=== PATIENT | male | born 1945 | race Caucasian/White ===

== ENCOUNTER 2018-08-13 15:02 | Observation (INO) | payer MEDICARE, SELFPAY ==
[2018-08-13] VITALS (7 sets, daily range): BP systolic 124–152; BP diastolic 62–95; PULSE 68–86; RESP 14–20; TEMP 36.4–36.6; O2SAT 92–97; BMI 45.6; BMI 44.5
--- NOTE | 2018-08-13 15:16 | EKG12_ITS ---
Test Reason : ABN PAIN Blood Pressure : / mmHG Vent. Rate : 068 BPM Atrial Rate : 068 BPM P-R Int : 184 ms QRS Dur : 104 ms QT Int : 414 ms P-R-T Axes : 048 043 090 degrees QTc Int : 440 ms Normal sinus rhythm Nonspecific ST and T wave abnormality Abnormal ECG Confirmed by JEFFERY MENDES, DWAYNE ([id number]), desk editor JENNIFER PALMA ([id number] on 08/17/2018 5:18:40 PM Referred By: RICHARD Confirmed By:DWAYNE GIL MD
--- NOTE | 2018-08-13 15:16 | CT_ITS ---
STUDY: CT ABDOMEN AND PELVIS WITHOUT CONTRAST REASON FOR EXAM: Male, 72 years old. Epigastric pain. Muscular dystrophy. RADIATION DOSAGE (If Supplied By Facility): CTDIvol = ( 34.26 ) mGy, DLP = ( 1962.23 ) mGycm TECHNIQUE: Transaxial images were obtained from the dome of the diaphragm to the symphysis pubis without oral contrast, and without intravenous contrast. Sagittal and coronal images were reconstructed. Individualized dose optimization techniques were used for this CT. COMPARISON: None. FINDINGS: The visualized lung bases are unremarkable. The visualized portions of the heart are within normal limits. Normal liver. There are multiple gallstones. Normal spleen. Normal pancreas. Normal bilateral adrenal glands. No acute abnormalities of the kidneys. No stones and no hydronephrosis. 1.7 cm exophytic mass of the lower pole of the left kidney, most likely a cyst but further evaluation with ultrasound or contrast CT is recommended. Evaluation of the GI tract is limited by absence of oral contrast. Cannot exclude stomach wall thickening. No dilated loops of bowel or evidence for obstruction. Cannot exclude segmental thickening of the [place] of the small or large bowel. Cannot exclude enteritis or colitis. Moderate diffuse fecal retention. Diverticulosis without definite diverticulitis. Appendix within normal limits. Normal abdominal aorta. Normal inferior vena cava. Normal retroperitoneum. Normal urinary bladder. Marked fatty exstrophy is seen of essentially all the visualized muscles except for the gluteus muscles. There are diffuse degenerative changes of the visualized lumbar spine. Compression fractures of indeterminate age are seen at T12, L1, L2, and L3. CT/Abdomen/Pelvis without Cont IMPRESSION: No definite acute abnormalities are seen. Probable cyst of the lower pole of left kidney, suggest confirmation with noncontrast CT or ultrasound. Electronically Signed: Jaquan Harrington MD at 16:15 EST , Service support ,
--- NOTE | 2018-08-13 15:17 | RAD_ITS ---
STUDY: X-RAY CHEST REASON FOR EXAM: Male, 72 years old. Chest pain. TECHNIQUE: Frontal and lateral views of the chest. COMPARISON: 02/14/2015. FINDINGS: The lungs are clear and expanded. There is no demonstrated pleural abnormality. Normal size heart. Normal mediastinum and joey. Normal visualized pulmonary arteries. Normal visualized aortic arch and descending thoracic aorta. There are diffuse degenerative changes of the visualized thoracic spine. Normal visualized ribs, clavicles, and shoulders. There is no demonstrated abnormality of the visualized soft tissue structures of the upper abdomen. RAD/Chest PA and Lateral IMPRESSION: No acute chest disease. Electronically Signed: Jaquan Harrington MD at 16:10 EST , Service support ,
--- NOTE | 2018-08-13 15:19 | ED.VISSUMM ---
- ER Visit Summary Date of Service: 08/13/18 Chief Complaint: Abdominal pain History of Present Illness: The patient is a 72 M who presents for abdominal pain with onset shortly prior to presentation. Patient was sitting at his computer when he began having a pressure and discomfort in the upper abdomen in the epigastric region that radiated down each side of the abdomen. Afterwards patient had one loose stool. Patient had associated nausea and diaphoresis. His called EMS. Patient states he still has 4 out of 10 discomfort. He received 4 baby aspirin and 1 nitro by EMS due to the lower chest/upper abdominal area of his pain and finding him diaphoretic on initial evaluation. Patient states he had some improvement after the nitro. Denies shortness of breath, URI symptoms, urinary symptoms, any radiation to the back or arms, or headache. Patient has history of hypertension, atrial fibrillation on Eliquis, aortic aneurysm and muscular dystrophy, with bilateral lower extremity splints and uses a wheelchair. Physical Examination: Vital signs: afebrile, hemodynamically stable, no hypoxia on room air BMI of 45 General: well nourished, well developed, sitting in bed in no distress Skin: warm, dry, no rash, no pallor, no diaphoresis HEENT: normocephalic and atraumatic; PERRL, EOMI, moist mucous membranes Cardiovascular: regular rate and rhythm without murmurs, trace symmetric peripheral edema with strong compression stockings in place bilaterally, radial pulses are 2+ and symmetric Respiratory: No increased work of breathing, lungs are clear to auscultation bilaterally, no rales, rhonchi or wheezing Abdominal: Abdomen is soft, tender in the right mid abdomen with hyperactive bowel sounds, no right upper quadrant or right lower quadrant tenderness, no left-sided tenderness, no epigastric tenderness, no guarding or rebound, no masses MSK: Moves all extremities, no deformities, braces in place bilateral lower extremities Neuro: Awake and alert, oriented ?4. No facial droop, sensation and motor function intact and symmetric Test Results: Abnormal Lab Results 08/13/18 08/13/18 08/13/18 15:10 15:10 15:10 WBC 12.1 H RBC 5.07 Hgb 14.0 Hct 44.4 MCV 87.6 MCH 27.6 MCHC 31.5 L RDW 16.3 H RDW Differential 51.7 H Plt Count 226 MPV 10.8 Immature Gran % (Auto) 0.700 Neut % (Auto) 73.5 H Lymph % (Auto) 15.4 L [place] % (Auto) 6.6 Eos % (Auto) 3.2 Baso % (Auto) 0.6 Absolute Neuts (auto) 8.9 H Absolute Lymphs (auto) 1.86 Total Counted Not Reportable PT 14.2 INR 1.1 APTT 33.6 Sodium 142 Potassium 4.3 Chloride 104 Carbon Dioxide 28.0 Anion Gap 10 BUN 17 Creatinine 0.62 L Estim Creat Clear Calc 66.50 Est GFR (MDRD) Af Amer 163 Est GFR (MDRD) Non-Af 135 BUN/Creatinine Ratio 27.2 H Glucose 130 H Lactic Acid Calcium 8.6 Total Bilirubin 0.50 AST 79 H ALT 105 H Alkaline Phosphatase 122 H Troponin I < 0.015 Total Protein 7.3 Albumin 3.2 Globulin 4.1 Albumin/Globulin Ratio 0.8 L Lipase 64 L Urine Color Urine Clarity Urine pH Ur Specific [place] Urine Protein Urine Glucose (UA) Urine Ketones Urine Occult Blood Urine Nitrite Urine Bilirubin Urine Urobilinogen Ur Leukocyte Esterase Urine RBC Urine WBC Ur Squamous Epith Cells Urine Bacteria Urine Mucus 08/13/18 08/13/18 15:37 18:50 WBC RBC Hgb Hct MCV MCH MCHC RDW RDW Differential Plt Count MPV Immature Gran % (Auto) Neut % (Auto) Lymph % (Auto) [place] % (Auto) Eos % (Auto) Baso % (Auto) Absolute Neuts (auto) Absolute Lymphs (auto) Total Counted PT INR APTT Sodium Potassium Chloride Carbon Dioxide Anion Gap BUN Creatinine Estim Creat Clear Calc Est GFR (MDRD) Af Amer Est GFR (MDRD) Non-Af BUN/Creatinine Ratio Glucose Lactic Acid 1.5 Calcium Total Bilirubin AST ALT Alkaline Phosphatase Troponin I Total Protein Albumin Globulin Albumin/Globulin Ratio Lipase Urine Color Yellow Urine Clarity Clear Urine pH 8.0 Ur Specific [place] 1.010 Urine Protein Negative Urine Glucose (UA) Normal Urine Ketones Negative Urine Occult Blood Negative Urine Nitrite Negative Urine Bilirubin Negative Urine Urobilinogen Normal Ur Leukocyte Esterase Negative Urine RBC 0 SEEN Urine WBC 0 SEEN Ur Squamous Epith Cells 0 SEEN Urine Bacteria 0 SEEN Urine Mucus 0 SEEN Clinical Impression(s) from Imaging Studies Abdomen/Pelvis CT 08/13/18 15:16 IMPRESSION: No definite acute abnormalities are seen. Probable cyst of the lower pole of left kidney, suggest confirmation with noncontrast CT or ultrasound. Electronically Signed: Jaquan Harrington MD at 16:15 EST , Service support , Chest X-Ray 08/13/18 15:17 IMPRESSION: No acute chest disease. Electronically Signed: Jaquan Harrington MD at 16:10 EST , Service support , Abdomen/Pelvis CTA 08/13/18 17:15 IMPRESSION: No actual aneurysm. Elongation, ectasia, and calcification of the abdominal aorta. No acute abnormality or change since earlier today. Electronically Signed: Jaquan Harrington MD at 18:18 EST , Service support , Chest CTA 08/13/18 17:15 IMPRESSION: No evidence for PE. Moderate to severe centrilobular emphysema. Electronically Signed: Jaquan Harrington MD at 18:12 EST , Service support , Medications Given Sodium Chloride () 1,000 mls @ 125 mls/hr IV .Q8H HI Last Admin: 08/13/18 17:52 Dose: Not Given Admin: 08/13/18 15:28 Dose: 125 mls/hr Discontinued Medications Fentanyl Citrate (Sublimaze (100mcg Ampule)) 50 mcg IV X1 ONE Stop: 08/13/18 15:17 Last Admin: 08/13/18 15:28 Dose: 50 mcg Sodium Chloride () 1,000 mls @ 999 mls/hr IV .Q1H1M ONE Stop: 08/13/18 18:16 Last Admin: 08/13/18 17:52 Dose: 999 mls/hr Ondansetron HCl (Zofran) 4 mg IV X1 ONE Stop: 08/13/18 15:17 Last Admin: 08/13/18 15:28 Dose: 4 mg Emergency Department Course and Treatment: Patient presents with complaint of upper abdominal pain, equivocally lower chest vs. upper abdomen, with no radiation other than inferiorly down both sides of the abdomen. Patient had associated diaphoresis, nausea and lightheadedness followed by a loose stool, and currently is complaining of pressure. Does have history of a thoracic aortic aneurysm, however his description of symptoms is not typical for dissection or ruptured aneurysm. Chest pain workup and abdominal workup were included, with possible vascular issue on the differential. Patient received aspirin pre-hospital and one nitro with questionable improvement. Allergy to codeine, so given fentanyl for pain. EKG showed a sinus rhythm with no ischemic changes or ectopy. Troponin negative. Mild leukocytosis of 12.1. No electrolyte derangements or hepatic derangements. Urine negative for infection. Troponin negative. Lactate within normal limits. CT flank showed no acute process to explain patient's discomfort. A chest x-ray showed no abnormalities either. Because patient does have the reported history of thoracic aortic aneurysm, CTA of the chest abdomen and pelvis was performed to rule out dissection or leaking aneurysm. It showed no dissection, no PE and no aneurysm. Patient will be admitted for chest pain rule out, as acute coronary syndrome is still on the differential. Patient was pain-free at the time of reevaluation. He was discussed with the hospitalist and admitted for further chest pain rule out. Treatment Plan: [] Disposition: [] Impression: Chest pain, epigastric pain, concern for acute coronary syndrome This note was generated with [employer] dictation software. It may contain incorrect words, spelling, and punctuation that were not noted in review of the chart prior to signing ED Disposition - Plan for ED Patient: Disposition: Acute Care Hospital [facility]
--- NOTE | 2018-08-13 15:22 | ED.DCSUM_ITS ---
- ER Visit Summary Date of Service: 08/13/18 Chief Complaint: Abdominal pain History of Present Illness: The patient is a 72 M who presents for abdominal pain with onset shortly prior to presentation. Patient was sitting at his computer when he began having a pressure and discomfort in the upper abdomen in the epigastric region that radiated down each side of the abdomen. Afterwards patient had one loose stool. Patient had associated nausea and diaphoresis. His called EMS. Patient states he still has 4 out of 10 discomfort. He received 4 baby aspirin and 1 nitro by EMS due to the lower chest/upper abdominal area of his pain and finding him diaphoretic on initial evaluation. Patient states he had some improvement after the nitro. Denies shortness of breath, URI symptoms, urinary symptoms, any radiation to the back or arms, or headache. Patient has history of hypertension, atrial fibrillation on Eliquis, aortic aneurysm and muscular dystrophy, with bilateral lower extremity splints and uses a wheelchair. Physical Examination: Vital signs: afebrile, hemodynamically stable, no hypoxia on room air BMI of 45 General: well nourished, well developed, sitting in bed in no distress Skin: warm, dry, no rash, no pallor, no diaphoresis HEENT: normocephalic and atraumatic; PERRL, EOMI, moist mucous membranes Cardiovascular: regular rate and rhythm without murmurs, trace symmetric peripheral edema with strong compression stockings in place bilaterally, radial pulses are 2+ and symmetric Respiratory: No increased work of breathing, lungs are clear to auscultation bilaterally, no rales, rhonchi or wheezing Abdominal: Abdomen is soft, tender in the right mid abdomen with hyperactive bowel sounds, no right upper quadrant or right lower quadrant tenderness, no left-sided tenderness, no epigastric tenderness, no guarding or rebound, no masses MSK: Moves all extremities, no deformities, braces in place bilateral lower extremities Neuro: Awake and alert, oriented ?4. No facial droop, sensation and motor function intact and symmetric Test Results: Abnormal Lab Results 08/13/18 08/13/18 08/13/18 15:10 15:10 15:10 WBC 12.1 H RBC 5.07 Hgb 14.0 Hct 44.4 MCV 87.6 MCH 27.6 MCHC 31.5 L RDW 16.3 H RDW Differential 51.7 H Plt Count 226 MPV 10.8 Immature Gran % (Auto) 0.700 Neut % (Auto) 73.5 H Lymph % (Auto) 15.4 L [place] % (Auto) 6.6 Eos % (Auto) 3.2 Baso % (Auto) 0.6 Absolute Neuts (auto) 8.9 H Absolute Lymphs (auto) 1.86 Total Counted Not Reportable PT 14.2 INR 1.1 APTT 33.6 Sodium 142 Potassium 4.3 Chloride 104 Carbon Dioxide 28.0 Anion Gap 10 BUN 17 Creatinine 0.62 L Estim Creat Clear Calc 66.50 Est GFR (MDRD) Af Amer 163 Est GFR (MDRD) Non-Af 135 BUN/Creatinine Ratio 27.2 H Glucose 130 H Lactic Acid Calcium 8.6 Total Bilirubin 0.50 AST 79 H ALT 105 H Alkaline Phosphatase 122 H Troponin I < 0.015 Total Protein 7.3 Albumin 3.2 Globulin 4.1 Albumin/Globulin Ratio 0.8 L Lipase 64 L Urine Color Urine Clarity Urine pH Ur Specific [place] Urine Protein Urine Glucose (UA) Urine Ketones Urine Occult Blood Urine Nitrite Urine Bilirubin Urine Urobilinogen Ur Leukocyte Esterase Urine RBC Urine WBC Ur Squamous Epith Cells Urine Bacteria Urine Mucus 08/13/18 08/13/18 15:37 18:50 WBC RBC Hgb Hct MCV MCH MCHC RDW RDW Differential Plt Count MPV Immature Gran % (Auto) Neut % (Auto) Lymph % (Auto) [place] % (Auto) Eos % (Auto) Baso % (Auto) Absolute Neuts (auto) Absolute Lymphs (auto) Total Counted PT INR APTT Sodium Potassium Chloride Carbon Dioxide Anion Gap BUN Creatinine Estim Creat Clear Calc Est GFR (MDRD) Af Amer Est GFR (MDRD) Non-Af BUN/Creatinine Ratio Glucose Lactic Acid 1.5 Calcium Total Bilirubin AST ALT Alkaline Phosphatase Troponin I Total Protein Albumin Globulin Albumin/Globulin Ratio Lipase Urine Color Yellow Urine Clarity Clear Urine pH 8.0 Ur Specific [place] 1.010 Urine Protein Negative Urine Glucose (UA) Normal Urine Ketones Negative Urine Occult Blood Negative Urine Nitrite Negative Urine Bilirubin Negative Urine Urobilinogen Normal Ur Leukocyte Esterase Negative Urine RBC 0 SEEN Urine WBC 0 SEEN Ur Squamous Epith Cells 0 SEEN Urine Bacteria 0 SEEN Urine Mucus 0 SEEN Clinical Impression(s) from Imaging Studies Abdomen/Pelvis CT 08/13/18 15:16 IMPRESSION: No definite acute abnormalities are seen. Probable cyst of the lower pole of left kidney, suggest confirmation with noncontrast CT or ultrasound. Electronically Signed: Jaquan Harrington MD at 16:15 EST , Service support , Chest X-Ray 08/13/18 15:17 IMPRESSION: No acute chest disease. Electronically Signed: Jaquan Harringtno MD at 16:10 EST , Service support , Abdomen/Pelvis CTA 08/13/18 17:15 IMPRESSION: No actual aneurysm. Elongation, ectasia, and calcification of the abdominal aorta. No acute abnormality or change since earlier today. Electronically Signed: Jaquan Harrington MD at 18:18 EST , Service support , Chest CTA 08/13/18 17:15 IMPRESSION: No evidence for PE. Moderate to severe centrilobular emphysema. Electronically Signed: Jaquan Harrington MD at 18:12 EST , Service support , Medications Given Sodium Chloride () 1,000 mls @ 125 mls/hr IV .Q8H HI Last Admin: 08/13/18 17:52 Dose: Not Given Admin: 08/13/18 15:28 Dose: 125 mls/hr Discontinued Medications Fentanyl Citrate (Sublimaze (100mcg Ampule)) 50 mcg IV X1 ONE Stop: 08/13/18 15:17 Last Admin: 08/13/18 15:28 Dose: 50 mcg Sodium Chloride () 1,000 mls @ 999 mls/hr IV .Q1H1M ONE Stop: 08/13/18 18:16 Last Admin: 08/13/18 17:52 Dose: 999 mls/hr Ondansetron HCl (Zofran) 4 mg IV X1 ONE Stop: 08/13/18 15:17 Last Admin: 08/13/18 15:28 Dose: 4 mg Emergency Department Course and Treatment: Patient presents with complaint of upper abdominal pain, equivocally lower chest vs. upper abdomen, with no radiation other than inferiorly down both sides of the abdomen. Patient had associated diaphoresis, nausea and lightheadedness followed by a loose stool, and currently is complaining of pressure. Does have history of a thoracic aortic aneurysm, however his description of symptoms is not typical for dissection or ruptured aneurysm. Chest pain workup and abdominal workup were included, with possible vascular issue on the differential. Patient received aspirin pre-hospital and one nitro with questionable improvement. Allergy to codeine, so given fentanyl for pain. EKG showed a sinus rhythm with no ischemic changes or ectopy. Troponin negative. Mild leukocytosis of 12.1. No electrolyte derangements or hepatic derangements. Urine negative for infection. Troponin negative. Lactate within normal limits. CT flank showed no acute process to explain patient's discomfort. A chest x-ray showed no abnormalities either. Because patient does have the reported history of thoracic aortic aneurysm, CTA of the chest abdomen and pelvis was performed to rule out dissection or leaking aneurysm. It showed no dissection, no PE and no aneurysm. Patient will be admitted for chest pain rule out, as acute coronary syndrome is still on the differential. Patient was pain-free at the time of reevaluation. He was discussed with the hospitalist and admitted for further chest pain rule out. Treatment Plan: [] Disposition: [] Impression: Chest pain, epigastric pain, concern for acute coronary syndrome This note was generated with [employer] dictation software. It may contain incorrect words, spelling, and punctuation that were not noted in review of the chart prior to signing ED Disposition - Plan for ED Patient: Disposition: Acute Care Hospital [facility]
[2018-08-13] MEDS: Ondansetron 4 MG/2 ML Vial IV (15:28)
[2018-08-13] MEDS: 0.9% Normal Saline 1,000 ML 125 ML IV (15:28)
[2018-08-13] MEDS: fentaNYL 100 MCG/2 ML Ampul 50 MCG IV (15:28)
[2018-08-13 15:37] LABS: Absolute Lymphocyte Count 1.86 X10^3/ul (0.83-4.51); Absolute Neutrophil Count 8.9 X10^3/uL (2.0-7.7); Basophil# 0.07 X10^3/uL; Basophil% 0.6 % (0-1); Eosinophil# 0.38 X10^3/uL; Eosinophils% 3.2 % (0-5); Hematocrit 44.4 % (40-54); Lymphocyte # 1.86 X10^3/ul (4.0); Lymphocyte % 15.4 % (19-41); Mean Corp Hgb Conc 31.5 g/gl (32-36); Mean Corpuscular Hgb 27.6 pg (27.0-32.0); Mean Corpuscular Volume 87.6 fL (80-94); Mean Platelet Vol. 10.8 fl (6.2-12.0); Monocyte% 6.6 % (0-10); Neutrophil # 8.87 X10^3/uL (2.7-7.7); Neutrophil % 73.5 % (47-70); Platelet Count 226 K/mm3 (150-450); RBC Distribution Width CV 16.3 % (11.6-14.6); RBC Distribution Width SD 51.7 fl (35.1-43.9); Red Blood Count 5.07 M/mm3 (4.6-6.2); White Blood Count 12.1 K/mm3 (4.4-11.0)
[2018-08-13 15:41] LABS: POSITIVE COUNT NO; POSITIVE DIFFERENTIAL NO; POSITIVE MORPHOLOGY NO
[2018-08-13 15:44] LABS: International Normalized Ratio 1.1; Prothrombin Time (Protime)PT. 14.2 SECONDS (11.7-14.9)
[2018-08-13 15:45] LABS: Partial Thromboplast Time 33.6 Seconds (24.1-36.2)
[2018-08-13 15:51] LABS: ALB/GLOB Ratio 0.8 RATIO (0.9-2.4); AST(SGOT) 79 U/L (15-37); Alanine Aminotransfer ALT/SGPT 105 U/L (16-61); Albumin, Serum 3.2 g/dL (3.2-5.0); Alkaline Phosphatase 122 U/L (45-117); Anion Gap 10 (5-15); BUN 17 mg/dL (7-18); BUN/Creat Ratio 27.2 RATIO (10-20); Calcium,Total 8.6 mg/dL (8.5-10.1); Chloride 104 mmol/L (98-107); Creatinine, Serum 0.62 mg/dL (0.70-1.30); EST Glomerular Filtration Rate 135 mL/min (>60); Est Glom Filt Rate - Afr Amer 163 mL/min (>60); Globulin 4.1 g/dL (2.2-4.2); Glucose 130 mg/dL (74-106); Lipase 64 U/L (73-393); Potassium 4.3 mmol/L (3.5-5.1); Protein, Total 7.3 g/dL (6.4-8.2); Sodium Level 142 mmol/L (136-145)
[2018-08-13 16:16] LABS: Lactic Acid 1.5 mmol/L (0.4-2.0)
--- NOTE | 2018-08-13 17:15 | CT_ITS ---
STUDY: CTA CHEST REASON FOR EXAM: Male, 72 years old. Abdominal pain. RADIATION DOSAGE (If Supplied By Facility): CTDIvol = ( 18.91 ) mGy, DLP = ( 1484.55 ) mGycm TECHNIQUE: The examination was performed with the intravenous administration of Isovue 370 100ML IV. Post-processing of the angiographic images was performed, with multiplanar reformation and 3D reconstruction. Individualized dose optimization techniques were used for this CT. COMPARISON: None. FINDINGS: Normal enhancement of the main pulmonary artery and right and left pulmonary arteries. Normal enhancement of the bilateral peripheral pulmonary arteries. There is no demonstrated pulmonary embolism. Normal thoracic aorta and visualized great vessels. There is no demonstrated aortic dissection. Normal heart and pericardium. Normal mediastinum. Normal hilar regions. Normal visualized trachea and bronchi. The lungs are hyper expanded, with flattening of the hemidiaphragms. There is evidence for moderate to severe diffuse centrilobular emphysema. No focal infiltrates or effusions. Normal chest wall structures. There are degenerative changes of thoracic spine. Severe diffuse fatty atrophy of all the visualized muscles is seen. CT/CTA Chest W/WO Contrast IMPRESSION: No evidence for PE. Moderate to severe centrilobular emphysema. Electronically Signed: Jaquan Harrington MD at 18:12 EST , Service support ,
--- NOTE | 2018-08-13 17:15 | CT_ITS ---
Exam: CT of the abdomen and pelvis with contrast, CTA of the abdomen and pelvis, with 2-D MIPs reconstructions. HISTORY: ABD PAIN, ? ANEURYSM, HX-HTN, A-FIB, MUSCULAR DYSTROPHY COMPARISON: CT of the abdomen and pelvis from earlier the same day. FINDINGS: Aorta is tortuous and elongated. There is calcified plaque of the aorta. There is ectasia of the infrarenal aorta with a diameter as much as 2.8 cm, but no true aneurysm. No dissection. No other changes or abnormalities since the CT of the abdomen from earlier today. Please see that report also. CT/CT ANGIO ABD&PEL W/O&W/DYE IMPRESSION: No actual aneurysm. Elongation, ectasia, and calcification of the abdominal aorta. No acute abnormality or change since earlier today. Electronically Signed: Jaquan Harrington MD at 18:18 EST , Service support ,
[2018-08-13] MEDS: 0.9% Normal Saline 1,000 ML 999 ML IV (17:52)
[2018-08-13 18:56] LABS: Bacteria 0 SEEN /hpf (None Seen); Mucous, Urine 0 SEEN /hpf (<or=2+); Red Blood Cells-Urine 0 SEEN /hpf (0-5); Squamous Epithelial Cells - UA 0 SEEN /hpf (0-5); White Blood Cells 0 SEEN /hpf (0-5)
[2018-08-13 18:57] LABS: Color, Urine Yellow (Yellow); Glucose, Dipstick Normal (Normal); Ketone-Dipstick Negative (Negative); Leukocyte Esterase-Dipstick Negative /ul (Negative); Nitrite-Dipstick Negative (Negative); Occult Blood-Urine Negative /ul (Negative); Protein-Dipstick Negative (Negative); Urine Bilirubin Dipstick Negative (Negative); Urine Clarity Clear (Clear); Urine Urobilinogen Normal (Normal)
--- NOTE | 2018-08-13 18:59 | PCM.HP.STD ---
<Velasquez Rollins - Last Filed: 08/13/18 18:59> Problem List (1) Chest pain Status: Acute (2) Atrial fibrillation Status: Chronic (3) Depression Status: Chronic (4) Hyperlipidemia Status: Chronic (5) Hypertension Status: Chronic (6) Muscular dystrophy Status: Chronic History of Present Illness Date of Admission: 08/13/18 Chief Complaint: chest pain The patient is a 72 year old M with pmhx of muscular dystrophy, paroxysmal afib, HLD, HTN, aortic aneurysm who presented to the ER with c/o chest pain. This began today at approximately 2pm. He was sitting at a computer and suddenly felt a midsternal/midepigastric chest pain that he described as a squeezing crushing pain. He had associated nausea, lightheadedness, and sweating. He was concerned that he might need to have a bowel movement, he went to the bathroom, had a small bowel movement, and had mild relief. He walked into another room and sat down and the chest pain came back more severe. He called the squad and was brought to the emergency room. He denies history of coronary disease. His last stress test was 2 years ago and which was negative. He does have a history of atrial fibrillation for which he takes Eliquis. He is currently in sinus rhythm. In the emergency room there is concern for his previously known aneurysm so a CTA of the chest and abdomen were obtained which did not show aneurysm, or PE. [] Past Medical History Past Medical History (Chronic Problems): Chronic Problems Atrial fibrillation (Chronic) Muscular dystrophy (Chronic) Hypertension (Chronic) Hyperlipidemia (Chronic) Depression (Chronic) Allergies codeine Adverse Reaction (Verified 08/13/18 15:08) Other Home Medications: Ambulatory Orders Medication Instructions Recorded Aspirin [Adult Low Dose Aspirin EC] 81 mg PO DAILY 05/26/15 Citalopram [Celexa] 20 mg PO DAILY 05/26/15 Multivitamins,Therapeutic 1 tablet PO DAILY 05/26/15 [Multivitamin] Apixaban [Eliquis] 5 mg PO BID 09/27/16 Furosemide [Lasix] 20 mg PO BIDLX 09/27/16 Lisinopril [Zestril] 40 mg PO DAILY 09/27/16 Atorvastatin Calcium [Lipitor] 20 mg PO QHS 08/13/18 Cholecalciferol (VIT D3) [Vitamin 1,000 unit PO DAILY 08/13/18 D] Diltiazem HCl [Diltiazem 24Hr ER] 240 mg PO DAILY 08/13/18 Surgical History: herniorrhaphy Psychiatric History: Depression Lives: Spouse/ Significant Other Smoking Status: Former smoker Tobacco Use: Non-smoker Alcohol: None Drugs: None - *Family History Paternal History Items: Cancer - Renal, Heart Disease Sibling History Items: Diabetes Review of Systems Constitutional: Denies: Chills, Fever, Weight Change HEENT: Denies: Head Aches, Sinus Congestion, Sinus Drainage Cardiovascular: Reports: Chest Pain, Chest Pressure, Light Headedness. Denies: Edema, Heaviness, Orthopnea, Palpitations, Paroxysmal Noc. Dyspnea, Syncope Respiratory: Denies: Cough, Shortness of breath at rest, Sputum production Gastrointestinal: Reports: Abdominal Pain. Denies: Nausea, Vomiting Genitourinary: Denies: Dysuria Musculoskeletal: Denies: Joint Pain, Joint Tenderness Skin: Denies: Rash, Wounds Neurological: Denies: Numbness, Tingling, Focal weakness Psychiatric: Denies: Anxiety, Depression, Homicidal Ideations, Suicidal Ideations Hematologic/ Lymphatic: Denies: Easy Bruising, Easy Bleeding VTE Information - Inpt Only VTE Present on Admission: No VTE Mechan Device Prophylaxis: None VTE Pharm Prophylaxis ordered?: Yes Patient Problems: Active and Suspected Problems Chest pain (Acute) - Physical Exam General: Alert, Oriented x3, Cooperative HEENT: Atraumatic, PERRLA, EOMI, Normocephalic Neck: Supple, No JVD, Negative Carotid Bruits Lungs: Clear to auscultation, Normal air movement Cardiovascular: Regular rate, No murmurs Abdomen: Bowel Sounds Present, Soft, Obese, Tender - RUQ tenderness Extremities: No edema, Capillary Refill Less than 3 Seconds Skin: No rashes, No breakdown Musculoskeletal: No Tenderness to Palpation of Joints or Extremities Neurological: Cranial nerves II-XII grossly intact Psych/Mental Status: Normal Affect, Appropriate, Alert and oriented to time, place, person, mood and affect Vital Signs Temp Pulse Resp BP Pulse Ox 97.6 F L 75 20 H 124/62 H 97 08/13/18 15:03 08/13/18 17:47 08/13/18 17:47 08/13/18 17:47 08/13/18 17:47 Oxygen Flow Rate (L/min) 2 Oxygen Delivery Method Nasal Cannula Weight: 299 lb 13.259 oz Body Mass Index (BMI) 45.6 Laboratory Tests Past 24 Hrs 08/13/18 08/13/18 08/13/18 15:10 15:10 15:10 WBC 12.1 H RBC 5.07 Hgb 14.0 Hct 44.4 MCV 87.6 MCH 27.6 MCHC 31.5 L RDW 16.3 H RDW Differential 51.7 H Plt Count 226 MPV 10.8 Immature Gran % (Auto) 0.700 Neut % (Auto) 73.5 H Lymph % (Auto) 15.4 L [place] % (Auto) 6.6 Eos % (Auto) 3.2 Baso % (Auto) 0.6 Absolute Neuts (auto) 8.9 H Absolute Lymphs (auto) 1.86 Total Counted Not Reportable PT 14.2 INR 1.1 APTT 33.6 Sodium 142 Potassium 4.3 Chloride 104 Carbon Dioxide 28.0 Anion Gap 10 BUN 17 Creatinine 0.62 L Estim Creat Clear Calc 66.50 Est GFR (MDRD) Af Amer 163 Est GFR (MDRD) Non-Af 135 BUN/Creatinine Ratio 27.2 H Glucose 130 H Lactic Acid Calcium 8.6 Total Bilirubin 0.50 AST 79 H ALT 105 H Alkaline Phosphatase 122 H Troponin I < 0.015 Total Protein 7.3 Albumin 3.2 Globulin 4.1 Albumin/Globulin Ratio 0.8 L Lipase 64 L Urine Color Urine Clarity Urine pH Ur Specific Verner Urine Protein Urine Glucose (UA) Urine Ketones Urine Occult Blood Urine Nitrite Urine Bilirubin Urine Urobilinogen Ur Leukocyte Esterase Urine RBC Urine WBC Ur Squamous Epith Cells Urine Bacteria Urine Mucus 08/13/18 08/13/18 15:37 18:50 WBC RBC Hgb Hct MCV MCH MCHC RDW RDW Differential Plt Count MPV Immature Gran % (Auto) Neut % (Auto) Lymph % (Auto) [place] % (Auto) Eos % (Auto) Baso % (Auto) Absolute Neuts (auto) Absolute Lymphs (auto) Total Counted PT INR APTT Sodium Potassium Chloride Carbon Dioxide Anion Gap BUN Creatinine Estim Creat Clear Calc Est GFR (MDRD) Af Amer Est GFR (MDRD) Non-Af BUN/Creatinine Ratio Glucose Lactic Acid 1.5 Calcium Total Bilirubin AST ALT Alkaline Phosphatase Troponin I Total Protein Albumin Globulin Albumin/Globulin Ratio Lipase Urine Color Yellow Urine Clarity Clear Urine pH 8.0 Ur Specific [place] 1.010 Urine Protein Negative Urine Glucose (UA) Normal Urine Ketones Negative Urine Occult Blood Negative Urine Nitrite Negative Urine Bilirubin Negative Urine Urobilinogen Normal Ur Leukocyte Esterase Negative Urine RBC Pending Urine WBC Pending Ur Squamous Epith Cells Pending Urine Bacteria Pending Urine Mucus Pending Assessment/Plan All Active Problems Chest pain (Acute) Lower GI bleed (Acute) 1. Chest pain - trop neg, EKG NSR with nonspecific t wave changes, CTA chest / abdomen without aneurysm, no PE. Mild leukocytosis. Admit to PCU on tele. cycle enzymes. IV fluids. Pain may be epigastric abdominal pain. He did have RUQ tenderness on exam. He will receive IV fluids. Abnormal LFTs. Consider RUQ U/S. T bili neg, lipase neg. Other risk factors include morbid obesity, prior smoker, + family hx. 2. HTN - stable 3. Paroxysmal Afib - currently NSR. Eliquis. Cardizem 4. HLD - on lipitor 5. Hx muscular dystrophy 6. Depression - celexa. DVT ppx: Lovenox This patient was seen by Velasquez Rollins PA-C under the supervision of Doctor Janiya. <Rene Denson F - Last Filed: 08/13/18 19:35> History of Present Illness The patient is a 72 year old M [] Past Medical History Allergies codeine Adverse Reaction (Verified 08/13/18 19:09) made me do crazy things - Physical Exam Vital Signs Temp Pulse Resp BP Pulse Ox 97.6 F L 75 18 130/75 H 97 08/13/18 15:03 08/13/18 19:00 08/13/18 19:00 08/13/18 19:00 08/13/18 19:00 Oxygen Flow Rate (L/min) 2 Oxygen Delivery Method Room Air Weight: 299 lb 13.259 oz Body Mass Index (BMI) 45.6 Laboratory Tests Past 24 Hrs 08/13/18 08/13/18 08/13/18 15:10 15:10 15:10 WBC 12.1 H RBC 5.07 Hgb 14.0 Hct 44.4 MCV 87.6 MCH 27.6 MCHC 31.5 L RDW 16.3 H RDW Differential 51.7 H Plt Count 226 MPV 10.8 Immature Gran % (Auto) 0.700 Neut % (Auto) 73.5 H Lymph % (Auto) 15.4 L [place] % (Auto) 6.6 Eos % (Auto) 3.2 Baso % (Auto) 0.6 Absolute Neuts (auto) 8.9 H Absolute Lymphs (auto) 1.86 Total Counted Not Reportable PT 14.2 INR 1.1 APTT 33.6 Sodium 142 Potassium 4.3 Chloride 104 Carbon Dioxide 28.0 Anion Gap 10 BUN 17 Creatinine 0.62 L Estim Creat Clear Calc 66.50 Est GFR (MDRD) Af Amer 163 Est GFR (MDRD) Non-Af 135 BUN/Creatinine Ratio 27.2 H Glucose 130 H Lactic Acid Calcium 8.6 Total Bilirubin 0.50 AST 79 H ALT 105 H Alkaline Phosphatase 122 H Troponin I < 0.015 Total Protein 7.3 Albumin 3.2 Globulin 4.1 Albumin/Globulin Ratio 0.8 L Lipase 64 L Urine Color Urine Clarity Urine pH Ur Specific Verner Urine Protein Urine Glucose (UA) Urine Ketones Urine Occult Blood Urine Nitrite Urine Bilirubin Urine Urobilinogen Ur Leukocyte Esterase Urine RBC Urine WBC Ur Squamous Epith Cells Urine Bacteria Urine Mucus 08/13/18 08/13/18 15:37 18:50 WBC RBC Hgb Hct MCV MCH MCHC RDW RDW Differential Plt Count MPV Immature Gran % (Auto) Neut % (Auto) Lymph % (Auto) [place] % (Auto) Eos % (Auto) Baso % (Auto) Absolute Neuts (auto) Absolute Lymphs (auto) Total Counted PT INR APTT Sodium Potassium Chloride Carbon Dioxide Anion Gap BUN Creatinine Estim Creat Clear Calc Est GFR (MDRD) Af Amer Est GFR (MDRD) Non-Af BUN/Creatinine Ratio Glucose Lactic Acid 1.5 Calcium Total Bilirubin AST ALT Alkaline Phosphatase Troponin I Total Protein Albumin Globulin Albumin/Globulin Ratio Lipase Urine Color Yellow Urine Clarity Clear Urine pH 8.0 Ur Specific [place] 1.010 Urine Protein Negative Urine Glucose (UA) Normal Urine Ketones Negative Urine Occult Blood Negative Urine Nitrite Negative Urine Bilirubin Negative Urine Urobilinogen Normal Ur Leukocyte Esterase Negative Urine RBC 0 SEEN Urine WBC 0 SEEN Ur Squamous Epith Cells 0 SEEN Urine Bacteria 0 SEEN Urine Mucus 0 SEEN Code Visit Addendum: Dr. Janiya Roger personally examined the patient and reviewed the chart. I agree with the above. 72-year-old male with a history of A. fib, and a lower GI bleed secondary to hemorrhoids as well as muscular dystrophy that he is in a wheelchair and lower extremity splints for, presents with upper abdominal pain lower chest pain. He denies any shortness of breath, lightheadedness or dizziness with this episode though he did have nausea and a small episode of diarrhea. The bowel movement did help relieve a little bit of the discomfort. He states that his pain is down the sides of his abdomen and does not radiate up into his chest or into his back or down his left arm. He is morbidly obese and a former smoker and takes medications for blood pressure and cholesterol, therefore he does have risk factors for 4 ACS. Will trend troponins however on review of the CT abdomen the common bile duct did seem mildly enlarged on my read and he did have tenderness to palpation in his right upper quadrant therefore will also obtain a right upper quadrant ultrasound. He will be made n.p.o. after midnight so if the ultrasound is negative for acute cholecystitis then a stress test could be obtained tomorrow. OBSV E&M: [id number] Initial observation care L3
--- NOTE | 2018-08-13 20:31 | EKG12_ITS ---
Test Reason : CP Blood Pressure : / mmHG Vent. Rate : 070 BPM Atrial Rate : 070 BPM P-R Int : 190 ms QRS Dur : 102 ms QT Int : 412 ms P-R-T Axes : 035 044 099 degrees QTc Int : 444 ms Normal sinus rhythm Nonspecific ST and T wave abnormality Abnormal ECG Confirmed by JEFFERY MENDES, DWAYNE ([id number]), assignment desk editor JENNIFER PALMA ([id number]) on 08/19/2018 11:00:30 AM Referred By: Confirmed By:DWAYNE GIL MD
[2018-08-14] VITALS (11 sets, daily range): BP systolic 125–147; BP diastolic 71–80; PULSE 64–87; RESP 16–18; TEMP 36.4–36.7; O2SAT 93–97
[2018-08-14] MEDS: 0.9% Normal Saline 1,000 ML 100 ML IV ×2 (00:29→11:39)
[2018-08-14] MEDS: Atorvastatin Calcium 20 MG Tablet PO (00:29)
[2018-08-14] MEDS: APIXABAN 5 MG TABLET PO ×2 (00:29→15:31)
[2018-08-14 03:27] LABS: Absolute Lymphocyte Count 1.42 X10^3/ul (0.83-4.51); Absolute Neutrophil Count 5.4 X10^3/uL (2.0-7.7); Basophil# 0.06 X10^3/uL; Basophil% 0.7 % (0-1); Eosinophil# 0.31 X10^3/uL; Eosinophils% 3.7 % (0-5); Hemoglobin 13.3 g/dl (13.0-16.5); Lymphocyte # 1.42 X10^3/ul (4.0); Lymphocyte % 17.1 % (19-41); Mean Corp Hgb Conc 30.9 g/gl (32-36); Mean Corpuscular Hgb 27.7 pg (27.0-32.0); Mean Corpuscular Volume 89.4 fL (80-94); Mean Platelet Vol. 10.6 fl (6.2-12.0); Monocyte# 1.07 X10^3/uL; Monocyte% 12.9 % (0-10); Neutrophil # 5.41 X10^3/uL (2.7-7.7); Neutrophil % 65.2 % (47-70); Platelet Count 211 K/mm3 (150-450); RBC Distribution Width CV 16.4 % (11.6-14.6); Red Blood Count 4.81 M/mm3 (4.6-6.2); White Blood Count 8.3 K/mm3 (4.4-11.0)
[2018-08-14 03:34] LABS: POSITIVE COUNT NO; POSITIVE DIFFERENTIAL NO; POSITIVE MORPHOLOGY NO
[2018-08-14 03:48] LABS: Anion Gap 9 (5-15); BUN 13 mg/dL (7-18); Calcium,Total 8.2 mg/dL (8.5-10.1); Chloride 105 mmol/L (98-107); Creatinine, Serum 0.42 mg/dL (0.70-1.30); EST Glomerular Filtration Rate 213 mL/min (>60); Est Glom Filt Rate - Afr Amer 258 mL/min (>60); Glucose 95 mg/dL (74-106); Potassium 3.7 mmol/L (3.5-5.1); Sodium Level 141 mmol/L (136-145)
--- NOTE | 2018-08-14 05:55 | US_ITS ---
STUDY: ABDOMINAL ULTRASOUND - RIGHT UPPER QUADRANT REASON FOR VISIT: Male, 72 years old. 2 day history of right upper quadrant pain. TECHNIQUE: Ultrasound evaluation of the right upper quadrant was performed with real-time and static johnson-scale imaging. TECHNICAL QUALITY: Adequate. COMPARISON: None. FINDINGS: Liver: The liver is enlarged and measures 20.0 cm. There is increased echogenicity consistent with fatty infiltration. The bile ducts are within normal limits. There is hepatic color flow. The direction of portal flow is hepatopetal. There is no demonstrated mass lesion. Gallbladder: Normal distended gallbladder. The gallbladder wall measures 2.6 mm. There is a negative sonographic Thomas's sign. There is no pericholecystic fluid. There are multiple echogenic structures within the gallbladder, consistent with multiple gallstones. Sludge is seen within the gallbladder lumen. Common Bile Duct (C.B.D.): The common bile duct measures 5.2 mm. Pancreas: Normal size of the head, body and tail of the pancreas. There is increased echogenicity of the pancreas. There is no demonstrated pancreatic mass or cyst. Right Kidney: Normal size of the right kidney. The right kidney measures 11.4 cm x 5.5 cm x 5.4 cm. Normal renal cortex. The right cortex measures 1.3 cm. There is no demonstrated renal mass or cyst. There is no right hydronephrosis. US/Gallbladder IMPRESSION: Hepatomegaly and fatty infiltration of the liver. Multiple gallstones. Sludge within the gallbladder lumen. Electronically Signed: Kale Bourgeois MD at 13:11 EST , Service support ,
--- NOTE | 2018-08-14 11:21 | CHAPLAIN ---
Type of Pastoral Visit _x__ Initial Visit ___ Follow-up Visit ___ On-call Visit ___ General Patient Visit ___ Spiritual Assessment ___ Family Conference ___ Bereavement ___ Rapid Response ___ Code Blue ___ Other (describe below) Pastoral Care Referral From _x__ Patient ___ Family ___ Nurse ___ Physician ___ Social Media Director ___ Genetics Physician ___ Other (describe below) Sacrament/Intervention _x__ Active listening ___ Anointing ___ Baptist ___ Bereavement ___ Communion ___ Odalys exploration ___ ___ Life review _x__ Prayer ___ Reconciliation ___ Sacrament of Sick ___ Supportive presence ___ Wedding ___ Other (describe below) Pastoral Comments contacted the caodaism of patient as requested
[2018-08-14 13:33] LABS: AST(SGOT) 460 U/L (15-37); Alanine Aminotransfer ALT/SGPT 793 U/L (16-61); Albumin, Serum 3.1 g/dL (3.2-5.0); Alkaline Phosphatase 182 U/L (45-117); Bilirubin, Direct 0.66 mg/dL (0.00-0.30); Globulin 3.7 g/dL (2.2-4.2); Protein, Total 6.8 g/dL (6.4-8.2)
--- NOTE | 2018-08-14 15:28 | CASEMGMT ---
According to the [employer] website, the following are in-network tertiary facilities: [facility], [place], [facility], [facility], and . Alexi LOPEZ CM
[2018-08-14] MEDS: Aspirin E.C. 81 MG Tablet PO (15:31)
[2018-08-14] MEDS: dilTIAZem CD 240 MG Capsule PO (15:31)
[2018-08-14] MEDS: Furosemide 20 MG Tablet PO (15:31)
[2018-08-14] MEDS: Lisinopril 40 MG Tablet PO (15:31)
[2018-08-14] MEDS: Citalopram 20 MG Tablet PO (15:31)
--- NOTE | 2018-08-14 17:20 | PCM.DC.SUM ---
<Velasquez Rollins - Last Filed: 08/14/18 17:25> Discharge Date and Diagnosis Date of Admission: 08/13/18 Date of Discharge: 08/14/18 - Primary Discharge Diagnosis Active and Suspected Problems Abdominal pain, etiology unclear. Concern for choledocholithiasis Hepatomegaly with abnormal LFT Paroxysmal Atrial fib HLD HTN Muscular dystrophy Depression - Secondary Discharge Diagnosis Chronic Problems Atrial fibrillation (Chronic) Muscular dystrophy (Chronic) Hypertension (Chronic) Hyperlipidemia (Chronic) Depression (Chronic) Hospital Course and Treatment Imaging Results: CT/Abdomen/Pelvis without Cont IMPRESSION: No definite acute abnormalities are seen. Probable cyst of the lower pole of left kidney, suggest confirmation with noncontrast CT or ultrasound. RAD/Chest PA and Lateral IMPRESSION: No acute chest disease. CT/CT ANGIO ABD&PEL W/O&W/DYE IMPRESSION: No actual aneurysm. Elongation, ectasia, and calcification of the abdominal aorta. No acute abnormality or change since earlier today. CT/CTA Chest W/WO Contrast IMPRESSION: No evidence for PE. Moderate to severe centrilobular emphysema. US/Gallbladder IMPRESSION: Hepatomegaly and fatty infiltration of the liver. Multiple gallstones. Sludge within the gallbladder lumen. Liver measures 20cm. GB wall 2.6mm Operations: None Procedures: None Summary of Care Provided: Hospital course: The patient is a 72 year old M with past medical history of paroxysmal atrial fibrillation, hypertension, hyperlipidemia, morbid obesity, former smoker, questionable history of aortic aneurysm, who presented to the emergency room with complaints of midepigastric abdominal pain/chest pain. The patient was concerned about his heart as he had a sudden onset of epigastric pain with shortness of breath and nausea. He had no prior coronary disease history. He came to the emergency room he is found to have a negative EKG, negative troponin, and a mildly elevated white blood cell count, and elevated AST, ALT, and alk phos. An abdominal CT note was obtained in the ER which did not show an acute etiology. Patient stated that he thought he might have a history of aortic aneurysm. A CTA of the chest and of the abdomen and pelvis were obtained which did not reveal any aneurysm, also no PE. On exam, the patient had right upper quadrant tenderness to palpation. As there was concern for cardiac etiology versus an abdominal etiology he was admitted to the PCU and placed on telemetry. No events on telemetry overnight. His troponins were negative x3. In the morning he had an abdominal ultrasound-this demonstrated hepatomegaly with liver measuring 20 cm, multiple gallstones, sludge within the gallbladder lumen, gallbladder wall measuring 2.6 mm, common bile duct measuring 5.2 mm. He continued to have right upper quadrant tenderness. His liver enzymes including T bili, ALT, AST, alk phos all increased overnight. General surgery was called - Dr. Kaur. General surgery felt that there may be an underlying gallbladder issue and that the patient may need an ERCP. This procedure is not available at this hospital at this time. General surgery was also concerned that this may be a primary liver issue as the lab changes did not consistently point to a gallbladder only issue. For this general surgery recommended that we consult a arbitrator. We do not have gastroenterology available at this hospital. For reasons of needing gastroenterology, and a possible ERCP, it was felt that this patient would benefit from transfer to a tertiary facility where these would be available. I arranged for the patient to be transferred to [facility] under the care of Dr. Leda Renteria. He was transferred there in stable condition. This patient was seen by Velasquez Rollins PA-C under the supervision of Doctor Howe. [] - Physical Exam General: Alert, Oriented x3, Cooperative HEENT: Atraumatic, PERRLA, EOMI, Normocephalic Neck: Supple, No JVD, Negative Carotid Bruits Lungs: Clear to auscultation, Normal air movement Cardiovascular: Regular rate, No murmurs Abdomen: Bowel Sounds Present, Soft, Obese, Tender - RUQ Extremities: No edema, Capillary Refill Less than 3 Seconds Skin: No rashes, No breakdown Musculoskeletal: No Tenderness to Palpation of Joints or Extremities Neurological: Cranial nerves II-XII grossly intact Psych/Mental Status: Normal Affect, Appropriate Vital Signs Temp Pulse Resp BP Pulse Ox 97.7 F L 74 18 147/80 H 93 08/14/18 13:55 08/14/18 15:50 08/14/18 13:55 08/14/18 13:55 08/14/18 13:55 Oxygen Flow Rate (L/min) 3 Oxygen Delivery Method Room Air Weight: 292 lb 12.382 oz Body Mass Index (BMI) 44.5 Intake and Output for Last 24 Hours 08/12/18 08/13/18 08/14/18 23:59 23:59 23:59 Intake Total 120 / 120 984 / 984 Output Total 450 / 450 950 / 950 Balance -330 / -330 34 / 34 Laboratory Tests Past 24 Hrs 08/13/18 08/13/18 08/13/18 18:50 20:41 23:47 WBC RBC Hgb Hct MCV MCH MCHC RDW RDW Differential Plt Count MPV Immature Gran % (Auto) Neut % (Auto) Lymph % (Auto) [place] % (Auto) Eos % (Auto) Baso % (Auto) Absolute Neuts (auto) Absolute Lymphs (auto) Total Counted Sodium Potassium Chloride Carbon Dioxide Anion Gap BUN Creatinine Estim Creat Clear Calc Est GFR (MDRD) Af Amer Est GFR (MDRD) Non-Af BUN/Creatinine Ratio Glucose Calcium Total Bilirubin Direct Bilirubin AST ALT Alkaline Phosphatase Troponin I < 0.015 < 0.015 Total Protein Albumin Globulin Urine Color Yellow Urine Clarity Clear Urine pH 8.0 Ur Specific [place] 1.010 Urine Protein Negative Urine Glucose (UA) Normal Urine Ketones Negative Urine Occult Blood Negative Urine Nitrite Negative Urine Bilirubin Negative Urine Urobilinogen Normal Ur Leukocyte Esterase Negative Urine RBC 0 SEEN Urine WBC 0 SEEN Ur Squamous Epith Cells 0 SEEN Urine Bacteria 0 SEEN Urine Mucus 0 SEEN 08/14/18 08/14/18 08/14/18 03:14 03:14 03:14 WBC 8.3 RBC 4.81 Hgb 13.3 Hct 43.0 MCV 89.4 MCH 27.7 MCHC 30.9 L RDW 16.4 H RDW Differential 53.0 H Plt Count 211 MPV 10.6 Immature Gran % (Auto) 0.400 Neut % (Auto) 65.2 Lymph % (Auto) 17.1 L [place] % (Auto) 12.9 H Eos % (Auto) 3.7 Baso % (Auto) 0.7 Absolute Neuts (auto) 5.4 Absolute Lymphs (auto) 1.42 Total Counted Not Reportable Sodium 141 Potassium 3.7 Chloride 105 Carbon Dioxide 27.0 Anion Gap 9 BUN 13 Creatinine 0.42 L Estim Creat Clear Calc 66.50 Est GFR (MDRD) Af Amer 258 Est GFR (MDRD) Non-Af 213 BUN/Creatinine Ratio 31.0 H Glucose 95 Calcium 8.2 L Total Bilirubin Direct Bilirubin AST ALT Alkaline Phosphatase Troponin I < 0.015 Total Protein Albumin Globulin Urine Color Urine Clarity Urine pH Ur Specific [place] Urine Protein Urine Glucose (UA) Urine Ketones Urine Occult Blood Urine Nitrite Urine Bilirubin Urine Urobilinogen Ur Leukocyte Esterase Urine RBC Urine WBC Ur Squamous Epith Cells Urine Bacteria Urine Mucus 08/14/18 03:14 WBC RBC Hgb Hct MCV MCH MCHC RDW RDW Differential Plt Count MPV Immature Gran % (Auto) Neut % (Auto) Lymph % (Auto) [place] % (Auto) Eos % (Auto) Baso % (Auto) Absolute Neuts (auto) Absolute Lymphs (auto) Total Counted Sodium Potassium Chloride Carbon Dioxide Anion Gap BUN Creatinine Estim Creat Clear Calc Est GFR (MDRD) Af Amer Est GFR (MDRD) Non-Af BUN/Creatinine Ratio Glucose Calcium Total Bilirubin 1.00 Direct Bilirubin 0.66 H AST 460 H ALT 793 H Alkaline Phosphatase 182 H Troponin I Total Protein 6.8 Albumin 3.1 L Globulin 3.7 Urine Color Urine Clarity Urine pH Ur Specific [place] Urine Protein Urine Glucose (UA) Urine Ketones Urine Occult Blood Urine Nitrite Urine Bilirubin Urine Urobilinogen Ur Leukocyte Esterase Urine RBC Urine WBC Ur Squamous Epith Cells Urine Bacteria Urine Mucus Discharge Diet: - - As directed by receiving facility Discharge Activity: - - As directed by receiving facility Home Medications: Medications to take at Discharge Aspirin [Adult Low Dose Aspirin EC] 81 mg PO DAILY 05/26/15 Citalopram [Celexa] 20 mg PO DAILY 05/26/15 Multivitamins,Therapeutic [Multivitamin] 1 tablet PO DAILY 05/26/15 Apixaban [Eliquis] 5 mg PO BID 09/27/16 Furosemide [Lasix] 20 mg PO BIDLX 09/27/16 Lisinopril [Zestril] 40 mg PO DAILY 09/27/16 Atorvastatin Calcium [Lipitor] 20 mg PO QHS 08/13/18 Cholecalciferol (VIT D3) [Vitamin D] 1,000 unit PO DAILY 08/13/18 Diltiazem HCl [Diltiazem 24Hr ER] 240 mg PO DAILY 08/13/18 Primary Care Physician: Landon Enamorado MD [Primary Care Provider] - Please follow up with your Primary Care Physician in: As directed Disposition: Acute care Hospital Minutes spent on discharge:: 45 Patient Condition:: Stable Medical Necessity - Tobacco Use Smoking Status: Former smoker Tobacco Use: Cigarettes Meaningful Use Info Meaningful Use Diagnoses (Choose all that apply): None applicable <Stefani Howe - Last Filed: 08/15/18 17:49> Discharge Date and Diagnosis - Secondary Discharge Diagnosis Chronic Problems Atrial fibrillation (Chronic) Muscular dystrophy (Chronic) Hypertension (Chronic) Hyperlipidemia (Chronic) Depression (Chronic) Hospital Course and Treatment Summary of Care Provided: This patient was seen in conjunction with IVORY Jain. I have independently interviewed and examined the patient and reviewed pertinent historical, laboratory, and other data. Please refer to IVORY Jain note for his patient's presentation, findings, and recommendations. I have reviewed and his note and concur with his documentation This 72-year-old with multiple comorbidities who presented with mid epigastric abdominal pain treated with shortness of breath and nausea. Patient was seen in the emergency department, EKG was negative, troponins were negative, he had elevation of AST, ALT and alkaline phosphatase. Abdominal CT did not show any acute intra-abdominal pathology. CTA of the chest and abdomen and pelvis was negative for any aneurysm. Patient was admitted to the telemetry bed, troponins were negative. He had an ultrasound of the abdomen that showed hepatomegaly, multiple gallstones with sludge within the gallbladder lumen and the gallbladder wall measuring 2.6 mm, common bile duct measuring 5.2 mm. Patient continued to have some right upper quadrant tenderness. His liver function tests had also progressively increased. General surgery was consulted. Recommended the patient gets an ERCP which was not available in the hospital at the moment and over the weekend. Patient was recommended to be transferred to a tertiary facility for ERCP. The day of discharge, patient was seen and examined in the company of the and quality assurance monitor body. I spent more than 30 minutes discussing the plan of care. All questions were answered. Physical Exam: Gen: Looks in some discomfort, not pale, not jaundiced, obese CVS:HS I +II, regular, no murmurs RESP: Diminished at lung bases GI: BS were present, distended abdomen, obese, right upper quadrant and epigastric tenderness, no rebound tenderness EXT:No edema - Physical Exam Vital Signs Temp Pulse Resp BP Pulse Ox 98.1 F 83 16 132/71 H 93 08/14/18 19:35 02/22/19 19:35 08/14/18 19:35 08/14/18 19:35 08/14/18 19:35 Oxygen Flow Rate (L/min) 3 Oxygen Delivery Method Room Air Weight: 132.8 kg Body Mass Index (BMI) 44.5 Intake and Output for Last 24 Hours 08/13/18 08/14/18 08/15/18 23:59 23:59 23:59 Intake Total 120 / 120 984 / 984 Output Total 450 / 450 950 / 950 Balance -330 / -330 34 / 34 Code Visit Inpatient E&M: [id number] Disch Hosp
--- NOTE | 2018-08-14 17:24 | DS.PCM_ITS ---
<Velasquez Rollins - Last Filed: 08/14/18 17:25> Discharge Date and Diagnosis Date of Admission: 08/13/18 Date of Discharge: 08/14/18 - Primary Discharge Diagnosis Active and Suspected Problems Abdominal pain, etiology unclear. Concern for choledocholithiasis Hepatomegaly with abnormal LFT Paroxysmal Atrial fib HLD HTN Muscular dystrophy Depression - Secondary Discharge Diagnosis Chronic Problems Atrial fibrillation (Chronic) Muscular dystrophy (Chronic) Hypertension (Chronic) Hyperlipidemia (Chronic) Depression (Chronic) Hospital Course and Treatment Imaging Results: CT/Abdomen/Pelvis without Cont IMPRESSION: No definite acute abnormalities are seen. Probable cyst of the lower pole of left kidney, suggest confirmation with noncontrast CT or ultrasound. RAD/Chest PA and Lateral IMPRESSION: No acute chest disease. CT/CT ANGIO ABD&PEL W/O&W/DYE IMPRESSION: No actual aneurysm. Elongation, ectasia, and calcification of the abdominal aorta. No acute abnormality or change since earlier today. CT/CTA Chest W/WO Contrast IMPRESSION: No evidence for PE. Moderate to severe centrilobular emphysema. US/Gallbladder IMPRESSION: Hepatomegaly and fatty infiltration of the liver. Multiple gallstones. Sludge within the gallbladder lumen. Liver measures 20cm. GB wall 2.6mm Operations: None Procedures: None Summary of Care Provided: Hospital course: The patient is a 72 year old M with past medical history of paroxysmal atrial fibrillation, hypertension, hyperlipidemia, morbid obesity, former smoker, questionable history of aortic aneurysm, who presented to the emergency room with complaints of midepigastric abdominal pain/chest pain. The patient was concerned about his heart as he had a sudden onset of epigastric pain with shortness of breath and nausea. He had no prior coronary disease history. He came to the emergency room he is found to have a negative EKG, negative troponin, and a mildly elevated white blood cell count, and elevated AST, ALT, and alk phos. An abdominal CT note was obtained in the ER which did not show an acute etiology. Patient stated that he thought he might have a history of aortic aneurysm. A CTA of the chest and of the abdomen and pelvis were obtained which did not reveal any aneurysm, also no PE. On exam, the patient had right upper quadrant tenderness to palpation. As there was concern for cardiac etiology versus an abdominal etiology he was admitted to the PCU and placed on telemetry. No events on telemetry overnight. His troponins were negative x3. In the morning he had an abdominal ultrasound-this demonstrated hepatomegaly with liver measuring 20 cm, multiple gallstones, sludge within the gallbladder lumen, gallbladder wall measuring 2.6 mm, common bile duct measuring 5.2 mm. He continued to have right upper quadrant tenderness. His liver enzymes including T bili, ALT, AST, alk phos all increased overnight. General surgery was called - Dr. Kaur. General surgery felt that there may be an underlying gallbladder issue and that the patient may need an ERCP. This procedure is not available at this hospital at this time. General surgery was also concerned that this may be a primary liver issue as the lab changes did not consistently point to a gallbladder only issue. For this general surgery recommended that we consult a animal stunner. We do not have gastroenterology available at this hospital. For reasons of needing gastroenterology, and a possible ERCP, it was felt that this patient would benefit from transfer to a tertiary facility where these would be available. I arranged for the patient to be transferred to [facility] under the care of Dr. Leda Renteria. He was transferred there in stable condition. This patient was seen by Velasquez Rollins PA-C under the supervision of Doctor Howe. [] - Physical Exam General: Alert, Oriented x3, Cooperative HEENT: Atraumatic, PERRLA, EOMI, Normocephalic Neck: Supple, No JVD, Negative Carotid Bruits Lungs: Clear to auscultation, Normal air movement Cardiovascular: Regular rate, No murmurs Abdomen: Bowel Sounds Present, Soft, Obese, Tender - RUQ Extremities: No edema, Capillary Refill Less than 3 Seconds Skin: No rashes, No breakdown Musculoskeletal: No Tenderness to Palpation of Joints or Extremities Neurological: Cranial nerves II-XII grossly intact Psych/Mental Status: Normal Affect, Appropriate Vital Signs Temp Pulse Resp BP Pulse Ox 97.7 F L 74 18 147/80 H 93 08/14/18 13:55 08/14/18 15:50 08/14/18 13:55 08/14/18 13:55 08/14/18 13:55 Oxygen Flow Rate (L/min) 3 Oxygen Delivery Method Room Air Weight: 292 lb 12.382 oz Body Mass Index (BMI) 44.5 Intake and Output for Last 24 Hours 08/12/18 08/13/18 08/14/18 23:59 23:59 23:59 Intake Total 120 / 120 984 / 984 Output Total 450 / 450 950 / 950 Balance -330 / -330 34 / 34 Laboratory Tests Past 24 Hrs 08/13/18 08/13/18 08/13/18 18:50 20:41 23:47 WBC RBC Hgb Hct MCV MCH MCHC RDW RDW Differential Plt Count MPV Immature Gran % (Auto) Neut % (Auto) Lymph % (Auto) [place] % (Auto) Eos % (Auto) Baso % (Auto) Absolute Neuts (auto) Absolute Lymphs (auto) Total Counted Sodium Potassium Chloride Carbon Dioxide Anion Gap BUN Creatinine Estim Creat Clear Calc Est GFR (MDRD) Af Amer Est GFR (MDRD) Non-Af BUN/Creatinine Ratio Glucose Calcium Total Bilirubin Direct Bilirubin AST ALT Alkaline Phosphatase Troponin I < 0.015 < 0.015 Total Protein Albumin Globulin Urine Color Yellow Urine Clarity Clear Urine pH 8.0 Ur Specific [place] 1.010 Urine Protein Negative Urine Glucose (UA) Normal Urine Ketones Negative Urine Occult Blood Negative Urine Nitrite Negative Urine Bilirubin Negative Urine Urobilinogen Normal Ur Leukocyte Esterase Negative Urine RBC 0 SEEN Urine WBC 0 SEEN Ur Squamous Epith Cells 0 SEEN Urine Bacteria 0 SEEN Urine Mucus 0 SEEN 08/14/18 08/14/18 08/14/18 03:14 03:14 03:14 WBC 8.3 RBC 4.81 Hgb 13.3 Hct 43.0 MCV 89.4 MCH 27.7 MCHC 30.9 L RDW 16.4 H RDW Differential 53.0 H Plt Count 211 MPV 10.6 Immature Gran % (Auto) 0.400 Neut % (Auto) 65.2 Lymph % (Auto) 17.1 L [place] % (Auto) 12.9 H Eos % (Auto) 3.7 Baso % (Auto) 0.7 Absolute Neuts (auto) 5.4 Absolute Lymphs (auto) 1.42 Total Counted Not Reportable Sodium 141 Potassium 3.7 Chloride 105 Carbon Dioxide 27.0 Anion Gap 9 BUN 13 Creatinine 0.42 L Estim Creat Clear Calc 66.50 Est GFR (MDRD) Af Amer 258 Est GFR (MDRD) Non-Af 213 BUN/Creatinine Ratio 31.0 H Glucose 95 Calcium 8.2 L Total Bilirubin Direct Bilirubin AST ALT Alkaline Phosphatase Troponin I < 0.015 Total Protein Albumin Globulin Urine Color Urine Clarity Urine pH Ur Specific [place] Urine Protein Urine Glucose (UA) Urine Ketones Urine Occult Blood Urine Nitrite Urine Bilirubin Urine Urobilinogen Ur Leukocyte Esterase Urine RBC Urine WBC Ur Squamous Epith Cells Urine Bacteria Urine Mucus 08/14/18 03:14 WBC RBC Hgb Hct MCV MCH MCHC RDW RDW Differential Plt Count MPV Immature Gran % (Auto) Neut % (Auto) Lymph % (Auto) [place] % (Auto) Eos % (Auto) Baso % (Auto) Absolute Neuts (auto) Absolute Lymphs (auto) Total Counted Sodium Potassium Chloride Carbon Dioxide Anion Gap BUN Creatinine Estim Creat Clear Calc Est GFR (MDRD) Af Amer Est GFR (MDRD) Non-Af BUN/Creatinine Ratio Glucose Calcium Total Bilirubin 1.00 Direct Bilirubin 0.66 H AST 460 H ALT 793 H Alkaline Phosphatase 182 H Troponin I Total Protein 6.8 Albumin 3.1 L Globulin 3.7 Urine Color Urine Clarity Urine pH Ur Specific [place] Urine Protein Urine Glucose (UA) Urine Ketones Urine Occult Blood Urine Nitrite Urine Bilirubin Urine Urobilinogen Ur Leukocyte Esterase Urine RBC Urine WBC Ur Squamous Epith Cells Urine Bacteria Urine Mucus Discharge Diet: - - As directed by receiving facility Discharge Activity: - - As directed by receiving facility Home Medications: Medications to take at Discharge Aspirin [Adult Low Dose Aspirin EC] 81 mg PO DAILY 05/26/15 Citalopram [Celexa] 20 mg PO DAILY 05/26/15 Multivitamins,Therapeutic [Multivitamin] 1 tablet PO DAILY 05/26/15 Apixaban [Eliquis] 5 mg PO BID 09/27/16 Furosemide [Lasix] 20 mg PO BIDLX 09/27/16 Lisinopril [Zestril] 40 mg PO DAILY 09/27/16 Atorvastatin Calcium [Lipitor] 20 mg PO QHS 08/13/18 Cholecalciferol (VIT D3) [Vitamin D] 1,000 unit PO DAILY 08/13/18 Diltiazem HCl [Diltiazem 24Hr ER] 240 mg PO DAILY 08/13/18 Primary Care Physician: Landon Enamorado MD [Primary Care Provider] - Please follow up with your Primary Care Physician in: As directed Disposition: Acute care Hospital Minutes spent on discharge:: 45 Patient Condition:: Stable Medical Necessity - Tobacco Use Smoking Status: Former smoker Tobacco Use: Cigarettes Meaningful Use Info Meaningful Use Diagnoses (Choose all that apply): None applicable <Stefani Howe - Last Filed: 08/15/18 17:49> Discharge Date and Diagnosis - Secondary Discharge Diagnosis Chronic Problems Atrial fibrillation (Chronic) Muscular dystrophy (Chronic) Hypertension (Chronic) Hyperlipidemia (Chronic) Depression (Chronic) Hospital Course and Treatment Summary of Care Provided: This patient was seen in conjunction with IVORY Jain. I have independently interviewed and examined the patient and reviewed pertinent historical, laborato ry, and other data. Please refer to IVORY Jain note for his patient's presentation, findings, and recommendations. I have reviewed and his note and concur with his documentation This 72-year-old with multiple comorbidities who presented with mid epigastric abdominal pain treated with shortness of breath and nausea. Patient was seen in the emergency department, EKG was negative, troponins were negative, he had elevation of AST, ALT and alkaline phosphatase. Abdominal CT did not show any acute intra-abdominal pathology. CTA of the chest and abdomen and pelvis was negative for any aneurysm. Patient was admitted to the telemetry bed, troponins were negative. He had an ultrasound of the abdomen that showed hepatomegaly, multiple gallstones with sludge within the gallbladder lumen and the gallbladder wall measuring 2.6 mm, common bile duct measuring 5.2 mm. Patient continued to have some right upper quadrant tenderness. His liver function tests had also progressively increased. General surgery was consulted. Recommended the patient gets an ERCP which was not available in the hospital at the moment and over the weekend. Patient was recommended to be transferred to a tertiary facility for ERCP. The day of discharge, patient was seen and examined in the company of the and coal shooter. I spent more than 30 minutes discussing the plan of care. All questions were answered. Physical Exam: Gen: Looks in some discomfort, not pale, not jaundiced, obese CVS:HS I +II, regular, no murmurs RESP: Diminished at lung bases GI: BS were present, distended abdomen, obese, right upper quadrant and epigastric tenderness, no rebound tenderness EXT:No edema - Physical Exam Vital Signs Temp Pulse Resp BP Pulse Ox 98.1 F 83 16 132/71 H 93 08/14/18 19:35 08/14/18 19:35 08/14/18 19:35 08/14/18 19:35 08/14/18 19:35 Oxygen Flow Rate (L/min) 3 Oxygen Delivery Method Room Air Weight: 132.8 kg Body Mass Index (BMI) 44.5 Intake and Output for Last 24 Hours 08/13/18 08/14/18 08/15/18 23:59 23:59 23:59 Intake Total 120 / 120 984 / 984 Output Total 450 / 450 950 / 950 Balance -330 / -330 34 / 34 Code Visit Inpatient E&M: [id number] Disch Hosp
== END 2018-08-14 20:10 | disposition short-term general hospital (02) ==
LOC: ED 15:37 → PCU 19:31
PROVIDERS: Admitting Provider Family Medicine; Emergency Provider Emergency Medicine; Family Provider Family Medicine; PCP Family Medicine; Visit Provider Internal Medicine
DX: R10.13 Epigastric pain (principal); I48.0 Paroxysmal atrial fibrillation; I10 Essential (primary) hypertension; E78.5 Hyperlipidemia, unspecified; Z23 Encounter for immunization; G71.00 Muscular dystrophy, unspecified; F32.9 Major depressive disorder, single episode, unspecified; Z79.899 Other long term (current) drug therapy; Z79.82 Long term (current) use of aspirin; R16.0 Hepatomegaly, not elsewhere classified; R94.5 Abnormal results of liver function studies; R07.9 Chest pain, unspecified; Z87.891 Personal history of nicotine dependence; E66.01 Morbid (severe) obesity due to excess calories; Z68.42 Body mass index [BMI] 45.0-49.9, adult; Z71.3 Dietary counseling and surveillance
CPT/HCPCS: 36415; 71046; 71275; 74174; 74176; 76705; 80048; 80053; 80076; 81001; 83605; 83690; 84484; 85025; 85610; 85730; 93005; 96361; 96374; 96375; 97162; 97166; 99218; 99285; G0008; J7030; Q9967; 90686; A4216; G0378; J2405

== ENCOUNTER → 2019-11-12 12:01 | Outpatient (CLI) | payer MEDICARE, SELFPAY ==
[2018-08-13 20:34] VITALS: BMI 44.5
[2019-11-12 15:21] LABS: Absolute Lymphocyte Count 1.82 X10^3/uL (0.83-4.51); Absolute Neutrophil Count 8.2 X10^3/uL (2.0-7.7); Basophil# 0.16 X10^3/uL; Basophil% 1.4 % (0-1); Eosinophil# 0.44 X10^3/uL; Eosinophils% 3.7 % (0-5); Hematocrit 44.1 % (40-54); Hemoglobin 13.3 g/dL (13.0-16.5); Lymphocyte # 1.82 X10^3/ul (4.0); Lymphocyte % 15.4 % (19-41); Mean Corp Hgb Conc 30.2 g/dL (32-36); Mean Corpuscular Hgb 27.5 pg (27.0-32.0); Mean Corpuscular Volume 91.1 fL (80-94); Mean Platelet Vol. 10.7 fl (6.2-12.0); Monocyte% 9.3 % (0-10); NRBC Flagged by Analyzer 0 % (0-5); Neutrophil # 8.22 X10^3/uL (2.7-7.7); Neutrophil % 69.5 % (47-70); Platelet Count 320 K/mm3 (150-450); RBC Distribution Width CV 15.9 % (11.6-14.6); RBC Distribution Width SD 53.7 fl (35.1-43.9); Red Blood Count 4.84 M/mm3 (4.6-6.2); White Blood Count 11.8 K/mm3 (4.4-11.0)
[2019-11-12 16:00] LABS: ALB/GLOB Ratio 0.8 RATIO (0.9-2.4); AST(SGOT) 22 U/L (15-37); Alanine Aminotransfer ALT/SGPT 43 U/L (16-61); Albumin, Serum 3.3 g/dL (3.2-5.0); Alkaline Phosphatase 131 U/L (45-117); Anion Gap 7 (5-15); BUN 15 mg/dL (7-18); BUN/Creat Ratio 34.7 RATIO (10-20); Calcium,Total 9.3 mg/dL (8.5-10.1); Chloride 104 mmol/L (98-107); Creatinine, Serum 0.43 mg/dL (0.70-1.30); EST Glomerular Filtration Rate 206 mL/min (>60); Est Glom Filt Rate - Afr Amer 249 mL/min (>60); Globulin 3.9 g/dL (2.2-4.2); Glucose 78 mg/dL (74-106); Potassium 3.8 mmol/L (3.5-5.1); Protein, Total 7.2 g/dL (6.4-8.2); Sodium Level 141 mmol/L (136-145); Thyroid Stim Hormone (TSH) 0.87 uIU/mL (0.358-3.74)
[2019-11-12 16:08] LABS: BNP,B-Type NATRIURETIC PEPTIDE 16.5 pg/mL (0-100)
== END ==
PROVIDERS: PCP Family Medicine; Referring Provider Family Medicine; Visit Provider Family Medicine
DX: R60.0 Localized edema (principal); R06.02 Shortness of breath
CPT/HCPCS: 36415; 80053; 83880; 84443; 85025

== ENCOUNTER → 2020-06-29 12:19 | Outpatient (CLI) | payer MEDICARE, SELFPAY ==
[2018-08-13 20:34] VITALS: BMI 44.5
[2020-06-29 15:15] LABS: Absolute Lymphocyte Count 1.68 X10^3/uL (0.83-4.51); Absolute Neutrophil Count 6.6 X10^3/uL (2.0-7.7); Basophil# 0.14 X10^3/uL; Basophil% 1.4 % (0-1); Eosinophil# 0.54 X10^3/uL; Eosinophils% 5.5 % (0-5); Hematocrit 45.4 % (40-54); Hemoglobin 13.5 g/dL (13.0-16.5); Lymphocyte # 1.68 X10^3/ul (4.0); Mean Corp Hgb Conc 29.7 g/dL (32-36); Mean Corpuscular Volume 90.8 fL (80-94); Mean Platelet Vol. 10.4 fl (6.2-12.0); Monocyte# 0.92 X10^3/uL; Monocyte% 9.3 % (0-10); NRBC Flagged by Analyzer 0 % (0-5); Neutrophil # 6.56 X10^3/uL (2.7-7.7); Neutrophil % 66.3 % (47-70); Platelet Count 314 K/mm3 (150-450); RBC Distribution Width CV 15.9 % (11.6-14.6); RBC Distribution Width SD 53.4 fl (35.1-43.9); White Blood Count 9.9 K/mm3 (4.4-11.0)
[2020-06-29 15:26] LABS: ALB/GLOB Ratio 0.7 RATIO (0.9-2.4); AST(SGOT) 26 U/L (15-37); Alanine Aminotransfer ALT/SGPT 61 U/L (16-61); Albumin, Serum 3.1 g/dL (3.2-5.0); Alkaline Phosphatase 110 U/L (45-117); Anion Gap 6 (5-15); BUN 24 mg/dL (7-18); BUN/Creat Ratio 42.3 RATIO (10-20); Chloride 105 mmol/L (98-107); Creatinine, Serum 0.57 mg/dL (0.70-1.30); EST Glomerular Filtration Rate 150 mL/min (>60); Est Glom Filt Rate - Afr Amer 181 mL/min (>60); Globulin 4.5 g/dL (2.2-4.2); Glucose 107 mg/dL (74-106); Potassium 3.8 mmol/L (3.5-5.1); Protein, Total 7.6 g/dL (6.4-8.2); Sodium Level 141 mmol/L (136-145)
== END ==
PROVIDERS: PCP Family Medicine; Referring Provider Family Medicine; Visit Provider Family Medicine
DX: R19.00 Intra-abdominal and pelvic swelling, mass and lump, unspecified site (principal)
CPT/HCPCS: 36415; 80053; 85025

== ENCOUNTER → 2020-07-04 08:54 | Outpatient (CLI) | payer MEDICARE, SELFPAY ==
[2018-08-13 20:34] VITALS: BMI 44.5
--- NOTE | 2020-07-04 08:56 | AAVD_ITS ---
Reason For Study: AAA Aorta Measurements Aorta Doppler Measurements Proximal aorta measures1.91 x 1.94cm. in cross- Peak systolic flow velocities within the proximal sectional axis. aorta measure 43.3 cm/sec. Proximal aorta measures1.97cm. in longitudinal Peak systolic flow velocities within the mid aorta axis. measure 68 cm/sec. Mid aorta measures2.6 x 2.6cm. in cross-sectional axis. Mid aorta measures2.6cm. in longitudinal axis. Aorta distal not visualized due to bowel gas. Left Iliac Artery Left JOSE MANUEL not visualized due to bowel gas. Right Iliac Artery Right JOSE MANUEL not visualized due to bowel gas. Procedure Aorta IVC Iliac vasculature or bypass grafts [id number]. Technically difficult study due to pt body habitus and study done in wheelchair. Limited study due to bowel gas in lower abdomen. Exam performed in department. Interpretation Summary The dimensions of the intra-abdominal aorta are normal, without evidence of aneurysmal dilatation. However, the distal intra-abdominal aorta was not visualized due to the presence of bowel gas. The intra-abdominal aorta appears patent, demonstrating normal, pulsatile arterial flow and peak systolic velocities. The iliac arteries were not visualized due to the presence of bowel gas. Ordering Physician: Dante Enamorado Referring Physician: Dante Enamorado Performed By: Kamilla Yañez RVT
== END ==
LOC: CVS 08:55
PROVIDERS: PCP Family Medicine; Referring Provider Family Medicine; Visit Provider Family Medicine
DX: I71.4 Abdominal aortic aneurysm, without rupture (principal)
CPT/HCPCS: 93978

== ENCOUNTER 2020-07-09 19:17 | Observation (INO) | payer MEDICARE, SELFPAY ==
[2018-08-13 20:34] VITALS: BMI 44.5
[2020-07-09 19:18] VITALS: BP 94/68; PULSE 82; RESP 18; TEMP 36.9; O2SAT 94; BMI 48.2
--- NOTE | 2020-07-09 19:21 | ED.VIS.GEN ---
History of Present Illness Chief Complaint: Lower Extremity Injury Informant: Patient Narrative: 74-year-old male presenting with left knee pain this is a chronic issue. Patient states he is having an acute exacerbation of the. Patient states that when he was younger and he noticed that he did a knee replacement I told him it was too young. Now that he is older he has developed a muscular dystrophy so bad that he cannot participate in rehab if he has it replaced therefore they would not replace his knee now. Patient states he feels like there is [id number] in his knee. He is not had any falls. He has difficulty transferring to the bed into the toilet. He has home health care in the mornings for 2 hours daily and then 3 nights a week home health care comes and helps him into bed. His helps him between. Patient is anticoagulated for relation has no history of DVT/PE. Patient states he was unable to get a hold of his physician because it is the weekend. - Past Medical History (1) Atrial fibrillation Status: Chronic (2) Hyperlipidemia Status: Chronic (3) Hypertension Status: Chronic (4) Muscular dystrophy Status: Chronic Past Medical History - Allergies and Home Meds Allergies/Adverse Reactions: Allergies codeine Adverse Reaction (Verified 08/13/18 19:09) made me do crazy things Primary Care Physician: Landon Enamorado MD [Primary Care Provider] - Prior records reviewed: Yes Past Medical History: - - Reviewed in problem list Surgical History: herniorrhaphy Lives: Spouse/ Significant Other Smoking Status: Former smoker Alcohol: None Drugs: None - Family History Paternal Family History: Reports: Cancer - Renal, Heart Disease Sibling Family History: Reports: Diabetes Review of Systems General: Denies: Chills, Fever, Sweats Eyes: Denies: Visual changes - bilaterally, Diplopia ENT: Denies: Rhinorrhea, Sore throat Cardiovascular: Denies: Chest pain, Palpitations Respiratory: Denies: Dyspnea, Cough, Dyspnea on exertion Gastrointestinal: Denies: Abdominal pain, Nausea, Vomiting, Diarrhea, Melena, Hematochezia Genitourinary: Denies: Dysuria, Hematuria, Frequency Musculoskeletal: Reports: Extremity Pain - Left knee. Denies: Swelling Skin: Denies: Rash, Wounds Neurological: Denies: Headache, Weakness, Numbness Psych: Denies: Depression, Anxiety, Suicidal thoughts, Suicidal ideations Physical Exam Inital Vital Signs reviewed: Yes General: Obese, No Acute Distress Head: Normocephalic, Atraumatic Eyes: Perrl, EOMI ENT: Moist mucous membranes, No rhinorrhea Cardiovascular: Regular rate, Regular rhythm Respiratory: No distress, CTA bilaterally Extremities: No edema, Tenderness - Tenderness to palpation with range of motion of the left knee. There is no visible effusion. No erythema or rash. Skin: Normal color, No rash Neurological: Alert, Oriented x3, Cranial nerves II-XII grossly intact Psychological: Normal affect, Normal Mood Diagnostic/Tx/Re-eval Clinical Impression(s) from Imaging Studies Knee X-Ray 07/09/20 19:50 IMPRESSION: No acute findings. Moderate medial compartment degeneration. Electronically Signed: Brigitte Vigil MD at 20:19 EST Tel , Service support , - Medical Decision Making 74-year-old male presenting with left knee pain which is acute on chronic issue. Patient states he is having trouble transferring to the toilet transferring to the bed due to his size and inability to bear weight on the left knee. He denies any direct trauma. Patient had x-ray the left knee which shows no acute abnormality however there is some degenerative changes as interpreted by myself and the radiologist. Initially when I had spoken to the patient he did not want to be admitted and was to be discharged home because he does have some home health care aides however on reevaluation the patient states that his wants him to come in for rehab. This was discussed with the hospitalist who was amenable to admission for placement in rehab. Patient stable on admission. Impression: 1. Left knee pain 2. History of muscular dystrophy 3. Inability to ambulate ED Disposition - Plan for ED Patient: Referrals: Landon Enamorado MD [Primary Care Provider] -
[2020-07-09] MEDS: HYDROcodone Bitartrate/Apap 5/325 Tablet PO (19:32)
--- NOTE | 2020-07-09 19:50 | RAD_ITS ---
STUDY: X-RAY - LEFT KNEE REASON FOR EXAM: Male, 74 years old. C/O LEFT KNEE PAIN FOR YEARS WORSENING OVER LAST COUPLE OF DAYS. DENIES INJURY. HX OF MUSCULAR DYSTROPHY. -- PATIENT UNABLE TO HOLD POSITION. BEST POSSIBLE TECHNIQUE: 2 view(s) of the knee. COMPARISON: None. FINDINGS: The knee is intact and located. There is moderate degenerative change in the medial and compartment, mild in the patellofemoral. Soft tissues are normal. RAD/Knee 1 or 2 Views IMPRESSION: No acute findings. Moderate medial compartment degeneration. Electronically Signed: Brigitte Vigil MD at 20:19 EST Tel , Service support ,
[2020-07-09 20:25] VITALS: BP 123/68; PULSE 74; RESP 16; O2SAT 94
--- NOTE | 2020-07-09 20:58 | HP.PCM_ITS ---
Problem List (1) Debility Status: Acute (2) Atrial fibrillation Status: Chronic (3) Muscular dystrophy Status: Chronic (4) Hypertension Status: Chronic (5) Hyperlipidemia Status: Chronic (6) Depression Status: Chronic History of Present Illness Date of Admission: 07/09/20 Chief Complaint: Left knee pain The patient is a 74 year old M with a significant history of muscular dystrophy; atrial fibrillation, abdominal aortic aneurysm and bilateral leg edema who presents to the emergency department with a left knee pain. Patient have had left knee pain for many years. However his left knee pain has worsened over the last 3 days. On a scale of 1-10 he stated that the severity of his pain is a 12 . He describes his pain as sharp. The pain improves with rest and worsens with movements. He has severe arthritis of the left knee. However his left knee cannot be replaced because of his history of muscular dystrophy. At home patient uses a wheelchair and he is transfers to positions by home health persons and also by his . However at this point it is more difficult to transfer patient and patient and family is asking for rehabilitation. Patient uses bilateral leg braces at baseline. Past Medical History Past Medical History (Chronic Problems): Chronic Problems Atrial fibrillation (Chronic) Muscular dystrophy (Chronic) Hypertension (Chronic) Hyperlipidemia (Chronic) Depression (Chronic) Allergies codeine Adverse Reaction (Verified 08/13/18 19:09) made me do crazy things Home Medications: Ambulatory Orders Medication Instructions Recorded Aspirin [Adult Low Dose Aspirin EC] 81 mg PO DAILY 05/26/15 Citalopram [Celexa] 20 mg PO DAILY 05/26/15 Multivitamins,Therapeutic 1 tablet PO DAILY 05/26/15 [Multivitamin] Apixaban [Eliquis] 5 mg PO BID 09/27/16 Furosemide [Lasix] 20 mg PO BIDLX 09/27/16 Lisinopril [Zestril] 40 mg PO DAILY 09/27/16 Atorvastatin Calcium [Lipitor] 20 mg PO QHS 08/13/18 Cholecalciferol (VIT D3) [Vitamin 1,000 unit PO DAILY 08/13/18 D] Diltiazem HCl [Diltiazem 24Hr ER] 240 mg PO DAILY 08/13/18 Surgical History: herniorrhaphy Psychiatric History: Depression Lives: Spouse/ Significant Other Smoking Status: Former smoker Alcohol: None Drugs: None - *Family History Paternal History Items: Cancer - Renal, Heart Disease Sibling History Items: Diabetes Review of Systems Constitutional: Denies: Chills, Fever, Weight Change HEENT: Denies: Head Aches, Sinus Congestion, Sinus Drainage Cardiovascular: Denies: Chest Pain, Palpitations Respiratory: Denies: Cough, Shortness of breath at rest, Sputum production Gastrointestinal: Denies: Abdominal Pain, Nausea, Vomiting Genitourinary: Denies: Dysuria Musculoskeletal: Reports: Joint Pain - Left knee, Joint Tenderness - Left knee Skin: Denies: Rash, Wounds Neurological: Denies: Numbness, Tingling, Focal weakness Psychiatric: Denies: Anxiety, Depression, Homicidal Ideations, Suicidal Ideations Hematologic/ Lymphatic: Denies: Easy Bruising, Easy Bleeding VTE Information - Inpt Only VTE Present on Admission: No VTE Mechan Device Prophylaxis: None VTE Pharm Prophylaxis ordered?: No Reason prophylaxis not ordered:: Treatment Not Indicated - Home Eliquis for A. fib continued Patient Problems: Active and Suspected Problems Debility (Acute) - Physical Exam Vitals/I&O's: Vital Signs Temp Pulse Resp BP Pulse Ox 98.5 F 74 16 123/68 H 94 07/09/20 19:18 07/09/20 20:25 07/09/20 20:25 07/09/20 20:25 07/09/20 20:25 Oxygen Delivery Method Room Air Weight: 144 kg Body Mass Index (BMI) 48.2 General: Alert, Oriented x3, Cooperative HEENT: Atraumatic, PERRLA, EOMI, Normocephalic Neck: Supple, No JVD, Negative Carotid Bruits Lungs: Clear to auscultation, Normal air movement Cardiovascular: Regular rate, No murmurs Abdomen: Bowel Sounds Present, Soft, Non Tender Extremities: No edema, Capillary Refill Less than 3 Seconds Skin: No rashes, No breakdown Musculoskeletal: Tenderness - Mild of left knee Neurological: Cranial nerves II-XII grossly intact Psych/Mental Status: Normal Affect, Appropriate Assessment/Plan All Active Problems Debility (Acute) The patient is a 74 year old M with a significant history of muscular dystrophy; atrial fibrillation; abdominal aorta aneurysm and bilateral leg edema who presents emergency department with a left knee pain; with difficulty in transfer ring at home and is asking for rehabilitation. Debility secondary to left knee arthritis and muscular dystrophy Left knee with moderate medial compartment degeneration. At this baseline patient uses leg braces and requires a transfers with lift PT and OT to work with patient and make recommendation. Case managements consult for disposition. Tylenol as needed for pain Oxycodone as needed for pain Zofran as needed for antiemetics bowel protocol in place. Morbid Obesity: BMI: 48.3. Complicates care. Lifestyles modification recommended. Hypertension Blood pressure is stable in regard to his age Lisinopril and Cardizem continued Trend blood pressure and adjust blood pressure medications Atrial fibrillation Cardizem and Eliquis continued Hyperlipidemia Lipitor continued Depression/anxiety Celexa continued. History bilateral leg edema Denies history of heart failure Echocardiogram on 11/17/2014: Ejection fraction was 65%. Lasix continued DVT Prophylaxis On Eliquis for A. fib; continued. OBSV E&M: 85681 Initial observation care L2
[2020-07-09 21:18] VITALS: BP 142/70; PULSE 78; RESP 20; TEMP 36.8; O2SAT 94
[2020-07-09 21:46] VITALS: BMI 46.0; BMI 46.1
[2020-07-09 22:00] VITALS: BP 144/63; PULSE 82; RESP 18; TEMP 36.7; O2SAT 95
[2020-07-10] MEDS: 0.9% Saline Lock 10 ML Syringe IV (00:21)
[2020-07-10] MEDS: Atorvastatin Calcium 20 MG Tablet PO ×2 (00:21→21:28)
[2020-07-10] MEDS: APIXABAN 5 MG TABLET PO ×3 (00:21→21:28)
[2020-07-10] MEDS: Citalopram 20 MG Tablet PO ×2 (00:21→21:29)
[2020-07-10] MEDS: oxyCODONE 5 MG Tablet PO ×2 (00:56→14:06)
[2020-07-10 03:30] VITALS: BP 126/63; PULSE 87; RESP 16; TEMP 37.1; O2SAT 94
[2020-07-10] MEDS: oxyCODONE 5 MG Tablet 10 MG PO ×2 (06:49→19:50)
--- NOTE | 2020-07-10 07:43 | DCINST_ITS ---
- Discharge Diagnoses Current Active Problems: Current Active and Chronic Problems Debility (Acute) Atrial fibrillation (Chronic) Muscular dystrophy (Chronic) Hypertension (Chronic) Hyperlipidemia (Chronic) Depression (Chronic) Allergies/Adverse Reactions: Allergies codeine Adverse Reaction (Verified 08/13/18 19:09) made me do crazy things Medications to take at Discharge Aspirin [Adult Low Dose Aspirin EC] 81 mg PO DAILY 05/26/15 Citalopram [Celexa] 20 mg PO DAILY 05/26/15 Multivitamins,Therapeutic [Multivitamin] 1 tablet PO DAILY 05/26/15 Apixaban [Eliquis] 5 mg PO BID 09/27/16 Furosemide [Lasix] 20 mg PO BIDLX 09/27/16 Lisinopril [Zestril] 40 mg PO DAILY 09/27/16 Atorvastatin Calcium [Lipitor] 20 mg PO QHS 08/13/18 Cholecalciferol (VIT D3) [Vitamin D] 1,000 unit PO DAILY 08/13/18 Diltiazem HCl [Diltiazem 24Hr ER] 240 mg PO DAILY 08/13/18 Primary Care Physician: Landon Enamorado MD [Primary Care Provider] - Test Results: Test results from this visit will be discussed in further detail at your follow- up appointment, if applicable.
[2020-07-10 08:39] VITALS: BP 117/66; PULSE 85; RESP 16; TEMP 37; O2SAT 92
[2020-07-10 08:43] VITALS: RESP 18
[2020-07-10 08:53] LABS: Absolute Neutrophil Count 8.4 X10^3/uL (2.0-7.7); Basophil# 0.13 X10^3/uL; Basophil% 1.1 % (0-1); Eosinophil# 0.49 X10^3/uL; Hematocrit 41.1 % (40-54); Hemoglobin 12.9 g/dL (13.0-16.5); Lymphocyte % 15.5 % (19-41); Mean Corp Hgb Conc 31.4 g/dL (32-36); Mean Corpuscular Hgb 27.7 pg (27.0-32.0); Mean Corpuscular Volume 88.2 fL (80-94); Mean Platelet Vol. 9.8 fl (6.2-12.0); Monocyte# 1.24 X10^3/uL; Monocyte% 10.1 % (0-10); NRBC Flagged by Analyzer 0 % (0-5); Neutrophil # 8.38 X10^3/uL (2.7-7.7); Neutrophil % 68.6 % (47-70); Platelet Count 282 K/mm3 (150-450); RBC Distribution Width CV 15.9 % (11.6-14.6); RBC Distribution Width SD 51.1 fl (35.1-43.9); Red Blood Count 4.66 M/mm3 (4.6-6.2); White Blood Count 12.2 K/mm3 (4.4-11.0)
[2020-07-10 09:06] LABS: Anion Gap 5 (5-15); BUN 22 mg/dL (7-18); BUN/Creat Ratio 37.2 RATIO (10-20); Calcium,Total 9.1 mg/dL (8.5-10.1); Chloride 103 mmol/L (98-107); Creatinine, Serum 0.59 mg/dL (0.70-1.30); EST Glomerular Filtration Rate 143 mL/min (>60); Est Glom Filt Rate - Afr Amer 173 mL/min (>60); Glucose 99 mg/dL (74-106); Magnesium 2.2 mg/dL (1.6-2.6); Potassium 4.3 mmol/L (3.5-5.1); Sodium Level 137 mmol/L (136-145)
--- NOTE | 2020-07-10 09:41 | PN_ITS ---
Patient Problems: Active and Suspected Problems Debility (Acute) Reason for Visit: Follow-up for severe left knee pain. Objective: The patient has history of facioscapulohumeral myotonic dystrophy. Morbid obesity. Patient cannot turn around himself patient has chronic pain and weakness of shoulder girdle muscles. Admitted with spontaneous left severe knee pain. Denies any trauma or inciting agent. Still 04/01 Physical exam General: Alert, Oriented x3, Cooperative, morbid obesity 46.1 kg/m? HEENT: Atraumatic, PERRLA, EOMI, Normocephalic Oral: No Gingival or Mucosal Lesions/ Ulcerations Neck: Supple, No JVD, Negative Carotid Bruits Lungs: Air entry diminished in bilateral lung bases. No crepitation/rhonchi Cardiovascular: Regular rate, Regular Rhythm, Normal S1, Normal S2, No murmurs Abdomen: Bowel Sounds Present, Soft, Non Tender, Non-Distended : No renal angle tenderness. No suprapubic tenderness. Extremities: Mild bilateral ankle edema, Capillary Refill Less than 3 Seconds Skin: No rashes, No breakdown. No ulcer Musculoskeletal: Weakness of the shoulder girdle muscle, lower extremity muscles, strength 3/5. No Tenderness to Palpation of Joints or Extremities Neurological: Cranial nerves II-XII grossly intact, Deep Tendon Reflexes 2+/4 and Symmetrical, Neuro grossly intact Psych/Mental Status: Normal Affect, Appropriate. Vitals/I&O's: Vital Signs Temp Pulse Resp BP Pulse Ox 98.7 F 87 16 126/63 H 94 07/10/20 03:30 07/10/20 03:30 07/10/20 03:30 07/10/20 03:30 07/10/20 03:30 Oxygen Delivery Method Room Air Weight: 303 lb 2.17 oz Body Mass Index (BMI) 46.0 Intake and Output for Last 24 Hours 07/08/20 07/09/20 07/10/20 23:59 23:59 23:59 Output Total 200 / 200 Balance -200 / -200 Current Medications Acetaminophen (Acetaminophen 325 Mg Tablet) 650 mg PO Q6H PRN PRN PRN Reason: Pain 1-10 or Fever Apixaban (Apixaban 5 Mg Tablet) 5 mg PO BID HI Last Admin: 07/10/20 00:21 Dose: 5 mg Documented by: Aspirin (Aspirin E.C. 81 Mg Tablet) 81 mg PO DAILY [facility] Atorvastatin Calcium (Atorvastatin Calcium 20 Mg Tablet) 20 mg PO QHS [facility] Last Admin: 07/10/20 00:21 Dose: 20 mg Documented by: Cholecalciferol (Cholecalciferol (Vit D3) 1,000 Unit (25mcg)) 1,000 unit PO DAILY [facility] Citalopram Hydrobromide (Citalopram 20 Mg Tablet) 20 mg PO QHS [facility] Last Admin: 07/10/20 00:21 Dose: 20 mg Documented by: Diltiazem HCl (Diltiazem Cd 240 Mg Capsule) 240 mg PO DAILY [facility] Furosemide (Furosemide 20 Mg Tablet) 20 mg PO BIDLX [facility] Lisinopril (Lisinopril 40 Mg Tablet) 40 mg PO DAILY [facility] Multivitamins (Multivitamins,Therapeutic Tablet) 1 tablet PO DAILY [facility] Nystatin (Nystatin Powder 15gm Bottle) 1 applic TOPICAL TID [facility]; Protocol Ondansetron HCl (Ondansetron 4 Mg/2 Ml Vial) 4 mg IV Q6H PRN PRN PRN Reason: NAUSEA/VOMITING Oxycodone HCl (Oxycodone 5 Mg Tablet) 5 mg PO Q6H PRN PRN PRN Reason: Pain Score 6-7 Last Admin: 07/10/20 00:56 Dose: 5 mg Documented by: Oxycodone HCl (Oxycodone 5 Mg Tablet) 10 mg PO Q6H PRN PRN PRN Reason: Pain Score 8-10 Last Admin: 07/10/20 06:49 Dose: 10 mg Documented by: Senna/Docusate Sodium (Senna/Docusate Sodium 1 Tablet) 2 tablet PO DAILY PRN PRN PRN Reason: CONSTIPATION Sodium Chloride (0.9% Saline Lock 10 Ml Syringe) 10 - 40 ml IV UD PRN PRN Reason: SALINE FLUSH Last Admin: 07/10/20 00:21 Dose: 10 ml Documented by: Medical Necessity - Tobacco Use Smoking Status: Former smoker Assessment/Plan All Active Problems Debility (Acute) The patient is a 74 year old M with a significant history of FSH muscular dy strophy; atrial fibrillation; abdominal aorta aneurysm and bilateral leg edema admitted with severe left knee pain 1. Debility secondary to left knee arthritis and FSH muscular dystrophy: Patient is still has severe pain. Discussed with rn case manager hospice. PT and OT. Might need SNF. 2. Hypertension: Pressure is controlled. On Cardizem and lisinopril. Echocardiogram on 11/17/2014: Ejection fraction was 65%. Lasix continued. Patient denies history of heart failure. He also denies bladder muscle weakness. He does spontaneous voiding 3. Paroxysmal A. fib: On Cardizem and Eliquis 4. Other comorbidities include dyslipidemia, anxiety and depression: Morbid Obesity: BMI: 48.3. Complicates care. Lifestyles modification recommended. DVT Prophylaxis On Eliquis for A. fib; continued. Laboratory Results 07/10/20 08:40: WBC 12.2 H, RBC 4.66, Hgb 12.9 L, Hct 41.1, MCV 88.2, MCH 27.7, MCHC 31.4 L, RDW Std Deviation 51.1 H, RDW Coeff of Nick 15.9 H, Plt Count 282, MPV 9.8, Immature Gran % (Auto) 0.700, Neut % (Auto) 68.6, Lymph % (Auto) 15.5 L , [place] % (Auto) 10.1 H, Eos % (Auto) 4.0, Baso % (Auto) 1.1 H, Absolute Neuts (auto) 8.4 H, Absolute Lymphs (auto) 1.90, Nucleated RBC % 0 07/10/20 08:40: Sodium 137, Potassium 4.3, Chloride 103, Carbon Dioxide 29.0, Anion Gap 5, BUN 22 H, Creatinine 0.59 L, Estim Creat Clear Calc 64.60, Est GFR (MDRD) Af Amer 173, Est GFR (MDRD) Non-Af 143, BUN/Creatinine Ratio 37.2 H, Glucose 99, Calcium 9.1, Magnesium 2.2 07/10/20 11:45: COVID-19 (RACHAEL) Not Detected OBSV E&M: 79910 Initial observation care L2
--- NOTE | 2020-07-10 10:55 | CASEMGMT ---
RN CM Face to Face with patient for initial transition planning/care coordination assessment. RN CM introduced self and role at [facility]. Patient lying in bed, alert and oriented, at bedside. Patient willing to participate in assessment and is able to answer all questions appropriately. Care providers, pharmacy, and demographics verified. Patient and wish for patient to discharge to SNF at discharge for additional therapy Patient states he has no further needs or concerns at this time. CM to follow for discharge planning needs that may arise. PCP: Fei Specialists: [facility] Preferred Pharmacy: [facility] Insurance: [employer] [facility] Prescription Benefit: yes Living Will/HPOA: yes, Roselia Ma LNOK: Living Arrangements: Patient lives with in a mobile home with ramp to enter the home. Caregiver and assist with care. Transportation: DME/HHC: Patient has shower chair, hospital bed, jamin lift, sit to stand, wheelchair, and nebulizer at home. Caregiver through [facility] for 13 hours per week. Patient denies previous [facility] Disposition Plan: Patient to discharge home with family support and follow-up plans in place. Kamilla RENNER, RN, CM
[2020-07-10] MEDS: Aspirin E.C. 81 MG Tablet PO (11:22)
[2020-07-10] MEDS: dilTIAZem CD 240 MG Capsule PO (11:22)
[2020-07-10] MEDS: Lisinopril 40 MG Tablet PO (11:23)
[2020-07-10] MEDS: Multivitamins,Therapeutic Tablet 1 TABLET PO (11:23)
[2020-07-10] MEDS: Furosemide 20 MG Tablet PO ×2 (11:23→17:02)
[2020-07-10] MEDS: Nystatin Powder 15gm Bottle 1 APPLIC TOPICAL ×3 (11:27→21:27)
--- NOTE | 2020-07-10 11:44 | CASEMGMT ---
Addendum entered by Kamilla Rosas 07/10/20 13:29: SW in to speak with pt. LIDIA introduced self and role at [facility]. LIDIA updated pt that [facility] is not accepting pt's at this time. LIDIA updated pt that [facility] is able to accept pt and pre-cert will be submitted. Pt states understanding. Plan: TCU pending pre-cert Addendum entered by Kamilla Rosas 07/10/20 12:01: LIDIA received message from Susan at [facility] confirming they are still not accepting pt's with [employer] insurance. LIDIA placed a call to Celeste with TCU and provided referral. Celeste states she will submit for pre-cert. Plan: TCU pending pre-cert Original Note: Social Work Note SW received referral for SNF placement. Pt's first choice is [facility] and second choice is [facility]. Per previous referrals, [facility] hasn't been taking [employer] insurance pt. LIDIA placed a call to Susan at [facility] and left message asking if they are taking [employer] insurance again. LIDIA waiting for call back. Plan: SNF pending acceptance and pre-cert Kamilla Rosas SALOONKEEPER, RN MEDICARE
--- NOTE | 2020-07-10 13:31 | CASEMGMT ---
Social Work Note Per manager clinical questions, pt has completed HCPOA and LW and provided documents to [facility]. SW reviewed chart, no documents found. SW in to speak with pt. Pt confirms that he has completed HCPOA and LW. SW updated pt that they are not on file at [facility]. Pt states understanding, states he can have his bring in copies. Kamilla Rosas STENCILING MACHINE TENDER, MODEL ENGINE MECHANIC
[2020-07-10 14:41] VITALS: BP 123/65; PULSE 85; RESP 18; TEMP 36.6; O2SAT 92
[2020-07-10] MEDS: Acetaminophen 325 MG Tablet 650 MG PO (18:31)
[2020-07-10] MEDS: Senna/Docusate Sodium 1 Tablet 2 TABLET PO (19:50)
[2020-07-10 20:20] VITALS: BP 131/72; PULSE 83; RESP 18; TEMP 37; O2SAT 94
[2020-07-11] MEDS: Acetaminophen 325 MG Tablet 650 MG PO ×2 (01:02→15:18)
[2020-07-11 01:59] VITALS: BP 144/87; PULSE 81; RESP 18; TEMP 36.4; O2SAT 93
[2020-07-11] MEDS: oxyCODONE 5 MG Tablet PO ×3 (02:03→15:18)
[2020-07-11] MEDS: Nystatin Powder 15gm Bottle 1 APPLIC TOPICAL ×3 (06:05→22:20)
[2020-07-11 07:26] VITALS: BP 125/73; PULSE 72; RESP 16; TEMP 36.4; O2SAT 96
[2020-07-11] MEDS: dilTIAZem CD 240 MG Capsule PO (07:42)
[2020-07-11] MEDS: Lisinopril 40 MG Tablet PO (07:42)
[2020-07-11] MEDS: Multivitamins,Therapeutic Tablet 1 TABLET PO (07:42)
[2020-07-11] MEDS: APIXABAN 5 MG TABLET PO ×2 (07:43→22:20)
[2020-07-11] MEDS: Aspirin E.C. 81 MG Tablet PO (07:43)
[2020-07-11] MEDS: Furosemide 20 MG Tablet PO ×2 (07:43→18:30)
--- NOTE | 2020-07-11 10:24 | PCM.PN.HOSP ---
Patient Problems: Active and Suspected Problems Debility (Acute) Reason for Visit: debility Subjective: left knee feeling better. Vitals/I&O's: Vital Signs Temp Pulse Resp BP Pulse Ox 36.4 C L 72 16 125/73 H 96 07/11/20 07:26 07/11/20 07:26 07/11/20 07:26 07/11/20 07:26 07/11/20 07:26 Oxygen Delivery Method Room Air Weight: 137.5 kg Body Mass Index (BMI) 46.0 Intake and Output for Last 24 Hours 07/09/20 07/10/20 07/11/20 23:59 23:59 23:59 Intake Total 1530 / 1530 400 / 400 Output Total 500 / 500 1825 / 1825 Balance 1030 / 1030 -1425 / -1425 General: Alert, No apparent distress HEENT: Atraumatic, Normocephalic Oral: Moist Mucosa, No Gingival or Mucosal Lesions/ Ulcerations Neck: No Nodes, Thyroid Normal Size and Texture Lungs: Clear to auscultation, Normal air movement, No rhonchi, No wheeze, No rales Cardiovascular: Regular rate, Regular Rhythm, Normal S1, Normal S2, No murmurs Abdomen: Bowel Sounds Present, Soft, Non Tender, Non-Distended, Obese Extremities: - - left knee effusion with slight TTP. Musculoskeletal: No Tenderness to Palpation of Joints or Extremities, No Muscle Wasting, Arthritic Changes Psych/Mental Status: Normal Affect, Appropriate Laboratory Results 07/10/20 11:45: COVID-19 (RACHAEL) Not Detected Current Medications Acetaminophen (Acetaminophen 325 Mg Tablet) 650 mg PO Q6H PRN PRN PRN Reason: Pain 1-10 or Fever Last Admin: 07/11/20 01:02 Dose: 650 mg Documented by: Apixaban (Apixaban 5 Mg Tablet) 5 mg PO BID [facility] Last Admin: 07/11/20 07:43 Dose: 5 mg Documented by: Aspirin (Aspirin E.C. 81 Mg Tablet) 81 mg PO DAILY [facility] Last Admin: 07/11/20 07:43 Dose: 81 mg Documented by: Atorvastatin Calcium (Atorvastatin Calcium 20 Mg Tablet) 20 mg PO QHS [facility] Last Admin: 07/10/20 21:28 Dose: 20 mg Documented by: Cholecalciferol (Cholecalciferol (Vit D3) 1,000 Unit (25mcg)) 1,000 unit PO DAILY [facility] Last Admin: 07/11/20 07:43 Dose: 1,000 unit Documented by: Citalopram Hydrobromide (Citalopram 20 Mg Tablet) 20 mg PO QHS [facility] Last Admin: 07/10/20 21:29 Dose: 20 mg Documented by: Diltiazem HCl (Diltiazem Cd 240 Mg Capsule) 240 mg PO DAILY [facility] Last Admin: 07/11/20 07:42 Dose: 240 mg Documented by: Furosemide (Furosemide 20 Mg Tablet) 20 mg PO BIDLX [facility] Last Admin: 07/11/20 07:43 Dose: 20 mg Documented by: Lisinopril (Lisinopril 40 Mg Tablet) 40 mg PO DAILY [facility] Last Admin: 07/11/20 07:42 Dose: 40 mg Documented by: Multivitamins (Multivitamins,Therapeutic Tablet) 1 tablet PO DAILY [facility] Last Admin: 07/11/20 07:42 Dose: 1 tablet Documented by: Nystatin (Nystatin Powder 15gm Bottle) 1 applic TOPICAL TID [facility]; Protocol Last Admin: 07/11/20 06:05 Dose: 1 applicatio Documented by: Ondansetron HCl (Ondansetron 4 Mg/2 Ml Vial) 4 mg IV Q6H PRN PRN PRN Reason: NAUSEA/VOMITING Oxycodone HCl (Oxycodone 5 Mg Tablet) 5 mg PO Q6H PRN PRN PRN Reason: Pain Score 6-7 Last Admin: 07/11/20 02:04 Dose: 5 mg Documented by: Oxycodone HCl (Oxycodone 5 Mg Tablet) 10 mg PO Q6H PRN PRN PRN Reason: Pain Score 8-10 Last Admin: 07/10/20 19:50 Dose: 10 mg Documented by: Prednisone (Prednisone 20 Mg Tablet) 40 mg PO DAILY@0800 [facility] Senna/Docusate Sodium (Senna/Docusate Sodium 1 Tablet) 2 tablet PO DAILY PRN PRN PRN Reason: CONSTIPATION Last Admin: 07/10/20 19:50 Dose: 2 tablet Documented by: Sodium Chloride (0.9% Saline Lock 10 Ml Syringe) 10 - 40 ml IV UD PRN PRN Reason: SALINE FLUSH Last Admin: 07/10/20 00:21 Dose: 10 ml Documented by: STROKE Vital Signs/Narrative: Vital Signs Temp Pulse Resp BP Pulse Ox 07/11/20 07:26 36.4 C L 72 16 125/73 H 96 Medical Necessity - Tobacco Use Smoking Status: Former smoker Assessment/Plan All Active Problems Debility (Acute) . Left knee effusion: Patient stated that this began suddenly when he woke up the other night. He has a known history of CABG never had gout of his knees. Has had affected his feet and toes as well as his wrist. I told him that I do not feel that this is a septic arthritis as it has gotten better on its own but still is tender. Given his history of gout I suspect that this is more of an acute gout flare and recommended prednisone. I told him that we could consult surgery for an arthrocentesis but will be more diagnostic at this time. He is in agreement with that. Told him that we would consult orthopedics if things did get worse but I feel that this is more of a gout flare. Patient has no systemic signs to suggest that this is an infectious arthritis. We will start the patient on prednisone. 2. Debility: Secondary to the knee effusion plus patient is known history of muscular dystrophy. Case management looking into transitional care unit. 3. Paroxysmal atrial fibrillation: Stable on diltiazem and apixaban. OBSV E&M: 82478 Subsequent observation care L2
[2020-07-11] MEDS: Senna/Docusate Sodium 1 Tablet 2 TABLET PO (12:26)
[2020-07-11] MEDS: predniSONE 20 MG Tablet 40 MG PO (12:26)
--- NOTE | 2020-07-11 12:48 | CASEMGMT ---
Social Work Note LIDIA placed a call to Celeste with TCU, pre-cert is still pending. LIDIA informed Celeste pt is medically ready for discharge once pre-cert is obtained. Plan: TCU pending pre-cert Kamilla Rosas WIRE MACHINE CUTTER, STOCK OR DELIVERY CLERK
[2020-07-11 14:25] VITALS: BP 109/66; PULSE 80; RESP 16; TEMP 36.6; O2SAT 95
--- NOTE | 2020-07-11 15:59 | CASEMGMT ---
JESSICA TRAMMELL completed AHN form with patient. JESSICA TRAMMELL explained AHN form to patient, patient voiced understanding. Patient signed AHN form and filed in chart. JESSICA TRAMMELL provided patient with copy of signed form. Patient had no further questions or concerns at this time.
[2020-07-11 21:38] VITALS: BP 128/69; PULSE 80; RESP 16; TEMP 37.2; O2SAT 94
[2020-07-11] MEDS: Atorvastatin Calcium 20 MG Tablet PO (22:20)
[2020-07-11] MEDS: Citalopram 20 MG Tablet PO (22:20)
[2020-07-12 04:06] VITALS: BP 125/70; PULSE 78; RESP 18; TEMP 36.6; O2SAT 97
[2020-07-12] MEDS: Nystatin Powder 15gm Bottle 1 APPLIC TOPICAL ×2 (05:24→14:19)
--- NOTE | 2020-07-12 08:36 | PCM.TXEXTCAR ---
- Diet 07/09/20 22:35 Diet: Regular - General Food consistency:: Regular Liquid Consistency:: Regular/Thin - Routine Orders/Code Status Code Status: Full Code - Therapies Weight Bearing: Weight bearing as tolerated Extremity Affected:: Left Lower Physical Therapy: Eval and Treat Occupational Therapy: Eval and Treat - Allergies/Procedures Done in Hospital Allergies/Adverse Reactions: Allergies codeine Adverse Reaction (Verified 08/13/18 19:09) made me do crazy things - Type of Care/Length of Stay Estimated LOS: Convalescent Care Less Than 30 days Type of Care Needed: Skilled Rehab Potential: Good Prognosis: Good - Additional Orders/Day of Discharge Day of Discharge: 07/12/20 - Follow Up Care Primary Care Physician: Landon Enamorado MD [Primary Care Provider] - Within 2 Weeks
[2020-07-12 08:37] VITALS: BP 138/68; PULSE 85; RESP 18; TEMP 36.4; O2SAT 94
--- NOTE | 2020-07-12 08:38 | PCM.DC.SUM ---
Discharge Date and Diagnosis - Problem List Patient Problems: Active and Suspected Problems Debility (Acute) Date of Admission: 07/09/20 Date of Discharge: 07/12/20 - Primary Discharge Diagnosis Acute Problems: Active Problems Debility (Acute) Left knee effusion, acute, suspected acute gout flare. - Secondary Discharge Diagnosis Chronic Problems: Chronic Problems Atrial fibrillation (Chronic) Muscular dystrophy (Chronic) Hypertension (Chronic) Hyperlipidemia (Chronic) Depression (Chronic) Hospital Course and Treatment Imaging Results: Clinical Impression(s) from Imaging Studies Knee X-Ray 07/09/20 19:50 IMPRESSION: No acute findings. Moderate medial compartment degeneration. Electronically Signed: Brigitte Vigil MD at 20:19 EST Tel , Service support , Operations: None Procedures: None Summary of Care Provided: The patient is a 74 year old M left knee pain. Patient has known muscular dystrophy and had difficulty getting around. Patient had some pain and effusion of his left knee as compared to his right. Was not overly warm. Patient was started on prednisone on the and has continued to improve. I discussed with the patient that I do not feel that this is a septic arthritis but likely gout as patient has previously had gout in other joints previously. Patient will be on prednisone 40 mg daily for total of 5 days which be 3 days once he is discharged to complete 5 days. He has had improvements with prednisone though not gone completely away. Patient was seen by therapy and recommended additional therapy needs. Patient will be discharged to the transitional care unit pending precertification. [] Patient Problems: Active and Suspected Problems Debility (Acute) - Physical Exam Vitals/I&O's: Vital Signs Temp Pulse Resp BP Pulse Ox 36.6 C 78 18 125/70 H 97 07/12/20 04:06 07/12/20 04:06 07/12/20 04:06 07/12/20 04:06 07/12/20 04:06 Oxygen Delivery Method Room Air Weight: 137.5 kg Body Mass Index (BMI) 46.0 Intake and Output for Last 24 Hours 07/10/20 07/11/20 07/12/20 23:59 23:59 23:59 Intake Total 1530 / 1530 1100 / 1100 Output Total 500 / 500 3850 / 3850 525 / 525 Balance 1030 / 1030 -2750 / -2750 -525 / -525 General: Alert, No apparent distress HEENT: Atraumatic, Normocephalic Extremities: - - decreased effusion of left knee. willis's cyst on posterior left knee. no warmth. Current Medications Acetaminophen (Acetaminophen 325 Mg Tablet) 650 mg PO Q6H PRN PRN PRN Reason: Pain 1-10 or Fever Last Admin: 07/11/20 15:18 Dose: 325 mg Documented by: Apixaban (Apixaban 5 Mg Tablet) 5 mg PO BID [facility] Last Admin: 07/11/20 22:20 Dose: 5 mg Documented by: Aspirin (Aspirin E.C. 81 Mg Tablet) 81 mg PO DAILY [facility] Last Admin: 07/11/20 07:43 Dose: 81 mg Documented by: Atorvastatin Calcium (Atorvastatin Calcium 20 Mg Tablet) 20 mg PO QHS [facility] Last Admin: 07/11/20 22:20 Dose: 20 mg Documented by: Cholecalciferol (Cholecalciferol (Vit D3) 1,000 Unit (25mcg)) 1,000 unit PO DAILY [facility] Last Admin: 07/11/20 07:43 Dose: 1,000 unit Documented by: Citalopram Hydrobromide (Citalopram 20 Mg Tablet) 20 mg PO QHS [facility] Last Admin: 07/11/20 22:20 Dose: 20 mg Documented by: Diltiazem HCl (Diltiazem Cd 240 Mg Capsule) 240 mg PO DAILY [facility] Last Admin: 07/11/20 07:42 Dose: 240 mg Documented by: Furosemide (Furosemide 20 Mg Tablet) 20 mg PO BIDLX [facility] Last Admin: 07/11/20 18:30 Dose: 20 mg Documented by: Lisinopril (Lisinopril 40 Mg Tablet) 40 mg PO DAILY [facility] Last Admin: 07/11/20 07:42 Dose: 40 mg Documented by: Multivitamins (Multivitamins,Therapeutic Tablet) 1 tablet PO DAILY [facility] Last Admin: 07/11/20 07:42 Dose: 1 tablet Documented by: Nystatin (Nystatin Powder 15gm Bottle) 1 applic TOPICAL TID [facility]; Protocol Last Admin: 07/12/20 05:24 Dose: 1 applicatio Documented by: Ondansetron HCl (Ondansetron 4 Mg/2 Ml Vial) 4 mg IV Q6H PRN PRN PRN Reason: NAUSEA/VOMITING Oxycodone HCl (Oxycodone 5 Mg Tablet) 5 mg PO Q6H PRN PRN PRN Reason: Pain Score 6-7 Last Admin: 07/11/20 15:18 Dose: 5 mg Documented by: Oxycodone HCl (Oxycodone 5 Mg Tablet) 10 mg PO Q6H PRN PRN PRN Reason: Pain Score 8-10 Last Admin: 07/10/20 19:50 Dose: 10 mg Documented by: Prednisone (Prednisone 20 Mg Tablet) 40 mg PO DAILY@0800 [facility] Senna/Docusate Sodium (Senna/Docusate Sodium 1 Tablet) 2 tablet PO DAILY PRN PRN PRN Reason: CONSTIPATION Last Admin: 07/11/20 12:26 Dose: 2 tablet Documented by: Sodium Chloride (0.9% Saline Lock 10 Ml Syringe) 10 - 40 ml IV UD PRN PRN Reason: SALINE FLUSH Last Admin: 07/10/20 00:21 Dose: 10 ml Documented by: Discharge Diet: Low fat/ Low Cholesterol Discharge Activity: Return to Normal Activity Home Medications: Medications to take at Discharge Aspirin [Adult Low Dose Aspirin EC] 81 mg PO DAILY 05/26/15 Citalopram [Celexa] 20 mg PO DAILY 05/26/15 Multivitamins,Therapeutic [Multivitamin] 1 tablet PO DAILY 05/26/15 Apixaban [Eliquis] 5 mg PO BID 09/27/16 Furosemide [Lasix] 20 mg PO BIDLX 09/27/16 Lisinopril [Zestril] 40 mg PO DAILY 09/27/16 Atorvastatin Calcium [Lipitor] 20 mg PO QHS 08/13/18 Cholecalciferol (VIT D3) [Vitamin D3] 1,000 unit PO DAILY 08/13/18 Diltiazem HCl [Diltiazem 24Hr ER] 240 mg PO DAILY 08/13/18 Oxycodone [Oxyir] 5 mg PO Q6H PRN PRN 3 Days #12 tab 07/12/20 Prednisone 2 tab PO DAILY #6 tablet 07/12/20 Following Prescriptions Were Given to Patient: Oxycodone [Oxyir] 5 mg PO Q6H PRN PRN 3 Days #12 tab PRN Reason: Pain Score 6-7 Prescription Printed Prednisone 2 tab PO DAILY #6 tablet Primary Care Physician: Landon Enamorado MD [Primary Care Provider] - Within 2 Weeks Disposition: Group Home facility Minutes spent on discharge:: 28 Patient Condition:: Good Medical Necessity - Tobacco Use Smoking Status: Former smoker Meaningful Use Info Meaningful Use Diagnoses (Choose all that apply): None applicable Inpatient E&M: 55323 Disch Hosp
--- NOTE | 2020-07-12 09:10 | CASEMGMT ---
Social Work Note LIDIA received message from Celeste in TCU stating per [facility] pt is not denied yet but it is a good chance pt will get denied. [facility] has concerns with pt's prior baseline, pt has mechanical lift at home, at baseline pt is basically dependent. Celeste states referral will be sent to [facility] physician today and will have an answer today. LIDIA updated physician. Kamilla Rosas READING RECOVERY TEACHER, ELEMENTARY SPECIAL EDUCATION TEACHER
[2020-07-12 09:19] VITALS: BP 124/75; PULSE 79; RESP 16; TEMP 36.4; O2SAT 95
[2020-07-12] MEDS: Multivitamins,Therapeutic Tablet 1 TABLET PO (09:22)
[2020-07-12] MEDS: Furosemide 20 MG Tablet PO (09:22)
[2020-07-12] MEDS: predniSONE 20 MG Tablet 40 MG PO (09:22)
[2020-07-12] MEDS: dilTIAZem CD 240 MG Capsule PO (09:22)
[2020-07-12] MEDS: Aspirin E.C. 81 MG Tablet PO (09:22)
[2020-07-12] MEDS: Lisinopril 40 MG Tablet PO (09:22)
[2020-07-12] MEDS: APIXABAN 5 MG TABLET PO (09:23)
--- NOTE | 2020-07-12 10:35 | CASEMGMT ---
Social Work Note SW received call from Celeste in TCU stating pt was denied. SW also received message from Ivet at [facility] stating pt was denied. SW spoke with pt and pt's present in room. SW updated pt that pt was denied SNF. SW explained options of paying privately for SNF or returning home with [facility]. Pt agreeable to [facility] for RN, PT/OT. LIDIA updated RN CM. Kamilla Rosas SANITARY ENGINEER, PHYSICIST [employer]
--- NOTE | 2020-07-12 11:15 | CASEMGMT ---
JESSICA TRAMMELL updated that patient was denied by insurance to go to TCU. Per LIDIA Rosas patient would like [facility] for SN, PT, OT. JESSICA TRAMMELL in to discuss discharge planning with patient and . JESSICA TRAMMELL provided patient with list of [facility] agencies. Patient states he would like [facility] as he has had them in the past. JESSICA TRAMMELL sent referral to [facility] and awaiting acceptance. CM will continue to follow this patient and plan for a safe discharge.
--- NOTE | 2020-07-12 12:45 | CASEMGMT ---
JESSICA TRAMMELL received call back from [facility] that patient is accepted and will be seen tomorrow. JESSICA TRAMMELL updated patient and regarding C setup. Patient and had no further questions or concerns at this time.
--- NOTE | 2020-07-12 12:51 | PCM.DC ---
- Discharge Diagnoses Current Active Problems: Current Active and Chronic Problems Debility (Acute) Atrial fibrillation (Chronic) Muscular dystrophy (Chronic) Hypertension (Chronic) Hyperlipidemia (Chronic) Depression (Chronic) You will use the following diet at home:: No restrictions Your food should be the consistency of: Regular Discharge Activity: Return to Normal Activity Allergies/Adverse Reactions: Allergies codeine Adverse Reaction (Verified 08/13/18 19:09) made me do crazy things Medications to take at Discharge Aspirin [Adult Low Dose Aspirin EC] 81 mg PO DAILY 05/26/15 Citalopram [Celexa] 20 mg PO DAILY 05/26/15 Multivitamins,Therapeutic [Multivitamin] 1 tablet PO DAILY 05/26/15 Apixaban [Eliquis] 5 mg PO BID 09/27/16 Furosemide [Lasix] 20 mg PO BIDLX 09/27/16 Lisinopril [Zestril] 40 mg PO DAILY 09/27/16 Atorvastatin Calcium [Lipitor] 20 mg PO QHS 08/13/18 Cholecalciferol (VIT D3) [Vitamin D3] 1,000 unit PO DAILY 08/13/18 Diltiazem HCl [Diltiazem 24Hr ER] 240 mg PO DAILY 08/13/18 Prednisone 2 tab PO DAILY #6 tab 07/12/20 The following prescriptions were given: Prednisone 2 tab PO DAILY #6 tab Transmission Status: Pending to [facility] Primary Care Physician: Landon Enamorado MD [Primary Care Provider] - Within 2 Weeks Test Results: Test results from this visit will be discussed in further detail at your follow-up appointment, if applicable. Proposed Discharge Date: 07/12/20
[2020-07-12] MEDS: oxyCODONE 5 MG Tablet PO (14:19)
[2020-07-12 15:00] VITALS: BP 138/68; PULSE 85; RESP 18; TEMP 36.4; O2SAT 94
== END 2020-07-12 15:21 | disposition home health service (06) ==
LOC: ED 20:44 → MS3 21:17
PROVIDERS: Internal Medicine; Admitting Provider Hospitalist; Emergency Provider Student in an Organized Health Care Education/Training Program; PCP Family Medicine
DX: M17.12 Unilateral primary osteoarthritis, left knee (principal); I10 Essential (primary) hypertension; I48.0 Paroxysmal atrial fibrillation; E78.5 Hyperlipidemia, unspecified; F32.9 Major depressive disorder, single episode, unspecified; G71.00 Muscular dystrophy, unspecified; Z87.891 Personal history of nicotine dependence; E66.01 Morbid (severe) obesity due to excess calories; Z68.42 Body mass index [BMI] 45.0-49.9, adult; Z79.899 Other long term (current) drug therapy; Z79.82 Long term (current) use of aspirin; Z79.01 Long term (current) use of anticoagulants; F41.9 Anxiety disorder, unspecified
CPT/HCPCS: 36415; 73560; 80048; 83735; 85025; 87635; 97110; 97162; 97166; 99218; 99285; A4216; G0378; U0002

== ENCOUNTER → 2020-08-29 14:57 | Outpatient (CLI) | payer MEDICARE, SELFPAY ==
[2020-07-09 21:46] VITALS: BMI 46.0
[2020-08-29 18:22] LABS: Uric Acid 10.1 mg/dL (3.5-7.2)
== END ==
PROVIDERS: PCP Family Medicine; Visit Provider Family Medicine
DX: M10.9 Gout, unspecified (principal)
CPT/HCPCS: 36415; 84550

== ENCOUNTER → 2022-06-05 | Outpatient (CLI) | payer MEDICARE, SELFPAY ==
--- NOTE | 2022-06-05 15:40 | RAD_ITS ---
INDICATION: BRONCHITIS EXAMINATION/TECHNIQUE: X-RAY - XR Chest 2 Views COMPARISON: 08/13/2018 FINDINGS: LINES/DEVICES: None. LUNGS: Stable elevation right hemidiaphragm. No consolidation, vascular congestion or pleural effusion. MEDIASTINUM AND CARDIOVASCULAR STRUCTURES: Cardiac silhouette stable within upper normal limits. BONES AND SOFT TISSUES: No acute changes. RAD/Chest PA and Lateral IMPRESSION: No radiographic evidence of acute cardiopulmonary disease. Electronically Signed: Mal Pablo MD at 16:06 EST ,
== END | disposition home or self-care (01) ==
PROVIDERS: PCP Family Medicine; Referring Provider Family Medicine; Visit Provider Family Medicine
DX: J40 Bronchitis, not specified as acute or chronic (principal)
CPT/HCPCS: 71046

== ENCOUNTER 2022-06-24 12:03 | Inpatient (IN) | payer MEDICARE, SELFPAY ==
[2022-06-24] VITALS (13 sets, daily range): BP systolic 150–174; BP diastolic 49–106; PULSE 61–73; RESP 15–20; TEMP 35.7–36.4; O2SAT 86–98; BMI 48.6; BMI 45.7
--- NOTE | 2022-06-24 13:31 | RAD_ITS ---
HISTORY: Cough. TECHNIQUE: XR Chest 1 View. COMPARISON: 06/05/2022. FINDINGS: CARDIOMEDIASTINAL BORDERS: Cardiac silhouette within normal limits in size. Mediastinal contour unchanged with calcification of the aorta. LUNGS: Mild right basilar opacity again seen. PLEURA: Chronic right pleural thickening. OSSEOUS STRUCTURES: Degenerative change. RAD/Chest 1 View (Portable) IMPRESSION: Mild right basilar atelectasis or scarring. Unchanged right pleural thickening. Electronically Signed: Cori Wright MD at 14:48 EST ,
--- NOTE | 2022-06-24 13:31 | EKG12_ITS ---
Test Reason : SOB Blood Pressure : / mmHG Vent. Rate : 066 BPM Atrial Rate : 066 BPM P-R Int : 196 ms QRS Dur : 100 ms QT Int : 410 ms P-R-T Axes : 055 013 126 degrees QTc Int : 429 ms Normal sinus rhythm Left ventricular hypertrophy Nonspecific ST and T wave abnormality Abnormal ECG Confirmed by JEFFERY MENDES, DWAYNE ([id number]), editor newspaper YANET WHIPPLE ([id number]) on 06/25/2022 1:09:12 PM Referred By: Confirmed By:DWAYNE GIL MD
--- NOTE | 2022-06-24 13:36 | ED.VIS.DYS ---
HPI History of Present Illness Chief Complaint: Cough Informant: patient and spouse/S.O. Narrative Narrative: Patient complains of dyspnea and cough. He states the symptoms started about 3 weeks ago. He was seen by his primary physician. X-ray was done. He was placed on azithromycin amoxicillin and an albuterol nebulizer. He did not have a nebulizer prior to this. They both deny that he was not on steroids but he was on the antibiotics. He is on Eliquis which he takes for atrial fibrillation. He is taking this and has not missed doses. He has never had chest pain. He states he is coughing but he cannot bring anything up. They do hear wheezing and some coarse breath sounds. They do not think he has gained weight. He is on Lasix but denies actual history of congestive heart failure. He does have muscular dystrophy and has been in a wheelchair for some time. However he has never had breathing problems. He does have an O2 sat device at home and he normally runs 94 to 98%. But with this illness he has been running in the high 80s to low 90s. He states other than the breathing and coughing he does not feel ill. Nothing specifically makes this better or worse. [facility] Medical History Aortic aneurysm Atrial fibrillation Depression HTN (hypertension) Hyperlipemia Muscular dystrophy Home Medications aspirin 81 mg tablet,delayed release (Adult Low Dose Aspirin) 81 mg PO DAILY afib 05/26/15 [History Last Taken 07/09/20 0900] citalopram 20 mg tablet 20 mg PO DAILY depression 05/26/15 [History Last Taken 07/08/20 20:00] multivitamin with folic acid 400 mcg tablet (Thera) 1 tab PO DAILY 05/26/15 [History Last Taken 07/09/20 09:00] apixaban 5 mg tablet (Eliquis) 5 mg PO BID anti platelet 09/27/16 [History Last Taken 07/09/20 0900] furosemide 20 mg tablet 20 mg PO BIDLX water pill 09/27/16 [History Last Taken 07/09/20 09:00] lisinopril 40 mg tablet 40 mg PO DAILY blood pressure 09/27/16 [History Last Taken 07/09/20 09:00] atorvastatin 20 mg tablet 20 mg PO QHS cholesterol 08/13/18 [History Last Taken 07/08/201999] cholecalciferol (vitamin D3) 25 mcg (1,000 unit) tablet (Vitamin D3) 1,000 unit PO DAILY supplement 08/13/18 [History Last Taken 07/09/20 0900] diltiazem HCl 240 mg capsule,24 hr,extended release 240 mg PO DAILY afib 08/13/18 [History Last Taken 07/09/20 09:00] prednisone 20 mg tablet 2 tab PO DAILY #6 tabs 07/12/20 [Rx Last Taken Unknown] Allergy/AdvReac Type Severity Reaction Status Date / Time codeine AdvReac made me Verified 06/24/22 12:06 do crazy things Social History Smoking Status: Former smoker ROS ROS ED Constitutional Constitutional ED: Denies chills or fever(s) Eyes Eyes: Denies change in vision ENT ENT ED: Denies rhinorrhea or sore throat Cardiovascular Cardiovascular: Denies chest pain or palpitations Respiratory/Chest Respiratory/Chest: Reports cough and dyspnea; Denies sputum Gastrointestinal Gastrointestinal: Denies nausea or vomiting Musculoskeletal Musculoskeletal: Denies arthralgias or myalgias Integumentary Denies rash Neurologic Neurologic: Denies headache(s) Endocrine Endocrinology: Denies polyuria Hematologic/Lymphatic Hematologic/Lymphatic: Reports easy bleeding and easy bruising Allergic/Immunologic Allergic/Immunologic ED: Denies urticaria EXAM Physical Exam Const Vital Signs: 06/24/22 12:04 06/24/22 12:19 06/24/22 14:04 Temperature 96.3 F L Temperature Source Temporal Pulse Rate 71 71 Respiratory Rate 16 15 Respiratory Effort Normal Non-Labored Short of Breath Respiratory Depth Normal Respiratory Pattern Normal Blood Pressure 174/106 H 150/82 H Blood Pressure Mean 128 104 Pulse Ox 94 94 Oxygen Delivery Method Room Air Room Air Room Air Oxygen Flow Rate (L/min) 06/24/22 15:20 06/24/22 15:21 06/24/22 15:00 Temperature 97.5 F L Temperature Source Temporal Pulse Rate 61 Respiratory Rate 19 H Respiratory Effort Respiratory Depth Respiratory Pattern Blood Pressure 165/94 H Blood Pressure Mean 117 Pulse Ox 86 93 94 Oxygen Delivery Method Room Air Nasal Cannula Nasal Cannula Oxygen Flow Rate (L/min) 2 2 Positive well nourished HEENT Reports moist mucous membranes Eyes EOMs intact bilaterally Neck no lymphadenopathy Resp normal respiratory effort Resp Narrative: Respiratory effort does not seem worse or different. He does have some coarse breath sounds greater on the left than the right. There is an axpiratory wheeze. I do not hear definite rales. There is no pain with a deep breath. Patient's oxygen saturation ranges about 86-91. If he takes good breaths it goes up to the 91. When he is resting it hits 86 or 87. When he falls asleep it will hit 83 or 84%. Cardio regular rate, regular rhythm and no murmurs GI non-tender and non-distended Back/Spine Negative for no CVA tenderness Extremity Extremity Narrative: He does have bilateral peripheral edema and has compression hose that are on. This is typical and normal for him. General Extremety ED: Yes edema General Extremity: edema Neuro oriented x3 Psych mental status grossly normal Skin no wounds MDM MDM MDM Narrative Medical decision making narrative: Patient does have a slight bump of his white count at 13.1. Hemoglobin is normal. Platelets are normal. Electrolytes including BUN and creatinine are normal. BNP is normal at 24.1. This makes likelihood of CHF extremely low. Chest x-ray is not showing any infiltrative process. There is some atelectasis and scarring. There is a small right pleural thickening. No notable effusion. No infiltrate. I do not think he needs a CTA for PE. He is not having chest pain hemoptysis and he is already on Eliquis and is taking it. I think the patient likely had a pneumonitis whether viral or bacterial recently. But he is not improving. He is having some bronchospasm. The breathing treatment did help him clinically but his saturations are still dropping into the mid to low 80s when he is asleep. When he is awake they will still hit 86 and 87% at times. The highest I have seen is 91%. I discussed options with him and his . He states he is also getting just very weak and worn out. This is likely due to the ongoing hypoxia. They would prefer hospitalization and see if we can get his symptoms better. Although he has never had respiratory problems from his muscular dystrophy this could certainly be contributing to this somewhat. He also has a history of smoking but quit 20 years ago. There may be a component of bronchospasm and COPD. We will start steroids. I will discuss case with hospitalist. Lab Data Attestation: I reviewed the patient's lab results. Labs: Laboratory Results - last 24 hr 06/24/22 06/24/22 06/24/22 13:50 13:50 13:50 WBC 13.1 H RBC 4.97 Hgb 13.6 Hct 43.8 MCV 88.1 MCH 27.4 MCHC 31.1 L RDW Std Deviation 54.4 H RDW Coeff of Nick 17.0 H Plt Count 273 MPV 10.3 Immature Gran % (Auto) 0.500 Neut % (Auto) 67.7 Lymph % (Auto) 13.8 L [place] % (Auto) 10.3 H Eos % (Auto) 6.8 H Baso % (Auto) 0.9 Absolute Neuts (auto) 8.9 H Absolute Lymphs (auto) 1.81 Nucleated RBC % 0 Sodium 137 Potassium 4.4 Chloride 102 Carbon Dioxide 31.0 Anion Gap 4 L BUN 19 H Creatinine 0.38 L Estim Creat Clear Calc 62.70 Est GFR (MDRD) Af Amer 283 Est GFR (MDRD) Non-Af 234 BUN/Creatinine Ratio 49.5 H Glucose 96 Calcium 9.6 B-Natriuretic Peptide 24.1 Radiography Diagnostic Testing: Clinical Impression(s) from Imaging Studies Chest X-Ray 06/24/22 13:31 IMPRESSION: Mild right basilar atelectasis or scarring. Unchanged right pleural thickening. Electronically Signed: Cori Wright MD at 14:48 EST Reading Location ID and State: [facility] / [place] Tel , Service support , EKG Initial EKG: Comments: ResumeEKG done for dyspnea read by me shows normal sinus rhythm now even though he has a history of A. fib. VA changes. No ectopy. Baseline variation but no acute ST elevation or depression. DE interval QRS duration and QTc normal. Discharge Plan Dx/Rx/DC Orders Clinical Impression: Acute dyspnea, Hypoxia, Acute bronchospasm Disposition Disposition: Acute Care Hospital [facility]
[2022-06-24] MEDS: Ipratropium/Albuterol Sulfate 3 ML AMPUL.NEB INHALATION ×2 (13:45→20:01)
[2022-06-24 14:12] LABS: Absolute Lymphocyte Count 1.81 X10^3/uL (0.83-4.51); Absolute Neutrophil Count 8.9 X10^3/uL (2.0-7.7); Basophil# 0.12 X10^3/uL; Basophil% 0.9 % (0-1); Eosinophil# 0.89 X10^3/uL; Eosinophils% 6.8 % (0-5); Hematocrit 43.8 % (40-54); Hemoglobin 13.6 g/dL (13.0-16.5); Lymphocyte # 1.81 X10^3/ul (0.83-4.51); Lymphocyte % 13.8 % (19-41); Mean Corp Hgb Conc 31.1 g/dL (32-36); Mean Corpuscular Hgb 27.4 pg (27.0-32.0); Mean Corpuscular Volume 88.1 fL (80-94); Mean Platelet Vol. 10.3 fl (6.2-12.0); Monocyte# 1.35 X10^3/uL; Monocyte% 10.3 % (0-10); NRBC Flagged by Analyzer 0 % (0-5); Neutrophil # 8.91 X10^3/uL (2.7-7.7); Neutrophil % 67.7 % (47-70); Platelet Count 273 K/mm3 (150-450); RBC Distribution Width SD 54.4 fl (35.1-43.9); Red Blood Count 4.97 M/mm3 (4.6-6.2); White Blood Count 13.1 K/mm3 (4.4-11.0)
[2022-06-24 14:21] LABS: Anion Gap 4 (5-15); BUN 19 mg/dL (7-18); BUN/Creat Ratio 49.5 RATIO (10-20); Calcium,Total 9.6 mg/dL (8.5-10.1); Chloride 102 mmol/L (98-107); Creatinine, Serum 0.38 mg/dL (0.70-1.30); EST Glomerular Filtration Rate 234 mL/min (>60); Est Glom Filt Rate - Afr Amer 283 mL/min (>60); Glucose 96 mg/dL (74-106); Potassium 4.4 mmol/L (3.5-5.1); Sodium Level 137 mmol/L (136-145)
[2022-06-24 14:22] LABS: BNP,B-Type NATRIURETIC PEPTIDE 24.1 pg/mL (0-100)
[2022-06-24] MEDS: MethylPREDNISolone 125 MG/2 ML Vial IV (15:18)
--- NOTE | 2022-06-24 15:28 | NURSING ---
MED SURG ALEX HYPOXIA, DYSPNEA
--- NOTE | 2022-06-24 15:29 | NURSING ---
MED SURG ALEX HYPOXIA, DYSPNEA
--- NOTE | 2022-06-24 16:09 | PCM.HP.STD ---
HPI - General General Date of Admission: 06/24/22 Date of Service: 06/24/22 Chief Complaint: Hypoxia/shortness of breath/generalized weakness HPI Narrative HEATH SHABAZZ, is a 76 M who presented to emergency department was [facility] on 06/24/2022 with his spouse complaining of dyspnea and cough. The symptoms evidently started approximately 3 weeks ago shortly thereafter he was seen by his primary care physician at which time a chest x-ray was performed and he was placed on azithromycin and amoxicillin along with an albuterol nebulizer. He has not ever had any steroids for this. He is on Eliquis at baseline which he takes for atrial fibrillation. He states that he had upper respiratory symptoms initially however those have since subsided and now he has cough that is unproductive, wheezing and chest congestion and generalized weakness with fatigue. He is wheelchair-bound at baseline due to a history of muscular dystrophy. They have been monitoring his pulse oximetry at home and he has had oxygen saturations at home at the lowest in the mid 80s. His does indicate he snores at night however she is not noted any apnea. He is never been diagnosed with sleep apnea. Vital signs on presentation demonstrated a temperature of 96.3, pulse rate 71, blood pressure 174/106 with repeat at 150/82 Respiratory rate was 16, pulse ox was initially 94% on room air however repeat pulse ox was 86% on room air. He was placed on 2 L supplemental nasal cannula with improved saturations to 94 to 95% CBC shows a mild leukocytosis with a white count of 13.1 and a dominant monocytosis with an eosinophilia at 6.8%. His chemistry panel was overall unremarkable. BNP was 24.1. Chest x-ray shows mild right basilar atelectasis or scarring and unchanged right pleural thickening. EKG shows normal sinus rhythm with no ST T wave changes and no ectopy and normal intervals. [facility] Medical History Aortic aneurysm Atrial fibrillation Depression HTN (hypertension) Hyperlipemia Muscular dystrophy Home Medications aspirin 81 mg tablet,delayed release (Adult Low Dose Aspirin) 81 mg PO DAILY afib 05/26/15 [History Last Taken 06/24/22] citalopram 20 mg tablet 20 mg PO DAILY depression 05/26/15 [History Last Taken 06/23/22] multivitamin with folic acid 400 mcg tablet (Thera) 1 tab PO DAILY supplement 05/26/15 [History Last Taken 06/24/22] apixaban 5 mg tablet (Eliquis) 5 mg PO BID anti platelet 09/27/16 [History Last Taken 06/24/22] furosemide 20 mg tablet 20 mg PO BIDLX water pill 09/27/16 [History Last Taken 06/24/22] lisinopril 40 mg tablet 40 mg PO DAILY blood pressure 09/27/16 [History Last Taken 06/24/22] atorvastatin 20 mg tablet 20 mg PO QHS cholesterol 08/13/18 [History Last Taken 06/23/22] diltiazem HCl 240 mg capsule,24 hr,extended release 240 mg PO QHS afib 08/13/18 [History Last Taken 06/23/22] Allergy/AdvReac Type Severity Reaction Status Date / Time codeine AdvReac made me Verified 06/24/22 12:06 do crazy things Family History (Updated 06/24/22 @ 21:[address] Lolita Holliday DO) Other Hypertension no surgical history Social History (Updated 06/24/22 @ 21:[address] Lolita Holliday DO) Smoking Status: Former smoker alcohol intake: current alcohol intake frequency: holidays/special occasions only substance use type: does not use ROS Constitutional Constitutional: Reports fatigue, malaise and weakness; Denies anorexia, change in weight, chills, fever(s), night sweats or other Eyes Eyes: Denies blurry vision, change in eye color, change in vision, discharge from eye(s), double vision, erythema, eye pain, loss of vision or other ENT HEENT: Denies abnormal hearing, dysphagia, ear pain, epistaxis, headache(s), hearing loss, nasal congestion, nasal discharge, post nasal drip, sinus pressure, sore throat or other Cardiovascular Cardiovascular: Denies chest pain, claudication, dyspnea on exertion, edema, lightheadedness, orthopnea, palpitations, paroxysmal nocturnal dyspnea, rapid heart rate, syncope or other Respiratory/Chest Respiratory/Chest: Reports cough, dyspnea, shortness of breath at rest and wheezing; Denies excessive phlegm production, hemoptysis, productive cough, shortness of breath with exertion or other Gastrointestinal Gastrointestinal: Denies abdominal pain, coffee ground emesis, constipation, diarrhea, dyspepsia, hematemesis, hematochezia, loose stools, melena, nausea, vomiting or other Genitourinary Genitourinary: Denies burning urination, difficulty urinating, dysuria, hematuria, nocturia, urinary frequency, urinary hesitancy, urinary incontinence, urinary urgency or other Musculoskeletal Musculoskeletal: Denies arthralgias, back pain, joint pain, joint stiffness, joint swelling, myalgias, neck pain or other Neurologic Neurologic: Reports other Details: Patient wheelchair-bound at baseline with severe muscular dystrophy Endocrine Endocrinology: Denies change in body appearance, cold intolerance, excessive sweating, heat intolerance, polydipsia, polyuria or other Hematologic/Lymphatic Hematologic/Lymphatic: Denies anemia, easy bleeding, easy bruising, lymphadenopathy or other Allergic/Immunologic Allergic/Immunologic: Denies rhinitis, hives, eczemia, asthma or other Vital Signs Vital Signs Vital Signs: 06/24/22 12:04 06/24/22 12:19 06/24/22 14:04 Temperature 96.3 F L Temperature Source Temporal Pulse Rate 71 71 Respiratory Rate 16 15 Respiratory Effort Normal Non-Labored Short of Breath Respiratory Depth Normal Respiratory Pattern Normal Blood Pressure 174/106 H 150/82 H Blood Pressure Mean 128 104 Pulse Ox 94 94 Oxygen Delivery Method Room Air Room Air Room Air Oxygen Flow Rate (L/min) 06/24/22 15:20 06/24/22 15:21 06/24/22 15:00 Temperature 97.5 F L Temperature Source Temporal Pulse Rate 61 Respiratory Rate 19 H Respiratory Effort Respiratory Depth Respiratory Pattern Blood Pressure 165/94 H Blood Pressure Mean 117 Pulse Ox 86 93 94 Oxygen Delivery Method Room Air Nasal Cannula Nasal Cannula Oxygen Flow Rate (L/min) 2 2 06/24/22 15:24 06/24/22 13:45 Temperature 97.4 F L Temperature Source Temporal Pulse Rate 63 71 Respiratory Rate 18 20 H Respiratory Effort Respiratory Depth Respiratory Pattern Blood Pressure 165/49 H Blood Pressure Mean 87 Pulse Ox 94 Oxygen Delivery Method Nasal Cannula Oxygen Flow Rate (L/min) 2 Weight Weight: 145.15 kg Body Mass Index (BMI) 48.6 Physical Exam Const alert, oriented x3, no apparent distress and well nourished Constitutional Narrative: Older, morbidly obese, white male sitting in wheelchair-motorized, at bedside, patient appears as if he is not feeling well but not toxic, very pleasant, no dyspnea with conversation General Appearance: cooperative HEENT normocephalic, head/scalp atraumatic, hearing grossly normal bilaterally and moist oral mucous membranes HEENT Narrative: Mallampati is 3, no thrush Eyes PERRL, EOMs intact bilaterally and conjunctivae normal Eyes Narrative: No scleral icterus Neck no lymphadenopathy, supple, no JVD and no carotid bruits Resp normal respiratory effort, no retractions and no use of accessory muscles Resp Narrative: Scattered wheeze and rhonchi, cough is dry, not tachypneic Auscultation: rhonchi and wheezes; Negative for crackles Cardio regular rate, regular rhythm, S1 normal heart sound, S2 normal heart sound, no murmurs, no rub, no gallops and no clicks GI normal to inspection, nondistended, normoactive bowel sounds, soft to palpation and non-tender Extremity Extremity Narrative: Chronic bilateral lower extremity +1 pitting edema, no cyanosis or clubbing Skin no rashes or lesions noted, no wounds, skin turgor normal, no jaundice, no petechiae and no mottling Skin Narrative: Exam is difficult as patient is in his close in his wheelchair and its difficult to look at his back, has compression hose bilateral legs, no significant rashes Neuro oriented x3 and CN's II-XII intact bilaterally Neuro Narrative: Decrease mobility bilateral upper and lower extremity secondary to muscular dystrophy-chronic Speech: speech normal Psych Psych Narrative: Affect is somewhat flat, eye contact is good, normal interaction Results Lab / Micro Data Result Diagrams: 06/24/22 13:50 06/24/22 13:50 Labs: Laboratory Results - last 24 hr 06/24/22 13:50: WBC 13.1 H, RBC 4.97, Hgb 13.6, Hct 43.8, MCV 88.1, MCH 27.4, MCHC 31.1 L, RDW Std Deviation 54.4 H, RDW Coeff of Nick 17.0 H, Plt Count 273, MPV 10.3, Immature Gran % (Auto) 0.500, Neut % (Auto) 67.7, Lymph % (Auto) 13.8 L, [place] % (Auto) 10.3 H, Eos % (Auto) 6.8 H, Baso % (Auto) 0.9, Absolute Neuts (auto) 8.9 H, Absolute Lymphs (auto) 1.81, Nucleated RBC % 0 06/24/22 13:50: Sodium 137, Potassium 4.4, Chloride 102, Carbon Dioxide 31.0, Anion Gap 4 L, BUN 19 H, Creatinine 0.38 L, Estim Creat Clear Calc 62.70, Est GFR (MDRD) Af Amer 283, Est GFR (MDRD) Non-Af 234, BUN/Creatinine Ratio 49.5 H, Glucose 96, Calcium 9.6 06/24/22 13:50: B-Natriuretic Peptide 24.1 Micro: Microbiology 06/24/22 13:50 Nasal Secretion SARS-CoV-2 & FLU Antigen (Rapid) - Final Radiology Impression Chest X-Ray 06/24/22 13:31 IMPRESSION: Mild right basilar atelectasis or scarring. Unchanged right pleural thickening. Electronically Signed: Cori Wright MD at 14:48 EST , Assessment & Plan Assessment/Plan (1) Acute dyspnea: (2) Hypoxia: (3) Debility: (4) Leukocytosis: PLAN: Plan Acute dyspnea/shortness of breath -Work-up overall is unremarkable -Suspect viral illness with subsequent COPD exacerbation -Patient was hypoxic on room air 86% -Currently requiring 2 L nasal cannula -Does have a history of tobacco abuse and unclear whether or not he has any COPD -Start Solu-Medrol 40 every 8 -Check respiratory viral panel -COVID and flu rapid were negative -Pulmonary toilet with scheduled and as needed nebulizers -Mucinex 1200 p.o. twice daily -I-S -Pep therapy with Acapella Leukocytosis -This is a monocyte and eosinophil predominant leukocytosis -Doubt acute bacterial infection -Anticipate this may trend up as he is on steroids -Repeat CBC in a.m. Debility -Patient is wheelchair-bound at baseline secondary history of multiple sclerosis -He and his state he is weaker than normal -May need to get therapy services involved depending on overall function Hyperlipidemia/PAF/hypertension -Next-continue home Eliquis -Continue home Lasix -Continue home lisinopril -Continue home aspirin -Continue home atorvastatin -Continue home diltiazem Depression -Continue home citalopram Muscular dystrophy -Patient is wheelchair-bound at baseline Morbid obesity -BMI is 45.8 -Recommend weight loss -Complicates treatment, prognosis, outcomes DVT prophylaxis -Continue full anticoagulation CODE STATUS -Full code Charges/Coding Visit Charges Inpatient E&M: 20957 Init Hosp L2
[2022-06-24] MEDS: Furosemide 20 MG Tablet PO (17:36)
[2022-06-24] MEDS: guaiFENesin 1,200 MG Tablet 1200 MG PO (22:10)
[2022-06-24] MEDS: dilTIAZem CD 240 MG Capsule PO (22:10)
[2022-06-24] MEDS: APIXABAN 5 MG TABLET PO (22:10)
[2022-06-24] MEDS: Atorvastatin Calcium 20 MG Tablet PO (22:10)
[2022-06-25] VITALS (13 sets, daily range): BP systolic 99–138; BP diastolic 60–79; PULSE 81–100; RESP 16–25; TEMP 36.4–37.1; O2SAT 88–97
--- NOTE | 2022-06-25 02:40 | CPS ---
PEP missed due to RT busy with critical patient
[2022-06-25] MEDS: Ipratropium/Albuterol Sulfate 3 ML AMPUL.NEB INHALATION ×6 (03:22→23:55)
[2022-06-25 06:59] LABS: Absolute Lymphocyte Count 0.65 X10^3/uL (0.83-4.51); Absolute Neutrophil Count 8.8 X10^3/uL (2.0-7.7); Basophil# 0.01 X10^3/uL; Basophil% 0.1 % (0-1); Hematocrit 43.6 % (40-54); Hemoglobin 13.6 g/dL (13.0-16.5); Lymphocyte # 0.65 X10^3/ul (0.83-4.51); Lymphocyte % 6.8 % (19-41); Mean Corp Hgb Conc 31.2 g/dL (32-36); Mean Corpuscular Hgb 27.4 pg (27.0-32.0); Mean Corpuscular Volume 87.9 fL (80-94); Mean Platelet Vol. 10.2 fl (6.2-12.0); Monocyte# 0.06 X10^3/uL; Monocyte% 0.6 % (0-10); NRBC Flagged by Analyzer 0 % (0-5); Neutrophil # 8.76 X10^3/uL (2.7-7.7); Neutrophil % 92.1 % (47-70); Platelet Count 279 K/mm3 (150-450); RBC Distribution Width CV 16.9 % (11.6-14.6); RBC Distribution Width SD 54.7 fl (35.1-43.9); Red Blood Count 4.96 M/mm3 (4.6-6.2); White Blood Count 9.5 K/mm3 (4.4-11.0)
[2022-06-25 07:28] LABS: ALB/GLOB Ratio 0.7 RATIO (0.9-2.4); AST(SGOT) 20 U/L (15-37); Alanine Aminotransfer ALT/SGPT 47 U/L (16-61); Albumin, Serum 3.3 g/dL (3.2-5.0); Alkaline Phosphatase 118 U/L (45-117); Anion Gap 4 (5-15); BUN 19 mg/dL (7-18); BUN/Creat Ratio 44.3 RATIO (10-20); Calcium,Total 9.5 mg/dL (8.5-10.1); Chloride 103 mmol/L (98-107); Creatinine, Serum 0.43 mg/dL (0.70-1.30); EST Glomerular Filtration Rate 206 mL/min (>60); Est Glom Filt Rate - Afr Amer 249 mL/min (>60); Globulin 4.5 g/dL (2.2-4.2); Glucose 147 mg/dL (74-106); Magnesium 2.2 mg/dL (1.6-2.6); Phosphorus 3.3 mg/dL (2.5-4.9); Potassium 3.9 mmol/L (3.5-5.1); Protein, Total 7.8 g/dL (6.4-8.2); Sodium Level 136 mmol/L (136-145)
--- NOTE | 2022-06-25 08:03 | PN.HOSP_ITS ---
Subjective Subjective Feels better. Breathing better. Objective Data Objective Data Vital Signs: Vital Signs Temp Pulse Resp BP Pulse Ox O2 Del Method O2 Flow Rate 36.4 C L 84 16 138/79 H 96 Nasal Cannula 2 06/25/22 02:00 06/25/22 03:22 06/25/22 03:22 06/25/22 02:00 06/25/22 02:00 06/25/22 02:00 06/25/22 02:00 Oxygen Flow Rate (L/min) 2 Oxygen Delivery Method Nasal Cannula Weight: 136.5 kg Body Mass Index (BMI) 45.7 Intake & Output: Intake and Output for Last 24 Hours 06/23/22 06/24/22 06/25/22 23:59 23:59 23:59 Intake Total 500 / 500 Output Total 650 / 650 Balance -150 / -150 Lab / Micro Data Result Diagrams: 06/25/22 06:30 06/25/22 06:30 Labs: Laboratory Results - last 24 hr 06/24/22 13:50: WBC 13.1 H, RBC 4.97, Hgb 13.6, Hct 43.8, MCV 88.1, MCH 27.4, MCHC 31.1 L, RDW Std Deviation 54.4 H, RDW Coeff of Nick 17.0 H, Plt Count 273, MPV 10.3, Immature Gran % (Auto) 0.500, Neut % (Auto) 67.7, Lymph % (Auto) 13.8 L, [place] % (Auto) 10.3 H, Eos % (Auto) 6.8 H, Baso % (Auto) 0.9, Absolute Neuts (auto) 8.9 H, Absolute Lymphs (auto) 1.81, Nucleated RBC % 0 06/24/22 13:50: Sodium 137, Potassium 4.4, Chloride 102, Carbon Dioxide 31.0, Anion Gap 4 L, BUN 19 H, Creatinine 0.38 L, Estim Creat Clear Calc 62.70, Est GFR (MDRD) Af Amer 283, Est GFR (MDRD) Non-Af 234, BUN/Creatinine Ratio 49.5 H, Glucose 96, Calcium 9.6 06/24/22 13:50: B-Natriuretic Peptide 24.1 06/25/22 06:30: WBC 9.5, RBC 4.96, Hgb 13.6, Hct 43.6, MCV 87.9, MCH 27.4, MCHC 31.2 L, RDW Std Deviation 54.7 H, RDW Coeff of Nick 16.9 H, Plt Count 279, MPV 10.2, Immature Gran % (Auto) 0.400, Neut % (Auto) 92.1 H, Lymph % (Auto) 6.8 L, [place] % (Auto) 0.6, Eos % (Auto) 0.0, Baso % (Auto) 0.1, Absolute Neuts (auto) 8.8 H, Absolute Lymphs (auto) 0.65 L, Nucleated RBC % 0 06/25/22 06:30: Sodium 136, Potassium 3.9, Chloride 103, Carbon Dioxide 29.0, Anion Gap 4 L, BUN 19 H, Creatinine 0.43 L, Estim Creat Clear Calc 62.70, Est GFR (MDRD) Af Amer 249, Est GFR (MDRD) Non-Af 206, BUN/Creatinine Ratio 44.3 H, Glucose 147 H, Calcium 9.5, Phosphorus 3.3, Magnesium 2.2, Total Bilirubin 0.30, AST 20, ALT 47, Alkaline Phosphatase 118 H, Total Protein 7.8, Albumin 3.3, Globulin 4.5 H, Albumin/Globulin Ratio 0.7 L Micro: Microbiology 06/24/22 18:20 Urine, Random Streptococcus pneumoniae Antigen (M - Final 06/24/22 18:20 Urine, Random Legionella Antigen - Final 06/24/22 16:45 Mucosa - Nose Respiratory Panel (PCR) - Final 06/24/22 13:50 Nasal Secretion SARS-CoV-2 & FLU Antigen (Rapid) - Final Radiography Diagnostic Testing: Radiology Impression Chest X-Ray 06/24/22 13:31 IMPRESSION: Mild right basilar atelectasis or scarring. Unchanged right pleural thickening. Electronically Signed: Cori Wright MD at 14:48 EST , Physical Exam Const alert and no apparent distress Resp normal respiratory effort and no retractions Resp Narrative: Unable to listen to his back as he had difficulty sitting up. But clear anteriorly. Cardio regular rate, regular rhythm, S1 normal heart sound and S2 normal heart sound GI normal to inspection, nondistended, normoactive bowel sounds and soft to palpation Neuro oriented x3 Assessment & Plan Assessment/Plan (1) Acute dyspnea: PLAN: Acute dyspnea/shortness of breath -Work-up overall is unremarkable -Suspect viral illness with subsequent COPD exacerbation -Patient was hypoxic on room air 86% -Currently requiring 2 L nasal cannula -Does have a history of tobacco abuse and unclear whether or not he has any COPD -Start Solu-Medrol 40 every 8 -Check respiratory viral panel -COVID and flu rapid were negative -Pulmonary toilet with scheduled and as needed nebulizers -Mucinex 1200 p.o. twice daily -I-S -Pep therapy with Acapella (2) Debility: PLAN: Debility -Patient is wheelchair-bound at baseline secondary history of multiple sclerosis -He and his state he is weaker than normal -May need to get therapy services involved depending on overall function (3) Leukocytosis: PLAN: Leukocytosis -This is a monocyte and eosinophil predominant leukocytosis -Doubt acute bacterial infection -Anticipate this may trend up as he is on steroids -Repeat CBC in a.m. Eosinophilia resolved. PLAN: Plan Chronic conditions: Hyperlipidemia/PAF/hypertension -Next-continue home Eliquis -Continue home Lasix -Continue home lisinopril -Continue home aspirin -Continue home atorvastatin -Continue home diltiazem Depression -Continue home citalopram Muscular dystrophy -Patient is wheelchair-bound at baseline Morbid obesity -BMI is 45.8 -Recommend weight loss -Complicates treatment, prognosis, outcomes DVT prophylaxis -Continue full anticoagulation CODE STATUS -Full code Disposition: To be determined. Monitor the patient overnight and if doing well he may be medically ready for discharge on the fourth. Charges/Coding Visit Charges Inpatient E&M: 25865 Subs Hosp L2
[2022-06-25] MEDS: Aspirin E.C. 81 MG Tablet PO (08:14)
[2022-06-25] MEDS: APIXABAN 5 MG TABLET PO ×2 (08:14→22:13)
[2022-06-25] MEDS: Citalopram 20 MG Tablet PO (08:14)
[2022-06-25] MEDS: Lisinopril 40 MG Tablet PO (08:15)
[2022-06-25] MEDS: guaiFENesin 1,200 MG Tablet 1200 MG PO ×2 (08:15→22:13)
[2022-06-25] MEDS: Furosemide 20 MG Tablet PO ×2 (08:15→17:05)
--- NOTE | 2022-06-25 13:13 | CASEMGMT ---
JESSICA TRAMMELL Assessment: Face to Face with pt for initial transition planning/care coordination assessment. JESSICA TRAMMELL introduced self and role at [facility], pt voices understanding and consents to assessment. Pt is A/O x4 and answers all questions appropriately at this time. Pt sitting up in bed with oxygen on in no distress, at bedside. Care providers, pharmacy, and demographics verified/updated. Admitting Dx: hypoxia/sob PCP:Fei and sees Mr. Chavez at the [facility] in [place] Specialists:Pt denies. Preferred Pharmacy: [facility] Insurance: [employer] [facility] Prescription Benefit: Pt receives meds through the [facility]. LNOK: Roselia Ma, ; Juana Marlen, rene Living Arrangements: Pt lives with in a mobile home with a ramp to enter. Pt reports he needs assistance with ADL's and denies concerns at home. Transportation: Pt provides transportation in a van that has ramp to enter. DME/HHC/SNF: Pt has a BSC, jamin on track in bedroom, hospital bed, motorized w/c, pox, no slip plates and rubber handled silverware. Pt denies any skilled HHC but states he has a [employer] aide 2 hours per day Mon-Fri that is provided through the [facility]. Pt denies SNF stays. Pt states no concerns with going home at time of dc. Pt denies need for any therapy d/t his MD. Pt states he has made adaptive changes for himself at home. Discussed local in network DME companies should the pt dc with oxygen, pt chose [employer]. Discussed homegoing instructions with oxygen. Pt states no further concerns/needs. CM to follow. Advised pt to ask CM if any further question/concerns/needs arise, voices understanding. Pt Goal: Home Plan: Home, follow for oxygen
[2022-06-25] MEDS: 0.9% Saline Lock 10 ML Syringe IV (13:24)
[2022-06-25] MEDS: dilTIAZem CD 240 MG Capsule PO (22:13)
[2022-06-25] MEDS: Atorvastatin Calcium 20 MG Tablet PO (22:13)
[2022-06-26] VITALS (11 sets, daily range): BP systolic 117–151; BP diastolic 67–76; PULSE 89–870; RESP 18–24; TEMP 36.6–36.9; O2SAT 87–95
[2022-06-26] MEDS: Ipratropium/Albuterol Sulfate 3 ML AMPUL.NEB INHALATION ×6 (03:10→23:17)
[2022-06-26] MEDS: 0.9% Saline Lock 10 ML Syringe IV ×2 (05:24→13:55)
--- NOTE | 2022-06-26 08:24 | PN.HOSP_ITS ---
Subjective Subjective Feels okay. Does not feel that he can cough up any phlegm just that it is in the back of his throat. Patient has concerns about going home with oxygen as he uses a wheelchair and with be able to fit the green oxygen tank on his wheelchair and was requesting a portable condenser if he would need oxygen upon discharge. Objective Data Objective Data Vital Signs: Vital Signs Temp Pulse Resp BP Pulse Ox O2 Del Method O2 Flow Rate 36.6 C 92 20 H 129/70 H 94 Nasal Cannula 2 06/26/22 03:35 06/26/22 07:07 06/26/22 07:07 06/26/22 03:35 06/26/22 03:35 06/26/22 03:35 06/26/22 03:35 Oxygen Flow Rate (L/min) [At 2 REST with Oxygen] Oxygen Flow Rate (L/min) 2 Oxygen Delivery Method Nasal Cannula Weight: 136.5 kg Body Mass Index (BMI) 45.7 Intake & Output: Intake and Output for Last 24 Hours 06/24/22 06/25/22 06/26/22 23:59 23:59 23:59 Intake Total 500 / 500 120 / 370 850 / 850 Output Total 650 / 650 750 / 1200 1100 / 1100 Balance -150 / -150 -630 / -830 -250 / -250 Lab / Micro Data Result Diagrams: 06/25/22 06:30 06/25/22 06:30 Micro: Microbiology 06/24/22 18:20 Urine, Random Streptococcus pneumoniae Antigen (M - Final 06/24/22 18:20 Urine, Random Legionella Antigen - Final 06/24/22 16:45 Mucosa - Nose Respiratory Panel (PCR) - Final 06/24/22 13:50 Nasal Secretion SARS-CoV-2 & FLU Antigen (Rapid) - Final Physical Exam Const alert Resp normal respiratory effort, no retractions, no use of accessory muscles and clear to auscultation bilaterally Cardio regular rate, regular rhythm, S1 normal heart sound and S2 normal heart sound GI normal to inspection, nondistended, normoactive bowel sounds, soft to palpation and non-tender Assessment & Plan Assessment/Plan (1) COPD with acute exacerbation: PLAN: Suspect viral illness with subsequent COPD exacerbation Patient was hypoxic on room air 86% Currently requiring 2 L nasal cannula Does have a history of tobacco abuse CTA of chest from 08/13/2018 showed centrilobular emphysema Treatment: * Solu-Medrol 40 every 8 * BDs * Pulmonary toilet with scheduled and as needed nebulizers * Mucinex 1200 p.o. twice daily * I-S * Pep therapy with Acapella * Follow up with pulm as outpt for further testing when stable (PFTs) * Will utilize vest therapy as patient is having difficulty with expectoration. * Start ceftriaxone and azithromycin as there may be some right lower lobe infiltrate * Patient's respiratory difficulties account of the COPD and possible pneumonia but also his muscular dystrophy. Testing * respiratory viral panel: negative * COVID and flu rapid were negative (2) Debility: PLAN: -Patient is wheelchair-bound at baseline secondary history of multiple sclerosis -He and his state he is weaker than normal -May need to get therapy services involved depending on overall function Patient states that he will not be going to a care home facility but will go home. (3) Leukocytosis: PLAN: Resolved -This is a monocyte and eosinophil predominant leukocytosis -Doubt acute bacterial infection -Anticipate this may trend up as he is on steroids -Repeat CBC in a.m. Eosinophilia resolved. PLAN: Plan Chronic conditions: Hyperlipidemia/PAF/hypertension -Next-continue home Eliquis -Continue home Lasix -Continue home lisinopril -Continue home aspirin -Continue home atorvastatin -Continue home diltiazem Depression -Continue home citalopram Muscular dystrophy -Patient is wheelchair-bound at baseline Morbid obesity -BMI is 45.8 -Recommend weight loss -Complicates treatment, prognosis, outcomes DVT prophylaxis -Continue full anticoagulation CODE STATUS -Full code Disposition: To be determined. Charges/Coding Visit Charges Inpatient E&M: 83027 Subs Hosp L2
[2022-06-26] MEDS: Aspirin E.C. 81 MG Tablet PO (08:46)
[2022-06-26] MEDS: APIXABAN 5 MG TABLET PO ×2 (08:46→21:38)
[2022-06-26] MEDS: guaiFENesin 1,200 MG Tablet 1200 MG PO ×2 (08:46→21:38)
[2022-06-26] MEDS: Furosemide 20 MG Tablet PO ×2 (08:46→17:37)
[2022-06-26] MEDS: Citalopram 20 MG Tablet PO (08:46)
[2022-06-26] MEDS: Lisinopril 40 MG Tablet PO (08:46)
--- NOTE | 2022-06-26 13:04 | CHAPLAIN ---
Type of Pastoral Visit _x__ Initial Visit ___ Follow-up Visit ___ On-call Visit ___ General Patient Visit ___ Spiritual Assessment ___ Family Conference ___ Bereavement ___ Rapid Response ___ Code Blue ___ Other (describe below) Pastoral Care Referral From _x__ Patient ___ Family ___ Nurse ___ Physician ___ Stem Roller ___ Rivet Tester ___ Other (describe below) Sacrament/Intervention _x__ Active listening ___ Anointing ___ Jain ___ Bereavement ___ Communion _x__ Odalys exploration ___ _x__ Life review _x__ Prayer ___ Reconciliation ___ Sacrament of Sick _x__ Supportive presence ___ Wedding ___ Other (describe below) Pastoral Comments patient describes his health situation and living accommodations; pt has goals for getting out of the house and hopes that he will not be limited to the inside and on O2 which are his concerns; pt states he has support from his and from his orthodox family; pt states that he is a believer and that he welcomes the suppor of spiritual care and prayer; no other needs at this time
[2022-06-26] MEDS: Ceftriaxone 1 GM/50 ML BAG IV (15:38)
[2022-06-26] MEDS: dilTIAZem CD 240 MG Capsule PO (21:38)
[2022-06-26] MEDS: Atorvastatin Calcium 20 MG Tablet PO (21:38)
--- NOTE | 2022-06-26 23:23 | CPS ---
Patient would like to start vest therapy with treatments in the morning. RT was able to find an XL vest to provide therapy.
[2022-06-27] VITALS (11 sets, daily range): BP systolic 125–130; BP diastolic 65–80; PULSE 86–107; RESP 17–24; TEMP 36.6–36.8; O2SAT 90–97
[2022-06-27] MEDS: Ipratropium/Albuterol Sulfate 3 ML AMPUL.NEB INHALATION ×6 (03:27→23:07)
--- NOTE | 2022-06-27 08:28 | PN.HOSP_ITS ---
Subjective Subjective Feels better. Coughing up phlegm. Objective Data Objective Data Vital Signs: Vital Signs Temp Pulse Resp BP Pulse Ox O2 Del Method O2 Flow Rate 36.6 C 107 H 22 H 126/72 H 96 Nasal Cannula 2 06/27/22 03:30 06/27/22 07:15 06/27/22 07:15 06/27/22 03:30 06/27/22 07:15 06/27/22 07:15 06/27/22 07:15 Oxygen Flow Rate (L/min) [At 2 REST with Oxygen] Oxygen Flow Rate (L/min) 2 Oxygen Delivery Method Nasal Cannula Weight: 136.5 kg Body Mass Index (BMI) 45.7 Intake & Output: Intake and Output for Last 24 Hours 06/25/22 06/26/22 06/27/22 23:59 23:59 23:59 Intake Total 120 / 370 1395 / 1395 0 / 0 Output Total 750 / 1200 1400 / 1750 550 / 550 Balance -630 / -830 -5 / -355 -550 / -550 Lab / Micro Data Result Diagrams: 06/25/22 06:30 06/25/22 06:30 Micro: Microbiology 06/24/22 18:20 Urine, Random Streptococcus pneumoniae Antigen (M - Final 06/24/22 18:20 Urine, Random Legionella Antigen - Final 06/24/22 16:45 Mucosa - Nose Respiratory Panel (PCR) - Final 06/24/22 13:50 Nasal Secretion SARS-CoV-2 & FLU Antigen (Rapid) - Final Physical Exam Const alert and no apparent distress Resp normal respiratory effort and no retractions Cardio regular rate, regular rhythm and S1 normal heart sound Assessment & Plan Assessment/Plan (1) COPD with acute exacerbation: PLAN: Suspect viral illness with subsequent COPD exacerbation Patient was hypoxic on room air 86% Currently requiring 2 L nasal cannula Does have a history of tobacco abuse CTA of chest from 08/13/2018 showed centrilobular emphysema Treatment: * Solu-Medrol 40 every 8 * BDs * Pulmonary toilet with scheduled and as needed nebulizers * Mucinex 1200 p.o. twice daily * I-S * Pep therapy with Acapella * Follow up with pulm as outpt for further testing when stable (PFTs) * Will utilize vest therapy as patient is having difficulty with expectoration. * Start ceftriaxone and azithromycin as there may be some right lower lobe infiltrate * Patient's respiratory difficulties account of the COPD and possible pneumonia but also his muscular dystrophy. Testing * respiratory viral panel: negative * COVID and flu rapid were negative * Strep and Legionella antigen negative (2) Debility: PLAN: -Patient is wheelchair-bound at baseline secondary history of multiple sclerosis -He and his state he is weaker than normal -May need to get therapy services involved depending on overall function Patient states that he will not be going to a correction facility but will go home. (3) Leukocytosis: PLAN: Resolved -This is a monocyte and eosinophil predominant leukocytosis -Doubt acute bacterial infection -Anticipate this may trend up as he is on steroids -Repeat CBC in a.m. Eosinophilia resolved. (4) Dysphagia: PLAN: ST eval PLAN: Plan Chronic conditions: Hyperlipidemia/PAF/hypertension -Next-continue home Eliquis -Continue home Lasix -Continue home lisinopril -Continue home aspirin -Continue home atorvastatin -Continue home diltiazem Depression -Continue home citalopram Muscular dystrophy -Patient is wheelchair-bound at baseline Morbid obesity -BMI is 45.8 -Recommend weight loss -Complicates treatment, prognosis, outcomes DVT prophylaxis -Continue full anticoagulation CODE STATUS -Full code Disposition: To be determined. Charges/Coding Visit Charges Inpatient E&M: 28907 Subs Hosp L2
[2022-06-27] MEDS: Ceftriaxone 1 GM/50 ML BAG IV (09:35)
[2022-06-27] MEDS: 0.9% Saline Lock 10 ML Syringe IV (13:28)
[2022-06-27] MEDS: Furosemide 20 MG Tablet PO (16:42)
[2022-06-27] MEDS: guaiFENesin 1,200 MG Tablet 1200 MG PO (20:35)
[2022-06-27] MEDS: Atorvastatin Calcium 20 MG Tablet PO (20:35)
[2022-06-27] MEDS: dilTIAZem CD 240 MG Capsule PO (20:36)
[2022-06-27] MEDS: APIXABAN 5 MG TABLET PO (20:36)
[2022-06-28] VITALS (13 sets, daily range): BP systolic 126–145; BP diastolic 69–94; PULSE 73–144; RESP 16–24; TEMP 36.6–36.9; O2SAT 90–98
[2022-06-28] MEDS: Ipratropium/Albuterol Sulfate 3 ML AMPUL.NEB INHALATION ×6 (03:10→22:54)
[2022-06-28 06:04] LABS: Absolute Lymphocyte Count 0.71 X10^3/uL (0.83-4.51); Basophil# 0.01 X10^3/uL; Basophil% 0.1 % (0-1); Hematocrit 43.5 % (40-54); Lymphocyte # 0.71 X10^3/ul (0.83-4.51); Lymphocyte % 8.6 % (19-41); Mean Corp Hgb Conc 32.2 g/dL (32-36); Mean Corpuscular Hgb 28.3 pg (27.0-32.0); Mean Corpuscular Volume 87.9 fL (80-94); Mean Platelet Vol. 9.9 fl (6.2-12.0); Monocyte# 0.41 X10^3/uL; NRBC Flagged by Analyzer 0 % (0-5); Platelet Count 272 K/mm3 (150-450); RBC Distribution Width CV 17.2 % (11.6-14.6); Red Blood Count 4.95 M/mm3 (4.6-6.2); White Blood Count 8.2 K/mm3 (4.4-11.0)
[2022-06-28 06:47] LABS: Anion Gap 4 (5-15); BUN 24 mg/dL (7-18); BUN/Creat Ratio 65.6 RATIO (10-20); Calcium,Total 9.6 mg/dL (8.5-10.1); Chloride 102 mmol/L (98-107); Creatinine, Serum 0.37 mg/dL (0.70-1.30); EST Glomerular Filtration Rate 247 mL/min (>60); Est Glom Filt Rate - Afr Amer 299 mL/min (>60); Glucose 130 mg/dL (74-106); Potassium 3.6 mmol/L (3.5-5.1); Sodium Level 136 mmol/L (136-145)
--- NOTE | 2022-06-28 08:34 | PN.HOSP_ITS ---
Subjective Subjective Feeling well. Oxygenation up to 3liters. Objective Data Objective Data Vital Signs: Vital Signs Temp Pulse Resp BP Pulse Ox O2 Del Method O2 Flow Rate 36.9 C 112 H 22 H 131/69 H 95 Nasal Cannula 1 06/28/22 02:29 06/28/22 07:25 06/28/22 07:25 06/28/22 02:29 06/28/22 07:35 06/28/22 07:35 06/28/22 07:35 Oxygen Flow Rate (L/min) [At 2 REST with Oxygen] Oxygen Flow Rate (L/min) 1 Oxygen Delivery Method Nasal Cannula Weight: 136.5 kg Body Mass Index (BMI) 45.7 Intake & Output: Intake and Output for Last 24 Hours 06/26/22 06/27/22 06/28/22 23:59 23:59 23:59 Intake Total 1395 / 1395 605 / 1005 600 / 600 Output Total 1400 / 1750 1000 / 1000 400 / 400 Balance -5 / -355 -395 / 5 200 / 200 Lab / Micro Data Result Diagrams: 06/28/22 05:29 06/28/22 05:29 Labs: Laboratory Results - last 24 hr 06/28/22 05:29: WBC 8.2, RBC 4.95, Hgb 14.0, Hct 43.5, MCV 87.9, MCH 28.3, MCHC 32.2, RDW Std Deviation 55.0 H, RDW Coeff of Nick 17.2 H, Plt Count 272, MPV 9.9, Immature Gran % (Auto) 1.300 H, Neut % (Auto) 85.0 H, Lymph % (Auto) 8.6 L, [place] % (Auto) 5.0, Eos % (Auto) 0.0, Baso % (Auto) 0.1, Absolute Neuts (auto) 7.0, Absolute Lymphs (auto) 0.71 L, Nucleated RBC % 0 06/28/22 05:29: Sodium 136, Potassium 3.6, Chloride 102, Carbon Dioxide 30.0, Anion Gap 4 L, BUN 24 H, Creatinine 0.37 L, Estim Creat Clear Calc 62.70, Est GFR (MDRD) Af Amer 299, Est GFR (MDRD) Non-Af 247, BUN/Creatinine Ratio 65.6 H, Glucose 130 H, Calcium 9.6 Micro: Microbiology 06/24/22 18:20 Urine, Random Streptococcus pneumoniae Antigen (M - Final 06/24/22 18:20 Urine, Random Legionella Antigen - Final 06/24/22 16:45 Mucosa - Nose Respiratory Panel (PCR) - Final 06/24/22 13:50 Nasal Secretion SARS-CoV-2 & FLU Antigen (Rapid) - Final Physical Exam Const alert and no apparent distress Resp normal respiratory effort, no retractions, no use of accessory muscles and clear to auscultation bilaterally Cardio regular rate, regular rhythm, S1 normal heart sound and S2 normal heart sound GI normal to inspection, nondistended, normoactive bowel sounds and soft to palpation Extremity normal to inspection Assessment & Plan Assessment/Plan (1) COPD with acute exacerbation: PLAN: Suspect viral illness with subsequent COPD exacerbation Patient was hypoxic on room air 86% Currently requiring 2 L nasal cannula Does have a history of tobacco abuse CTA of chest from 08/13/2018 showed centrilobular emphysema Treatment: * Solu-Medrol 40 every 8 * BDs * Pulmonary toilet with scheduled and as needed nebulizers * Mucinex 1200 p.o. twice daily * I-S * Pep therapy with Acapella * Follow up with pulm as outpt for further testing when stable (PFTs) * Will utilize vest therapy as patient is having difficulty with expectoration. * Start ceftriaxone and azithromycin as there may be some right lower lobe infiltrate * Patient's respiratory difficulties account of the COPD and possible pneumonia but also his muscular dystrophy. Testing * respiratory viral panel: negative * COVID and flu rapid were negative * Strep and Legionella antigen negative (2) Debility: PLAN: -Patient is wheelchair-bound at baseline secondary history of multiple sclerosis -He and his state he is weaker than normal -May need to get therapy services involved depending on overall function Patient states that he will not be going to a senior care facility but will go home. (3) Leukocytosis: PLAN: Resolved -This is a monocyte and eosinophil predominant leukocytosis -Doubt acute bacterial infection -Anticipate this may trend up as he is on steroids -Repeat CBC in a.m. Eosinophilia resolved. (4) Dysphagia: PLAN: passed ST eval. recommending small bits with close supervision. MBS today. regular texture, thin liquids. PLAN: Plan Chronic conditions: Hyperlipidemia/PAF/hypertension -Next-continue home Eliquis -Continue home Lasix -Continue home lisinopril -Continue home aspirin -Continue home atorvastatin -Continue home diltiazem Depression -Continue home citalopram Muscular dystrophy -Patient is wheelchair-bound at baseline Morbid obesity -BMI is 45.8 -Recommend weight loss -Complicates treatment, prognosis, outcomes DVT prophylaxis -Continue full anticoagulation CODE STATUS -Full code Disposition: To be determined. Charges/Coding Visit Charges Inpatient E&M: 61808 Subs Hosp L2
[2022-06-28] MEDS: Citalopram 20 MG Tablet PO (08:39)
[2022-06-28] MEDS: Aspirin E.C. 81 MG Tablet PO (08:39)
[2022-06-28] MEDS: APIXABAN 5 MG TABLET PO ×2 (08:39→22:33)
[2022-06-28] MEDS: Furosemide 20 MG Tablet PO ×2 (08:39→17:32)
[2022-06-28] MEDS: guaiFENesin 1,200 MG Tablet 1200 MG PO ×2 (08:39→22:34)
[2022-06-28] MEDS: Lisinopril 40 MG Tablet PO (08:39)
[2022-06-28] MEDS: Ceftriaxone 1 GM/50 ML BAG IV (09:33)
[2022-06-28] MEDS: 0.9% Saline Lock 10 ML Syringe IV ×2 (09:33→15:24)
--- NOTE | 2022-06-28 10:20 | CASEMGMT ---
Addendum entered by Alissa Raymond 06/28/22 14:34: Received acceptance from Poonam at [facility] but pt needs to see PCP first. TC to [facility], set pt up with an appt on 07/05/22 at 10:50am. Pt aware of the information of [facility] and appt. Addendum entered by Alissa Raymond 06/28/22 13:13: Received notification that [facility] cannot accept pt. TC to Poonam at [facility], referral made. Will await acceptance. Addendum entered by Alissa Raymond 06/28/22 11:53: TC to Pura at [facility], left message regarding referral. Will await returned call. Addendum entered by Alissa Raymond 06/28/22 10:49: Pt has chosen 1. [facility] 2. [facility]. Referral sent to [facility] via [facility] at this time. Original Note: JESSICA TRAMMELL in to pt room to discuss dc planning. Pt agreeable to [facility]. Patient was provided a list of [facility] providers including quality and resource use data and consistent with the patient?s preferred geographic region, medical needs, and insurance network were provided from the [facility] Guide. Pt to review and JESSICA TRAMMELL to check back on choices.
--- NOTE | 2022-06-28 12:21 | SP.MBSS_ITS ---
Modified Barium Swallow - Patient Information Study Date: 06/28/22 Study Time: 13:30 Direct Billable Minutes: 120 Total Minutes procedure & reportin Diagnosis: DYSPHAGIA (R13.10), COPD (J44.1), MUSCULAR DYSTROPHY (G71.0) Referring Physician: Kelby Cohen Reason for Referral: Objectively assess swallow function, risk for aspiration, and determine recommendations for least restrictive diet textures and compensatory strategies to improve safety of swallow. Medical History: Pio Ma is a 76YO M who presented to [facility] ED on 06/24/22 w/ complaining of dyspnea and cough. The symptoms evidently started approximately 3 to 4 weeks ago shortly thereafter he was seen by his primary care physician at which time a chest x-ray was performed and he was placed on azithromycin and amoxicillin along with an albuterol nebulizer. He has not ever had any steroids for this. He is on Eliquis at baseline which he takes for atrial fibrillation. He states that he had upper respiratory symptoms initially however those have since subsided and now he has cough that is unproductive, wheezing and chest congestion and generalized weakness with fatigue. He is wheelchair-bound at baseline due to a history of muscular dystrophy. They have been monitoring his pulse oximetry at home and he has had oxygen saturations at home at the lowest in the mid 80s. Pulse ox was initially 94% on room air however repeat pulse ox was 86% on room air. He was placed on 2L supplemental nasal cannula with improved saturations to 94 to 95%. Chest x-ray shows mild right basilar atelectasis or scarring and unchanged right pleural thickening. Speech therapy was consulted for dysphagia evaluation. Patient reports difficulty managing his own secretions, however reports coughing / choking w/ food and drink as well. States more difficulty w/ liquids. Patient reports having MBSS more than 10 years ago at [facility] where they recommended regular textures / thin liquids w/ no further speech therapy warranted. PLASTICS SEASONER OPERATOR evaluated patient w/ recommended diet of regular textures and thin liquids w/ plan for MBSS today 06/28/22 d/t underlying medical conditions. Current Diet Ordered: Regular textures / Thin liquids Dentition: WNL Mental Status: WNL Respiratory Status: Oxygenating on 2L/M nasal cannula - 1L for MBSS - Penetration-Aspiration Scale Penetration-Aspiration Scale: OBJECTIVE ASSESSMENT OF SWALLOW FUNCTION (QUANTITATIVE ? PER TRIAL): PENETRATION / ASPIRATION SCALE (TRIPP): 1 = does not enter airway 2 = enters airway/above vocal folds/ejected 3 = enters airway/above vocal folds/not ejected 4 = enters airway/contacts vocal folds/ejected 5 = enters airway/contacts vocal folds/not ejected 6 = enters airway/below vocal folds/ejected 7 = enters airway/below vocal folds/not ejected despite effort 8 = enters airway/below vocal folds/no effort VIDEOFLOROSCOPIC SCALE SCORE (TRIPP): Grade I = aspiration of material that has penetrated into the laryngeal vestibule, intact cough reflex Grade II = aspiration < 10 % of the bolus, intact cough reflex Grade III = aspiration of < 10 % of the bolus, reduced cough reflex or aspiration of > 10 % of the bolus, intact cough reflex Grade IV = aspiration of > 10 % of the bolus, reduced cough reflex - Penetration-Aspiration Scale Score Thin Liquid via single sip from straw Result: 1= does not enter airway Thin Liquid via single sip from straw Trial 2 Result: 1= does not enter airway Thin Liquid via sequential sips from straw Result: 1= does not enter airway [place] Thick Liquid via small single sip from cup Result: 1= does not enter airway Honey Thick Liquid via small single sip from cup Result: 1= does not enter airway Pudding Result: 1= does not enter airway Cookie Result: 1= does not enter airway - Oral Phase Labial Seal: No Labial Escape Tongue Control During Bolus Hold: Cohesive bolus between tongue to palatal seal Bolus Preparation/Mastication: Slow prolonged chewing/mashing with complete recollection Bolus Transport/Lingual Motion: Brisk tongue motion Oral Residue: Trace residue lining oral structures - Pharyngeal Phase Initiation of Pharyngeal Swallow: Bolus head at posterior angle of ramus at first hyoid excursion Soft Palate Elevation: No bolus between soft palate and pharyngeal wall Laryngeal Elevation: Comp. Superior move thyroid cart w/comp. apprx arytenoid cart-epig pet Anterior Hyoid Excursion: Complete anterior movement Epiglottic Movement: Complete inversion Laryngeal Vestibule Closure at Height of Swallow: Complete; no air/contrast in laryngeal vestibule Pharyngeal Stripping Wave: Present - complete Pharyngoesophageal Segment Opening: Parital distension and partial duration; parital obstruction of flow Tongue Base Retraction: No contrast between tongue base and posterior pharyngeal wall Pharyngeal Residue: Complete pharyngeal clearance - Esophageal Phase Esophageal Clearance: Esophageal retention - Diagnosis/Impression Diagnosis: SWALLOW FUNCTION GROSSLY WNL Impression: Patient presents with mastication and deglutition abilities found to be grossly within normal limits. Patient self reports that he only drinks at home via straw so only thin liquid via straw was assessed. Patient presents with adequate air way closure. No penetration / aspiration observed with all consistencies. - Recommendations Diet: Regular Textures, Thin Liquids Compensatory Strategies: Small Bites, Small Sips, Sitting upright, Remain sitting upright for 30 minutes after PO intake Supervision: Assist as needed Recommend Repeat Modified Barium Swallow: No Need for Skilled Speech Therapy Services: No Education Completed: 1. Described result of evaluation., 2. Pt understands evaluation & agrees with goals and treatment plan. - Status Active ST Patient: Active - Contact Information [facility] Speech Therapy:: Julia Mcgarry M.A. [facility]-PLASTICS SEASONER OPERATOR Speech-Language Pathologist [facility] [address] [place] [address] [email or web address] [phone] 06/28/22 14:45
--- NOTE | 2022-06-28 14:26 | CPS ---
pt declined Vest therapy @this time. he will work on his PEP Therapy device.
[2022-06-28] MEDS: Atorvastatin Calcium 20 MG Tablet PO (22:33)
[2022-06-28] MEDS: dilTIAZem CD 240 MG Capsule PO (22:34)
--- NOTE | 2022-06-28 23:57 | EKG12_ITS ---
Test Reason : TACHYCARDIA Blood Pressure : / mmHG Vent. Rate : 146 BPM Atrial Rate : 292 BPM P-R Int : 000 ms QRS Dur : 088 ms QT Int : 266 ms P-R-T Axes : -84 003 179 degrees QTc Int : 414 ms Atrial flutter Left ventricular hypertrophy with repolarization abnormality Abnormal ECG When compared with ECG of 24-JUN-2022 13:40, Atrial flutter has replaced Sinus rhythm Vent. rate has increased BY [address] now depressed in Inferior leads ST more depressed Lateral leads Confirmed by HONG MENDES, CLAYTON ([id number]), state editor YANET WHIPPLE ([id number]) on 07/02/2022 8:45:40 AM Referred By: BALAJI Confirmed By:CLAYTON PITTS MD
[2022-06-29] VITALS (44 sets, daily range): BP systolic 95–153; BP diastolic 67–107; PULSE 64–148; RESP 15–25; TEMP 36.5–37.1; O2SAT 87–95
[2022-06-29] MEDS: Metoprolol Tartrate 5 MG/5 ML Vial IV ×2 (00:33→06:15)
--- NOTE | 2022-06-29 02:02 | EKG12_ITS ---
Test Reason : TACHY Blood Pressure : / mmHG Vent. Rate : 145 BPM Atrial Rate : 290 BPM P-R Int : 000 ms QRS Dur : 090 ms QT Int : 274 ms P-R-T Axes : 256 007 177 degrees QTc Int : 425 ms Atrial flutter Left ventricular hypertrophy with repolarization abnormality Abnormal ECG When compared with ECG of 28-JUN-2022 23:57, MANUAL COMPARISON REQUIRED, DATA IS UNCONFIRMED Confirmed by HONG MENDES, CLAYTON ([id number]), editorial manager YANET WHIPPLE ([id number]) on 07/02/2022 8:43:31 AM Referred By: CHELLY Confirmed By:CLAYTON PITTS MD
[2022-06-29] MEDS: Ipratropium/Albuterol Sulfate 3 ML AMPUL.NEB INHALATION ×4 (03:38→23:58)
[2022-06-29] MEDS: 0.9% Saline Lock 10 ML Syringe IV ×2 (06:18→09:44)
[2022-06-29 07:18] LABS: Absolute Lymphocyte Count 0.96 X10^3/uL (0.83-4.51); Absolute Neutrophil Count 7.7 X10^3/uL (2.0-7.7); Basophil# 0.01 X10^3/uL; Basophil% 0.1 % (0-1); Hematocrit 44.4 % (40-54); Hemoglobin 14.3 g/dL (13.0-16.5); Lymphocyte # 0.96 X10^3/ul (0.83-4.51); Lymphocyte % 10.2 % (19-41); Mean Corp Hgb Conc 32.2 g/dL (32-36); Mean Corpuscular Hgb 27.8 pg (27.0-32.0); Mean Corpuscular Volume 86.4 fL (80-94); Monocyte# 0.62 X10^3/uL; Monocyte% 6.6 % (0-10); NRBC Flagged by Analyzer 0 % (0-5); Neutrophil # 7.72 X10^3/uL (2.7-7.7); Platelet Count 309 K/mm3 (150-450); RBC Distribution Width CV 17.1 % (11.6-14.6); RBC Distribution Width SD 54.4 fl (35.1-43.9); Red Blood Count 5.14 M/mm3 (4.6-6.2); White Blood Count 9.4 K/mm3 (4.4-11.0)
--- NOTE | 2022-06-29 07:26 | CPS ---
cough assist done with patient
[2022-06-29 07:36] LABS: Anion Gap 7 (5-15); BUN 25 mg/dL (7-18); BUN/Creat Ratio 58.4 RATIO (10-20); Calcium,Total 8.9 mg/dL (8.5-10.1); Chloride 99 mmol/L (98-107); Creatinine, Serum 0.43 mg/dL (0.70-1.30); EST Glomerular Filtration Rate 206 mL/min (>60); Est Glom Filt Rate - Afr Amer 250 mL/min (>60); Glucose 121 mg/dL (74-106); Potassium 3.9 mmol/L (3.5-5.1); Sodium Level 135 mmol/L (136-145)
--- NOTE | 2022-06-29 08:21 | PN.HOSP_ITS ---
Subjective Subjective Feels well but anxious to go home. Did receive some doses of IV metoprolol for tachycardia overnight. Objective Data Objective Data Vital Signs: Vital Signs Temp Pulse Resp BP Pulse Ox O2 Del Method O2 Flow Rate 37.1 C 117 H 16 109/80 92 Nasal Cannula 2 06/29/22 08:13 06/29/22 08:13 06/29/22 08:13 06/29/22 08:13 06/29/22 08:13 06/29/22 08:13 06/29/22 08:13 Oxygen Flow Rate (L/min) [At 2 REST with Oxygen] Oxygen Flow Rate (L/min) 2 Oxygen Delivery Method Nasal Cannula Weight: 136.5 kg Body Mass Index (BMI) 45.7 Intake & Output: Intake and Output for Last 24 Hours 06/27/22 06/28/22 06/29/22 23:59 23:59 23:59 Intake Total 605 / 1005 1735 / 1735 Output Total 1000 / 1000 800 / 1050 750 / 750 Balance -395 / 5 935 / 685 -750 / -750 Lab / Micro Data Result Diagrams: 06/29/22 06:50 06/29/22 06:50 Labs: Laboratory Results - last 24 hr 06/29/22 06:50: WBC 9.4, RBC 5.14, Hgb 14.3, Hct 44.4, MCV 86.4, MCH 27.8, MCHC 32.2, RDW Std Deviation 54.4 H, RDW Coeff of Nick 17.1 H, Plt Count 309, MPV 10.0, Immature Gran % (Auto) 1.100 H, Neut % (Auto) 82.0 H, Lymph % (Auto) 10.2 L, [place] % (Auto) 6.6, Eos % (Auto) 0.0, Baso % (Auto) 0.1, Absolute Neuts (auto) 7.7, Absolute Lymphs (auto) 0.96, Nucleated RBC % 0 06/29/22 06:50: Sodium 135 L, Potassium 3.9, Chloride 99, Carbon Dioxide 29.0, Anion Gap 7, BUN 25 H, Creatinine 0.43 L, Estim Creat Clear Calc 62.70, Est GFR (MDRD) Af Amer 250, Est GFR (MDRD) Non-Af 206, BUN/Creatinine Ratio 58.4 H, Glucose 121 H, Calcium 8.9 Micro: Microbiology 06/24/22 18:20 Urine, Random Streptococcus pneumoniae Antigen (M - Final 06/24/22 18:20 Urine, Random Legionella Antigen - Final 06/24/22 16:45 Mucosa - Nose Respiratory Panel (PCR) - Final 06/24/22 13:50 Nasal Secretion SARS-CoV-2 & FLU Antigen (Rapid) - Final Physical Exam Const alert and no apparent distress Constitutional Narrative: Coarse upper respiratory audible respirations. No respiratory distress. No conversational dyspnea. Resp Resp Narrative: Coarse breath sounds bilaterally Cardio Cardio Narrative: Irregularly irregular. Tach GI normal to inspection, nondistended, normoactive bowel sounds GI Narrative: Obese Extremity Extremity Narrative: Edema Assessment & Plan Assessment/Plan (1) COPD with acute exacerbation: PLAN: Suspect viral illness with subsequent COPD exacerbation Patient was hypoxic on room air 86% Currently requiring 2 L nasal cannula Does have a history of tobacco abuse CTA of chest from 08/13/2018 showed centrilobular emphysema Treatment: * Solu-Medrol 40 every 8 * BDs * Pulmonary toilet with scheduled and as needed nebulizers * Mucinex 1200 p.o. twice daily * I-S * Pep therapy with Acapella * Follow up with pulm as outpt for further testing when stable (PFTs) * Will utilize vest therapy as patient is having difficulty with expectoration. * Start ceftriaxone and azithromycin as there may be some right lower lobe infiltrate * Patient's respiratory difficulties account of the COPD and possible pneumonia but also his muscular dystrophy. Testing * respiratory viral panel: negative * COVID and flu rapid were negative * Strep and Legionella antigen negative (2) Debility: PLAN: -Patient is wheelchair-bound at baseline secondary history of multiple sclerosis -He and his state he is weaker than normal -May need to get therapy services involved depending on overall function Patient states that he will not be going to a nursing home facility but will go home. (3) Leukocytosis: PLAN: Resolved -This is a monocyte and eosinophil predominant leukocytosis -Doubt acute bacterial infection -Anticipate this may trend up as he is on steroids -Repeat CBC in a.m. Eosinophilia resolved. (4) Dysphagia: PLAN: passed ST eval. recommending small bits with close supervision. MBS today. regular texture, thin liquids. (5) Atrial fibrillation with RVR: PLAN: EKG was personally reviewed and showed atrial fibrillation with RVR with a heart rate in the 140s. Patient was started on diltiazem drip with a bolus. Despite that, patient still was having heart rate in the 120s. Amiodarone bolus and then a drip at 1 cc/h then 0.5 cc an hour for 6 and 18 hrs. respectively. Consult cardiology Last echo was from 2014 and EF was 15% at that time. Check echocardiogram Cycle troponins PLAN: Plan Chronic conditions: Hyperlipidemia/PAF/hypertension -Next-continue home Eliquis -Continue home Lasix -Continue home lisinopril -Continue home aspirin -Continue home atorvastatin -Continue home diltiazem Depression -Continue home citalopram Muscular dystrophy -Patient is wheelchair-bound at baseline Morbid obesity -BMI is 45.8 -Recommend weight loss -Complicates treatment, prognosis, outcomes DVT prophylaxis -Continue full anticoagulation CODE STATUS -Full code Disposition: To be determined. Charges/Coding Visit Charges Inpatient E&M: 86826 [facility] Hosp L3
[2022-06-29] MEDS: APIXABAN 5 MG TABLET PO ×2 (09:37→22:05)
[2022-06-29] MEDS: Aspirin E.C. 81 MG Tablet PO (09:37)
[2022-06-29] MEDS: Citalopram 20 MG Tablet PO (09:38)
[2022-06-29] MEDS: guaiFENesin 1,200 MG Tablet 1200 MG PO ×2 (09:38→22:04)
[2022-06-29] MEDS: Lisinopril 40 MG Tablet PO (09:38)
[2022-06-29] MEDS: Furosemide 20 MG Tablet PO ×2 (09:38→17:21)
[2022-06-29] MEDS: Ceftriaxone 1 GM/50 ML BAG IV (09:41)
--- NOTE | 2022-06-29 11:15 | NURSING ---
called report to pcu. pt transfered to pcu bed 117
[2022-06-29] MEDS: dilTIAZem 25 MG/5 ML Vial 20 MG IV BOLUS (11:56)
--- NOTE | 2022-06-29 15:08 | CPS ---
COUGH ASSIST DONE WITH PATIENT
--- NOTE | 2022-06-29 15:44 | ECHOCS_ITS ---
Reason For Study: Afib w RVR Procedure This was a 2D Doppler, Color Flow transthoracic echocardiogram. Contrast injection was performed. Exam performed portable in patient room. Left Ventricle Normal LV size. Left ventricular systolic function is normal. The estimated ejection fraction is 60 %. No regional wall motion abnormalities noted. Right Ventricle Normal RV size. Normal systolic function. Atria Normal left atrium. Normal right atrium. Mitral Valve Mitral valve not well visualized. Tricuspid Valve The tricuspid valve is not well visualized. Aortic Valve Trisinus/trileaflet aortic valve. Mild focal aortic valve calcification. Pulmonic Valve The pulmonic valve is not well visualized. Great Vessels Calcified aortic root. The pulmonary artery is normal size. Inferior vena cava collapse with respiration. Pericardium/Pleural No pericardial effusion. Medication Diluted definity 4ml given slow IV push to enhance endocardial definition. MMode/2D Measurements & Calculations LVIDd: 4.4 cm IVSd: 1.5 cm Ao root diam: 3.8 cm LVIDs: 2.7 cm LVPWd: 1.4 cm RVDd: 4.2 cm FS: 38.2 % LAV(MOD-bp): 68.5 ml LVAd ap4: 25.6 cm2 SV(MOD-sp4): 45.7 ml LAV(MOD-bp) Indexed: 28.2 ml/m2 LVLd ap4: 7.2 cm LAV(MOD-sp2): 76.5 ml EDV(MOD-sp4): 74.1 ml LAV(MOD-sp4): 56.7 ml EDV(sp4-el): 77.0 ml LVAs ap4: 13.4 cm2 LVLs ap4: 5.4 cm ESV(MOD-sp4): 28.4 ml ESV(sp4-el): 28.4 ml EF(MOD-sp4): 61.7 % EF(sp4-el): 63.0 % SV(sp4-el): 48.5 ml LA A4 area: 20.6 cm2 LA dimension(2D): 3.7 cm RA A4 area: 15.7 cm2 Doppler Measurements & Calculations MV E max mago: 86.2 cm/sec Ao V2 max: 184.7 cm/sec LV V1 max: 109.3 cm/sec Ao max P.6 mmHg LV V1 max P.8 mmHg Ao V2 mean: 123.2 cm/sec Ao mean P.9 mmHg Ao V2 VTI: 28.9 cm PA V2 max: 79.9 cm/sec ECHO/Echo Complete W/ Contrast Interpretation Summary Normal LV size. Left ventricular systolic function is normal. The estimated ejection fraction is 60 %. Contrast injection was performed. Ordering Physician: Kelby Cohen Referring Physician: Dante Enamorado Performed By: Roof, Viri, RDCS, RVT
[2022-06-29] MEDS: Amiodarone 360 MG in Dextrose 5% Viaflo Bag 192.8 ML 33.3 MG CONT INF (15:49)
[2022-06-29 18:06] LABS: Troponin-I HS 97 pg/mL (3.0-78.0)
--- NOTE | 2022-06-29 21:09 | CPS ---
Cough assisnt given x3.
[2022-06-29] MEDS: Amiodarone 360 MG in Dextrose 5% Viaflo Bag 192.8 ML 16.7 MG CONT INF (22:04)
[2022-06-29] MEDS: Atorvastatin Calcium 20 MG Tablet PO (22:05)
--- NOTE | 2022-06-29 23:43 | NURSING ---
Pt's O2 sat was 87 % on 2l nasal canula. Increased to 4l at this time.
[2022-06-30] VITALS (29 sets, daily range): BP systolic 105–169; BP diastolic 68–118; PULSE 76–129; RESP 14–24; TEMP 36.3–36.6; O2SAT 91–97
[2022-06-30] MEDS: Senna/Docusate Sodium 1 Tablet PO (01:34)
[2022-06-30] MEDS: Ipratropium/Albuterol Sulfate 3 ML AMPUL.NEB INHALATION ×5 (03:38→22:55)
[2022-06-30] MEDS: 0.9% Saline Lock 10 ML Syringe IV ×3 (05:28→21:09)
--- NOTE | 2022-06-30 05:29 | CPS ---
Pt declined vest therapy but did do cough assist
[2022-06-30] MEDS: Bisacodyl 10 MG Suppository RC (06:52)
[2022-06-30 06:55] LABS: Absolute Lymphocyte Count 0.58 X10^3/uL (0.83-4.51); Absolute Neutrophil Count 8.2 X10^3/uL (2.0-7.7); Basophil# 0.01 X10^3/uL; Basophil% 0.1 % (0-1); Hematocrit 45.2 % (40-54); Hemoglobin 14.5 g/dL (13.0-16.5); Lymphocyte # 0.58 X10^3/ul (0.83-4.51); Mean Corp Hgb Conc 32.1 g/dL (32-36); Mean Corpuscular Hgb 27.6 pg (27.0-32.0); Mean Corpuscular Volume 85.9 fL (80-94); Mean Platelet Vol. 9.9 fl (6.2-12.0); Monocyte# 0.68 X10^3/uL; Monocyte% 7.1 % (0-10); NRBC Flagged by Analyzer 0 % (0-5); Neutrophil # 8.24 X10^3/uL (2.7-7.7); POSITIVE DIFFERENTIAL YES; Platelet Count 285 K/mm3 (150-450); RBC Distribution Width CV 16.9 % (11.6-14.6); RBC Distribution Width SD 53.8 fl (35.1-43.9); Red Blood Count 5.26 M/mm3 (4.6-6.2); White Blood Count 9.6 K/mm3 (4.4-11.0)
[2022-06-30 07:10] LABS: Differential Indicated SCAN CRITERIA MET
[2022-06-30 07:36] LABS: Anion Gap 5 (5-15); BUN 25 mg/dL (7-18); BUN/Creat Ratio 66.7 RATIO (10-20); Calcium,Total 8.8 mg/dL (8.5-10.1); Chloride 99 mmol/L (98-107); Creatinine, Serum 0.38 mg/dL (0.70-1.30); EST Glomerular Filtration Rate 240 mL/min (>60); Est Glom Filt Rate - Afr Amer 291 mL/min (>60); Glucose 153 mg/dL (74-106); Potassium 3.5 mmol/L (3.5-5.1); Sodium Level 135 mmol/L (136-145)
[2022-06-30] MEDS: Furosemide 20 MG Tablet PO ×2 (09:14→18:00)
[2022-06-30] MEDS: APIXABAN 5 MG TABLET PO ×2 (09:14→21:00)
[2022-06-30] MEDS: Lisinopril 40 MG Tablet PO (09:14)
[2022-06-30] MEDS: guaiFENesin 1,200 MG Tablet 1200 MG PO ×2 (09:15→21:04)
[2022-06-30] MEDS: Aspirin E.C. 81 MG Tablet PO (09:15)
[2022-06-30] MEDS: Citalopram 20 MG Tablet PO (09:15)
[2022-06-30] MEDS: Ceftriaxone 1 GM/50 ML BAG IV (09:16)
--- NOTE | 2022-06-30 09:16 | PN.HOSP_ITS ---
Subjective Subjective Feels well. Objective Data Objective Data Vital Signs: Vital Signs Temp Pulse Resp BP Pulse Ox O2 Del Method O2 Flow Rate 36.4 C L 86 20 H 148/88 H 95 Nasal Cannula 2 06/30/22 05:00 06/30/22 09:00 06/30/22 09:00 06/30/22 09:00 06/30/22 09:00 06/30/22 09:00 06/30/22 09:00 Oxygen Flow Rate (L/min) [At 2 REST with Oxygen] Oxygen Flow Rate (L/min) 2 Oxygen Delivery Method Nasal Cannula Weight: 136.5 kg Body Mass Index (BMI) 45.7 Intake & Output: Intake and Output for Last 24 Hours 06/28/22 06/29/22 06/30/22 23:59 23:59 23:59 Intake Total 1735 / 1735 961.42 / 978.12 698.60 / 698.60 Output Total 800 / 1050 1650 / 1650 1000 / 1000 Balance 935 / 685 -688.58 / -671.88 -301.40 / -301.40 Lab / Micro Data Result Diagrams: 06/30/22 05:53 06/30/22 05:53 Labs: Laboratory Results - last 24 hr 06/29/22 17:15: Troponin I High Sens 97 H 06/30/22 05:53: WBC 9.6, RBC 5.26, Hgb 14.5, Hct 45.2, MCV 85.9, MCH 27.6, MCHC 32.1, RDW Std Deviation 53.8 H, RDW Coeff of Nick 16.9 H, Plt Count 285, MPV 9.9, Immature Gran % (Auto) 0.800, Neut % (Auto) 86.0 H, Lymph % (Auto) 6.0 L, [place] % (Auto) 7.1, Eos % (Auto) 0.0, Baso % (Auto) 0.1, Absolute Neuts (auto) 8.2 H, Absolute Lymphs (auto) 0.58 L, Nucleated RBC % 0 06/30/22 05:53: Sodium 135 L, Potassium 3.5, Chloride 99, Carbon Dioxide 31.0, Anion Gap 5, BUN 25 H, Creatinine 0.38 L, Estim Creat Clear Calc 62.70, Est GFR (MDRD) Af Amer 291, Est GFR (MDRD) Non-Af 240, BUN/Creatinine Ratio 66.7 H, Glucose 153 H, Calcium 8.8 Micro: Microbiology 06/24/22 18:20 Urine, Random Streptococcus pneumoniae Antigen (M - Final 06/24/22 18:20 Urine, Random Legionella Antigen - Final 06/24/22 16:45 Mucosa - Nose Respiratory Panel (PCR) - Final 06/24/22 13:50 Nasal Secretion SARS-CoV-2 & FLU Antigen (Rapid) - Final Physical Exam Const alert and no apparent distress HEENT head/scalp atraumatic Resp normal respiratory effort and no retractions Cardio regular rate, regular rhythm, S1 normal heart sound and S2 normal heart sound GI normal to inspection, nondistended, normoactive bowel sounds, soft to palpation, non-tender and non-distended Neuro oriented x3 Assessment & Plan Assessment/Plan (1) COPD with acute exacerbation: PLAN: Suspect viral illness with subsequent COPD exacerbation Patient was hypoxic on room air 86% Currently requiring 2 L nasal cannula Does have a history of tobacco abuse CTA of chest from 08/13/2018 showed centrilobular emphysema Treatment: * Solu-Medrol 40 every 8 * BDs * Pulmonary toilet with scheduled and as needed nebulizers * Mucinex 1200 p.o. twice daily * I-S * Pep therapy with Acapella * Follow up with pulm as outpt for further testing when stable (PFTs) * Will utilize vest therapy as patient is having difficulty with expectoration. * Start ceftriaxone and azithromycin as there may be some right lower lobe infiltrate * Patient's respiratory difficulties account of the COPD and possible pneumonia but also his muscular dystrophy. Testing * respiratory viral panel: negative * COVID and flu rapid were negative * Strep and Legionella antigen negative (2) Atrial fibrillation with RVR: PLAN: Stable Patient was started on diltiazem drip with a bolus. Despite that, patient still was having heart rate in the 120s. Amiodarone bolus and then a drip at 1 cc/h then 0.5 cc an hour for 6 and 18 hrs. respectively. Consult cardiology Last echo was from 2014 and EF was 15% at that time. Check echocardiogram Troponin is 97. Likely due to the A. fib with RVR. (3) Debility: PLAN: -Patient is wheelchair-bound at baseline secondary history of multiple sclerosis -He and his state he is weaker than normal -May need to get therapy services involved depending on overall function Patient states that he will not be going to a pen[facility]ent[facility] facility but will go home. (4) Leukocytosis: PLAN: Resolved -This is a monocyte and eosinophil predominant leukocytosis -Doubt acute bacterial infection -Anticipate this may trend up as he is on steroids -Repeat CBC in a.m. Eosinophilia resolved. (5) Dysphagia: PLAN: passed ST eval. recommending small bits with close supervision. MBS today. regular texture, thin liquids. PLAN: Plan Chronic conditions: Hyperlipidemia/PAF/hypertension -Next-continue home Eliquis -Continue home Lasix -Continue home lisinopril -Continue home aspirin -Continue home atorvastatin -Continue home diltiazem Depression -Continue home citalopram Muscular dystrophy -Patient is wheelchair-bound at baseline Morbid obesity -BMI is 45.8 -Recommend weight loss -Complicates treatment, prognosis, outcomes DVT prophylaxis -Continue full anticoagulation CODE STATUS -Full code Disposition: To be determined. Charges/Coding Visit Charges Inpatient E&M: 34755 Subs Hosp L2
[2022-06-30] MEDS: Amiodarone 360 MG in Dextrose 5% Viaflo Bag 192.8 ML 16.7 MG CONT INF (10:10)
--- NOTE | 2022-06-30 11:03 | CPS ---
cough assist done with patient
--- NOTE | 2022-06-30 17:18 | PCM.CONS.C ---
Assessment & Plan Assessment/Plan (1) Atrial fibrillation with RVR: PLAN: Continue IV amiodarone. We will try switching to p.o. Cardizem and DC IV Cardizem. Check 2D echo. Continue Eliquis HPI Consult Data Date of Consult: 06/30/22 HPI Narrative Reason for Consultation: Atrial fibrillation HPI Narrative: HEATH SHABAZZ, is a 76 M who presents with shortness of breath and is being treated for COPD exacerbation. He has history of atrial fibrillation and was found to be in RVR. Despite 15 mg/h of Cardizem IV patient continued to remain tachycardic and was started on amiodarone. This has brought his heart rate to the 90s to low 100s for the most part but it does go to the 120s at times. Patient denies any significant cardiac complaints at this time. FORMERLY [facility], [facility] Medical History Aortic aneurysm Atrial fibrillation Depression HTN (hypertension) Hyperlipemia Muscular dystrophy Home Medications aspirin 81 mg tablet,delayed release (Adult Low Dose Aspirin) 81 mg PO DAILY afib 05/26/15 [History Last Taken 06/24/22] citalopram 20 mg tablet 20 mg PO DAILY depression 05/26/15 [History Last Taken 06/23/22] multivitamin with folic acid 400 mcg tablet (Thera) 1 tab PO DAILY supplement 05/26/15 [History Last Taken 06/24/22] apixaban 5 mg tablet (Eliquis) 5 mg PO BID anti platelet 09/27/16 [History Last Taken 06/24/22] furosemide 20 mg tablet 20 mg PO BIDLX water pill 09/27/16 [History Last Taken 06/24/22] lisinopril 40 mg tablet 40 mg PO DAILY blood pressure 09/27/16 [History Last Taken 06/24/22] atorvastatin 20 mg tablet 20 mg PO QHS cholesterol 08/13/18 [History Last Taken 06/23/22] diltiazem HCl 240 mg capsule,24 hr,extended release 240 mg PO QHS afib 08/13/18 [History Last Taken 06/23/22] Allergy/AdvReac Type Severity Reaction Status Date / Time codeine AdvReac made me Verified 06/24/22 12:06 do crazy things Family History (Updated 06/24/22 @ 21:[address] Lolita Holliday DO) Other Hypertension Surgical History no surgical history Social History (Updated 06/24/22 @ 21:[address] Lolita Holliday DO) Smoking Status: Former smoker alcohol intake: current alcohol intake frequency: holidays/special occasions only substance use type: does not use Physical Exam Const alert and oriented x3 HEENT normocephalic Eyes no scleral icterus Resp normal respiratory effort Cardio Cardio Narrative: Irregular rhythm Risk Stratification Risk Stratification Applicable: No Charges/Coding Visit Charges Inpatient E&M: 45904 Init Hosp L2 Objective Data Vital Signs: Vital Signs Temp Pulse Resp BP Pulse Ox O2 Del Method O2 Flow Rate 97.5 F L 99 24 H 140/79 H 94 Room Air 2 06/30/22 05:00 06/30/22 17:00 06/30/22 17:00 06/30/22 17:00 06/30/22 17:00 06/30/22 17:00 06/30/22 14:00 Oxygen Flow Rate (L/min) [At 2 REST with Oxygen] Oxygen Flow Rate (L/min) 2 Oxygen Delivery Method Room Air Weight: 300 lb 14.896 oz Body Mass Index (BMI) 45.7 Intake & Output: Intake and Output for Last 24 Hours 06/28/22 06/29/22 06/30/22 23:59 23:59 23:59 Intake Total 1735 / 1735 961.42 / 978.12 1174.41 / 1174.41 Output Total 800 / 1050 1650 / 1650 1000 / 1000 Balance 935 / 685 -688.58 / -671.88 174.41 / 174.41 Lab / Micro Data Result Diagrams: 06/30/22 05:53 06/30/22 05:53 Labs: Laboratory Results - last 24 hr 06/29/22 17:15: Troponin I High Sens 97 H 06/30/22 05:53: WBC 9.6, RBC 5.26, Hgb 14.5, Hct 45.2, MCV 85.9, MCH 27.6, MCHC 32.1, RDW Std Deviation 53.8 H, RDW Coeff of Nick 16.9 H, Plt Count 285, MPV 9.9, Immature Gran % (Auto) 0.800, Neut % (Auto) 86.0 H, Lymph % (Auto) 6.0 L, [place] % (Auto) 7.1, Eos % (Auto) 0.0, Baso % (Auto) 0.1, Absolute Neuts (auto) 8.2 H, Absolute Lymphs (auto) 0.58 L, Nucleated RBC % 0 06/30/22 05:53: Sodium 135 L, Potassium 3.5, Chloride 99, Carbon Dioxide 31.0, Anion Gap 5, BUN 25 H, Creatinine 0.38 L, Estim Creat Clear Calc 62.70, Est GFR (MDRD) Af Amer 291, Est GFR (MDRD) Non-Af 240, BUN/Creatinine Ratio 66.7 H, Glucose 153 H, Calcium 8.8 Cardiology Labs/Tests 06/30/22 05:53: WBC 9.6, RBC 5.26, Hgb 14.5, Hct 45.2, MCV 85.9, MCH 27.6, MCHC 32.1, Plt Count 285, MPV 9.9, Immature Gran % (Auto) 0.800, Neut % (Auto) 86.0 H, Lymph % (Auto) 6.0 L, [place] % (Auto) 7.1, Eos % (Auto) 0.0, Baso % (Auto) 0.1, Absolute Neuts (auto) 8.2 H, Nucleated RBC % 0 06/30/22 05:53: Sodium 135 L, Potassium 3.5, Chloride 99, Carbon Dioxide 31.0, Anion Gap 5, BUN 25 H, Creatinine 0.38 L, Est GFR (MDRD) Af Amer 291, Est GFR (MDRD) Non-Af 240, BUN/Creatinine Ratio 66.7 H, Glucose 153 H, Calcium 8.8 Rhythm: EKG: ECHO: Stress Test: Cardiac Cath: PCI: CT Surgery: Holter monitor: EPS: PPM: CXR: Chest CT Scan:
[2022-06-30] MEDS: Amiodarone 200 MG Tablet 400 MG PO (18:00)
[2022-06-30] MEDS: dilTIAZem 60 MG Tablet 90 MG PO ×2 (18:00→23:42)
--- NOTE | 2022-06-30 18:41 | CPS ---
Patient did not take Vest Treatments today.
--- NOTE | 2022-06-30 19:25 | CPS ---
Cough assist performed 3 times.
[2022-06-30] MEDS: Atorvastatin Calcium 20 MG Tablet PO (21:00)
[2022-07-01] VITALS (26 sets, daily range): BP systolic 106–146; BP diastolic 63–122; PULSE 53–134; RESP 16–28; TEMP 36.4–36.8; O2SAT 90–99
--- NOTE | 2022-07-01 01:43 | CPS ---
Pt was not interested in doing cough assist or vest at both 7:30 treatment or 11P treatment as well. Offered it twice, he stated he felt good and was ok.
[2022-07-01] MEDS: Ipratropium/Albuterol Sulfate 3 ML AMPUL.NEB INHALATION ×5 (04:00→23:25)
--- NOTE | 2022-07-01 04:03 | CPS ---
cough assist done with pt x 3
[2022-07-01 06:41] LABS: Absolute Lymphocyte Count 0.44 X10^3/uL (0.83-4.51); Absolute Neutrophil Count 12.2 X10^3/uL (2.0-7.7); Basophil# 0.02 X10^3/uL; Basophil% 0.1 % (0-1); Hematocrit 47.6 % (40-54); Hemoglobin 14.9 g/dL (13.0-16.5); Lymphocyte # 0.44 X10^3/ul (0.83-4.51); Lymphocyte % 3.2 % (19-41); Mean Corp Hgb Conc 31.3 g/dL (32-36); Mean Corpuscular Hgb 27.2 pg (27.0-32.0); Mean Corpuscular Volume 86.9 fL (80-94); Mean Platelet Vol. 10.1 fl (6.2-12.0); Monocyte# 0.81 X10^3/uL; NRBC Flagged by Analyzer 0 % (0-5); Neutrophil # 12.19 X10^3/uL (2.7-7.7); POSITIVE DIFFERENTIAL YES; Platelet Count 282 K/mm3 (150-450); RBC Distribution Width CV 16.9 % (11.6-14.6); RBC Distribution Width SD 54.2 fl (35.1-43.9); Red Blood Count 5.48 M/mm3 (4.6-6.2); White Blood Count 13.6 K/mm3 (4.4-11.0)
[2022-07-01 06:45] LABS: Differential Indicated SCAN CRITERIA MET
[2022-07-01] MEDS: 0.9% Saline Lock 10 ML Syringe IV ×5 (06:47→22:18)
[2022-07-01 07:00] LABS: Anion Gap 5 (5-15); BUN 27 mg/dL (7-18); BUN/Creat Ratio 64.4 RATIO (10-20); Calcium,Total 8.8 mg/dL (8.5-10.1); Chloride 99 mmol/L (98-107); Creatinine, Serum 0.42 mg/dL (0.70-1.30); EST Glomerular Filtration Rate 211 mL/min (>60); Est Glom Filt Rate - Afr Amer 256 mL/min (>60); Glucose 136 mg/dL (74-106); Potassium 3.7 mmol/L (3.5-5.1); Sodium Level 135 mmol/L (136-145)
--- NOTE | 2022-07-01 07:04 | PN.CARD_ITS ---
Subjective Subjective The patient was seen and evaluated. Appears to be doing better this morning. Heart rate is still uncontrolled. Objective Data Vital Signs: Vital Signs Temp Pulse Resp BP Pulse Ox O2 Del Method O2 Flow Rate 97.6 F L 74 18 146/122 H 99 Nasal Cannula 2 07/01/22 06:46 07/01/22 06:46 07/01/22 06:46 07/01/22 06:46 07/01/22 06:46 07/01/22 06:46 07/01/22 06:46 Oxygen Flow Rate (L/min) [At 2 REST with Oxygen] Oxygen Flow Rate (L/min) 2 Oxygen Delivery Method Nasal Cannula Weight: 300 lb 14.896 oz Body Mass Index (BMI) 45.7 Intake & Output: Intake and Output for Last 24 Hours 06/29/22 06/30/22 07/01/22 23:59 23:59 23:59 Intake Total 961.42 / 978.12 1794.53 / 2194.53 800 / 800 Output Total 1650 / 1650 1000 / 1700 1250 / 1250 Balance -688.58 / -671.88 794.53 / 494.53 -450 / -450 Lab / Micro Data Result Diagrams: 07/01/22 05:50 07/01/22 05:50 Labs: Laboratory Results - last 24 hr 06/30/22 05:53: WBC 9.6, RBC 5.26, Hgb 14.5, Hct 45.2, MCV 85.9, MCH 27.6, MCHC 32.1, RDW Std Deviation 53.8 H, RDW Coeff of Nick 16.9 H, Plt Count 285, MPV 9.9, Immature Gran % (Auto) 0.800, Neut % (Auto) 86.0 H, Lymph % (Auto) 6.0 L, [place] % (Auto) 7.1, Eos % (Auto) 0.0, Baso % (Auto) 0.1, Absolute Neuts (auto) 8.2 H, Ab solute Lymphs (auto) 0.58 L, Nucleated RBC % 0 06/30/22 05:53: Sodium 135 L, Potassium 3.5, Chloride 99, Carbon Dioxide 31.0, Anion Gap 5, BUN 25 H, Creatinine 0.38 L, Estim Creat Clear Calc 62.70, Est GFR (MDRD) Af Amer 291, Est GFR (MDRD) Non-Af 240, BUN/Creatinine Ratio 66.7 H, Glucose 153 H, Calcium 8.8 07/01/22 05:50: WBC 13.6 H, RBC 5.48, Hgb 14.9, Hct 47.6, MCV 86.9, MCH 27.2, MCHC 31.3 L, RDW Std Deviation 54.2 H, RDW Coeff of Nick 16.9 H, Plt Count 282, MPV 10.1, Immature Gran % (Auto) 0.700, Neut % (Auto) 90.0 H, Lymph % (Auto) 3.2 L, [place] % (Auto) 6.0, Eos % (Auto) 0.0, Baso % (Auto) 0.1, Absolute Neuts (auto) 12.2 H, Absolute Lymphs (auto) 0.44 L, Nucleated RBC % 0 07/01/22 05:50: Sodium 135 L, Potassium 3.7, Chloride 99, Carbon Dioxide 31.0, Anion Gap 5, BUN 27 H, Creatinine 0.42 L, Estim Creat Clear Calc 62.70, Est GFR (MDRD) Af Amer 256, Est GFR (MDRD) Non-Af 211, BUN/Creatinine Ratio 64.4 H, Glucose 136 H, Calcium 8.8 Cardiology Labs/Tests 06/30/22 05:53: WBC 9.6, RBC 5.26, Hgb 14.5, Hct 45.2, MCV 85.9, MCH 27.6, MCHC 32.1, Plt Count 285, MPV 9.9, Immature Gran % (Auto) 0.800, Neut % (Auto) 86.0 H , Lymph % (Auto) 6.0 L, [place] % (Auto) 7.1, Eos % (Auto) 0.0, Baso % (Auto) 0.1, Absolute Neuts (auto) 8.2 H, Nucleated RBC % 0 06/30/22 05:53: Sodium 135 L, Potassium 3.5, Chloride 99, Carbon Dioxide 31.0, Anion Gap 5, BUN 25 H, Creatinine 0.38 L, Est GFR (MDRD) Af Amer 291, Est GFR (MDRD) Non-Af 240, BUN/Creatinine Ratio 66.7 H, Glucose 153 H, Calcium 8.8 07/01/22 05:50: WBC 13.6 H, RBC 5.48, Hgb 14.9, Hct 47.6, MCV 86.9, MCH 27.2, MCHC 31.3 L, Plt Count 282, MPV 10.1, Immature Gran % (Auto) 0.700, Neut % (Auto) 90.0 H, Lymph % (Auto) 3.2 L, [place] % (Auto) 6.0, Eos % (Auto) 0.0, Baso % (Auto) 0.1, Absolute Neuts (auto) 12.2 H, Nucleated RBC % 0 07/01/22 05:50: Sodium 135 L, Potassium 3.7, Chloride 99, Carbon Dioxide 31.0, Anion Gap 5, BUN 27 H, Creatinine 0.42 L, Est GFR (MDRD) Af Amer 256, Est GFR (MDRD) Non-Af 211, BUN/Creatinine Ratio 64.4 H, Glucose 136 H, Calcium 8.8 Rhythm: EKG: ECHO: Stress Test: Cardiac Cath: PCI: CT Surgery: Holter monitor: EPS: PPM: CXR: Chest CT Scan: Physical Exam Const alert, oriented x3 and no apparent distress General Appearance: cooperative HEENT hearing grossly normal bilaterally Head and Scalp: atraumatic Eyes EOMs intact bilaterally Neck General: normal visual inspection Chest inspection of chest normal and palpation of chest normal Resp normal respiratory effort Auscultation: clear to auscultation bilaterally Cardio S1 normal heart sound and S2 normal heart sound Jugular Venous Distention: JVD Rhythm: abnormal rhythm irregularly irregular GI normal to inspection, nondistended, normoactive bowel sounds Extremity normal capillary refill and no pedal edema Peripheral Pulses: Yes pulses 2+ throughout and femoral pulses present Skin no rashes or lesions noted Neuro oriented x3 and CN's II-XII intact bilaterally Psych Appearance: grossly normal and appropriate Assessment & Plan Assessment/Plan (1) Atrial fibrillation with RVR: PLAN: He does present with atrial fibrillation with a rapid ventricular response rate. I would recommend that he continue anticoagulation. Will suggest better rate control with the following regimen: Amiodarone 200 mg 3 times daily Toprol 50 mg a day Diltiazem 180 mg twice a day Will assess echocardiogram to assess ventricular function and further recommendations made (2) Hypertension: PLAN: His blood pressure does not appear to be very well controlled and hopefully with the new regimen his blood pressure will be better controlled. He will continue on the above agents in addition to lisinopril 40 mg a day (3) Acute dyspnea: PLAN: He does have some dyspnea which appears to be secondary to diastolic dysfunction. We will review his echocardiogram today to assess ventricular function and depending on the findings further recommendations made (4) Hyperlipidemia: PLAN: He does have a history of hyperlipidemia and will continue with lipid- lowering medication. Thank you for allowing me to participate in the care of your patient. Please don't hesitate to call if any issues arise.
[2022-07-01 08:18] LABS: Differential Comment SCANNED
[2022-07-01] MEDS: dilTIAZem CD 180 MG Capsule PO ×2 (09:17→22:12)
[2022-07-01] MEDS: Citalopram 20 MG Tablet PO (09:17)
[2022-07-01] MEDS: Aspirin E.C. 81 MG Tablet PO (09:18)
[2022-07-01] MEDS: Furosemide 40 MG Tablet PO (09:18)
[2022-07-01] MEDS: APIXABAN 5 MG TABLET PO ×2 (09:18→22:12)
[2022-07-01] MEDS: Metoprolol(XL)Succ 50 MG Tablet PO (09:19)
[2022-07-01] MEDS: Lisinopril 40 MG Tablet PO (09:19)
[2022-07-01] MEDS: Ceftriaxone 1 GM/50 ML BAG IV (09:19)
[2022-07-01] MEDS: guaiFENesin 1,200 MG Tablet 1200 MG PO ×2 (09:19→22:12)
[2022-07-01] MEDS: dilTIAZem 25 MG/5 ML Vial 20 MG IV BOLUS (11:21)
[2022-07-01] MEDS: Amiodarone 200 MG Tablet PO ×2 (13:50→22:12)
--- NOTE | 2022-07-01 16:00 | PN.HOSP_ITS ---
Subjective Subjective Follow-up for COPD exacerbation and A. fib with RVR. Objective Data Objective Data Vital Signs: Vital Signs Temp Pulse Resp BP Pulse Ox O2 Del Method O2 Flow Rate 98.2 F 99 23 H 115/74 92 Room Air 3 07/01/22 12:45 07/01/22 14:00 07/01/22 14:00 07/01/22 14:00 07/01/22 14:00 07/01/22 15:56 07/01/22 07:24 Oxygen Flow Rate (L/min) [At 2 REST with Oxygen] Oxygen Flow Rate (L/min) 3 Oxygen Delivery Method Room Air Weight: 300 lb 14.896 oz Body Mass Index (BMI) 45.7 Intake & Output: Intake and Output for Last 24 Hours 06/29/22 06/30/22 07/01/22 23:59 23:59 23:59 Intake Total 961.42 / 978.12 1794.53 / 2194.53 1250.0 / 1250.0 Output Total 1650 / 1650 1000 / 1700 1650 / 1650 Balance -688.58 / -671.88 794.53 / 494.53 -400.0 / -400.0 Lab / Micro Data Result Diagrams: 07/01/22 05:50 07/01/22 05:50 Labs: Laboratory Results - last 24 hr 07/01/22 05:50: WBC 13.6 H, RBC 5.48, Hgb 14.9, Hct 47.6, MCV 86.9, MCH 27.2, MCHC 31.3 L, RDW Std Deviation 54.2 H, RDW Coeff of Nick 16.9 H, Plt Count 282, MPV 10.1, Immature Gran % (Auto) 0.700, Neut % (Auto) 90.0 H, Lymph % (Auto) 3.2 L, [place] % (Auto) 6.0, Eos % (Auto) 0.0, Baso % (Auto) 0.1, Absolute Neuts (auto) 12.2 H, Absolute Lymphs (auto) 0.44 L, Nucleated RBC % 0, Differential Comment SCANNED 07/01/22 05:50: Sodium 135 L, Potassium 3.7, Chloride 99, Carbon Dioxide 31.0, Anion Gap 5, BUN 27 H, Creatinine 0.42 L, Estim Creat Clear Calc 62.70, Est GFR (MDRD) Af Amer 256, Est GFR (MDRD) Non-Af 211, BUN/Creatinine Ratio 64.4 H, Glucose 136 H, Calcium 8.8 Micro: Microbiology 06/24/22 18:20 Urine, Random Streptococcus pneumoniae Antigen (M - Final 06/24/22 18:20 Urine, Random Legionella Antigen - Final 06/24/22 16:45 Mucosa - Nose Respiratory Panel (PCR) - Final 06/24/22 13:50 Nasal Secretion SARS-CoV-2 & FLU Antigen (Rapid) - Final Radiography Diagnostic Testing: Radiology Impression Echocardiogram 06/29/22 15:44 Interpretation Summary Normal LV size. Left ventricular systolic function is normal. The estimated ejection fraction is 60 %. Contrast injection was performed. 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 Patient does not good muscle strength in lower and upper extremity and is wheelchair-bound. Patient also not able to cough out/bring up phlegm. Feels like mucous plugging. Physical exam General: Alert, Oriented x3, Cooperative, morbid obesity BMI 45.8 kg/m? HEENT: Atraumatic, PERRLA, EOMI, Normocephalic Oral: Deep oropharyngeal could not be visualized no Gingival or Mucosal Lesions/ Ulcerations Neck: Supple, No JVD, Negative Carotid Bruits Lungs: Air entry diminished in bilateral lung bases. Bilateral expiratory rhonchi Cardiovascular: Irregular rate and rhythm, Normal S1, Normal S2, No murmurs Abdomen: Bowel Sounds Present, Soft, Non Tender, Non-Distended : No renal angle tenderness. No suprapubic tenderness. Extremities: Bilateral lower legs pitting edema, Capillary Refill Less than 3 Seconds Skin: No rashes, No breakdown Musculoskeletal: ROM restricted, stiffness at knee and hip joints. No Tenderness to Palpation of Joints or Extremities Neurological: Lower and upper extremities muscle atrophy states not involved facial muscle. Cranial nerves II-XII grossly intact Psych/Mental Status: Flat affect. Assessment & Plan Assessment/Plan (1) COPD with acute exacerbation: PLAN: Suspect viral illness with subsequent COPD exacerbation Patient was hypoxic on room air 86% Currently requiring 2 L nasal cannula Does have a history of tobacco abuse CTA of chest from 08/13/2018 showed centrilobular emphysema Treatment: * Solu-Medrol 40 every 8 * Pulmonary toilet with scheduled and as needed nebulizers * Mucinex 1200 p.o. twice daily * I-S * Pep therapy with Acapella * Follow up with pulm as outpt for further testing when stable (PFTs) * vest therapy as patient is having difficulty with expectoration. * Start ceftriaxone and azithromycin as there may be some right lower lobe infiltrate * Patient's respiratory difficulties account of the COPD and possible pneumonia but also his muscular dystrophy. Testing * respiratory viral panel: negative * COVID and flu rapid were negative * Strep and Legionella antigen negative (2) Atrial fibrillation with RVR: PLAN: Patient also has acute on chronic diastolic heart failure: Patient was started on diltiazem drip and amiodarone drip and heart rate now controlled. Currently heart rate is controlled on amiodarone 200 mg 3 times daily, Cardizem 180 mg twice daily and metoprolol. 2D echo at this time shows EF 60% with diastolic dysfunction. Hand Funnel Coater consult reviewed. Last echo was from 2014 and EF was 15% at that time. Troponin is 97. Likely due to the A. fib with RVR. Clinical Impression(s) from Imaging Studies Chest X-Ray 06/24/22 13:31 IMPRESSION: Mild right basilar atelectasis or scarring. Unchanged right pleural thickening. Echocardiogram 06/29/22 15:44 Interpretation Summary Normal LV size. Left ventricular systolic function is normal. The estimated ejection fraction is 60 %. Contrast injection was performed. (3) Debility: PLAN: -Patient is wheelchair-bound at baseline secondary history of multiple sclerosis -He and his state he is weaker than normal -May need to get therapy services involved depending on overall function Patient states that he will not be going to a group home facility but will go home. (4) Leukocytosis: PLAN: Resolved -This is a monocyte and eosinophil predominant leukocytosis -No clinical feature suggestive of bacterial pneumonia -Anticipate this may trend up as he is on steroids -Repeat CBC in a.m. Eosinophilia resolved. (5) Dysphagia: PLAN: passed ST eval. recommending small bits with close supervision. MBS today. regular texture, thin liquids. PLAN: Plan Chronic conditions: Hyperlipidemia/PAF/hypertension -Next-continue home Eliquis -Continue home Lasix -Continue home lisinopril -Continue home aspirin -Continue home atorvastatin -Continue home diltiazem Depression -Continue home citalopram Muscular dystrophy -Patient is wheelchair-bound at baseline Morbid obesity -BMI is 45.8 -Recommend weight loss -Complicates treatment, prognosis, outcomes DVT prophylaxis -Continue full anticoagulation CODE STATUS -Full code Charges/Coding Visit Charges Inpatient E&M: 92730 Subs Hosp L2
--- NOTE | 2022-07-01 19:25 | CPS ---
Cough Assist done with pt x 3
[2022-07-01] MEDS: Atorvastatin Calcium 20 MG Tablet PO (22:12)
--- NOTE | 2022-07-01 23:26 | CPS ---
[place] assist done x 3 with pt.
[2022-07-02] VITALS (17 sets, daily range): BP systolic 127–142; BP diastolic 72–97; PULSE 67–96; RESP 9–25; TEMP 36.4–36.6; O2SAT 91–98
[2022-07-02] MEDS: Ipratropium/Albuterol Sulfate 3 ML AMPUL.NEB INHALATION ×4 (03:05→15:07)
--- NOTE | 2022-07-02 03:05 | CPS ---
Cough Assist done with Pt. x 3
[2022-07-02] MEDS: Amiodarone 200 MG Tablet PO ×2 (05:05→13:40)
[2022-07-02] MEDS: 0.9% Saline Lock 10 ML Syringe IV (05:10)
[2022-07-02 05:53] LABS: Absolute Lymphocyte Count 0.58 X10^3/uL (0.83-4.51); Absolute Neutrophil Count 12.5 X10^3/uL (2.0-7.7); Basophil# 0.03 X10^3/uL; Basophil% 0.2 % (0-1); Hematocrit 46.8 % (40-54); Hemoglobin 14.7 g/dL (13.0-16.5); Lymphocyte # 0.58 X10^3/ul (0.83-4.51); Lymphocyte % 4.1 % (19-41); Mean Corp Hgb Conc 31.4 g/dL (32-36); Mean Corpuscular Hgb 27.3 pg (27.0-32.0); Mean Corpuscular Volume 86.8 fL (80-94); Mean Platelet Vol. 10.2 fl (6.2-12.0); Monocyte# 0.75 X10^3/uL; Monocyte% 5.4 % (0-10); NRBC Flagged by Analyzer 0 % (0-5); Neutrophil # 12.47 X10^3/uL (2.7-7.7); Neutrophil % 89.2 % (47-70); POSITIVE DIFFERENTIAL YES; Platelet Count 302 K/mm3 (150-450); RBC Distribution Width CV 17.2 % (11.6-14.6); RBC Distribution Width SD 54.2 fl (35.1-43.9); Red Blood Count 5.39 M/mm3 (4.6-6.2)
[2022-07-02 05:59] LABS: Differential Indicated SCAN CRITERIA MET
[2022-07-02 06:21] LABS: Anion Gap 7 (5-15); BUN 35 mg/dL (7-18); BUN/Creat Ratio 68.8 RATIO (10-20); Calcium,Total 8.6 mg/dL (8.5-10.1); Chloride 100 mmol/L (98-107); Creatinine, Serum 0.51 mg/dL (0.70-1.30); EST Glomerular Filtration Rate 169 mL/min (>60); Est Glom Filt Rate - Afr Amer 204 mL/min (>60); Glucose 128 mg/dL (74-106); Potassium 3.6 mmol/L (3.5-5.1); Sodium Level 137 mmol/L (136-145)
[2022-07-02 06:45] LABS: Differential Comment SCANNED
--- NOTE | 2022-07-02 07:18 | CPS ---
Cough assist given.
--- NOTE | 2022-07-02 07:32 | PN.HOSP_ITS ---
Subjective Subjective Follow-up for shortness of breath, could not expectorate Objective Data Objective Data Vital Signs: Vital Signs Temp Pulse Resp BP Pulse Ox O2 Del Method O2 Flow Rate 97.8 F 78 9 L 142/89 H 94 Nasal Cannula 2 07/02/22 03:07 07/02/22 03:11 07/02/22 03:07 07/02/22 03:07 07/02/22 03:07 07/02/22 03:07 07/02/22 03:07 Oxygen Flow Rate (L/min) [At 2 REST with Oxygen] Oxygen Flow Rate (L/min) 2 Oxygen Delivery Method Nasal Cannula Weight: 300 lb 14.896 oz Body Mass Index (BMI) 45.7 Intake & Output: Intake and Output for Last 24 Hours 06/30/22 07/01/22 07/02/22 23:59 23:59 23:59 Intake Total 1794.53 / 2194.53 1576.16 / 1581.16 15 / 15 Output Total 1000 / 1700 2100 / 2275 375 / 375 Balance 794.53 / 494.53 -523.84 / -693.84 -360 / -360 Lab / Micro Data Result Diagrams: 07/02/22 05:27 07/02/22 05:27 Labs: Laboratory Results - last 24 hr 07/01/22 05:50: Differential Comment SCANNED 07/02/22 05:27: WBC 14.0 H, RBC 5.39, Hgb 14.7, Hct 46.8, MCV 86.8, MCH 27.3, MCHC 31.4 L, RDW Std Deviation 54.2 H, RDW Coeff of Nick 17.2 H, Plt Count 302, MPV 10.2, Immature Gran % (Auto) 1.100 H, Neut % (Auto) 89.2 H, Lymph % (Auto) 4.1 L, [place] % (Auto) 5.4, Eos % (Auto) 0.0, Baso % (Auto) 0.2, Absolute Neuts (auto) 12.5 H, Absolute Lymphs (auto) 0.58 L, Nucleated RBC % 0, Differential Comment SCANNED 07/02/22 05:27: Sodium 137, Potassium 3.6, Chloride 100, Carbon Dioxide 30.0, Anion Gap 7, BUN 35 H, Creatinine 0.51 L, Estim Creat Clear Calc 62.70, Est GFR (MDRD) Af Amer 204, Est GFR (MDRD) Non-Af 169, BUN/Creatinine Ratio 68.8 H, Glucose 128 H, Calcium 8.6 Micro: Microbiology 06/24/22 18:20 Urine, Random Streptococcus pneumoniae Antigen (M - Final 06/24/22 18:20 Urine, Random Legionella Antigen - Final 06/24/22 16:45 Mucosa - Nose Respiratory Panel (PCR) - Final 06/24/22 13:50 Nasal Secretion SARS-CoV-2 & FLU Antigen (Rapid) - Final Radiography Diagnostic Testing: Radiology Impression Echocardiogram 06/29/22 15:44 Interpretation Summary Normal LV size. Left ventricular systolic function is normal. The estimated ejection fraction is 60 %. Contrast injection was performed. 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 Patient does not good muscle strength in lower and upper extremity and is wheelchair-bound. Patient also not able to cough out/bring up phlegm. Feels like mucous plugging. Patient is on respiratonics to assist expectoration and able to bring some phlegm but is still not sufficient nd feels rattling sounds. Physical exam General: Alert, Oriented x3, Cooperative, morbid obesity BMI 45.8 kg/m? HEENT: Atraumatic, PERRLA, EOMI, Normocephalic Oral: Deep oropharyngeal could not be visualized no Gingival or Mucosal Lesions/ Ulcerations Neck: Supple, No JVD, Negative Carotid Bruits Chest wall/lungs: Could not bend forward to examine back or auscultate posterior lungs. Air entry diminished in bilateral lung bases. Bilateral expiratory rhonchi Cardiovascular: Irregular rate and rhythm, Normal S1, Normal S2, No murmurs Abdomen: Bowel Sounds Present, Soft, Non Tender, Non-Distended : No renal angle tenderness. No suprapubic tenderness. Extremities: Bilateral lower legs pitting edema, Capillary Refill Less than 3 Seconds Skin: No rashes, No breakdown Musculoskeletal: ROM restricted, stiffness at knee and hip joints. No Tenderness to Palpation of Joints or Extremities Neurological: Lower and upper extremities muscle atrophy states not involved fa cial muscle. Cranial nerves II-XII grossly intact Psych/Mental Status: Flat affect. Assessment & Plan Assessment/Plan (1) COPD with acute exacerbation: PLAN: Suspect viral illness with subsequent COPD exacerbation Patient was hypoxic on room air 86% Currently requiring 2 L nasal cannula Does have a history of tobacco abuse CTA of chest from 08/13/2018 showed centrilobular emphysema Treatment: * Solu-Medrol 40 every 8 * Pulmonary toilet with scheduled and as needed nebulizers * Mucinex 1200 p.o. twice daily * I-S * Pep therapy with Acapella * vest therapy as patient is having difficulty with expectoration. * ceftriaxone and azithromycin as there may be some right lower lobe infiltrate * Patient's respiratory difficulties account of the COPD and possible pneumonia but also his muscular dystrophy. 07/02: Pulmonary is consulted as there is no significant improvement in patient's symptomatology to discharge the patient Testing * respiratory viral panel: negative * COVID and flu rapid were negative * Strep and Legionella antigen negative (2) Atrial fibrillation with RVR: PLAN: Patient also has acute on chronic diastolic heart failure: Patient was started on diltiazem drip and amiodarone drip and heart rate now controlled. Currently heart rate is controlled on amiodarone 200 mg 3 times daily, Cardizem 180 mg twice daily and metoprolol. 2D echo at this time shows EF 60% with diastolic dysfunction. Assistant Financial Accountant consult reviewed. Last echo was from 2014 and EF was 15% at that time. Troponin is 97. Likely due to the A. fib with RVR. Echocardiogram 06/29/22 15:44 Interpretation Summary Normal LV size. Left ventricular systolic function is normal. The estimated ejection fraction is 60 %. Contrast injection was performed. (3) Debility: PLAN: -Patient is wheelchair-bound at baseline secondary history of multiple sclerosis -He and his state he is weaker than normal -May need to get therapy services involved depending on overall function Patient states that he will not be going to a long-term facility but will go home. (4) Leukocytosis: PLAN: Resolved -This is a monocyte and eosinophil predominant leukocytosis -No clinical feature suggestive of bacterial pneumonia -Anticipate this may trend up as he is on steroids -Repeat CBC in a.m. Eosinophilia resolved. (5) Dysphagia: PLAN: passed ST eval. recommending small bits with close supervision. MBS today. regular texture, thin liquids. PLAN: Plan Chronic conditions: Hyperlipidemia/PAF/hypertension -Next-continue home Eliquis -Continue home Lasix -Continue home lisinopril -Continue home aspirin -Continue home atorvastatin -Continue home diltiazem Depression -Continue home citalopram Muscular dystrophy -Patient is wheelchair-bound at baseline Morbid obesity -BMI is 45.8 -Recommend weight loss -Complicates treatment, prognosis, outcomes DVT prophylaxis -Continue full anticoagulation CODE STATUS -Full code Charges/Coding Visit Charges Inpatient E&M: 20798 Subs Hosp L2
--- NOTE | 2022-07-02 07:45 | PN.CARD_ITS ---
Subjective Subjective Patient seen and evaluated. Heart rate appears to be better. Breathing slightly better. Objective Data Vital Signs: Vital Signs Temp Pulse Resp BP Pulse Ox O2 Del Method O2 Flow Rate 97.8 F 78 18 139/90 H 97 Room Air 2 07/02/22 03:07 07/02/22 07:00 07/02/22 07:00 07/02/22 07:00 07/02/22 07:00 07/02/22 07:00 07/02/22 03:07 Oxygen Flow Rate (L/min) [At 2 REST with Oxygen] Oxygen Flow Rate (L/min) 2 Oxygen Delivery Method Room Air Weight: 300 lb 14.896 oz Body Mass Index (BMI) 45.7 Intake & Output: Intake and Output for Last 24 Hours 06/30/22 07/01/22 07/02/22 23:59 23:59 23:59 Intake Total 1794.53 / 2194.53 1576.16 / 1581.16 40 / 40 Output Total 1000 / 1700 2100 / 2275 375 / 375 Balance 794.53 / 494.53 -523.84 / -693.84 -335 / -335 Lab / Micro Data Result Diagrams: 07/02/22 05:27 07/02/22 05:27 Labs: Laboratory Results - last 24 hr 07/01/22 05:50: Differential Comment SCANNED 07/02/22 05:27: WBC 14.0 H, RBC 5.39, Hgb 14.7, Hct 46.8, MCV 86.8, MCH 27.3, MCHC 31.4 L, RDW Std Deviation 54.2 H, RDW Coeff of Nick 17.2 H, Plt Count 302, MPV 10.2, Immature Gran % (Auto) 1.100 H, Neut % (Auto) 89.2 H, Lymph % (Auto) 4.1 L, [place] % (Auto) 5.4, Eos % (Auto) 0.0, Baso % (Auto) 0.2, Absolute Neuts (auto) 12.5 H, Absolute Lymphs (auto) 0.58 L, Nucleated RBC % 0, Differential Comment SCANNED 07/02/22 05:27: Sodium 137, Potassium 3.6, Chloride 100, Carbon Dioxide 30.0, Anion Gap 7, BUN 35 H, Creatinine 0.51 L, Estim Creat Clear Calc 62.70, Est GFR (MDRD) Af Amer 204, Est GFR (MDRD) Non-Af 169, BUN/Creatinine Ratio 68.8 H, Glucose 128 H, Calcium 8.6 Cardiology Labs/Tests 07/02/22 05:27: WBC 14.0 H, RBC 5.39, Hgb 14.7, Hct 46.8, MCV 86.8, MCH 27.3, MCHC 31.4 L, Plt Count 302, MPV 10.2, Immature Gran % (Auto) 1.100 H, Neut % (Auto) 89.2 H, Lymph % (Auto) 4.1 L, [place] % (Auto) 5.4, Eos % (Auto) 0.0, Baso % (Auto) 0.2, Absolute Neuts (auto) 12.5 H, Nucleated RBC % 0 07/02/22 05:27: Sodium 137, Potassium 3.6, Chloride 100, Carbon Dioxide 30.0, Anion Gap 7, BUN 35 H, Creatinine 0.51 L, Est GFR (MDRD) Af Amer 204, Est GFR (MDRD) Non-Af 169, BUN/Creatinine Ratio 68.8 H, Glucose 128 H, Calcium 8.6 Rhythm: EKG: ECHO: Stress Test: Cardiac Cath: PCI: CT Surgery: Holter monitor: EPS: PPM: CXR: Chest CT Scan: Radiography Diagnostic Testing: Radiology Impression Echocardiogram 06/29/22 15:44 Interpretation Summary Normal LV size. Left ventricular systolic function is normal. The estimated ejection fraction is 60 %. Contrast injection was performed. Ordering Physician: Kelby Cohen Referring Physician: Dante Enamorado Performed By: Viri Iqbal, OUMOU, RVT Physical Exam Const alert, oriented x3 and no apparent distress General Appearance: cooperative HEENT hearing grossly normal bilaterally Head and Scalp: atraumatic Eyes EOMs intact bilaterally Neck General: normal visual inspection Chest inspection of chest normal and palpation of chest normal Resp normal respiratory effort Auscultation: clear to auscultation bilaterally Cardio S1 normal heart sound and S2 normal heart sound Jugular Venous Distention: JVD Rhythm: abnormal rhythm irregularly irregular GI normal to inspection, nondistended, normoactive bowel sounds Extremity normal capillary refill General Extremity: edema bilateral (Mild lower extremity discoloration) Peripheral Pulses: Yes pulses 2+ throughout and femoral pulses present Neuro oriented x3 and CN's II-XII intact bilaterally Psych Appearance: grossly normal and appropriate Assessment & Plan Assessment/Plan (1) Atrial fibrillation with RVR: PLAN: He does present with atrial fibrillation with a rapid ventricular response rate. I would recommend that he continue anticoagulation. Will suggest better rate control with the following regimen: Amiodarone 200 mg 3 times daily Toprol 50 mg a day Diltiazem 180 mg twice a day Will attempt to wean off intravenous diltiazem today. Echocardiogram demonstrated overall preserved left ventricular systolic function (2) Hypertension: PLAN: His blood pressure does not appear to be very well controlled and hopefully with the new regimen his blood pressure will be better controlled. He will continue on the above agents in addition to lisinopril 40 mg a day (3) Acute dyspnea: PLAN: He does have some dyspnea which appears to be secondary to diastolic dysfunction. His ejection fraction is preserved confirming the above. (4) Hyperlipidemia: PLAN: He does have a history of hyperlipidemia and will continue with lipid- lowering medication. Thank you for allowing me to participate in the care of your patient. Please don't hesitate to call if any issues arise.
[2022-07-02] MEDS: Furosemide 40 MG Tablet PO (08:14)
[2022-07-02] MEDS: APIXABAN 5 MG TABLET PO (08:15)
[2022-07-02] MEDS: dilTIAZem CD 180 MG Capsule PO (08:16)
[2022-07-02] MEDS: Citalopram 20 MG Tablet PO (08:17)
[2022-07-02] MEDS: Ceftriaxone 1 GM/50 ML BAG IV (08:18)
[2022-07-02] MEDS: guaiFENesin 1,200 MG Tablet 1200 MG PO (08:21)
[2022-07-02] MEDS: Aspirin E.C. 81 MG Tablet PO (08:22)
[2022-07-02] MEDS: Lisinopril 40 MG Tablet PO (08:24)
[2022-07-02] MEDS: Metoprolol(XL)Succ 100 MG Tablet PO (09:52)
--- NOTE | 2022-07-02 10:56 | CON.PCM.CC_ITS ---
Assessment & Plan Assessment/Plan (1) Muscular dystrophy: PLAN: Plan RECOMMENDATIONS: 1. Continue aggressive bronchopulmonary hygiene, including CoughAssist device, while admitted to the hospital. 2. The patient can likely be discharged home with outpatient pulmonary follow- up. 3. Recommend outpatient PFTs with MIPS/MEPS 4. Continue antimicrobials to complete treatment course. IMPRESSIONS: 1. History of muscular dystrophy I was initially asked to see the patient in evaluation for a weak cough and inability to expectorate sputum. However, upon my evaluation, the patient reported that he had improved clinically and was able to expectorate sputum this morning. He has been receiving therapy with a CoughAssist device, which is aiding in his recovery. The patient is currently on medical therapy for presumptive COPD exacerbation with bronchodilators and antimicrobials. He appears to have an adequate cough at this time. At this particular time, I would recommend that he follow-up in the pulmonary medicine clinic after discharge. Baseline PFTs can be completed along with MIP/MEPS. If needed, outpatient vest therapy and CoughAssist device can be arranged. At the present time, the patient is maintaining appropriate oxygen saturations on room air. 2. Atrial fibrillation with RVR Continue medical management per cardiology recommendations. 3. Morbid obesity/history of muscular dystrophy Complicates care, management, recovery and prognosis. Continue supportive measures noted above. This note was generated with [employer] dictation software. It may contain incorrect words, spelling, and punctuation that were not noted in checking the note before signing. HPI Consult Data Date of Consult: 07/02/22 HPI Narrative Reason for Consultation: Weak cough, muscular dystrophy HPI Narrative: The patient is a 76-year-old male, with a history as outlined below, who was initially admitted to the hospital on June 24 with shortness of breath and hypoxemia. The patient has known muscular dystrophy and is wheelchair-bound at his baseline. Initially, the patient reported that he had difficulty expectorating sputum. The patient was medically managed throughout his hospitalization for presumptive COPD exacerbation with, bronchodilators and Mucinex. The patient also received therapy with a CoughAssist device. He did not require vest therapy. Overall, the patient has improved clinically. The patient was also managed medically by cardiology due to a history of atrial fibrillation with RVR and heart failure with preserved ejection fraction. As of this morning, the patient is afebrile, hemodynamically stable and maintaining appropriate oxygen saturations on room air. The patient reported this morning that he was able to expectorate a small amount of sputum on his own. He is anxious to be discharged home. [facility] Medical History (Updated 07/02/22 @ 12:[address] Charles Butcher, DO) Aortic aneurysm Atrial fibrillation Depression HTN (hypertension) Hyperlipemia Muscular dystrophy Home Medications aspirin 81 mg tablet,delayed release (Adult Low Dose Aspirin) 81 mg PO DAILY afib 05/26/15 [History Last Taken 06/24/22] citalopram 20 mg tablet 20 mg PO DAILY depression 05/26/15 [History Last Taken 06/23/22] multivitamin with folic acid 400 mcg tablet (Thera) 1 tab PO DAILY supplement 05/26/15 [History Last Taken 06/24/22] apixaban 5 mg tablet (Eliquis) 5 mg PO BID anti platelet 09/27/16 [History Last Taken 06/24/22] furosemide 20 mg tablet 20 mg PO BIDLX water pill 09/27/16 [History Last Taken 06/24/22] lisinopril 40 mg tablet 40 mg PO DAILY blood pressure 09/27/16 [History Last Taken 06/24/22] atorvastatin 20 mg tablet 20 mg PO QHS cholesterol 08/13/18 [History Last Taken 06/23/22] albuterol sulfate 90 mcg/actuation breath activated powder inhaler,sensor 2 inh inhalation Q6H PRN shortness of breath or wheezing #1 ea 07/02/22 [Rx Last Taken Unknown] amiodarone 200 mg tablet 200 mg PO TID #90 tabs 07/02/22 [Rx Last Taken Unknown] diltiazem HCl 180 mg capsule,extended release 24 hr 180 mg PO Q12 #60 caps 07/02/22 [Rx Last Taken Unknown] guaifenesin 1,200 mg tablet, extended release 12 hr (Mucus Relief ER) 1,200 mg PO BID #14 tabs 07/02/22 [Rx Last Taken Unknown] metoprolol succinate 100 mg tablet,extended release 24 hr 100 mg PO DAILY #30 tabs 07/02/22 [Rx Last Taken Unknown] sennosides 8.6 mg-docusate sodium 50 mg tablet (Stool Softener-Stimulant La xative) 2 tab PO BID PRN Constipation #0 tabs 07/02/22 [Rx Last Taken Unknown] sodium chloride 0.65 % nasal spray aerosol (Deep Sea Nasal) 1 spray NASAL BID PRN PRN NASAL DRYNESS #0 mL 07/02/22 [Rx Last Taken Unknown] Allergy/AdvReac Type Severity Reaction Status Date / Time codeine AdvReac made me Verified 06/24/22 12:06 do gann things Family History (Updated 06/24/22 @ 21:[address] Lolita Holliday, ) Other Hypertension Surgical History no surgical history Social History (Updated 06/24/22 @ 21:[address] Lolita Holliday, DO) Smoking Status: Former smoker alcohol intake: current alcohol intake frequency: holidays/special occasions only substance use type: does not use ROS ROS Narrative 10 systems reviewed with pertinent positives as noted in the HPI above. Physical Exam Const alert and no apparent distress General Appearance: cooperative Nutritional Appearance: morbidly obese HEENT normocephalic, head/scalp atraumatic and moist oral mucous membranes Eyes PERRL, EOMs intact bilaterally and conjunctivae normal Neck supple General: trachea midline Chest inspection of chest normal Resp Auscultation: diminished lung sounds Cardio S1 normal heart sound and S2 normal heart sound Rhythm: abnormal rhythm GI normal to inspection, nondistended, normoactive bowel sounds Extremity General Extremity: edema bilateral lower extremity; Negative for clubbing Skin no rashes or lesions noted Neuro oriented x3 and CN's II-XII intact bilaterally Neuro Narrative: Generalized musculoskeletal weakness. Psych cooperative and affect normal Lab / Micro Data Result Diagrams: 07/02/22 05:27 07/02/22 05:27 Labs: Laboratory Results - last 24 hr 07/02/22 05:27: WBC 14.0 H, RBC 5.39, Hgb 14.7, Hct 46.8, MCV 86.8, MCH 27.3, MCHC 31.4 L, RDW Std Deviation 54.2 H, RDW Coeff of Nick 17.2 H, Plt Count 302, MPV 10.2, Immature Gran % (Auto) 1.100 H, Neut % (Auto) 89.2 H, Lymph % (Auto) 4.1 L, [place] % (Auto) 5.4, Eos % (Auto) 0.0, Baso % (Auto) 0.2, Absolute Neuts (auto) 12.5 H, Absolute Lymphs (auto) 0.58 L, Nucleated RBC % 0, Differential Comment SCANNED 07/02/22 05:27: Sodium 137, Potassium 3.6, Chloride 100, Carbon Dioxide 30.0, Anion Gap 7, BUN 35 H, Creatinine 0.51 L, Estim Creat Clear Calc 62.70, Est GFR (MDRD) Af Amer 204, Est GFR (MDRD) Non-Af 169, BUN/Creatinine Ratio 68.8 H, Glucose 128 H, Calcium 8.6 Radiology Impression Echocardiogram 06/29/22 15:44 Interpretation Summary Normal LV size. Left ventricular systolic function is normal. The estimated ejection fraction is 60 %. Contrast injection was performed. Ordering Physician: Kelby Cohen Referring Physician: Dante Enamorado Performed By: Viri Iqbal, OUMOU, RVT Charges/Coding Visit Charges Inpatient E&M: 39392 Init Hosp L3
--- NOTE | 2022-07-02 11:05 | CPS ---
Cough assist done.
--- NOTE | 2022-07-02 12:39 | PCM.DC ---
Discharge Instructions Diet Discharge Diet: Low fat / Low cholesterol and 2000 mg Sodium Diet Activity Weight Bearing Status: Weight bearing as tolerated Dressing / Incision Call your doctor if you observe: Fever of 101 or Higher, Coldness, Increased Pain, Numbness or Tingling, Change in Color, Inability to urinate, Inability to have a bowel movement, Shortness of breath, Dizziness, Fainting spells, Swelling in the ankles, Chest pain, Prolonged hiccupping, Increased palpitations (irregular heartbeat) and Calf discomfort Follow Up Care Test Results: Test results from this visit will be discussed in further detail at your follow-up appointment, if applicable. Discharge Plan Admission Admit Date/Time: 06/24/22 16:16 Primary Reason for Your Visit: Shortness of breath, weak cough. Muscular dystrophy. Attending Provider: Vince Cruz Primary Care Provider: Landon Enamorado Consulting Providers: Lolita Holliday ; Alyce Khan ; Kelby Cohen ; Reji Goodwin ; Charles Butcher ; Mg Erwin ; David Smith ; Juana Stacy PLANT PROTECTION SUPERINTENDENT Discharge Orders/Prescriptions Prescriptions: New diltiazem HCl 180 mg Capsule,Extended Release 24hr 180 mg PO Q12 Qty: 60 1RF amiodarone 200 mg Tablet 200 mg PO TID Qty: 90 0RF Rx Instructions: 200 mg 3 times daily until 07/07/2022 then 200 mg twice daily for 2 weeks until 07/21/2022 and then 200 mg once daily to continue sennosides-docusate sodium [Stool Softener-Stimulant Laxat] 8.6-50 mg Tablet 2 tab PO BID PRN (Reason: Constipation) Qty: 0 0RF metoprolol succinate 100 mg Tablet Extended Release 24 Hr 100 mg PO DAILY Qty: 30 2RF Deep Sea Nasal 0.65 % Aerosol,[place] 1 spray NASAL BID PRN PRN (Reason: NASAL DRYNESS) Qty: 0 0RF Mucus Relief ER 1,200 mg Tablet Extended Release 12hr 1,200 mg PO BID Qty: 14 0RF albuterol sulfate 90 mcg/actuation aero powdr breath act w/sensor 2 inh inhalation Q6H PRN (Reason: shortness of breath or wheezing) Qty: 1 0RF Continued aspirin [Adult Low Dose Aspirin] 81 MG tablet,delayed release (DR/EC) 81 mg PO DAILY Label Comments: Blood thinner for heart health citalopram 20 MG tablet 20 mg PO DAILY Label Comments: Depression/anxiety multivitamin with folic acid [Thera] 1 TABLET tablet 1 tab PO DAILY Label Comments: Supplement furosemide 20 MG tablet 20 mg PO BIDLX lisinopril 40 MG tablet 40 mg PO DAILY Eliquis 5 MG tablet 5 mg PO BID atorvastatin 20 MG tablet 20 mg PO QHS Discontinued diltiazem HCl 240 MG capsule,extended release 24 hr 240 mg PO QHS Referrals / Follow Up: Reji Goodwin MD [Med Staff - Active Staff] - Within 2 Weeks SabrinaJoe harmon MD [Med Staff - Active Staff] - Within 1 Month (For paroxysmal A. fib.) Landon Enamorado MD [Primary Care Provider] - 07/05/22 10:50 am Disposition Disposition (needs filled in before D/C Order can be placed): Home Health Service
--- NOTE | 2022-07-02 12:48 | DS.PCM_ITS ---
Providers Date of Admission: 06/24/22 Date of Discharge: 07/02/22 Primary Care Physician: Dr. Landon Enamorado MD Consultations 06/29/22 14:33 Consult: Cardiology Routine Consulting Provider: Alyce Khan Reason for Consult: afib rvr EMERGENT Consult: No Notified: Yes Date Notified: 06/29/22 Time Notified: 14:36 Method of Notification: Text 07/02/22 07:16 Consult: Rejogger / Pulmonary Medicine Routine Consulting Provider: Pulmonary Medicine [facility] Reason for Consult: couldn't expectorate, has musculra dystrophy, ILD? EMERGENT Consult: No Notified: Yes Date Notified: 07/02/22 Time Notified: 07:17 Method of Notification: Text Reason For Visit: HYPOXIA/SOB Diagnosis Discharge Diagnosis (1) Atrial fibrillation with RVR: Status: Acute Code(s): I48.91 - Unspecified atrial fibrillation (2) Hypertension: Status: Chronic Code(s): I10 - Essential (primary) hypertension Plan: BP is controlled. (3) Acute dyspnea: Status: Acute Code(s): R06.00 - Dyspnea, unspecified (4) Hyperlipidemia: Status: Chronic Code(s): E78.5 - Hyperlipidemia, unspecified Plan Chronic conditions: Hyperlipidemia/PAF/hypertension -Next-continue home Eliquis -Continue home Lasix -Continue home lisinopril -Continue home aspirin -Continue home atorvastatin -Continue home diltiazem Depression -Continue home citalopram Muscular dystrophy -Patient is wheelchair-bound at baseline Morbid obesity -BMI is 45.8 -Recommend weight loss -Complicates treatment, prognosis, outcomes DVT prophylaxis -Continue full anticoagulation CODE STATUS -Full code Medications at Discharge Home Medications aspirin 81 mg tablet,delayed release (Adult Low Dose Aspirin) 81 mg PO DAILY afib 05/26/15 citalopram 20 mg tablet 20 mg PO DAILY depression 05/26/15 multivitamin with folic acid 400 mcg tablet (Thera) 1 tab PO DAILY supplement 05/26/15 apixaban 5 mg tablet (Eliquis) 5 mg PO BID anti platelet 09/27/16 lisinopril 40 mg tablet 40 mg PO DAILY blood pressure 09/27/16 atorvastatin 20 mg tablet 20 mg PO QHS cholesterol 08/13/18 albuterol sulfate 90 mcg/actuation breath activated powder inhaler,sensor 2 inh inhalation Q6H PRN shortness of breath or wheezing #1 ea 07/02/22 amiodarone 200 mg tablet 200 mg PO TID #90 tabs 07/02/22 diltiazem HCl 180 mg capsule,extended release 24 hr 180 mg PO Q12 #60 caps 07/02/22 furosemide 40 mg tablet (Lasix) 40 mg PO DAILY #30 tabs 07/02/22 guaifenesin 1,200 mg tablet, extended release 12 hr (Mucus Relief ER) 1,200 mg PO BID #14 tabs 07/02/22 metoprolol succinate 100 mg tablet,extended release 24 hr 100 mg PO DAILY #30 tabs 07/02/22 sennosides 8.6 mg-docusate sodium 50 mg tablet (Stool Softener-Stimulant Laxative) 2 tab PO BID PRN Constipation #0 tabs 07/02/22 sodium chloride 0.65 % nasal spray aerosol (Deep Sea Nasal) 1 spray NASAL BID PRN PRN NASAL DRYNESS #0 mL 07/02/22 Hospital Course Summary of Care Provided Hospital Course: This is 76-year-old gentleman who was admitted for dyspnea and cough For 3 weeks. Patient not able to bring up phlegm and is wheezing. Patient also had more intermittent hypoxia with pulse ox running high 80s. His hospital course and evaluation and assessment plan as mentioned below: 1. Suspect viral illness with subsequent COPD exacerbation Patient was hypoxic on room air 86% Currently requiring 2 L nasal cannula Does have a history of tobacco abuse CTA of chest from 08/13/2018 showed centrilobular emphysema Treatment: * Solu-Medrol 40 every 8 * Pulmonary toilet with scheduled and as needed nebulizers * Mucinex 1200 p.o. twice daily * I-S * Pep therapy with Acapella * vest therapy as patient is having difficulty with expectoration. * ceftriaxone and azithromycin as there may be some right lower lobe infiltrate * Patient's respiratory difficulties account of the COPD and possible pneumonia but also his muscular dystrophy with suspicion of interstitial lung disease . * 07/02: Hi Lift Operator was consulted as patient was not able to bring up phlegm with weak cough. Recommended to follow-up in the office for PFT. Patient was treated with CoughAssist device here but could not be prescribed as needs bottom brusher evaluation in office and PFT. Discussed with the manager rn case. Testing * respiratory viral panel: negative * COVID and flu rapid were negative * Strep and Legionella antigen negative (2) Atrial fibrillation with RVR: PLAN: Patient also has acute on chronic diastolic heart failure: Patient was started on diltiazem drip and amiodarone drip and heart rate now controlled.? Currently heart rate is controlled on amiodarone 200 mg 3 times daily, Cardizem 180 mg twice daily and metoprolol. 2D echo at this time shows EF 60% with diastolic dysfunction.? Patient was seen by hospice entrance attendant. Filtrose Crusher consult reviewed. Last echo was from 2014 and EF was 15% at that time. Troponin is 97.? Likely due to the A. fib with RVR. Patient home dose of Lasix 20 mg twice daily changed to 40 mg daily. Echocardiogram? 06/29/22 15:44 Interpretation Summary Normal LV size. Left ventricular systolic function is normal. The estimated ejection fraction is 60 %. Contrast injection was performed. (3) Debility: PLAN: -Patient is wheelchair-bound at baseline secondary history of multiple sclerosis -He and his state he is weaker than normal -May need to get therapy services involved depending on overall function Patient states that he will not be going to a long term facility but will go home. (4) Leukocytosis: PLAN: Resolved -This is a monocyte and eosinophil predominant leukocytosis -No clinical feature suggestive of bacterial pneumonia -Anticipate this may trend up as he is on steroids -Repeat CBC in a.m. Eosinophilia resolved. (5) Dysphagia: PLAN: passed ST eval. recommending small bits with close supervision. MBS today. regular texture, thin liquids. PLAN: Plan Chronic conditions: Hyperlipidemia/PAF/hypertension -Next-continue home Eliquis -Continue home lisinopril -Continue home aspirin -Continue home atorvastatin -Continue home diltiazem Depression -Continue home citalopram Muscular dystrophy -Patient is wheelchair-bound at baseline Morbid obesity -BMI is 45.8 -Recommend weight loss -Complicates treatment, prognosis, outcomes DVT prophylaxis -Continue full anticoagulation CODE STATUS -Full code Discharge medication reconciliation done. Discharge follow-up instructions completed. Discharge process discussed with the patient and all questions were answered to patient's satisfaction. Total time spent, exact 35 minutes on discharge meds reconciliation, examination, coordination of care with nurses and ancillary staff, review of imaging and blood test and discussion with the patient on follow-up instructions. Physical Exam Narrative Please see progress note for further detail. Weight / BMI Weight Weight: 300 lb 14.896 oz Body Mass Index (BMI) 45.7 ABG / Lab / Microbiology Data Result Diagrams: 07/02/22 05:27 07/02/22 05:27 Laboratory: Laboratory Results - last 24 hr 07/02/22 05:27: WBC 14.0 H, RBC 5.39, Hgb 14.7, Hct 46.8, MCV 86.8, MCH 27.3, MCHC 31.4 L, RDW Std Deviation 54.2 H, RDW Coeff of Nick 17.2 H, Plt Count 302, MPV 10.2, Immature Gran % (Auto) 1.100 H, Neut % (Auto) 89.2 H, Lymph % (Auto) 4.1 L, [place] % (Auto) 5.4, Eos % (Auto) 0.0, Baso % (Auto) 0.2, Absolute Neuts (auto) 12.5 H, Absolute Lymphs (auto) 0.58 L, Nucleated RBC % 0, Differential Comment SCANNED 07/02/22 05:27: Sodium 137, Potassium 3.6, Chloride 100, Carbon Dioxide 30.0, Anion Gap 7, BUN 35 H, Creatinine 0.51 L, Estim Creat Clear Calc 62.70, Est GFR (MDRD) Af Amer 204, Est GFR (MDRD) Non-Af 169, BUN/Creatinine Ratio 68.8 H, Glucose 128 H, Calcium 8.6 Microbiology: Microbiology 07/01/22 20:50 Sputum, Expectorated/Coughed Gram Stain - Final 06/24/22 18:20 Urine, Random Streptococcus pneumoniae Antigen (M - Final 06/24/22 18:20 Urine, Random Legionella Antigen - Final 06/24/22 16:45 Mucosa - Nose Respiratory Panel (PCR) - Final 06/24/22 13:50 Nasal Secretion SARS-CoV-2 & FLU Antigen (Rapid) - Final Radiography Diagnostic Testing: Radiology Impression Echocardiogram 06/29/22 15:44 Interpretation Summary Normal LV size. Left ventricular systolic function is normal. The estimated ejection fraction is 60 %. Contrast injection was performed. Ordering Physician: Kelby Cohen Referring Physician: Dante Enamorado Performed By: Viri Iqbal, OUMOU, RVT D/C Instructions Discharge Diet: Low fat / Low cholesterol and 2000 mg Sodium Diet Weight Bearing Status: Weight bearing as tolerated Call your doctor if you observe: Fever of 101 or Higher, Coldness, Increased Pain, Numbness or Tingling, Change in Color, Inability to urinate, Inability to have a bowel movement, Shortness of breath, Dizziness, Fainting spells, Swelling in the ankles, Chest pain, Prolonged hiccupping, Increased palpitations (irregular heartbeat) and Calf discomfort Meaningful Use Info Meaningful Use Diagnoses (Choose all that apply): None applicable Discharge Plan Admission Admit Date/Time: 06/24/22 16:16 Primary Reason for Your Visit: Shortness of breath, weak cough. Muscular dystrophy. Attending Provider: Vince Cruz Primary Care Provider: Landon Enamorado Consulting Providers: Lolita Holliday ; Alyce Khan ; Kelby Cohen ; Reji Goodwin ; Charles Butcher ; Mg Erwin ; David Smith ; Juana Stacy DISTRIBUTION OPERATIONS SUPERVISOR Discharge Orders/Prescriptions Prescriptions: New diltiazem HCl 180 mg Capsule,Extended Release 24hr 180 mg PO Q12 Qty: 60 1RF amiodarone 200 mg Tablet 200 mg PO TID Qty: 90 0RF Rx Instructions: 200 mg 3 times daily until 07/07/2022 then 200 mg twice daily for 2 weeks until 07/21/2022 and then 200 mg once daily to continue sennosides-docusate sodium [Stool Softener-Stimulant Laxat] 8.6-50 mg Tablet 2 tab PO BID PRN (Reason: Constipation) Qty: 0 0RF metoprolol succinate 100 mg Tablet Extended Release 24 Hr 100 mg PO DAILY Qty: 30 2RF Deep Sea Nasal 0.65 % Aerosol,[place] 1 spray NASAL BID PRN PRN (Reason: NASAL DRYNESS) Qty: 0 0RF Mucus Relief ER 1,200 mg Tablet Extended Release 12hr 1,200 mg PO BID Qty: 14 0RF albuterol sulfate 90 mcg/actuation aero powdr breath act w/sensor 2 inh inhalation Q6H PRN (Reason: shortness of breath or wheezing) Qty: 1 0RF furosemide [Lasix] 40 mg tablet 40 mg PO DAILY Qty: 30 1RF Continued aspirin [Adult Low Dose Aspirin] 81 MG tablet,delayed release (DR/EC) 81 mg PO DAILY Label Comments: Blood thinner for heart health citalopram 20 MG tablet 20 mg PO DAILY Label Comments: Depression/anxiety multivitamin with folic acid [Thera] 1 TABLET tablet 1 tab PO DAILY Label Comments: Supplement lisinopril 40 MG tablet 40 mg PO DAILY Eliquis 5 MG tablet 5 mg PO BID atorvastatin 20 MG tablet 20 mg PO QHS Discontinued furosemide 20 MG tablet 20 mg PO BIDLX diltiazem HCl 240 MG capsule,extended release 24 hr 240 mg PO QHS Referrals / Follow Up: Landon Enamorado MD [Primary Care Provider] - 07/05/22 10:50 am Juana Stacy DISTRIBUTION OPERATIONS SUPERVISOR, DISTRIBUTION OPERATIONS SUPERVISOR-C [Med Staff - Adv Practice Prof] - 07/17/22 8:45 am Teresa Bradley NP, DISTRIBUTION OPERATIONS SUPERVISOR-C [Non-Staff -Ordering Privileges] - 07/19/22 10:30 am Disposition Disposition (needs filled in before D/C Order can be placed): Home Health Service Charges/Coding Addendum Addendum: Please cancel the billing charge of the progress note of the same date. Visit Charges Inpatient E&M: 87087 Disch Hosp >30min
--- NOTE | 2022-07-02 15:07 | CPS ---
Cough assist given times 10 breaths.
--- NOTE | 2022-07-02 15:59 | CASEMGMT ---
JESSICA TRAMMELL called [facility] to confirm start of care date. Start of care planned for Friday07/08/22. JESSICA TRAMMELL updated discharge plan. JESSICA TRAMMELL to patient's room to updated regarding [facility] start of care date after PCP appt. Patient and had no further questions or concerns at this time.
== END 2022-07-02 16:11 | disposition home health service (06) | DRG 178 ==
LOC: ED 15:17 → MS3 17:02 → PCU 06-29 11:33
PROVIDERS: Admitting Provider Internal Medicine; Emergency Provider Emergency Medicine; PCP Family Medicine; Visit Provider Internal Medicine
DX: J15.1 Pneumonia due to Pseudomonas (principal); I50.32 Chronic diastolic (congestive) heart failure; Z68.42 Body mass index [BMI] 45.0-49.9, adult; G71.02 Facioscapulohumeral muscular dystrophy; I11.0 Hypertensive heart disease with heart failure; J43.2 Centrilobular emphysema; I48.0 Paroxysmal atrial fibrillation; E66.01 Morbid (severe) obesity due to excess calories; J98.01 Acute bronchospasm; E78.5 Hyperlipidemia, unspecified; F32.A Depression, unspecified; Z79.01 Long term (current) use of anticoagulants; B34.9 Viral infection, unspecified; R09.02 Hypoxemia; R00.0 Tachycardia, unspecified; Z20.822 Contact with and (suspected) exposure to COVID-19; Z99.3 Dependence on wheelchair; Z79.82 Long term (current) use of aspirin; Z79.899 Other long term (current) drug therapy; Z87.891 Personal history of nicotine dependence
CPT/HCPCS: 36415; 71045; 74230; 80048; 80053; 83735; 83880; 84100; 84484; 85025; 87070; 87077; 87186; 87205; 87428; 87449; 87633; 92610; 92611; 93005; 93306; 94640; 94667; 94668; 94762; 99284; J7040; J7050; Q9957; A4216; C8929

== ENCOUNTER 2022-08-28 03:58 | Inpatient (IN) | payer MEDICARE, SELFPAY ==
[2022-08-28] VITALS (17 sets, daily range): BP systolic 128–165; BP diastolic 67–96; PULSE 73–93; RESP 15–22; TEMP 36.4–36.9; O2SAT 89–99; BMI 47.2; BMI 49.1
--- NOTE | 2022-08-28 05:01 | RAD_ITS ---
EXAM: XR CHEST, 1 VIEW CLINICAL INDICATION: cough TECHNIQUE: Frontal view of the chest. This report was created using [employer] report generation technology. COMPARISON: 06/24/2022 FINDINGS: LUNGS AND PLEURAL SPACES: Moderate basilar airspace disease. No pneumothorax. No effusion. HEART: Mild enlargement of the cardiac silhouette. MEDIASTINUM: Central airways and mediastinal contour are unremarkable. BONES/JOINTS: Unremarkable. SOFT TISSUES: Unremarkable. RAD/Chest 1 View (Portable) IMPRESSION: Mild right basilar airspace disease. Findings may indicate atelectasis or infection. Electronically Signed: Abe Lucas MD at 5:54 EST ,
[2022-08-28 05:22] LABS: Absolute Lymphocyte Count 0.92 X10^3/uL (0.83-4.51); Absolute Neutrophil Count 7.4 X10^3/uL (2.0-7.7); Basophil# 0.11 X10^3/uL; Basophil% 1.1 % (0-1); Eosinophils% 7.1 % (0-5); Hematocrit 39.2 % (40-54); Hemoglobin 11.7 g/dL (13.0-16.5); Lymphocyte # 0.92 X10^3/ul (0.83-4.51); Lymphocyte % 9.4 % (19-41); Mean Corp Hgb Conc 29.8 g/dL (32-36); Mean Corpuscular Hgb 27.6 pg (27.0-32.0); Mean Corpuscular Volume 92.5 fL (80-94); Mean Platelet Vol. 10.4 fl (6.2-12.0); Monocyte# 0.68 X10^3/uL; Monocyte% 6.9 % (0-10); NRBC Flagged by Analyzer 0 % (0-5); Neutrophil # 7.35 X10^3/uL (2.7-7.7); Neutrophil % 75.1 % (47-70); Platelet Count 138 K/mm3 (150-450); RBC Distribution Width SD 60.6 fl (35.1-43.9); Red Blood Count 4.24 M/mm3 (4.6-6.2); White Blood Count 9.8 K/mm3 (4.4-11.0)
[2022-08-28 05:38] LABS: Anion Gap 5 (5-15); BUN 21 mg/dL (7-18); BUN/Creat Ratio 39.5 RATIO (10-20); Calcium,Total 9.5 mg/dL (8.5-10.1); Chloride 102 mmol/L (98-107); Creatinine, Serum 0.53 mg/dL (0.70-1.30); EST Glomerular Filtration Rate 161 mL/min (>60); Est Glom Filt Rate - Afr Amer 195 mL/min (>60); Glucose 90 mg/dL (74-106); Magnesium 2.1 mg/dL (1.6-2.6); Potassium 4.4 mmol/L (3.5-5.1); Sodium Level 139 mmol/L (136-145)
[2022-08-28] MEDS: Sodium Chloride 3% 500 ML IV.SOLN. INHALATION (05:39)
--- NOTE | 2022-08-28 06:40 | EX.ED.DYSGE1 ---
HPI History of Present Illness Chief Complaint: Shortness of Breath Narrative Narrative: Patient is a 76-year-old male with past medical history of muscular dystrophy. 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 He was seen in the ER in June 2022 and diagnosed with pneumonia and placed on oxygen at that time. He states he wears 2 L of nasal cannula oxygen constantly. He states over the last 2 to 3 days he has noticed mild increase in shortness of breath with cough. He states that last night into this morning the coughs and congestion and shortness of breath worsened. He states he took a breathing treatment without any improvement and with concern he was developing pneumonia once again and may need admitted to the hospital he called EMS. EMS reports that patient was satting 88 to 89% on his normal 2 L [facility] Medical History (Updated 08/28/22 @ 08:[address] Benito Sosa, DO) Aortic aneurysm Atrial fibrillation Depression Diastolic CHF Dysphagia HTN (hypertension) Hyperlipemia Hyperlipidemia Hypertension Muscular dystrophy Home Medications aspirin 81 mg tablet,delayed release (Adult Low Dose Aspirin) 81 mg PO DAILY afib 05/26/15 [History Last Taken 08/27/22] citalopram 20 mg tablet 20 mg PO DAILY depression 05/26/15 [History Last Taken 08/27/22] multivitamin with folic acid 400 mcg tablet (Thera) 1 tab PO DAILY supplement 05/26/15 [History Last Taken 08/27/22] apixaban 5 mg tablet (Eliquis) 5 mg PO BID anti platelet 09/27/16 [History Last Taken 08/27/22] lisinopril 40 mg tablet 40 mg PO DAILY blood pressure 09/27/16 [History Last Taken 08/27/22] atorvastatin 20 mg tablet 20 mg PO QHS cholesterol 08/13/18 [History Last Taken 08/27/22] albuterol sulfate 90 mcg/actuation breath activated powder inhaler,sensor 2 inh inhalation Q6H PRN shortness of breath or wheezing #1 ea 07/02/22 [Rx Last Taken 08/28/22] amiodarone 200 mg tablet 200 mg PO TID #90 tabs 07/02/22 [Rx Last Taken 08/27/22] diltiazem HCl 180 mg capsule,extended release 24 hr 180 mg PO Q12 #60 caps 07/02/22 [Rx Last Taken 08/27/22] furosemide 40 mg tablet (Lasix) 40 mg PO DAILY #30 tabs 07/02/22 [Rx Last Taken 08/27/22] guaifenesin 1,200 mg tablet, extended release 12 hr (Mucus Relief ER) 1,200 mg PO BID #14 tabs 07/02/22 [Rx Last Taken 08/27/22] sennosides 8.6 mg-docusate sodium 50 mg tablet (Stool Softener-Stimulant Laxative) 2 tab PO BID PRN Constipation #0 tabs 07/02/22 [Rx Last Taken Unknown] sodium chloride 0.65 % nasal spray aerosol (Deep Sea Nasal) 1 spray NASAL BID PRN PRN NASAL DRYNESS #0 mL 07/02/22 [Rx Last Taken Unknown] metoprolol succinate 100 mg tablet,extended release 24 hr 50 mg PO DAILY #30 tabs 07/16/22 [Rx Last Taken Unknown] Allergy/AdvReac Type Severity Reaction Status Date / Time codeine AdvReac made me Verified 08/15/22 10:48 do crazy things Family History (Updated 08/28/22 @ 06:[address] Mae Domingo MD) Father Hypertension Heart disease Renal cancer Kidney disease Mother Diabetes Heart disease Surgical History (Updated 08/28/22 @ 05:[address] Mae Domingo MD) History of herniorrhaphy Social History (Updated 08/28/22 @ 06:[address] Mae Domingo MD) household members: spouse Smoking Status: Former smoker how long ago did patient quit smoking: Smoked 1.5-2 ppd since teen until quit 2002. alcohol intake: current alcohol intake frequency: holidays/special occasions only substance use type: does not use ROS ROS ED Constitutional Constitutional ED: Denies chills or fever(s) ENT ENT ED: Reports rhinorrhea; Denies sore throat Cardiovascular Cardiovascular: Denies chest pain Respiratory/Chest Respiratory/Chest: Reports cough and dyspnea Gastrointestinal Gastrointestinal: Denies abdominal pain, diarrhea, nausea or vomiting Genitourinary Genitourinary ED: Denies dysuria Musculoskeletal Musculoskeletal: Denies myalgias Integumentary Denies rash Neurologic Neurologic: Reports weakness; Denies headache(s) Hematologic/Lymphatic Hematologic/Lymphatic: Reports easy bleeding and easy bruising EXAM Physical Exam Const Vital Signs: 08/28/22 03:59 08/28/22 04:02 08/28/22 04:02 Temperature 97.6 F L Temperature Source Temporal Pulse Rate 93 78 Respiratory Rate 22 H 18 Respiratory Effort Short of Breath Labored Pursed Lip Respiratory Depth Normal Respiratory Pattern Normal Blood Pressure 145/67 H Blood Pressure Mean 93 Pulse Ox 89 98 Oxygen Delivery Method Nasal Cannula Nasal Cannula Nasal Cannula Oxygen Flow Rate (L/min) 2 4 4 08/28/22 04:01 08/28/22 05:29 08/28/22 05:40 Temperature 97.6 F L Temperature Source Temporal Pulse Rate 81 74 81 Respiratory Rate 18 15 18 Respiratory Effort Respiratory Depth Respiratory Pattern Blood Pressure 145/67 H 128/68 H Blood Pressure Mean 93 88 Pulse Ox 96 99 Oxygen Delivery Method Nasal Cannula Room Air Oxygen Flow Rate (L/min) 4 Positive well nourished, well developed and obese General Appearance ED: well developed Nutritional Appearance: obese HEENT Reports moist mucous membranes HEENT Narrative: No tongue or lip swelling no oral lesions no airway edema or compromise. There is cobblestoning the posterior pharynx consistent with sinus drainage. Eyes PERRL and EOMs intact bilaterally Neck supple and no JVD Chest Wall palpation of chest normal Resp Resp Narrative: Patient has slight tachypnea and breath sounds are diminished throughout with rhonchi in bilateral bases left greater than right. Otherwise no nasal flaring or retractions or accessory muscle use Cardio regular rate Rate: other Other Details: Irregularly irregular rhythm with regular rate consistent with history of atrial fibrillation GI normal to inspection, nondistended, normoactive bowel sounds, non-tender, non-distended and no masses GI Narrative: No pulsatile mass or fluid wave noted Auscultation: normoactive bowel sounds Palpation: soft Extremity Extremity Narrative: +1-2 pitting edema to the bilateral lower extremities that is equal and symmetric Neuro oriented x3 and CN's II-XII intact bilaterally Neuro Narrative: Patient has chronic weakness secondary to his muscular dystrophy but no new or acute finding Sensorium / Orientation: alert Psych mental status grossly normal Skin Skin Narrative: Patient has chronic stasis changes to his bilateral lower legs without secondary changes to suggest infection MDM MDM MDM Narrative Medical decision making narrative: Patient presented to the ER in mild respiratory distress. His pulse ox on his normal 2 L was 88 to 89% and with increasing him to 4 L his pulse ox became 98%. He does have mucousy secretions in the posterior pharynx and rhonchi on exam concerning for possible pneumonia. Secondary to his basic blood work and a chest x-ray were obtained. Patient does have history of A-fib but he is on anticoagulation and therefore my concern for a PE is low and feel no need for a CTA. Labs revealed no clinically significant finding. Chest x-ray showed atelectasis versus developing pneumonia. At this time his oxygen requirement is only slightly above his baseline and he is increased from 2 to 4 L. However with his history of muscular dystrophy and exam indicating difficulty with secretions I do feel he will need treatment with the CoughAssist device to remove secretions and covered for possible developing pneumonia. Secondary to this concern medicine was contacted and they do agree to accept the patient at this time. The plan of care was discussed with the patient and he is agreeable to it and therefore he will be admitted to the hospital to undergo further treatment and observation History & Record Review Discussion w/independent historian: EMS personnel and Patient Lab Data Attestation: I reviewed the patient's lab results. Labs: Laboratory Results - last 24 hr 08/28/22 08/28/22 08/28/22 05:17 05:17 05:17 WBC 9.8 RBC 4.24 L Hgb 11.7 L Hct 39.2 L MCV 92.5 MCH 27.6 MCHC 29.8 L RDW Std Deviation 60.6 H RDW Coeff of Nick 18.0 H Plt Count 138 L MPV 10.4 Immature Gran % (Auto) 0.400 Neut % (Auto) 75.1 H Lymph % (Auto) 9.4 L [place] % (Auto) 6.9 Eos % (Auto) 7.1 H Baso % (Auto) 1.1 H Absolute Neuts (auto) 7.4 Absolute Lymphs (auto) 0.92 Nucleated RBC % 0 Sodium 139 Potassium 4.4 Chloride 102 Carbon Dioxide 32.0 Anion Gap 5 BUN 21 H Creatinine 0.53 L Estim Creat Clear Calc 62.70 Est GFR (MDRD) Af Amer 195 Est GFR (MDRD) Non-Af 161 BUN/Creatinine Ratio 39.5 H Glucose 90 Calcium 9.5 Magnesium 2.1 Iron TIBC Iron Saturation Ferritin B-Natriuretic Peptide 27.0 08/28/22 05:17 WBC RBC Hgb Hct MCV MCH MCHC RDW Std Deviation RDW Coeff of Nick Plt Count MPV Immature Gran % (Auto) Neut % (Auto) Lymph % (Auto) [place] % (Auto) Eos % (Auto) Baso % (Auto) Absolute Neuts (auto) Absolute Lymphs (auto) Nucleated RBC % Sodium Potassium Chloride Carbon Dioxide Anion Gap BUN Creatinine Estim Creat Clear Calc Est GFR (MDRD) Af Amer Est GFR (MDRD) Non-Af BUN/Creatinine Ratio Glucose Calcium Magnesium Iron 55 L TIBC 328 Iron Saturation 16.8 Ferritin 134 B-Natriuretic Peptide Radiography Diagnostic Testing: Clinical Impression(s) from Imaging Studies Chest X-Ray 08/28/22 05:01 IMPRESSION: Mild right basilar airspace disease. Findings may indicate atelectasis or infection. Electronically Signed: Abe Lucas MD at 5:54 EST , 1 view chest x-ray as interpreted by the emergency medicine physician reveals hazy opacities in the bilateral lower lobes consistent with atelectasis or developing infiltrate Management Discussion w/another healthcare provider: Hospitalist Discharge Plan Dx/Rx/DC Orders Clinical Impression: Hypoxia, Muscular dystrophy, Pneumonia, Atrial fibrillation, Current use of group home anticoagulation Disposition Disposition: Acute Care Hospital [facility] Discharge Date/Time: 08/28/22 07:36
--- NOTE | 2022-08-28 07:03 | PCM.HP.STD ---
HPI - General General Date of Admission: 08/28/22 Date of Service: 08/28/22 Chief Complaint: Dyspnea, cough. HPI Narrative The patient is a 76 y/o M w/ PMHx: Chronic BL LE stasis disease, COPD w/ Chronic Hypoxic Respiratory Failure (2L NC), Aortic aneurysm, PAF, HTN, HLD, Morbid Obesity, Muscular Dystrophy wheelchair bound, Anxiety and Depression, Chronic dysphagia associated with MD, Chronic Diastolic CHF, Hx GI bleed prior, recent prolonged hospitalization 06/24/22-07/02/22 treated for atrial fibrillation with RVR coupled with acute on chronic diastolic CHF with usage of Cardizem and amiodarone drip with transition to oral amiodarone, Cardizem and metoprolol with echocardiogram with EF 60% with diastolic dysfunction as well as significant dyspnea with hypoxia with underlying muscular dystrophy wheelchair-bound with concern for acute COPD exacerbation/possibly right lower lobe pneumonia secondary to viral illness/bronchospasms with PAP therapy with Acapella, pulmonary toileting scheduled and as needed nebulizers, Solu-Medrol 40 mg Q8, vest therapy who now re-presents to the [facility] ED on 08/28/22 with history of increased dyspnea for the last 2-3 days, worse this am, progressing with difficulty coughing up secretions and managing them secondary to his MD weakness which is more pronounced and notable wheezing as well prompting ED evaluation. He denies any recent fever or chills, nausea or emesis or diarrhea. Work-up in the ED included T97.6, heart rate 93, BP 145/67, respiratory rate 22, initially 89% on 2 L increased to 4 L noted to be 96 to 98%, CBC with WC 9.8, hemoglobin 11.7, MCV 92.5, platelet 138 with mildly increased neutrophils otherwise no marked shift, BMP with BUN/creatinine 21/0.533, magnesium 2.1, BNP 27, chest x-ray with mild right basilar airspace disease possibly atelectasis or infection, rapid SARS COVID and influenza antigen negative. Recent 06/28/2022 modified barium swallow with function grossly within normal with recommendation at that time for regular textures and thin liquids with small bites, small sips, sitting upright, remaining upright for 30 minutes after oral intake. [facility] Medical History (Updated 08/28/22 @ 06:[address] Mae Domingo MD) Aortic aneurysm Atrial fibrillation Depression Diastolic CHF Dysphagia HTN (hypertension) Hyperlipemia Hyperlipidemia Hypertension Muscular dystrophy Home Medications aspirin 81 mg tablet,delayed release (Adult Low Dose Aspirin) 81 mg PO DAILY afib 05/26/15 [History Last Taken 06/24/22] citalopram 20 mg tablet 20 mg PO DAILY depression 05/26/15 [History Last Taken 06/23/22] multivitamin with folic acid 400 mcg tablet (Thera) 1 tab PO DAILY supplement 05/26/15 [History Last Taken 06/24/22] apixaban 5 mg tablet (Eliquis) 5 mg PO BID anti platelet 09/27/16 [History Last Taken 06/24/22] lisinopril 40 mg tablet 40 mg PO DAILY blood pressure 09/27/16 [History Last Taken 06/24/22] atorvastatin 20 mg tablet 20 mg PO QHS cholesterol 08/13/18 [History Last Taken 06/23/22] albuterol sulfate 90 mcg/actuation breath activated powder inhaler,sensor 2 inh inhalation Q6H PRN shortness of breath or wheezing #1 ea 07/02/22 [Rx Last Taken Unknown] amiodarone 200 mg tablet 200 mg PO TID #90 tabs 07/02/22 [Rx Last Taken Unknown] diltiazem HCl 180 mg capsule,extended release 24 hr 180 mg PO Q12 #60 caps 07/02/22 [Rx Last Taken Unknown] furosemide 40 mg tablet (Lasix) 40 mg PO DAILY #30 tabs 07/02/22 [Rx Last Taken Unknown] guaifenesin 1,200 mg tablet, extended release 12 hr (Mucus Relief ER) 1,200 mg PO BID #14 tabs 07/02/22 [Rx Last Taken Unknown] sennosides 8.6 mg-docusate sodium 50 mg tablet (Stool Softener-Stimulant Laxative) 2 tab PO BID PRN Constipation #0 tabs 07/02/22 [Rx Last Taken Unknown] sodium chloride 0.65 % nasal spray aerosol (Deep Sea Nasal) 1 spray NASAL BID PRN PRN NASAL DRYNESS #0 mL 07/02/22 [Rx Last Taken Unknown] metoprolol succinate 100 mg tablet,extended release 24 hr 50 mg PO DAILY #30 tabs 07/16/22 [Rx Last Taken Unknown] Allergy/AdvReac Type Severity Reaction Status Date / Time codeine AdvReac made me Verified 08/15/22 10:48 do crazy things Family History (Updated 08/28/22 @ 06:[address] Mae Domingo MD) Father Hypertension Heart disease Renal cancer Kidney disease Mother Diabetes Heart disease Surgical History (Updated 08/28/22 @ 05:[address] Mae Domingo MD) History of herniorrhaphy Social History (Updated 08/28/22 @ 06:[address] Mae Domingo MD) household members: spouse Smoking Status: Former smoker how long ago did patient quit smoking: Smoked 1.5-2 ppd since teen until quit 2002. alcohol intake: current alcohol intake frequency: holidays/special occasions only substance use type: does not use ROS ROS Narrative Admission Review of Systems: CONSTITUTIONAL: No weight loss, fever, chills, + weakness or fatigue. HEENT: Eyes: No visual loss, blurred vision, double vision or yellow sclerae. Ears, Nose, Throat: No hearing loss, sneezing, congestion, runny nose or sore throat. SKIN: + Bilateral lower extremity chronic stasis skin changes CARDIOVASCULAR: No chest pain, chest pressure or chest discomfort, palpitations, edema, orthopnea, syncopal events. RESPIRATORY: + shortness of breath, cough without ability to produce sputum, wheezing, No hemoptysis. GASTROINTESTINAL: No anorexia, nausea, vomiting or diarrhea, abdominal pain, melena, BRBPR. GENITOURINARY: No dysuria, frequency, urgency or retention. NEUROLOGICAL: Severe functional paraplegia secondary to MDD, no headache, dizziness, syncope, paralysis, ataxia, numbness or tingling in the extremities, change in bowel or bladder control, seizure. MUSCULOSKELETAL: +No muscle, back pain, joint pain or stiffness. HEMATOLOGIC: + anemia, bleeding or bruising. LYMPHATICS: No enlarged nodes. No history of splenectomy. PSYCHIATRIC: No history of depression or anxiety. ENDOCRINOLOGIC: No reports of sweating, cold or heat intolerance. No polyuria or polydipsia. ALLERGIES: No history of asthma, hives, eczema or rhinitis. Vital Signs Vital Signs Vital Signs: 08/28/22 03:59 08/28/22 04:02 08/28/22 04:02 Temperature 97.6 F L Temperature Source Temporal Pulse Rate 93 78 Respiratory Rate 22 H 18 Respiratory Effort Short of Breath Labored Pursed Lip Respiratory Depth Normal Respiratory Pattern Normal Blood Pressure 145/67 H Blood Pressure Mean 93 Pulse Ox 89 98 Oxygen Delivery Method Nasal Cannula Nasal Cannula Nasal Cannula Oxygen Flow Rate (L/min) 2 4 4 08/28/22 04:01 08/28/22 05:29 08/28/22 05:40 Temperature 97.6 F L Temperature Source Temporal Pulse Rate 81 74 81 Respiratory Rate 18 15 18 Respiratory Effort Respiratory Depth Respiratory Pattern Blood Pressure 145/67 H 128/68 H Blood Pressure Mean 93 88 Pulse Ox 96 99 Oxygen Delivery Method Nasal Cannula Room Air Oxygen Flow Rate (L/min) 4 Weight Weight: 310 lb 13.628 oz Body Mass Index (BMI) 47.2 Physical Exam Narrative Physical Examination: General: Awake, alert, oriented x 3 and cooperative, seated upright in the ED bed, fatigued, audible difficulty managing his secretions. Skin: Normal color, normal turgor, no icterus, no cyanosis except for notable bilateral lower extremity stasis skin changes. HEENT: AT/NC, EOMI, PERRLA, dry MM, no carotid bruits or JVD noted; however, very thickened neck makes evaluation difficult. Lungs: Significantly diminished, difficulty with good respiratory effort, unable to even cough or bring up secretions, audible upper airway difficulty, no no marked rales, previous rhonchi per ED physician but currently extremely minimal air movement, no wheezing but again extremely minimal air movement. Heart: Regular rate and rhythm; no gallop, rub audible. Abdomen: Soft, morbidly obese, NTTP, unable to discern distention given habitus, very distant bowel sounds, unable to discern HSM secondary to habitus Extremities: No cyanosis, no marked clubbing, significant bilateral lower extremity stasis skin changes, edema which is chronic and unchanged per patient Neurological: Patient awake, alert, oriented as noted, cognitive function intact; pupils equally reactive to light and accommodation, cranial nerves II-XII grossly normal, patient with significant functional paraplegia secondary to underlying muscular dystrophy, strength accordingly severely global decrease. Psychiatric: Affect appears flat, fatigued, no acute evidence of depressive or anxiety feelings. Results Lab / Micro Data Result Diagrams: 08/28/22 05:17 08/28/22 05:17 Labs: Laboratory Results - last 24 hr 08/28/22 05:17: WBC 9.8, RBC 4.24 L, Hgb 11.7 L, Hct 39.2 L, MCV 92.5, MCH 27.6, MCHC 29.8 L, RDW Std Deviation 60.6 H, RDW Coeff of Nick 18.0 H, Plt Count 138 L, MPV 10.4, Immature Gran % (Auto) 0.400, Neut % (Auto) 75.1 H, Lymph % (Auto) 9.4 L, [place] % (Auto) 6.9, Eos % (Auto) 7.1 H, Baso % (Auto) 1.1 H, Absolute Neuts (auto) 7.4, Absolute Lymphs (auto) 0.92, Nucleated RBC % 0 08/28/22 05:17: Sodium 139, Potassium 4.4, Chloride 102, Carbon Dioxide 32.0, Anion Gap 5, BUN 21 H, Creatinine 0.53 L, Estim Creat Clear Calc 62.70, Est GFR (MDRD) Af Amer 195, Est GFR (MDRD) Non-Af 161, BUN/Creatinine Ratio 39.5 H, Glucose 90, Calcium 9.5, Magnesium 2.1 08/28/22 05:17: B-Natriuretic Peptide 27.0 Micro: Microbiology 08/28/22 05:35 Nasal Secretion SARS-CoV-2 & FLU Antigen (Rapid) - Final Radiology Impression Chest X-Ray 08/28/22 05:01 IMPRESSION: Mild right basilar airspace disease. Findings may indicate atelectasis or infection. Electronically Signed: Abe Lucas MD at 5:54 EST Reading Location ID and State: [facility], later [facility] / [place] Tel , Service support , Assessment & Plan Assessment/Plan (1) Pneumonia: PLAN: Plan The patient is a 76 y/o M w/ PMHx: Chronic BL LE stasis disease, COPD w/ Chronic Hypoxic Respiratory Failure (2L NC), Aortic aneurysm, PAF, HTN, HLD, Morbid Obesity, Muscular Dystrophy wheelchair bound, Anxiety and Depression, Chronic dysphagia associated with MD, Chronic Diastolic CHF, Hx GI bleed prior, recent prolonged hospitalization 06/24/22-07/02/22 treated for atrial fibrillation with RVR coupled with acute on chronic diastolic CHF with usage of Cardizem and amiodarone drip with transition to oral amiodarone, Cardizem and metoprolol with echocardiogram with EF 60% with diastolic dysfunction as well as significant dyspnea with hypoxia with underlying muscular dystrophy wheelchair-bound with concern for acute COPD exacerbation/possibly right lower lobe pneumonia secondary to viral illness/bronchospasms with PAP therapy with Acapella, pulmonary toileting scheduled and as needed nebulizers, Solu-Medrol 40 mg Q8, vest therapy who now re-presents to the [facility] ED on 08/28/22 with history of increased dyspnea for the last 2-3 days, worse this am, progressing with difficulty coughing up secretions and managing them secondary to his MD weakness which is more pronounced and notable wheezing as well prompting ED evaluation. He denies any recent fever or chills, nausea or emesis or diarrhea. #1. Acute Hypoxia on Chronic Hypoxic Respiratory Failure secondary to Possible RLL Pneumonia with Hx Dysphagia, Possible GN/GP organism complicated Acute on Chronic COPD Exacerbation and MD #4: Will admit to the [facility], maintain on oxygen with wean as tolerated to home oxygen supplementation, continue ATC duonebs, PRN albuterol, maintained on IV Zosyn and obtain MRSA screen, will initiate IV solumedrol, HOB, IS parameters w/ pending sputum cultures, procalcitonin, full respiratory panel, COVID PCR and urine antigens, vest therapy, aggressive pulmonary toileting, PAP therapy with Acapella. Recent 06/28/2022 modified barium swallow with function grossly within normal with recommendation at that time for regular textures and thin liquids with small bites, small sips, sitting upright, remaining upright for 30 minutes after oral intake. PT/OT/ST consultations as well as CM. If concerns arise low threshold to involve pulmonary medicine. #2. Chronic diastolic CHF: 06/29/2022 echocardiogram with normal LV size, normal LV systolic function, EF 60%. Chest x-ray with no obvious evidence of overload, right lower lobe possibly infiltrate, will judiciously hydrate as needed, stool studies pending as noted above in the interim we will continue aspirin, Eliquis, metoprolol, lisinopril and Lasix home regimen. #3. Anemia, normocytic, previously was chronic with history of prior GI bleed noted: Admission hemoglobin 11.7, previous has been stable at 13-14 but in the past had been in the 11-12 range however this was in 2016, will obtain iron, ferritin, guaiac to be cautious and continue to trend. #4. Muscular dystrophy with essentially functional paraplegia: Patient with chronic hypoxia, debility, wheelchair-bound, chronic dysphagia, will continue oxygen supplementation with wean as able, maintain on fall and aspiration precautions, continue diet per home alteration protocol, will obtain PT/OT/case management as well as ST consultations. #5. Reported per record aortic aneurysm: Last CTA abdomen and pelvis noted 08/13/2018 with ectasia of the infrarenal aorta with a diameter of 2.8 cm but no true aneurysm. #6. PAF: Recent admission with PAF with RVR with associated overload, will continue Eliquis, amiodarone, metoprolol and diltiazem home regimen. #7. Hypertension: Continue home regimen including metoprolol, lisinopril, Lasix, diltiazem Home regimen, PRN hydralazine. #8. Hyperlipidemia: We will continue patient on statin therapy. #9. Anxiety and depression: We will continue patient home citalopram regimen. #10. Morbid Obesity: Weight loss and lifestyle changes encouraged, nutrition consulted. #11. DVT prophylaxis: SCDs, continue patient home Eliquis regimen. #12. CODE status: Patient HCPOA is his and living will is currently in place. Discussed CODE status at length including difference between FULL code, DNR-CCA and DNR-CC status. Following discussions about the differences in these status, requested Full Code. Advanced Care Planning Face to Face Time: 16 minutes. Admission Evaluation Time spent evaluating chart, patient history, patient evaluation, care planning and discussion with specialists: 75 minutes. Charges/Coding Visit Charges Inpatient E&M: 77643 Init Hosp L3 Procedures Hospitalists Procedures: 87500 Advncd Care Plan 30 Min
[2022-08-28 08:13] LABS: Ferritin 134 ng/mL (26-388); Iron 55 ug/dL (65-175); Iron Binding Capacity,Total 328 ug/dL (250-450); PERCENT IRON SATURATION 16.8 % (15.0-55.0)
[2022-08-28 08:34] LABS: Procalcitonin 0.15 ng/mL (0.00-0.09)
[2022-08-28] MEDS: Aspirin E.C. 81 MG Tablet PO (09:10)
[2022-08-28] MEDS: Lisinopril 40 MG Tablet PO (09:10)
[2022-08-28] MEDS: Citalopram 20 MG Tablet PO (09:10)
[2022-08-28] MEDS: Metoprolol(XL)Succ 50 MG Tablet PO (09:10)
[2022-08-28] MEDS: Furosemide 40 MG Tablet PO (09:10)
[2022-08-28] MEDS: Multivitamins,Therapeutic Tablet 1 TABLET PO (09:10)
[2022-08-28] MEDS: guaiFENesin 1,200 MG Tablet 1200 MG PO ×2 (09:11→22:23)
[2022-08-28] MEDS: APIXABAN 5 MG TABLET PO ×2 (09:11→22:24)
[2022-08-28] MEDS: dilTIAZem CD 180 MG Capsule PO ×2 (09:12→22:24)
[2022-08-28] MEDS: 0.9% Normal Saline 1,000 ML 100 ML IV (09:21)
--- NOTE | 2022-08-28 10:10 | WOUNDNOTE ---
wound photo: right foot
--- NOTE | 2022-08-28 10:11 | WOUNDNOTE ---
wound photo: right foot
--- NOTE | 2022-08-28 10:11 | WOUNDNOTE ---
wound photo: right foot
--- NOTE | 2022-08-28 10:12 | WOUNDNOTE ---
wound photo: right lower leg
--- NOTE | 2022-08-28 10:13 | WOUNDNOTE ---
skin photo: left lower leg
[2022-08-28 10:28] LABS: M R Staph aureus DNA By PCR Negative (Negative); Probe Check PASS; Specimen Processing Control PASS
[2022-08-28] MEDS: Ipratropium/Albuterol Sulfate 3 ML AMPUL.NEB INHALATION ×3 (11:09→19:05)
[2022-08-28] MEDS: Amiodarone 200 MG Tablet PO (11:46)
--- NOTE | 2022-08-28 12:14 | CHAPLAIN ---
Type of Pastoral Visit _x__ Initial Visit ___ Follow-up Visit ___ On-call Visit ___ General Patient Visit ___ Spiritual Assessment ___ Family Conference ___ Bereavement ___ Rapid Response ___ Code Blue ___ Other (describe below) Pastoral Care Referral From _x__ Patient ___ Family ___ Nurse ___ Physician ___ Manufacturing Technology Professor ___ Office Rep ___ Other (describe below) Sacrament/Intervention _x__ Active listening ___ Anointing ___ Buddhism ___ Bereavement ___ Communion ___ Odalys exploration ___ _x__ Life review _x__ Prayer ___ Reconciliation ___ Sacrament of Sick _x__ Supportive presence ___ Wedding ___ Other (describe below) Pastoral Comments getting to know more about the patient who was previously met in an earlier admission; pt would like his dehydrogenation operator head to be contacted and that was done; pt talked about some of her earlier life; pt presents with acceptance of his condition and that he appreciates the good care given to him; pt welcomes presence and prayer for support
--- NOTE | 2022-08-28 13:00 | CASEMGMT ---
JESSICA TRAMMELL Assessment: JESSICA TRAMMELL to room for initial transition planning/care coordination assessment. JESSICA TRAMMELL introduced self and role at [facility], pt voices understanding and consents to assessment. Pt is A/O and answers all questions appropriately at this time. Pt resting in bed w/HOB elevated with oxygen on in no distress. Care providers, pharmacy, and demographics verified/updated. PCP:Dr Enamorado and [facility] [place] Specialists: Dr Butcher/Joy Stacy, HOME CARE PHYSICAL THERAPIST-pulmonology. Pt plans to see Dr Bennett-cardiology, but has not scheduled appt yet. [facility]acy: [facility] Insurance: [employer] Prescription Benefit: Pt receives meds through the [facility]. Also benefits through [employer]. LNOK: Roselia, ; rene Polo Living Arrangements: Pt lives with in a mobile home with a ramp to enter. Pt reports aides assist with ADL's and denies concerns at home. Transportation: Pt provides transportation in a van that has ramp to enter. DME: Pt has a BSC, jamin on track in bedroom, hospital bed, power w/c, pox, no slip plates and rubber handled silverware, BP machine, nebulizer, O2 @ 2 l/m from [employer]. States his can bring in portable O2 tank @ discharge. HHC/SNF: Pt denies any skilled HHC but states he has a aide that comes in 2 x's per day Sun thru Sat that is provided through the [facility]. Pt denies SNF stays. Pt made aware, if he decides he would like HHC once he returns home to [facility]. Pt states no concerns with going home at time of dc. Pt denies need for any therapy d/t his MD. Pt has made adaptive changes for himself at home. Pt denies having any concerns/needs. CM to follow. Advised pt to ask CM if any further question/concerns/needs arise, voices understanding. Plan: Home w/res[facility] of aides through [facility], spousal support, and discharge plans in place. Matt RENNER RN, CM
--- NOTE | 2022-08-28 13:27 | PN_ITS ---
Subjective Subjective Patient seen and examined. HE was admitted in the early hours of this morning with a complaint of shortness of breath and is being managed for RLL pneumonia in the setting of dysphagia. He says his breathing has improved this morning. HE still finds it difficult to expectorate due to his muscular dystrophy. Review of systems is otherwise negative. Objective Data Objective Data Vital Signs: Vital Signs Temp Pulse Resp BP Pulse Ox O2 Del Method O2 Flow Rate 97.6 F L 82 20 H 155/87 H 96 Nasal Cannula 3 08/28/22 07:56 08/28/22 11:23 08/28/22 11:49 08/28/22 07:56 08/28/22 07:56 08/28/22 07:56 08/28/22 09:28 Oxygen Flow Rate (L/min) 3 Oxygen Delivery Method Nasal Cannula Weight: 323 lb 6.69 oz Body Mass Index (BMI) 49.1 Intake & Output: Intake and Output for Last 24 Hours 08/26/22 08/27/22 08/28/22 23:59 23:59 23:59 Intake Total 50 / 50 Balance 50 / 50 Lab / Micro Data Result Diagrams: 08/28/22 05:17 08/28/22 05:17 Labs: Laboratory Results - last 24 hr 08/28/22 05:17: WBC 9.8, RBC 4.24 L, Hgb 11.7 L, Hct 39.2 L, MCV 92.5, MCH 27.6, MCHC 29.8 L, RDW Std Deviation 60.6 H, RDW Coeff of Nick 18.0 H, Plt Count 138 L, MPV 10.4, Immature Gran % (Auto) 0.400, Neut % (Auto) 75.1 H, Lymph % (Auto) 9.4 L, [place] % (Auto) 6.9, Eos % (Auto) 7.1 H, Baso % (Auto) 1.1 H, Absolute Neuts (auto) 7.4, Absolute Lymphs (auto) 0.92, Nucleated RBC % 0 08/28/22 05:17: Sodium 139, Potassium 4.4, Chloride 102, Carbon Dioxide 32.0, Anion Gap 5, BUN 21 H, Creatinine 0.53 L, Estim Creat Clear Calc 62.70, Est GFR (MDRD) Af Amer 195, Est GFR (MDRD) Non-Af 161, BUN/Creatinine Ratio 39.5 H, Glucose 90, Calcium 9.5, Magnesium 2.1 08/28/22 05:17: B-Natriuretic Peptide 27.0 08/28/22 05:17: Iron 55 L, TIBC 328, Iron Saturation 16.8, Ferritin 134 08/28/22 07:34: Procalcitonin 0.15 H 08/28/22 08:41: MRSA (PCR) Negative Micro: Microbiology 08/28/22 08:23 Urine, Clean Catch Legionella Antigen - Final 08/28/22 08:23 Urine, Clean Catch Streptococcus pneumoniae Antigen (M - Final 08/28/22 05:35 Nasal Secretion SARS-CoV-2 & FLU Antigen (Rapid) - Final Radiography Diagnostic Testing: Radiology Impression Chest X-Ray 08/28/22 05:01 IMPRESSION: Mild right basilar airspace disease. Findings may indicate atelectasis or infection. Electronically Signed: Abe Lucas MD at 5:54 EST , Physical Exam Const alert, oriented x3 and no apparent distress General Appearance: cooperative HEENT normocephalic, head/scalp atraumatic and moist oral mucous membranes Eyes PERRL and EOMs intact bilaterally Neck no lymphadenopathy and supple Lymph Lymphatic: no lymphadenopathy noted and lymphedema Resp Resp Narrative: mildly diminished breath sounds bibasally, bilateral coarse crackles. On 3L of oxygen by nasal canula. Cardio regular rate, regular rhythm, S1 normal heart sound, S2 normal heart sound and no murmurs GI normal to inspection, nondistended, normoactive bowel sounds, soft to palpation, non-tender and non-distended Extremity normal capillary refill, no clubbing, cyanosis or edema and no calf tenderness Skin General Skin Exam: no breakdown Neuro CN's II-XII intact bilaterally, no focal motor deficits and no sensory deficits noted Coordination / Balance: [id number] test normal Motor Exam: strength 5/5 throughout Psych thought process normal Assessment & Plan Assessment/Plan (1) Pneumonia: (2) Hypoxia: (3) Muscular dystrophy: PLAN: Plan #HYpoxia in the setting of chronic respiratory failure * Thought to be due to probable aspiration pneumonia * He does have a history of muscular dystrophy and this makes it difficult for him to expectorate his sputum. * Also was concern for COPD exacerbation. He did have barium swallow on 06/28/2022 which showed grossly normal swallowing function and recommendation was for thin liquids with small bites and small sips and remain output for 30 minutes after oral intake. * on IV zosyn * also on IV solumedrol * titrate oxygen to maintain sats >90% * respiratory therapy on board for pulmonary toileting and acapella * #HFpEF: not in exacerbation. has known EF of 60%. on lasix. #Muscular dystrophy * has functional paraplegia. wheelchair bound * PT.OT on board. * #Paroxysmal afib: on amiodarone, metoprolol and cardizem #Hypertension: on metoprolol, lisinopril and lasix. #Anxiety and depressio; on citalopram #Super morbid obesity: complicates acute care, expected recovery and prognosis DVT prophylaxis: on eliquis Charges/Coding Visit Charges Inpatient E&M: 70339 Subs Hosp L2
--- NOTE | 2022-08-28 14:53 | CASEMGMT ---
RN CM into pt room to verify his oxygen provider. Pt states he thinks it is [employer]. Made him aware that per previous CM, they did not have him in their system. Pt states he has had it for two weeks and it was set up by 's office. Noted office note from 08/15 that states pt needed oxygen but did not see provider. TC to 's office, spoke with Arlin. She states oxygen was set up through [facility]. Notified pt. TC to [facility] to confirm oxygen order.
[2022-08-28] MEDS: Sodium Chloride 0.65% 1 SPRAY SPRAY.BTL NASAL (22:25)
[2022-08-28] MEDS: Atorvastatin Calcium 20 MG Tablet PO (22:25)
[2022-08-28] MEDS: hydrALAZINE 20 MG/ML Vial 10 MG IV (23:00)
[2022-08-28] MEDS: 0.9% Saline Lock 10 ML Syringe IV (23:01)
[2022-08-29] VITALS (11 sets, daily range): BP systolic 125–139; BP diastolic 70–73; PULSE 61–84; RESP 14–24; TEMP 36.4–36.7; O2SAT 93–97; BMI 47.0
[2022-08-29] MEDS: Nystatin Powder 15gm Bottle 1 APPLIC TOPICAL ×3 (03:56→21:46)
[2022-08-29] MEDS: Menthol/Lanolin/Calamine/Znox 113 GM Tube 1 APPLIC TOPICAL ×3 (03:56→21:46)
[2022-08-29] MEDS: Albuterol 2.5 MG/3 ML VIAL.NEB. INHALATION (04:23)
[2022-08-29] MEDS: Furosemide 40 MG/4 ML Vial IV (04:23)
[2022-08-29] MEDS: 0.9% Saline Lock 10 ML Syringe IV ×2 (04:23→21:46)
[2022-08-29 07:05] LABS: Absolute Lymphocyte Count 0.71 X10^3/uL (0.83-4.51); Absolute Neutrophil Count 7.7 X10^3/uL (2.0-7.7); Basophil# 0.02 X10^3/uL; Basophil% 0.2 % (0-1); Eosinophil# 0.01 X10^3/uL; Eosinophils% 0.1 % (0-5); Hematocrit 40.1 % (40-54); Hemoglobin 12.6 g/dL (13.0-16.5); Lymphocyte # 0.71 X10^3/ul (0.83-4.51); Lymphocyte % 8.2 % (19-41); Mean Corp Hgb Conc 31.4 g/dL (32-36); Mean Corpuscular Hgb 28.1 pg (27.0-32.0); Mean Corpuscular Volume 89.3 fL (80-94); Mean Platelet Vol. 10.5 fl (6.2-12.0); Monocyte# 0.13 X10^3/uL; Monocyte% 1.5 % (0-10); NRBC Flagged by Analyzer 0 % (0-5); Neutrophil # 7.66 X10^3/uL (2.7-7.7); Neutrophil % 88.2 % (47-70); Platelet Count 154 K/mm3 (150-450); RBC Distribution Width SD 58.1 fl (35.1-43.9); Red Blood Count 4.49 M/mm3 (4.6-6.2); White Blood Count 8.7 K/mm3 (4.4-11.0)
[2022-08-29 07:19] LABS: ALB/GLOB Ratio 0.8 RATIO (0.9-2.4); AST(SGOT) 20 U/L (15-37); Alanine Aminotransfer ALT/SGPT 37 U/L (16-61); Albumin, Serum 3.3 g/dL (3.2-5.0); Alkaline Phosphatase 120 U/L (45-117); Anion Gap 8 (5-15); BUN 17 mg/dL (7-18); BUN/Creat Ratio 32.5 RATIO (10-20); Calcium,Total 9.5 mg/dL (8.5-10.1); Chloride 103 mmol/L (98-107); Creatinine, Serum 0.52 mg/dL (0.70-1.30); EST Glomerular Filtration Rate 164 mL/min (>60); Est Glom Filt Rate - Afr Amer 198 mL/min (>60); Globulin 4.1 g/dL (2.2-4.2); Glucose 133 mg/dL (74-106); Potassium 3.8 mmol/L (3.5-5.1); Protein, Total 7.4 g/dL (6.4-8.2); Sodium Level 140 mmol/L (136-145)
[2022-08-29] MEDS: Ipratropium/Albuterol Sulfate 3 ML AMPUL.NEB INHALATION ×4 (07:28→18:38)
[2022-08-29] MEDS: Multivitamins,Therapeutic Tablet 1 TABLET PO (08:14)
[2022-08-29] MEDS: Aspirin E.C. 81 MG Tablet PO (08:14)
--- NOTE | 2022-08-29 09:24 | ST.MBS ---
Modified Barium Swallow - Patient Information Study Date: 08/29/22 Study Time: 09:20 Direct Billable Minutes: 111 Total Minutes procedure & reportin Diagnosis: PNA (J18.9), Muscular dystrophy (G71.00) Referring Physician: Sonia Graff Reason for Referral: Objectively assess swallow function, risk for aspiration, and determine recommendations for least restrictive diet textures and compensatory strategies to improve safety of swallow. Medical History: The patient is a 76-year-old male with PMH including Chronic BL LE stasis disease, COPD w/ Chronic Hypoxic Respiratory Failure (2L NC), Aortic aneurysm, HTN, Morbid Obesity, Muscular Dystrophy wheelchair bound, Anxiety and Depression, Chronic dysphagia associated with MD, Chronic Diastolic CHF, Hx GI bleed prior, recent prolonged hospitalization 06/24/22-07/02/22 treated for atrial fibrillation with RVR coupled with acute on chronic diastolic CHF and concern for acute COPD exacerbation/possible RLL PNA secondary to viral illness/bronchospasms. He re-presented to the [facility] ED on 08/28/22 with history of increased dyspnea for the last 2-3 days, worse day of admissoin, progressing with difficulty coughing up secretions and managing them secondary to his MD weakness, which is more pronounced and with notable wheezing. Chest x-ray with mild right basilar airspace disease possibly atelectasis or infection, rapid SARS COVID and influenza antigen negative. Recent 06/28/2022 modified barium swallow with function grossly within normal with recommendation at that time for regular textures and thin liquids with small bites, small sips, sitting upright, remaining upright for 30 minutes after oral intake. No further dysphagia therapy was recommended following MBSS. Pt referred for speech evaluation due to concerns for aspiration pneumonia. Pt with intermittent coughing throughout BSE on 08/28/2022 both prior to trials and delayed cough following certain trials. Pt was recommended Regular textures / Thin liquids with plans pulmonary status. Lung sounds worsened 08/29/2022 compared to previous date. 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 Current Diet Ordered: Regular textures / Thin liquids Mental Status: WNL Respiratory Status: Oxygenating on 3L/M nasal cannula - Penetration-Aspiration Scale Penetration-Aspiration Scale: OBJECTIVE ASSESSMENT OF SWALLOW FUNCTION (QUANTITATIVE ? PER TRIAL): PENETRATION / ASPIRATION SCALE (TRIPP): 1 = does not enter airway 2 = enters airway/above vocal folds/ejected 3 = enters airway/above vocal folds/not ejected 4 = enters airway/contacts vocal folds/ejected 5 = enters airway/contacts vocal folds/not ejected 6 = enters airway/below vocal folds/ejected 7 = enters airway/below vocal folds/not ejected despite effort 8 = enters airway/below vocal folds/no effort VIDEOFLOROSCOPIC SCALE SCORE (TRIPP): Grade I = aspiration of material that has penetrated into the laryngeal vestibule, intact cough reflex Grade II = aspiration < 10 % of the bolus, intact cough reflex Grade III = aspiration of < 10 % of the bolus, reduced cough reflex or aspiration of > 10 % of the bolus, intact cough reflex Grade IV = aspiration of > 10 % of the bolus, reduced cough reflex - Penetration-Aspiration Scale Score Thin Liquid via teaspoon Result: 1= does not enter airway Thin Liquid via teaspoon Trial 2 Result: 1= does not enter airway Thin Liquid via large single sip from straw Result: 2= enter airway/above vocal folds/ejected Comment: Pt coughed after swallow. [place] Thick Liquid via large single sip from straw Result: 1= does not enter airway Pudding via teaspoon Result: 1= does not enter airway 1/2 Cookie Result: 1= does not enter airway Thin Liquid via sequential sips from straw Result: 1= does not enter airway Comment: Pt coughed after swallow. - Oral Phase Labial Seal: No Labial Escape Tongue Control During Bolus Hold: Posterior escape of greater than half of bolus Bolus Preparation/Mastication: Slow prolonged chewing/mashing with complete recollection Bolus Transport/Lingual Motion: Brisk tongue motion Oral Residue: Residue collection on oral structures - Pharyngeal Phase Initiation of Pharyngeal Swallow: Bolus head in pyriforms Soft Palate Elevation: No bolus between soft palate and pharyngeal wall Laryngeal Elevation: Comp. Superior move thyroid cart w/comp. apprx arytenoid cart-epig pet Anterior Hyoid Excursion: Partial anterior movement Epiglottic Movement: Partial inversion Laryngeal Vestibule Closure at Height of Swallow: Incomplete; narrow column of air/contrast in laryngeal vestibule Pharyngeal Stripping Wave: Present - complete Pharyngoesophageal Segment Opening: Complete distension and complete duration; no obstruction of flow Tongue Base Retraction: Narrow column of contrast between tongue base & post. pharyngeal wall Pharyngeal Residue: Trace residue within or on pharyngeal structures - Diagnosis/Impression Diagnosis: Mild Oropharyngeal Dysphagia (R13.12) Impression: The oral phase is primarily marked by... -Decreased bolus control with >1/2 of the bolus spilling posteriorly to the pyriforms prior to swallow onset observed with thin sequential straw sips especially. -Delayed tongue motion for A-P transport, most notable with cookie trial. -Collection of oral residue, most notable after large sips. The pharyngeal phase is primarily marked by... -Mildly decreased airway closure during the swallow due to partial anterior hyoid excursion, and partial epiglottic inversion. -Mildly decreased tongue base retraction, resulting in trace pharyngeal residues after the swallow. -Trace penetration of thin by large straw sip, which ejected post swallow. No aspiration was observed; however, cannot definitively rule out aspiration due to patient's body habitus. Patients vocal folds and trachea only viewable during the swallow. The esophageal phase is primarily marked by... -MBSS completed with use of C-arm due to body habitus; therefore, unable to screen esophagus. - Recommendations Diet: Regular Textures, Thin Liquids Compensatory Strategies: Small Bites, Small Sips, Slow Rate, Remain sitting upright for 30 minutes after PO intake Recommend Repeat Modified Barium Swallow: No Need for Skilled Speech Therapy Services: Yes Comment: Will recommend the patient for continued dysphagia therapy to address deficits in oropharyngeal swallow function. Will recommend the patient for oropharyngeal strengthening, including Lingual Exercises, Bella, Erika, and CTAR, to improve lingual control, tongue base retraction, hyoid excursion, and epiglottic inversion. The patient would benefit from thorough education regarding diet recommendations and recommended compensatory strategies. Education Completed: 1. Described result of evaluation., 2. Pt understands evaluation & agrees with goals and treatment plan., 7. Pt requires further education on strategies & risks. - Status Active ST Patient: Active - Contact Information [facility]:: Carol Sanchez M.A. [facility] OUT WORK[employer] Speech-Language Pathologist [facility] [address] [place] [address] [email or web address] [phone] 08/29/22 09:37
[2022-08-29] MEDS: guaiFENesin 1,200 MG Tablet 1200 MG PO ×2 (09:25→21:45)
[2022-08-29] MEDS: dilTIAZem CD 180 MG Capsule PO ×2 (09:28→21:45)
[2022-08-29] MEDS: Amiodarone 200 MG Tablet PO (09:28)
[2022-08-29] MEDS: APIXABAN 5 MG TABLET PO ×2 (09:28→21:44)
[2022-08-29] MEDS: Citalopram 20 MG Tablet PO (09:28)
[2022-08-29] MEDS: Furosemide 40 MG Tablet PO (09:28)
[2022-08-29] MEDS: Lisinopril 40 MG Tablet PO (09:29)
[2022-08-29] MEDS: Metoprolol(XL)Succ 50 MG Tablet PO (09:29)
--- NOTE | 2022-08-29 13:02 | PN_ITS ---
Subjective Subjective Patient seen and examined. He is still coughing and unable to expectorate very well. He has no other active complaints and states that shortness of breath has not worsened. He denies any chest pain, palpitations, dizziness, nausea or vomiting. Review of systems otherwise negative. He is on 3 L of oxygen. Objective Data Objective Data Vital Signs: Vital Signs Temp Pulse Resp BP Pulse Ox O2 Del Method O2 Flow Rate 97.8 F 73 18 139/70 H 96 Nasal Cannula 3 08/29/22 07:53 08/29/22 09:29 08/29/22 07:58 08/29/22 07:53 08/29/22 07:53 08/29/22 07:58 08/29/22 07:53 Oxygen Flow Rate (L/min) 3 Oxygen Delivery Method Nasal Cannula Weight: 310 lb 6.574 oz Body Mass Index (BMI) 47.0 Intake & Output: Intake and Output for Last 24 Hours 08/27/22 08/28/22 08/29/22 23:59 23:59 23:59 Intake Total 1685.5 / 1685.5 131.50 / 131.50 Output Total 900 / 900 1700 / 1700 Balance 785.5 / 785.5 -1568.50 / -1568.50 Lab / Micro Data Result Diagrams: 08/29/22 06:20 08/29/22 06:20 Labs: Laboratory Results - last 24 hr 08/29/22 04:25: COVID-19 (RACHAEL) Not Detected 08/29/22 06:20: WBC 8.7, RBC 4.49 L, Hgb 12.6 L, Hct 40.1, MCV 89.3, MCH 28.1, MCHC 31.4 L D, RDW Std Deviation 58.1 H, RDW Coeff of Nick 18.0 H, Plt Count 154, MPV 10.5, Immature Gran % (Auto) 1.800 H, Neut % (Auto) 88.2 H, Lymph % (Auto) 8.2 L, [place] % (Auto) 1.5, Eos % (Auto) 0.1, Baso % (Auto) 0.2, Absolute Neuts (auto) 7.7, Absolute Lymphs (auto) 0.71 L, Nucleated RBC % 0 08/29/22 06:20: Sodium 140, Potassium 3.8, Chloride 103, Carbon Dioxide 29.0, Anion Gap 8, BUN 17, Creatinine 0.52 L, Estim Creat Clear Calc 62.70, Est GFR (MDRD) Af Amer 198, Est GFR (MDRD) Non-Af 164, BUN/Creatinine Ratio 32.5 H, Glucose 133 H, Calcium 9.5, Total Bilirubin 0.60, AST 20, ALT 37, Alkaline Phosphatase 120 H, Total Protein 7.4, Albumin 3.3, Globulin 4.1, Albumin/Globulin Ratio 0.8 L Micro: Microbiology 08/28/22 11:05 Mucosa - Nasopharyngeal Respiratory Panel (PCR) - Final 08/28/22 08:23 Urine, Clean Catch Legionella Antigen - Final 08/28/22 08:23 Urine, Clean Catch Streptococcus pneumoniae Antigen (M - Final 08/28/22 05:35 Nasal Secretion SARS-CoV-2 & FLU Antigen (Rapid) - Final Physical Exam Const alert, oriented x3 and no apparent distress Constitutional Narrative: morbid obesity General Appearance: cooperative HEENT normocephalic, head/scalp atraumatic and moist oral mucous membranes Eyes PERRL and EOMs intact bilaterally Neck no lymphadenopathy and supple Lymph Lymphatic: no lymphadenopathy noted and lymphedema Resp Resp Narrative: mildly diminished breath sounds bibasally, bilateral coarse crackles. Still On 3L of oxygen by nasal canula. Cardio regular rate, regular rhythm, S1 normal heart sound, S2 normal heart sound and no murmurs GI normal to inspection, nondistended, normoactive bowel sounds, soft to palpation, non-tender and non-distended Extremity normal capillary refill, no clubbing, cyanosis or edema and no calf tenderness Skin General Skin Exam: no breakdown Neuro CN's II-XII intact bilaterally, no focal motor deficits and no sensory deficits noted Coordination / Balance: [id number] test normal Motor Exam: strength 5/5 throughout Psych thought process normal Assessment & Plan Assessment/Plan (1) Pneumonia: (2) Hypoxia: (3) Muscular dystrophy: PLAN: Plan #HYpoxia in the setting of chronic respiratory failure * Thought to be due to probable aspiration pneumonia * He does have a history of muscular dystrophy and this makes it difficult for him to expectorate his sputum. * Also was concern for COPD exacerbation. He did have barium swallow on 06/28/2022 which showed grossly normal swallowing function and recommendation was for thin liquids with small bites and small sips and remain output for 30 minutes after oral intake. * remains on IV zosyn * also on IV solumedrol due to concerns about COPD exacerbation * titrate oxygen to maintain sats >90% * respiratory therapy on board for pulmonary toileting and acapella * #HFpEF: not in exacerbation. has known EF of 60%. on lasix. #Muscular dystrophy * has functional paraplegia. wheelchair bound * PT.OT on board. * #Paroxysmal afib: on amiodarone, metoprolol and cardizem #Hypertension: on metoprolol, lisinopril and lasix. #Anxiety and depressio; on citalopram #Super morbid obesity: complicates acute care, expected recovery and prognosis DVT prophylaxis: on eliquis Charges/Coding Visit Charges Inpatient E&M: 65265 Subs Hosp L2
--- NOTE | 2022-08-29 13:32 | CASEMGMT ---
Addendum entered by Praveena Fregoso 08/29/22 13:49: SW in to pt room to discuss and confirm pt is approving of a referral being sent to Hospice. Upon discussion pt stated more interested in Palliative Care services. SW discussed intent to have a referral sent for pt. Pt and , Roselia voiced understanding. SW updated JESSICA Maxwell that family interested in Palliative care. Original Note: Social Work SW informed by charge nurse that pt would like to meet with SW without pt present. SW met with pt , Roselia, in [facility]. Roselia expressed some concerns with pt's quality of life and inquired about Hospice or Palliative Care services. SW offered education that both of different criteria and pt would have to be screened to determine if meets criteria. SW inquired about why did not want to discuss this with pt present and informed that in order for referral to be sent to Hospice pt would have to be agreeable. shared wanted to run it by SW before talking with pt about it. SW giving time to discuss Hospice services with pt and then will confirm with pt that pt is agreeable to a referral being sent to Hospice. RUBY Sheffield
[2022-08-29] MEDS: Atorvastatin Calcium 20 MG Tablet PO (21:45)
[2022-08-30] VITALS (11 sets, daily range): BP systolic 113–139; BP diastolic 66–90; PULSE 60–80; RESP 16–22; TEMP 36.4–36.6; O2SAT 93–94; BMI 46.0
[2022-08-30] MEDS: Albuterol 2.5 MG/3 ML VIAL.NEB. INHALATION (01:31)
[2022-08-30] MEDS: Ipratropium/Albuterol Sulfate 3 ML AMPUL.NEB INHALATION ×4 (06:45→19:20)
--- NOTE | 2022-08-30 07:36 | CPS ---
patient refused vest.
--- NOTE | 2022-08-30 07:36 | CPS ---
patient weaned to 2 lpm
[2022-08-30 08:38] LABS: Absolute Lymphocyte Count 1.43 X10^3/uL (0.83-4.51); Absolute Neutrophil Count 9.1 X10^3/uL (2.0-7.7); Basophil# 0.01 X10^3/uL; Basophil% 0.1 % (0-1); Eosinophil# 0.06 X10^3/uL; Eosinophils% 0.5 % (0-5); Hematocrit 36.3 % (40-54); Hemoglobin 11.4 g/dL (13.0-16.5); Lymphocyte # 1.43 X10^3/ul (0.83-4.51); Lymphocyte % 12.2 % (19-41); Mean Corp Hgb Conc 31.4 g/dL (32-36); Mean Corpuscular Hgb 28.1 pg (27.0-32.0); Mean Corpuscular Volume 89.4 fL (80-94); Mean Platelet Vol. 10.6 fl (6.2-12.0); Monocyte% 8.5 % (0-10); NRBC Flagged by Analyzer 0 % (0-5); Neutrophil # 9.11 X10^3/uL (2.7-7.7); Neutrophil % 77.8 % (47-70); Platelet Count 153 K/mm3 (150-450); RBC Distribution Width CV 18.1 % (11.6-14.6); Red Blood Count 4.06 M/mm3 (4.6-6.2); White Blood Count 11.7 K/mm3 (4.4-11.0)
[2022-08-30 09:04] LABS: Anion Gap 5 (5-15); BUN 27 mg/dL (7-18); BUN/Creat Ratio 55.4 RATIO (10-20); Calcium,Total 9.2 mg/dL (8.5-10.1); Chloride 102 mmol/L (98-107); Creatinine, Serum 0.49 mg/dL (0.70-1.30); EST Glomerular Filtration Rate 178 mL/min (>60); Est Glom Filt Rate - Afr Amer 215 mL/min (>60); Glucose 94 mg/dL (74-106); Potassium 3.6 mmol/L (3.5-5.1); Sodium Level 138 mmol/L (136-145)
[2022-08-30] MEDS: Multivitamins,Therapeutic Tablet 1 TABLET PO (09:21)
[2022-08-30] MEDS: Aspirin E.C. 81 MG Tablet PO (09:21)
[2022-08-30] MEDS: predniSONE 20 MG Tablet 40 MG PO (09:21)
[2022-08-30] MEDS: Citalopram 20 MG Tablet PO (09:22)
[2022-08-30] MEDS: APIXABAN 5 MG TABLET PO ×2 (09:22→21:47)
[2022-08-30] MEDS: Furosemide 40 MG Tablet PO (09:22)
[2022-08-30] MEDS: Amiodarone 200 MG Tablet PO (09:22)
[2022-08-30] MEDS: dilTIAZem CD 180 MG Capsule PO ×2 (09:22→21:47)
[2022-08-30] MEDS: Menthol/Lanolin/Calamine/Znox 113 GM Tube 1 APPLIC TOPICAL ×2 (09:22→21:48)
[2022-08-30] MEDS: Lisinopril 40 MG Tablet PO (09:23)
[2022-08-30] MEDS: Metoprolol(XL)Succ 50 MG Tablet PO (09:23)
[2022-08-30] MEDS: guaiFENesin 1,200 MG Tablet 1200 MG PO ×2 (09:23→21:46)
[2022-08-30] MEDS: Nystatin Powder 15gm Bottle 1 APPLIC TOPICAL ×2 (09:23→21:48)
--- NOTE | 2022-08-30 10:01 | CASEMGMT ---
Addendum entered by Alissa Raymond 08/30/22 13:21: Received communication that Palliative care will be in touch with pt once home. Added to dc instructions. Original Note: SW updated that pt is interested in palliative care. Received order and referral emailed to palliative care at this time.
--- NOTE | 2022-08-30 13:55 | PN_ITS ---
Subjective Subjective Patient seen and examined. He is still coughing and states he is able to expectorate a bit more. He denies any fever, chills, palpitations, dizziness, nausea vomiting or diarrhea. Review of systems otherwise negative. He remains on 2 L of oxygen. Objective Data Objective Data Vital Signs: Vital Signs Temp Pulse Resp BP Pulse Ox O2 Del Method O2 Flow Rate 97.6 F L 65 16 113/66 93 Nasal Cannula 2 08/30/22 09:11 08/30/22 10:34 08/30/22 10:34 08/30/22 09:11 08/30/22 10:34 08/30/22 10:34 08/30/22 10:34 Oxygen Flow Rate (L/min) 2 Oxygen Delivery Method Nasal Cannula Weight: 304 lb 3.806 oz Body Mass Index (BMI) 46.0 Intake & Output: Intake and Output for Last 24 Hours 08/28/22 08/29/22 08/30/22 23:59 23:59 23:59 Intake Total 1685.5 / 1685.5 421.50 / 621.50 300 / 300 Output Total 900 / 900 2050 / 2175 300 / 300 Balance 785.5 / 785.5 -1628.50 / -1553.50 0 / 0 Lab / Micro Data Result Diagrams: 08/30/22 08:16 08/30/22 08:16 Labs: Laboratory Results - last 24 hr 08/30/22 08:16: WBC 11.7 H, RBC 4.06 L, Hgb 11.4 L, Hct 36.3 L, MCV 89.4, MCH 28.1, MCHC 31.4 L, RDW Std Deviation 58.0 H, RDW Coeff of Nick 18.1 H, Plt Count 153, MPV 10.6, Immature Gran % (Auto) 0.900, Neut % (Auto) 77.8 H, Lymph % (Auto) 12.2 L, [place] % (Auto) 8.5, Eos % (Auto) 0.5, Baso % (Auto) 0.1, Absolute Neuts (auto) 9.1 H, Absolute Lymphs (auto) 1.43, Nucleated RBC % 0 08/30/22 08:16: Sodium 138, Potassium 3.6, Chloride 102, Carbon Dioxide 31.0, Anion Gap 5, BUN 27 H, Creatinine 0.49 L, Estim Creat Clear Calc 62.70, Est GFR (MDRD) Af Amer 215, Est GFR (MDRD) Non-Af 178, BUN/Creatinine Ratio 55.4 H, Glucose 94, Calcium 9.2 Micro: Microbiology 08/29/22 22:16 Sputum, Expectorated/Coughed Gram Stain - Final 08/28/22 11:05 Mucosa - Nasopharyngeal Respiratory Panel (PCR) - Final 08/28/22 08:23 Urine, Clean Catch Legionella Antigen - Final 08/28/22 08:23 Urine, Clean Catch Streptococcus pneumoniae Antigen (M - Final 08/28/22 05:35 Nasal Secretion SARS-CoV-2 & FLU Antigen (Rapid) - Final Physical Exam Const alert, oriented x3 and no apparent distress Constitutional Narrative: morbid obesity General Appearance: cooperative HEENT normocephalic, head/scalp atraumatic and moist oral mucous membranes Eyes PERRL and EOMs intact bilaterally Neck no lymphadenopathy and supple Lymph Lymphatic: no lymphadenopathy noted and lymphedema Resp Resp Narrative: mildly diminished breath sounds bibasally, bilateral coarse crackles. On 2L of oxygen by nasal canula. Cardio regular rate, regular rhythm, S1 normal heart sound, S2 normal heart sound and no murmurs GI normal to inspection, nondistended, normoactive bowel sounds, soft to palpation, non-tender and non-distended Extremity normal capillary refill, no clubbing, cyanosis or edema and no calf tenderness Skin General Skin Exam: no breakdown Neuro CN's II-XII intact bilaterally, no focal motor deficits and no sensory deficits noted Coordination / Balance: [id number] test normal Motor Exam: strength 5/5 throughout Psych thought process normal Assessment & Plan Assessment/Plan (1) Pneumonia: (2) Hypoxia: (3) Muscular dystrophy: PLAN: Plan #HYpoxia in the setting of chronic respiratory failure * Thought to be due to probable aspiration pneumonia * He does have a history of muscular dystrophy and this makes it difficult for him to expectorate his sputum. * Also was concern for COPD exacerbation. He did have barium swallow on 06/28/2022 which showed grossly normal swallowing function and recommendation was for thin liquids with small bites and small sips and remain output for 30 minutes after oral intake. * remains on IV zosyn * also on IV solumedrol due to concerns about COPD exacerbation * titrate oxygen to maintain sats >90% * respiratory therapy on board for pulmonary toileting and acapella * Had barium swallow yesterday which showed some evidence of deficits in oral pharyngeal swallow dysfunction. Speech therapy on board and recommends for pharyngeal strengthening education regarding diet recommendations and recommended compensatory strategies. #Oropharyngeaal dysphagia: modified barium swallow as above. Speech therapy on board. * #HFpEF: not in exacerbation. has known EF of 60%. on lasix. #Muscular dystrophy * has functional paraplegia. wheelchair bound * PT.OT on board. * #Paroxysmal afib: on amiodarone, metoprolol and cardizem #Hypertension: on metoprolol, lisinopril and lasix. #Anxiety and depressio; on citalopram #Super morbid obesity: complicates acute care, expected recovery and prognosis DVT prophylaxis: on eliquis Disposition: anticipate dc over the next 24 -48 hours Charges/Coding Visit Charges Inpatient E&M: 86941 Subs Hosp L2
--- NOTE | 2022-08-30 14:45 | CPS ---
patient informed that nursing increased patient to 3 lpm.
[2022-08-30] MEDS: Atorvastatin Calcium 20 MG Tablet PO (21:48)
[2022-08-31] VITALS (7 sets, daily range): BP systolic 112–142; BP diastolic 67–84; PULSE 58–70; RESP 18–22; TEMP 36.4–36.8; O2SAT 94–96; BMI 46.2
[2022-08-31] MEDS: Ipratropium/Albuterol Sulfate 3 ML AMPUL.NEB INHALATION ×4 (06:44→20:00)
[2022-08-31] MEDS: predniSONE 20 MG Tablet 40 MG PO (07:43)
[2022-08-31] MEDS: Multivitamins,Therapeutic Tablet 1 TABLET PO (07:43)
[2022-08-31] MEDS: Aspirin E.C. 81 MG Tablet PO (07:43)
[2022-08-31] MEDS: Menthol/Lanolin/Calamine/Znox 113 GM Tube 1 APPLIC TOPICAL ×2 (10:48→21:35)
[2022-08-31] MEDS: dilTIAZem CD 180 MG Capsule PO ×2 (10:49→21:37)
[2022-08-31] MEDS: Amiodarone 200 MG Tablet PO (10:50)
[2022-08-31] MEDS: Citalopram 20 MG Tablet PO (10:50)
[2022-08-31] MEDS: APIXABAN 5 MG TABLET PO ×2 (10:50→21:37)
[2022-08-31] MEDS: Nystatin Powder 15gm Bottle 1 APPLIC TOPICAL ×2 (10:51→21:35)
[2022-08-31] MEDS: guaiFENesin 1,200 MG Tablet 1200 MG PO ×2 (10:51→21:37)
[2022-08-31] MEDS: Furosemide 40 MG Tablet PO (10:51)
[2022-08-31] MEDS: Lisinopril 40 MG Tablet PO (10:52)
--- NOTE | 2022-08-31 11:07 | PN_ITS ---
Subjective Subjective Patient seen and examined. He still having difficulty with expectorating sputum. His shortness of breath also worsened. Review of systems otherwise negative. He has otherwise remained hemodynamically stable. Objective Data Objective Data Vital Signs: Vital Signs Temp Pulse Resp BP Pulse Ox O2 Del Method O2 Flow Rate 98.2 F 70 20 H 112/80 95 Nasal Cannula 3 08/31/22 08:26 08/31/22 10:55 08/31/22 10:55 08/31/22 08:26 08/31/22 08:26 08/31/22 08:28 08/31/22 08:28 Oxygen Flow Rate (L/min) 3 Oxygen Delivery Method Nasal Cannula Weight: 304 lb 14.389 oz Body Mass Index (BMI) 46.2 Intake & Output: Intake and Output for Last 24 Hours 08/29/22 08/30/22 08/31/22 23:59 23:59 23:59 Intake Total 421.50 / 621.50 350 / 350 100 / 100 Output Total 2049 / 2174 1999 / 1999 400 / 400 Balance -1628.50 / -1553.50 -1650 / -1650 -300 / -300 Lab / Micro Data Result Diagrams: 08/30/22 08:16 08/30/22 08:16 Micro: Microbiology 08/29/22 22:16 Sputum, Expectorated/Coughed Gram Stain - Final 08/29/22 22:16 Sputum, Expectorated/Coughed Respiratory Culture - Preliminary Gram negative oracio 08/28/22 11:05 Mucosa - Nasopharyngeal Respiratory Panel (PCR) - Final 08/28/22 08:23 Urine, Clean Catch Legionella Antigen - Final 08/28/22 08:23 Urine, Clean Catch Streptococcus pneumoniae Antigen (M - Final 08/28/22 05:35 Nasal Secretion SARS-CoV-2 & FLU Antigen (Rapid) - Final Physical Exam Const alert, oriented x3 and no apparent distress Constitutional Narrative: morbid obesity General Appearance: cooperative HEENT normocephalic, head/scalp atraumatic and moist oral mucous membranes Eyes PERRL and EOMs intact bilaterally Neck no lymphadenopathy and supple Lymph Lymphatic: no lymphadenopathy noted and lymphedema Resp Resp Narrative: Still has mildly diminished breath sounds bibasally, bilateral coarse crackles. On 2L of oxygen by nasal canula. Cardio regular rate, regular rhythm, S1 normal heart sound, S2 normal heart sound and no murmurs GI normal to inspection, nondistended, normoactive bowel sounds, soft to palpation, non-tender and non-distended Extremity normal capillary refill, no clubbing, cyanosis or edema and no calf tenderness Skin General Skin Exam: no breakdown Neuro CN's II-XII intact bilaterally, no focal motor deficits and no sensory deficits noted Coordination / Balance: [id number] test normal Motor Exam: strength 5/5 throughout Psych thought process normal Assessment & Plan Assessment/Plan (1) Pneumonia: (2) Hypoxia: (3) Muscular dystrophy: PLAN: Plan #HYpoxia in the setting of chronic respiratory failure * Thought to be due to probable aspiration pneumonia * He does have a history of muscular dystrophy and this makes it difficult for him to expectorate his sputum. * Also was concern for COPD exacerbation. He did have barium swallow on 06/28/2022 which showed grossly normal swallowing function and recommendation was for thin liquids with small bites and small sips and remain output for 30 minutes after oral intake. * remains on IV zosyn * also on IV solumedrol due to concerns about COPD exacerbation * titrate oxygen to maintain sats >90% * respiratory therapy on board for pulmonary toileting and acapella * still having difficulty expectorating sputum. Needs more intensive respiratory therapy to help him expectorate sputum * Had barium swallow which showed some evidence of deficits in oral pharyngeal swallow dysfunction. Speech therapy on board and recommends for pharyngeal strengthening education regarding diet recommendations and recommended compensatory strategies. #Oropharyngeaal dysphagia: modified barium swallow as above. Speech therapy on board. * #HFpEF: not in exacerbation. has known EF of 60%. on lasix. #Muscular dystrophy * has functional paraplegia. wheelchair bound * PT.OT on board. * #Paroxysmal afib: on amiodarone, metoprolol and cardizem #Hypertension: on metoprolol, lisinopril and lasix. #Anxiety and depressio; on citalopram #Super morbid obesity: complicates acute care, expected recovery and prognosis DVT prophylaxis: on eliquis Disposition: anticipate dc over the next 24 -48 hours Charges/Coding Visit Charges Inpatient E&M: 34248 Subs Hosp L2
[2022-08-31] MEDS: Atorvastatin Calcium 20 MG Tablet PO (21:37)
[2022-09-01 03:27] VITALS: BP 126/72; PULSE 58; RESP 18; TEMP 36.6; O2SAT 95
[2022-09-01 06:00] VITALS: BMI 46.3
[2022-09-01] MEDS: 0.9% Saline Lock 10 ML Syringe IV (06:10)
[2022-09-01 06:41] LABS: Absolute Lymphocyte Count 1.81 X10^3/uL (0.83-4.51); Absolute Neutrophil Count 7.9 X10^3/uL (2.0-7.7); Basophil# 0.07 X10^3/uL; Basophil% 0.6 % (0-1); Eosinophil# 0.54 X10^3/uL; Eosinophils% 4.6 % (0-5); Hematocrit 37.6 % (40-54); Hemoglobin 11.5 g/dL (13.0-16.5); Lymphocyte # 1.81 X10^3/ul (0.83-4.51); Lymphocyte % 15.6 % (19-41); Mean Corp Hgb Conc 30.6 g/dL (32-36); Mean Corpuscular Hgb 27.9 pg (27.0-32.0); Mean Corpuscular Volume 91.3 fL (80-94); Mean Platelet Vol. 10.5 fl (6.2-12.0); Monocyte# 1.19 X10^3/uL; Monocyte% 10.2 % (0-10); NRBC Flagged by Analyzer 0 % (0-5); Neutrophil # 7.88 X10^3/uL (2.7-7.7); Neutrophil % 67.8 % (47-70); Platelet Count 175 K/mm3 (150-450); RBC Distribution Width CV 17.8 % (11.6-14.6); RBC Distribution Width SD 59.2 fl (35.1-43.9); Red Blood Count 4.12 M/mm3 (4.6-6.2); White Blood Count 11.6 K/mm3 (4.4-11.0)
[2022-09-01 06:48] VITALS: PULSE 68; RESP 20; O2SAT 93
[2022-09-01] MEDS: Ipratropium/Albuterol Sulfate 3 ML AMPUL.NEB INHALATION (06:48)
[2022-09-01 07:05] LABS: Anion Gap 7 (5-15); BUN 24 mg/dL (7-18); BUN/Creat Ratio 53.7 RATIO (10-20); Calcium,Total 8.8 mg/dL (8.5-10.1); Chloride 99 mmol/L (98-107); Creatinine, Serum 0.45 mg/dL (0.70-1.30); EST Glomerular Filtration Rate 196 mL/min (>60); Est Glom Filt Rate - Afr Amer 237 mL/min (>60); Glucose 70 mg/dL (74-106); Potassium 3.2 mmol/L (3.5-5.1); Sodium Level 139 mmol/L (136-145)
[2022-09-01] MEDS: Potassium Chloride Oral Tablet 20 MEQ 40 MEQ PO (08:39)
[2022-09-01] MEDS: guaiFENesin 1,200 MG Tablet 1200 MG PO (08:39)
[2022-09-01] MEDS: Multivitamins,Therapeutic Tablet 1 TABLET PO (08:39)
[2022-09-01] MEDS: Nystatin Powder 15gm Bottle 1 APPLIC TOPICAL (08:39)
[2022-09-01 08:40] VITALS: PULSE 73
[2022-09-01] MEDS: dilTIAZem CD 180 MG Capsule PO (08:40)
[2022-09-01] MEDS: Metoprolol(XL)Succ 50 MG Tablet PO (08:40)
[2022-09-01] MEDS: Lisinopril 40 MG Tablet PO (08:40)
[2022-09-01] MEDS: Aspirin E.C. 81 MG Tablet PO (08:41)
[2022-09-01] MEDS: Amiodarone 200 MG Tablet PO (08:41)
[2022-09-01] MEDS: predniSONE 20 MG Tablet 40 MG PO (08:42)
[2022-09-01] MEDS: Citalopram 20 MG Tablet PO (08:42)
[2022-09-01] MEDS: APIXABAN 5 MG TABLET PO (08:42)
[2022-09-01] MEDS: Menthol/Lanolin/Calamine/Znox 113 GM Tube 1 APPLIC TOPICAL (08:43)
[2022-09-01] MEDS: Furosemide 40 MG Tablet PO (08:43)
[2022-09-01 09:13] VITALS: BP 132/85; PULSE 74; RESP 19; TEMP 36.6; O2SAT 94
--- NOTE | 2022-09-01 11:10 | DS.PCM_ITS ---
Providers Date of Admission: 08/28/22 Date of Discharge: 09/01/22 Primary Care Physician: Dr. Landon Enamorado MD Consultations 08/28/22 07:48 Consult: Onc/Wound/oracle adf developer Routine Comment: Reason for Consult:: BL LE stasis wounds Reason For Visit: ACUTE ON CHRONIC HYPOXIA, RF, ?RLL PNA Diagnosis Discharge Diagnosis (1) Pneumonia: Status: Acute Code(s): J18.9 - Pneumonia, unspecified organism (2) Hypoxia: Status: Acute Code(s): R09.02 - Hypoxemia (3) Muscular dystrophy: Status: Acute Code(s): G71.00 - Muscular dystrophy, unspecified Plan #HYpoxia in the setting of chronic respiratory failure * Thought to be due to probable aspiration pneumonia * He does have a history of muscular dystrophy and this makes it difficult for him to expectorate his sputum. * Also was concern for COPD exacerbation. He did have barium swallow on 06/28/2022 which showed grossly normal swallowing function and recommendation was for thin liquids with small bites and small sips and remain output for 30 minutes after oral intake. * remains on IV zosyn * also on IV solumedrol due to concerns about COPD exacerbation * titrate oxygen to maintain sats >90% * respiratory therapy on board for pulmonary toileting and acapella * still having difficulty expectorating sputum. Needs more intensive respiratory therapy to help him expectorate sputum * Had barium swallow which showed some evidence of deficits in oral pharyngeal swallow dysfunction. Speech therapy on board and recommends for pharyngeal strengthening education regarding diet recommendations and recommended compensatory strategies. #Oropharyngeaal dysphagia: modified barium swallow as above. Speech therapy on board. * #HFpEF: not in exacerbation. has known EF of 60%. on lasix. #Muscular dystrophy * has functional paraplegia. wheelchair bound * PT.OT on board. * #Paroxysmal afib: on amiodarone, metoprolol and cardizem #Hypertension: on metoprolol, lisinopril and lasix. #Anxiety and depressio; on citalopram #Super morbid obesity: complicates acute care, expected recovery and prognosis DVT prophylaxis: on eliquis Disposition: anticipate dc over the next 24 -48 hours Medications at Discharge Home Medications aspirin 81 mg tablet,delayed release (Adult Low Dose Aspirin) 81 mg PO DAILY afib 05/26/15 citalopram 20 mg tablet 20 mg PO DAILY depression 05/26/15 multivitamin with folic acid 400 mcg tablet (Thera) 1 tab PO DAILY supplement 05/26/15 apixaban 5 mg tablet (Eliquis) 5 mg PO BID anti platelet 09/27/16 lisinopril 40 mg tablet 40 mg PO DAILY blood pressure 09/27/16 atorvastatin 20 mg tablet 20 mg PO QHS cholesterol 08/13/18 albuterol sulfate 90 mcg/actuation breath activated powder inhaler,sensor 2 inh inhalation Q6H PRN shortness of breath or wheezing #1 ea 07/02/22 amiodarone 200 mg tablet 200 mg PO TID #90 tabs 07/02/22 diltiazem HCl 180 mg capsule,extended release 24 hr 180 mg PO Q12 #60 caps 07/02/22 furosemide 40 mg tablet (Lasix) 40 mg PO DAILY #30 tabs 07/02/22 guaifenesin 1,200 mg tablet, extended release 12 hr (Mucus Relief ER) 1,200 mg PO BID #14 tabs 07/02/22 sennosides 8.6 mg-docusate sodium 50 mg tablet (Stool Softener-Stimulant Laxative) 2 tab PO BID PRN Constipation #0 tabs 07/02/22 sodium chloride 0.65 % nasal spray aerosol (Deep Sea Nasal) 1 spray NASAL BID PRN PRN NASAL DRYNESS #0 mL 07/02/22 metoprolol succinate 100 mg tablet,extended release 24 hr 50 mg PO DAILY #30 tabs 07/16/22 levofloxacin 750 mg tablet 750 mg PO DAILY #7 tabs 09/01/22 prednisone 20 mg tablet 40 mg PO BREAKFAST #10 tabs 09/01/22 Hospital Course Operations None Procedures None Summary of Care Provided Minutes Spent on Discharge: 50 Hospital Course: Patient is a 76-year-old male with a past medical history as outlined was admitted through the ED on 08/28/2022 with a complaint of shortness of breath and cough. He had a history of muscular dystrophy and was wheelchair-bound as well as chronic respiratory failure on 2 L of oxygen. He came in with a complaint of worsening shortness of breath for 3 days prior to admission and had worsened the day of admission. He also had difficulty coughing up secretions due to his muscular dystrophy. He also had associated wheezing. He denied any fever or chills or nausea or vomiting. Review of symptoms otherwise negative. Patient was on 4 L of oxygen in the ED; he usually wore 2 L at home. CBC showed WBC of 9.8 and chest x-ray showed mild right basilar airspace disease. COVID and flu test were negative. He had a modified barium swallow on 06/28/2022 which showed grossly normal swallowing function and was recommended that he have regular textures and thin liquids with small bites. Patient was admitted and managed f or probable aspiration pneumonia. He was started on IV Zosyn. His previous sputum cultures had grown Pseudomonas. Patient did not require any increased oxygen during this admission and remained on 2 to 3 L per nasal cannula on oxygen. He however had difficulty expectorating his sputum. He had chest physiotherapy with respiratory therapy and this did help with his sputum. Sputum cultures were positive for Pseudomonas. Patient shortness of breath gradually increasing went back to his baseline. He remained stable and was discharged on 09/01/2022. He is to follow-up with his primary care doctor within 1 to 2 weeks. Patient seen and examined prior to discharge. He had no active complaints and had an uneventful night. Review of systems otherwise negative. Labs and vitals reviewed. Home medication reviewed and reconciled. Physical Exam Const alert, oriented x3 and no apparent distress Constitutional Narrative: morbid obesity General Appearance: cooperative and comfortable Orientation / Consciousness: awake Exam Limitations: no limitations HEENT normocephalic, head/scalp atraumatic, hearing grossly normal bilaterally and moist oral mucous membranes Mouth: oral and palatal mucosa normal Eyes PERRL and EOMs intact bilaterally Neck no lymphadenopathy, supple and no JVD Lymph Lymphatic: no lymphadenopathy noted, no lymphedema noted and lymphedema Resp Resp Narrative: Still has mildly diminished breath sounds bibasally, crackles have resolved. On 2L of oxygen by nasal canula. Cardio regular rate, regular rhythm, S1 normal heart sound, S2 normal heart sound and no murmurs GI normal to inspection, nondistended, normoactive bowel sounds, soft to palpation, non-tender and non-distended Extremity normal to inspection, normal capillary refill, no clubbing, cyanosis or edema and no calf tenderness Extremity Narrative: lower extremity paralysis due to muscular dystrophy Skin no rashes or lesions noted General Skin Exam: no breakdown Neuro CN's II-XII intact bilaterally, no focal motor deficits and no sensory deficits noted Coordination / Balance: [id number] test normal Psych thought process normal Weight / BMI Weight Weight: 305 lb 5.443 oz Body Mass Index (BMI) 46.3 ABG / Lab / Microbiology Data Result Diagrams: 09/01/22 05:29 09/01/22 05:29 Laboratory: Laboratory Results - last 24 hr 09/01/22 05:29: WBC 11.6 H, RBC 4.12 L, Hgb 11.5 L, Hct 37.6 L, MCV 91.3, MCH 27.9, MCHC 30.6 L, RDW Std Deviation 59.2 H, RDW Coeff of Nick 17.8 H, Plt Count 175, MPV 10.5, Immature Gran % (Auto) 1.200 H, Neut % (Auto) 67.8, Lymph % (Auto) 15.6 L, [place] % (Auto) 10.2 H, Eos % (Auto) 4.6, Baso % (Auto) 0.6, Absolute Neuts (auto) 7.9 H, Absolute Lymphs (auto) 1.81, Nucleated RBC % 0 09/01/22 05:29: Sodium 139, Potassium 3.2 L, Chloride 99, Carbon Dioxide 33.0 H, Anion Gap 7, BUN 24 H, Creatinine 0.45 L, Estim Creat Clear Calc 62.70, Est GFR (MDRD) Af Amer 237, Est GFR (MDRD) Non-Af 196, BUN/Creatinine Ratio 53.7 H, Glucose 70 L, Calcium 8.8 Microbiology: Microbiology 08/29/22 22:16 Sputum, Expectorated/Coughed Gram Stain - Final 08/29/22 22:16 Sputum, Expectorated/Coughed Respiratory Culture - Final Pseudomonas aeruginosa 08/28/22 11:05 Mucosa - Nasopharyngeal Respiratory Panel (PCR) - Final 08/28/22 08:23 Urine, Clean Catch Legionella Antigen - Final 08/28/22 08:23 Urine, Clean Catch Streptococcus pneumoniae Antigen (M - Final 08/28/22 05:35 Nasal Secretion SARS-CoV-2 & FLU Antigen (Rapid) - Final D/C Instructions Discharge Diet: Low fat / Low cholesterol Weight Bearing Status: Weight bearing as tolerated Call your doctor if you observe: Fever of 101 or Higher, Shortness of breath, Dizziness, Swelling in the ankles, Chest pain and Increased palpitations (irregular heartbeat) Meaningful Use Info Meaningful Use Diagnoses (Choose all that apply): None applicable Discharge Plan Admission Admit Date/Time: 08/28/22 06:43 Primary Reason for Your Visit: aspiration pneumonia Attending Provider: Sonia Graff Primary Care Provider: Landon Enamorado Consulting Providers: Mae Domingo Instructions Patient Instructions: ED Pneumonia (Adult) Discharge Orders/Prescriptions Prescriptions: New prednisone 20 mg Tablet 40 mg PO BREAKFAST Qty: 10 0RF levofloxacin 750 mg tablet 750 mg PO DAILY Qty: 7 0RF Continued aspirin [Adult Low Dose Aspirin] 81 MG tablet,delayed release (DR/EC) 81 mg PO DAILY Label Comments: Blood thinner for heart health citalopram 20 MG tablet 20 mg PO DAILY Label Comments: Depression/anxiety multivitamin with folic acid [Thera] 1 TABLET tablet 1 tab PO DAILY Label Comments: Supplement lisinopril 40 MG tablet 40 mg PO DAILY Eliquis 5 MG tablet 5 mg PO BID atorvastatin 20 MG tablet 20 mg PO QHS diltiazem HCl 180 mg Capsule,Extended Release 24hr 180 mg PO Q12 Qty: 60 1RF Rx Instructions: only takes 180mg daily amiodarone 200 mg Tablet 200 mg PO TID Qty: 90 0RF Rx Instructions: 200 mg 3 times daily until 07/07/2022 then 200 mg twice daily for 2 weeks until 07/21/2022 and then 200 mg once daily to continue; only takes the 200mg daily now sennosides-docusate sodium [Stool Softener-Stimulant Laxat] 8.6-50 mg Tablet 2 tab PO BID PRN (Reason: Constipation) Qty: 0 0RF Deep Sea Nasal 0.65 % Aerosol,[place] 1 spray NASAL BID PRN PRN (Reason: NASAL DRYNESS) Qty: 0 0RF Mucus Relief ER 1,200 mg Tablet Extended Release 12hr 1,200 mg PO BID Qty: 14 0RF albuterol sulfate 90 mcg/actuation aero powdr breath act w/sensor 2 inh inhalation Q6H PRN (Reason: shortness of breath or wheezing) Qty: 1 0RF furosemide [Lasix] 40 mg tablet 40 mg PO DAILY Qty: 30 1RF metoprolol succinate 100 mg tablet extended release 24 hr 50 mg PO DAILY Qty: 30 2RF Referrals / Follow Up: Landon Enamorado MD [Primary Care Provider] - Within 2 Weeks Disposition Disposition (needs filled in before D/C Order can be placed): Home, Self Care Charges/Coding Visit Charges Inpatient E&M: 22626 Disch Hosp >30min
== END 2022-09-01 13:27 | disposition home or self-care (01) | DRG 178 ==
LOC: ED 06:40 → MS3 07:03
PROVIDERS: Admitting Provider Family Medicine; Emergency Provider Emergency Medicine; PCP Family Medicine; Visit Provider Student in an Organized Health Care Education/Training Program
DX: J69.0 Pneumonitis due to inhalation of food and vomit (principal); J44.1 Chronic obstructive pulmonary disease with (acute) exacerbation; I50.32 Chronic diastolic (congestive) heart failure; J96.11 Chronic respiratory failure with hypoxia; Z68.42 Body mass index [BMI] 45.0-49.9, adult; F44.4 Conversion disorder with motor symptom or deficit; I11.0 Hypertensive heart disease with heart failure; E66.01 Morbid (severe) obesity due to excess calories; I48.0 Paroxysmal atrial fibrillation; G71.00 Muscular dystrophy, unspecified; E78.5 Hyperlipidemia, unspecified; F41.9 Anxiety disorder, unspecified; R13.12 Dysphagia, oropharyngeal phase; Z20.822 Contact with and (suspected) exposure to COVID-19; F32.A Depression, unspecified; Z99.3 Dependence on wheelchair; Z79.01 Long term (current) use of anticoagulants; Z79.899 Other long term (current) drug therapy; Z87.891 Personal history of nicotine dependence
CPT/HCPCS: 36415; 71045; 74230; 80048; 80053; 82728; 83540; 83550; 83735; 83880; 84145; 85025; 87070; 87077; 87184; 87186; 87205; 87428; 87449; 87633; 87635; 87641; 90471; 92526; 92610; 92611; 94640; 94667; 94668; 97162; 97166; 99252; 99285; J7030; J7050; A4216; G0463; J1940; U0003; U0005

== ENCOUNTER → 2022-09-16 | Outpatient (CLI) | payer MEDICARE, SELFPAY ==
[2022-09-16 18:33] LABS: BNP,B-Type NATRIURETIC PEPTIDE 28.8 pg/mL (0-100)
[2022-09-16 18:44] LABS: Anion Gap 6 (5-15); BUN 23 mg/dL (7-18); BUN/Creat Ratio 40.6 RATIO (10-20); Calcium,Total 8.9 mg/dL (8.5-10.1); Chloride 106 mmol/L (98-107); Creatinine, Serum 0.57 mg/dL (0.70-1.30); EST Glomerular Filtration Rate 149 mL/min (>60); Est Glom Filt Rate - Afr Amer 181 mL/min (>60); Glucose 118 mg/dL (74-106); Potassium 3.2 mmol/L (3.5-5.1); Sodium Level 141 mmol/L (136-145)
== END | disposition home or self-care (01) ==
LOC: MFPLAB 14:41
PROVIDERS: PCP Family Medicine; Visit Provider Family Medicine
DX: R60.9 Edema, unspecified (principal); I50.9 Heart failure, unspecified
CPT/HCPCS: 36415; 80048; 83880

== ENCOUNTER → 2022-12-23 | Outpatient (CLI) | payer MEDICARE, SELFPAY ==
--- NOTE | 2022-12-23 15:30 | RAD_ITS ---
EXAM: XR CHEST, 2 VIEWS CLINICAL INDICATION: Bronchitis, not specified as acute or chronic TECHNIQUE: Frontal and lateral views of the chest. COMPARISON: 08/28/2022. FINDINGS: LUNGS AND PLEURAL SPACES: Mild right basilar opacity unchanged may be due to atelectasis or scarring. No pneumothorax. No effusion. No change right pleural thickening. HEART: Unremarkable. Cardiac silhouette not enlarged. MEDIASTINUM: Central airways and mediastinal contour are unremarkable. BONES/JOINTS: Unremarkable. SOFT TISSUES: Unremarkable. RAD/Chest PA and Lateral IMPRESSION: 1. No change right pleural thickening. 2. Mild right basilar opacity unchanged may be due to atelectasis or scarring. Electronically Signed: Reyes Stephenson MD at 0:07 EDT ,
[2022-12-23 18:22] LABS: Absolute Lymphocyte Count 0.98 X10^3/uL (0.83-4.51); Absolute Neutrophil Count 5.5 X10^3/uL (2.0-7.7); Basophil# 0.12 X10^3/uL; Basophil% 1.4 % (0-1); Eosinophil# 1.32 X10^3/uL; Eosinophils% 15.2 % (0-5); Hematocrit 42.2 % (40-54); Hemoglobin 12.7 g/dL (13.0-16.5); Lymphocyte # 0.98 X10^3/ul (0.83-4.51); Lymphocyte % 11.3 % (19-41); Mean Corp Hgb Conc 30.1 g/dL (32-36); Mean Corpuscular Hgb 27.3 pg (27.0-32.0); Mean Corpuscular Volume 90.6 fL (80-94); Mean Platelet Vol. 10.4 fl (6.2-12.0); Monocyte# 0.75 X10^3/uL; Monocyte% 8.6 % (0-10); NRBC Flagged by Analyzer 0 % (0-5); Neutrophil # 5.48 X10^3/uL (2.7-7.7); Platelet Count 223 K/mm3 (150-450); RBC Distribution Width CV 17.1 % (11.6-14.6); RBC Distribution Width SD 56.6 fl (35.1-43.9); Red Blood Count 4.66 M/mm3 (4.6-6.2); White Blood Count 8.7 K/mm3 (4.4-11.0)
[2022-12-23 18:42] LABS: BNP,B-Type NATRIURETIC PEPTIDE 23.8 pg/mL (0-100)
[2022-12-23 18:52] LABS: Anion Gap 8 (5-15); BUN 17 mg/dL (7-18); BUN/Creat Ratio 32.5 RATIO (10-20); Calcium,Total 9.3 mg/dL (8.5-10.1); Chloride 99 mmol/L (98-107); Creatinine, Serum 0.52 mg/dL (0.70-1.30); EST Glomerular Filtration Rate 164 mL/min (>60); Est Glom Filt Rate - Afr Amer 198 mL/min (>60); Glucose 112 mg/dL (74-106); Potassium 3.3 mmol/L (3.5-5.1); Sodium Level 137 mmol/L (136-145)
== END | disposition home or self-care (01) ==
PROVIDERS: PCP Family Medicine; Referring Provider Family Medicine; Visit Provider Family Medicine
DX: J40 Bronchitis, not specified as acute or chronic (principal); I50.9 Heart failure, unspecified
CPT/HCPCS: 36415; 71046; 80048; 83880; 85025

== ENCOUNTER 2022-12-31 15:37 | Emergency (ER) | payer MEDICARE, SELFPAY ==
[2022-12-31 15:38] VITALS: PULSE 69; RESP 18; TEMP 36.6; O2SAT 97; BMI 46.2
[2022-12-31 15:45] VITALS: BP 132/68
--- NOTE | 2022-12-31 15:47 | EKG12_ITS ---
Test Reason : CP Blood Pressure : / mmHG Vent. Rate : 068 BPM Atrial Rate : 068 BPM P-R Int : 200 ms QRS Dur : 102 ms QT Int : 400 ms P-R-T Axes : 037 008 102 degrees QTc Int : 425 ms Normal sinus rhythm Left ventricular hypertrophy with repolarization abnormality ( R in aVL ) Abnormal ECG Confirmed by HONG MENDES, CLAYTON ([id number]), editor greeting card YANET WHIPPLE ([id number]) on 01/01/2023 10:24:03 AM Referred By: HOLLY Confirmed By:CLAYTON PITTS MD
[2022-12-31 16:07] LABS: Absolute Lymphocyte Count 1.95 X10^3/uL (0.83-4.51); Absolute Neutrophil Count 8.6 X10^3/uL (2.0-7.7); Basophil# 0.08 X10^3/uL; Basophil% 0.7 % (0-1); Eosinophil# 0.45 X10^3/uL; Eosinophils% 3.7 % (0-5); Hematocrit 43.4 % (40-54); Hemoglobin 12.9 g/dL (13.0-16.5); Lymphocyte # 1.95 X10^3/ul (0.83-4.51); Mean Corp Hgb Conc 29.7 g/dL (32-36); Mean Corpuscular Hgb 27.1 pg (27.0-32.0); Mean Corpuscular Volume 91.2 fL (80-94); Mean Platelet Vol. 10.2 fl (6.2-12.0); Monocyte# 1.04 X10^3/uL; Monocyte% 8.5 % (0-10); NRBC Flagged by Analyzer 0 % (0-5); Neutrophil % 70.4 % (47-70); Platelet Count 272 K/mm3 (150-450); RBC Distribution Width CV 16.5 % (11.6-14.6); RBC Distribution Width SD 56.2 fl (35.1-43.9); Red Blood Count 4.76 M/mm3 (4.6-6.2); White Blood Count 12.2 K/mm3 (4.4-11.0)
--- NOTE | 2022-12-31 16:10 | RAD_ITS ---
STUDY: X-RAY CHEST REASON FOR EXAM: Male, 77 years old. chest pain TECHNIQUE: Frontal and lateral views of the chest. COMPARISON: 12/23/2022. FINDINGS: Exam limited by patient size and under exposure. Moderate lung volumes. Elevated right hemidiaphragm. Grossly stable streaky density in the right lung base consistent with subsegmental atelectasis and/or scarring. Left lung appears clear. There is mild cardiac enlargement. Normal mediastinum and joey. Normal visualized pulmonary arteries. There is atherosclerotic calcification of the aortic arch with tortuosity. There are diffuse degenerative changes of the visualized thoracic spine. Dislocation of the left glenohumeral joint. There is no demonstrated abnormality of the visualized soft tissue structures of the upper abdomen. RAD/Chest PA and Lateral IMPRESSION: Significantly limited by patient size and under exposure. Incomplete expansion of lungs. Mild atelectasis and/or scarring in the lower right lung. Dislocation of the left glenohumeral joint. Electronically Signed: Jaquan Harrington MD at 16:40 EDT ,
[2022-12-31 16:24] LABS: Anion Gap 5 (5-15); BUN 31 mg/dL (7-18); BUN/Creat Ratio 43.9 RATIO (10-20); Calcium,Total 9.4 mg/dL (8.5-10.1); Chloride 104 mmol/L (98-107); Creatinine, Serum 0.71 mg/dL (0.70-1.30); EST Glomerular Filtration Rate 116 mL/min (>60); Est Glom Filt Rate - Afr Amer 140 mL/min (>60); Estimated Creatinine Clearance 61.75 ml/min; Glucose 119 mg/dL (74-106); Potassium 3.5 mmol/L (3.5-5.1); Sodium Level 140 mmol/L (136-145); Troponin-I HS (w/2H Reflex) 16 pg/mL (3.0-78.0)
--- NOTE | 2022-12-31 16:26 | EDS_ITS ---
HPI History of Present Illness Chief Complaint: Chest Pain Informant: patient Narrative Narrative: Patient is 77-year-old male with history of chronic hypoxic respiratory failure (currently on 6 L of oxygen), GI bleed, atrial fibrillation on Eliquis presenting with chest pressure. Patient states around 3 PM suddenly he just did not feel right and had a pressure in his chest. He notes that he was put on steroids and an orange antibiotic about a week ago for bronchitis. He states his breathing is getting better. He still using his nebulizer every 6 hours or so and then is able to cough up some sputum but it takes him some time. Has chronic swelling of his leg with no change in it and has a condom catheter on chronically because of his muscle dystrophy and he is too weak to hold urinal. He is wheelchair dependent does not ambulate. Notes over the past 3 to 4 months he is gone from 3 L to 6 L of oxygen on his primary team is aware of this. 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 Depression Diastolic CHF Dysphagia HTN (hypertension) Hyperlipemia Hyperlipidemia Hypertension Hypoxia Muscular dystrophy Home Medications aspirin 81 mg tablet,delayed release (Adult Low Dose Aspirin) 81 mg PO DAILY afib 05/26/15 [History Last Taken 08/27/22] citalopram 20 mg tablet 20 mg PO DAILY depression 05/26/15 [History Last Taken 08/27/22] multivitamin with folic acid 400 mcg tablet (Thera) 1 tab PO DAILY supplement 05/26/15 [History Last Taken 08/27/22] apixaban 5 mg tablet (Eliquis) 5 mg PO BID anti platelet 09/27/16 [History Last Taken 08/27/22] lisinopril 40 mg tablet 40 mg PO DAILY blood pressure 09/27/16 [History Last Taken 08/27/22] atorvastatin 20 mg tablet 20 mg PO QHS cholesterol 08/13/18 [History Last Taken 08/27/22] albuterol sulfate 90 mcg/actuation breath activated powder inhaler,sensor 2 inh inhalation Q6H PRN shortness of breath or wheezing #1 ea 07/02/22 [Rx Last Taken 08/28/22] amiodarone 200 mg tablet 200 mg PO TID #90 tabs 07/02/22 [Rx Last Taken 08/27/22] diltiazem HCl 180 mg capsule,extended release 24 hr 180 mg PO Q12 #60 caps 07/02/22 [Rx Last Taken 08/27/22] furosemide 40 mg tablet (Lasix) 40 mg PO DAILY #30 tabs 07/02/22 [Rx Last Taken 08/27/22] guaifenesin 1,200 mg tablet, extended release 12 hr (Mucus Relief ER) 1,200 mg PO BID #14 tabs 07/02/22 [Rx Last Taken 08/27/22] sennosides 8.6 mg-docusate sodium 50 mg tablet (Stool Softener-Stimulant Laxative) 2 tab PO BID PRN Constipation #0 tabs 07/02/22 [Rx Last Taken Unknown] sodium chloride 0.65 % nasal spray aerosol (Deep Sea Nasal) 1 spray NASAL BID PRN PRN NASAL DRYNESS #0 mL 07/02/22 [Rx Last Taken Unknown] Allergy/AdvReac Type Severity Reaction Status Date / Time codeine AdvReac made me Verified 12/31/22 15:41 do crazy things Family History Father Hypertension Heart disease Renal cancer Kidney disease Mother Diabetes Heart disease Surgical History History of herniorrhaphy Social History household members: spouse Smoking Status: Former smoker how long ago did patient quit smoking: Smoked 1.5-2 ppd since teen until quit 2002. alcohol intake: current alcohol intake frequency: holidays/special occasions only substance use type: does not use ROS ROS ED Constitutional Constitutional ED: Denies chills or fever(s) ENT ENT ED: Denies sore throat Cardiovascular Cardiovascular: Reports as per HPI and chest pain Respiratory/Chest Respiratory/Chest: Reports cough; Denies dyspnea Gastrointestinal Gastrointestinal: Denies abdominal pain, nausea or vomiting Musculoskeletal Musculoskeletal: Reports myalgias Neurologic Neurologic: Reports weakness; Denies headache(s) Hematologic/Lymphatic Hematologic/Lymphatic: Reports easy bleeding and easy bruising EXAM Physical Exam Const Vital Signs: 12/31/22 15:38 12/31/22 15:42 12/31/22 15:45 Temperature 97.9 F Temperature Source Oral Pulse Rate 69 Respiratory Rate 18 Respiratory Effort Short of Breath Blood Pressure 132/68 H Blood Pressure Mean 89 Pulse Ox 97 Oxygen Delivery Method Nasal Cannula Oxygen Flow Rate (L/min) 12/31/22 15:58 12/31/22 17:04 12/31/22 19:03 Temperature Temperature Source Pulse Rate 65 65 Respiratory Rate 16 17 Respiratory Effort Blood Pressure 160/87 H 148/88 H Blood Pressure Mean 111 108 Pulse Ox 99 98 Oxygen Delivery Method Nasal Cannula Nasal Cannula Nasal Cannula Oxygen Flow Rate (L/min) 6 12/31/22 20:16 Temperature Temperature Source Pulse Rate 85 Respiratory Rate 18 Respiratory Effort Blood Pressure Blood Pressure Mean Pulse Ox 95 Oxygen Delivery Method Oxygen Flow Rate (L/min) Positive well nourished, well developed and obese General Appearance ED: well developed and NAD Nutritional Appearance: obese HEENT Reports moist mucous membranes normocephalic and atraumatic Eyes PERRL and EOMs intact bilaterally Neck supple and no JVD Chest Wall inspection of chest normal and palpation of chest normal Resp normal respiratory effort and clear to auscultation bilaterally Cardio regular rate and regular rhythm GI normal to inspection, nondistended, normoactive bowel sounds and soft to palpation Extremity Extremity Narrative: Decreased range of motion bilateral upper extremities, no pain with range of motion of the left shoulder General Extremety ED: Yes edema General Extremity: edema Neuro oriented x3 Neuro Narrative: Decreased tone, likely related to muscular dystrophy Sensorium / Orientation: awake and alert Motor Exam: general weakness Psych mental status grossly normal Skin no rashes or lesions noted MDM MDM MDM Narrative Medical decision making narrative: Patient evaluated for chest discomfort/pressure. It is resolved in the emergency room. Patient has chronic medical conditions most notably atrial fibrillation on anticoagulation as well as muscle dystrophy. He appears nontoxic in no acute distress. He feels that he is really at his baseline. He is on 6 L of oxygen which he also says is his baseline. EKG is nonischemic. Two-view chest x-ray is limited but does not show any significant pulmonary process. Incidentally comments on dislocation of the left glenohumeral joint. Patient has no pain in that area. Denies any trauma. He feels that his range of motion is at his baseline with his muscular dystrophy. I give him the information for follow-up with Ortho as needed but I do not think this requires emergent evaluation. He remains hemodynamic stable in the emergency room. Delta high-sensitivity troponin is normal. We will he does have some peripheral edema his BNP is normal at 57.3. I do not think this is acute fluid overload. He does have a mild leukocytosis of 12.2 however I suspect this is more related to his recent steroid use. There is no obvious source of infection. He is chronically anticoagulated have a low suspicion for pulmonary emboli. Patient will be discharged back home. He is agreeable this plan of care. Given return precautions. Discharged home in stable condition. Lab Data Attestation: I reviewed the patient's lab results. Labs: Laboratory Results - last 24 hr 12/31/22 12/31/22 15:56 17:59 WBC 12.2 H RBC 4.76 Hgb 12.9 L Hct 43.4 MCV 91.2 MCH 27.1 MCHC 29.7 L RDW Std Deviation 56.2 H RDW Coeff of Nick 16.5 H Plt Count 272 MPV 10.2 Immature Gran % (Auto) 0.700 Neut % (Auto) 70.4 H Lymph % (Auto) 16.0 L [place] % (Auto) 8.5 Eos % (Auto) 3.7 Baso % (Auto) 0.7 Absolute Neuts (auto) 8.6 H Absolute Lymphs (auto) 1.95 Nucleated RBC % 0 Sodium 140 Potassium 3.5 Chloride 104 Carbon Dioxide 31.0 Anion Gap 5 BUN 31 H Creatinine 0.71 Estim Creat Clear Calc 61.75 Est GFR (MDRD) Af Amer 140 Est GFR (MDRD) Non-Af 116 BUN/Creatinine Ratio 43.9 H Glucose 119 H Calcium 9.4 Troponin I High Sens 16 17 B-Natriuretic Peptide 57.3 Radiography Chest X-Ray - ED: 2 View, Read by ED Physician, Read by Radiologist and No Acute Disease Diagnostic Testing: Clinical Impression(s) from Imaging Studies Chest X-Ray 12/31/22 16:10 IMPRESSION: Significantly limited by patient size and under exposure. Incomplete expansion of lungs. Mild atelectasis and/or scarring in the lower right lung. Dislocation of the left glenohumeral joint. Electronically Signed: Jaquan Harrington MD at 16:40 EDT , Rhythm Strip Rhythm Strip: Sinus Rhythm Rate: 68 Ectopy: None EKG Initial EKG: Attestation: I personally reviewed and interpreted this EKG as follows: Interpretation: Sinus Rhythm Comments: Normal sinus rhythm at a rate of 68 bpm LVH Normal axis Normal ST segments No change compared to prior EKG on 06/24/2022 Patient is no longer in atrial flutter compared to other prior EKGs Discharge Plan Triage Chief Complaint: Chest Pain ED Provider: Rossana Harris Dx/Rx/DC Orders Clinical Impression: [facility]PC (current) use of anticoagulants, Chest pain Instructions: ED Chest Pain, Uncertain Cause Prescriptions: No Action aspirin [Adult Low Dose Aspirin] 81 MG tablet,delayed release (DR/EC) 81 mg PO DAILY Patient Comments: Blood thinner for heart health citalopram 20 MG tablet 20 mg PO DAILY Patient Comments: Depression/anxiety multivitamin with folic acid [Thera] 1 TABLET tablet 1 tab PO DAILY Patient Comments: Supplement lisinopril 40 MG tablet 40 mg PO DAILY Eliquis 5 MG tablet 5 mg PO BID atorvastatin 20 MG tablet 20 mg PO QHS diltiazem HCl 180 mg Capsule,Extended Release 24hr 180 mg PO Q12 Qty: 60 1RF Rx Instructions: only takes 180mg daily amiodarone 200 mg Tablet 200 mg PO TID Qty: 90 0RF Rx Instructions: 200 mg 3 times daily until 07/07/2022 then 200 mg twice daily for 2 weeks until 07/21/2022 and then 200 mg once daily to continue; only takes the 200mg daily now sennosides-docusate sodium [Stool Softener-Stimulant Laxat] 8.6-50 mg Tablet 2 tab PO BID PRN (Reason: Constipation) Qty: 0 0RF Deep Sea Nasal 0.65 % Aerosol,[place] 1 spray NASAL BID PRN PRN (Reason: NASAL DRYNESS) Qty: 0 0RF Mucus Relief ER 1,200 mg Tablet Extended Release 12hr 1,200 mg PO BID Qty: 14 0RF albuterol sulfate 90 mcg/actuation aero powdr breath act w/sensor 2 inh inhalation Q6H PRN (Reason: shortness of breath or wheezing) Qty: 1 0RF furosemide [Lasix] 40 mg tablet 40 mg PO DAILY Qty: 30 1RF Primary Care Provider: Landon Enamorado Referrals: Landon Enamorado MD [Primary Care Provider] - Sawyer Suárez DO [Med Staff - Active Staff] - As Needed Activity Restrictions/Additional Instructions: Your heart work-up was largely normal today. Your chest x-ray did not show any acute pneumonia. Your white blood cell count is mildly elevated but I suspect this from your steroids. Your chest x-ray did incidentally show possible dislocation of your left shoulder. As you have normal range of motion for you and no acute pain/trauma I have a low suspicion for this. You been given information of follow-up with an orthopedist for this as needed. Disposition Disposition: Home, Self Care Discharge Date/Time: 12/31/22 20:17
[2022-12-31 17:04] VITALS: BP 160/87; PULSE 65; RESP 16; O2SAT 99
[2022-12-31 17:25] LABS: BNP,B-Type NATRIURETIC PEPTIDE 57.3 pg/mL (0-100)
[2022-12-31 18:03] LABS: Reflex Troponin-HS? (from REC) Y
[2022-12-31 18:38] LABS: Troponin-I HS 17 pg/mL (3.0-78.0)
[2022-12-31 19:03] VITALS: BP 148/88; PULSE 65; RESP 17; O2SAT 98
[2022-12-31 20:16] VITALS: PULSE 85; RESP 18; O2SAT 95
== END 2022-12-31 20:17 | disposition home or self-care (01) ==
PROVIDERS: Emergency Provider Emergency Medicine; PCP Family Medicine; Visit Provider Emergency Medicine
DX: R07.9 Chest pain, unspecified (principal); G71.00 Muscular dystrophy, unspecified; I11.0 Hypertensive heart disease with heart failure; I50.32 Chronic diastolic (congestive) heart failure; I48.91 Unspecified atrial fibrillation; Z87.891 Personal history of nicotine dependence; E78.5 Hyperlipidemia, unspecified; Z79.01 Long term (current) use of anticoagulants; S43.005A Unspecified dislocation of left shoulder joint, initial encounter; Z99.3 Dependence on wheelchair; Z99.81 Dependence on supplemental oxygen; E66.9 Obesity, unspecified; X58.XXXA Exposure to other specified factors, initial encounter
CPT/HCPCS: 71046; 80048; 83880; 84484; 85025; 93005; 99284; A4216

== ENCOUNTER 2023-02-02 18:59 | Observation (INO) | payer MEDICARE, SELFPAY ==
[2023-02-02] VITALS (8 sets, daily range): BP systolic 156–191; BP diastolic 82–100; PULSE 75–84; RESP 13–22; TEMP 37–37.1; O2SAT 97–99; BMI 45.3
--- NOTE | 2023-02-02 19:13 | EKG12_ITS ---
Test Reason : SOB Blood Pressure : / mmHG Vent. Rate : 078 BPM Atrial Rate : 078 BPM P-R Int : 198 ms QRS Dur : 090 ms QT Int : 374 ms P-R-T Axes : 053 024 081 degrees QTc Int : 426 ms Normal sinus rhythm Nonspecific ST and T wave abnormality Abnormal ECG Confirmed by GUERDA TOLEDO ([id number]), order editor SHANIA ARIAS ([id number]) on 02/10/2023 2:03:15 PM Referred By: Franky Confirmed By:GUERDA TOLEDO
--- NOTE | 2023-02-02 19:37 | EDS_ITS ---
HPI History of Present Illness Chief Complaint: Shortness of Breath Informant: patient Onset/Context/Timing Onset: Today Context: gradual and rest Timing: Continuous Worsened by: Nothing Relieved by: Nothing Associated Symptoms subjective and chills; Negative for cough, rhinorrhea, post nasal drip, ear pain, fever, sore throat, sweats, clear sputum, white sputum, yellow sputum or green sputum Chest Pain: Positive for None Narrative Narrative: Patient presents with shortness of breath that began today. Patient states it gradually got worse over the last few hours. Patient states nothing makes it worse and nothing makes it better. Patient states he took albuterol aerosol at home. Patient states that this did not help initially. Patient feels better since he arrived here in the emergency department. Patient states his pulse oximeter at home was in the upper 70s to lower 80s. Patient admits to some subjective chills. Patient denies any cough, sore throat, or rhinorrhea. Patient denies any chest pain. 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 Depression Diastolic CHF Dysphagia HTN (hypertension) Hyperlipemia Hyperlipidemia Hypertension Hypoxia Muscular dystrophy Home Medications aspirin 81 mg tablet,delayed release (Adult Low Dose Aspirin) 81 mg PO DAILY afib 05/26/15 [History Last Taken 08/27/22] citalopram 20 mg tablet 20 mg PO DAILY depression 05/26/15 [History Last Taken 08/27/22] multivitamin with folic acid 400 mcg tablet (Thera) 1 tab PO DAILY supplement 05/26/15 [History Last Taken 08/27/22] apixaban 5 mg tablet (Eliquis) 5 mg PO BID anti platelet 09/27/16 [History Last Taken 08/27/22] lisinopril 40 mg tablet 40 mg PO DAILY blood pressure 09/27/16 [History Last Taken 08/27/22] atorvastatin 20 mg tablet 20 mg PO QHS cholesterol 08/13/18 [History Last Taken 08/27/22] albuterol sulfate 90 mcg/actuation breath activated powder inhaler,sensor 2 inh inhalation Q6H PRN shortness of breath or wheezing #1 ea 07/02/22 [Rx Last Taken 08/28/22] amiodarone 200 mg tablet 200 mg PO TID #90 tabs 07/02/22 [Rx Last Taken 01/12] diltiazem HCl 180 mg capsule,extended release 24 hr 180 mg PO Q12 #60 caps 07/02/22 [Rx Last Taken 08/27/22] furosemide 40 mg tablet (Lasix) 40 mg PO DAILY #30 tabs 07/02/22 [Rx Last Taken 08/27/22] guaifenesin 1,200 mg tablet, extended release 12 hr (Mucus Relief ER) 1,200 mg PO BID #14 tabs 07/02/22 [Rx Last Taken 08/27/22] sennosides 8.6 mg-docusate sodium 50 mg tablet (Stool Softener-Stimulant Laxative) 2 tab PO BID PRN Constipation #0 tabs 07/02/22 [Rx Last Taken Unknown] sodium chloride 0.65 % nasal spray aerosol (Deep Sea Nasal) 1 spray NASAL BID PRN PRN NASAL DRYNESS #0 mL 07/02/22 [Rx Last Taken Unknown] amoxicillin 875 mg-potassium clavulanate 125 mg tablet 1 tab PO BID #10 tabs 01/21/23 [Rx Last Taken Unknown] prednisone 20 mg tablet 60 mg (3 x 20 mg) PO QDAY #15 tabs 01/21/23 [Rx Last Taken Unknown] Allergy/AdvReac Type Severity Reaction Status Date / Time codeine AdvReac made me Verified 02/02/23 19:22 do crazy things Family History Father Hypertension Heart disease Renal cancer Kidney disease Mother Diabetes Heart disease Surgical History History of herniorrhaphy Social History household members: spouse Smoking Status: Former smoker how long ago did patient quit smoking: Smoked 1.5-2 ppd since teen until quit 2002. alcohol intake: current alcohol intake frequency: holidays/special occasions only substance use type: does not use ROS ROS ED Constitutional Constitutional ED: Reports chills; Denies fever(s) Eyes Eyes: Denies blurry vision or change in vision ENT ENT ED: Denies rhinorrhea or sore throat Cardiovascular Cardiovascular: Denies chest pain or palpitations Respiratory/Chest Respiratory/Chest: Reports dyspnea; Denies cough Gastrointestinal Gastrointestinal: Denies nausea or vomiting Genitourinary Genitourinary ED: Denies dysuria or hematuria Musculoskeletal Musculoskeletal: Denies back pain or neck pain Integumentary Denies abscess or rash Neurologic Neurologic: Denies headache(s) or weakness Allergic/Immunologic Allergic/Immunologic ED: Denies mouth swelling or urticaria EXAM Physical Exam Const Vital Signs: 02/02/23 19:01 02/02/23 19:22 02/02/23 20:33 Temperature 98.6 F Temperature Source Temporal Pulse Rate 81 Respiratory Rate 20 H Respiratory Effort Labored Respiratory Pattern Tachypnea Blood Pressure 156/98 H Blood Pressure Mean 117 Pulse Ox 99 Oxygen Delivery Method Nasal Cannula Nasal Cannula Nasal Cannula Oxygen Flow Rate (L/min) 6 6 6 02/02/23 22:00 02/02/23 22:01 02/02/23 20:05 Temperature 98.7 F Temperature Source Oral Pulse Rate 75 Respiratory Rate 13 Respiratory Effort Respiratory Pattern Blood Pressure 158/82 H Blood Pressure Mean 107 Pulse Ox 99 97 97 Oxygen Delivery Method Nasal Cannula Nasal Cannula Nasal Cannula Oxygen Flow Rate (L/min) 9 7.5 9 02/02/23 22:05 Temperature 98.7 F Temperature Source Oral Pulse Rate 84 Respiratory Rate 16 Respiratory Effort Respiratory Pattern Blood Pressure 176/93 H Blood Pressure Mean 120 Pulse Ox 97 Oxygen Delivery Method Nasal Cannula Oxygen Flow Rate (L/min) 7.5 Positive well nourished, well developed and obese General Appearance ED: well developed and NAD Nutritional Appearance: obese HEENT Reports moist mucous membranes Neck supple and no JVD Resp normal respiratory effort Auscultation: diminished lung sounds diffuse Cardio regular rate and regular rhythm GI normal to inspection, nondistended, normoactive bowel sounds and non-tender Palpation: soft Extremity General Extremety ED: Yes edema; Negative for tenderness General Extremity: edema Neuro oriented x3, CN's II-XII intact bilaterally and no sensory deficits noted Sensorium / Orientation: alert Psych mental status grossly normal Skin no rashes or lesions noted MDM MDM MDM Narrative Medical decision making narrative: Differential diagnosis includes pneumonia, pneumothorax, cardiac dysrhythmia, cardiac ischemia, congestive heart failure, pulmonary embolism, COPD, COVID-19 infection, and influenza infection. CBC will be obtained to assess for leukocytosis and anemia. Basic metabolic profile will be obtained to assess for electrolyte abnormality and renal function. High-sensitivity troponin will be obtained to assess for cardiac ischemia. BNP will be obtained to assess for congestive heart failure. PT with INR and PTT will be obtained to assess for coagulopathy. EKG will be obtained to assess for cardiac dysrhythmia and cardiac ischemia. CTA of the chest will be obtained to assess for pulmonary embolism and aortic dissection. COVID-19 rapid antigen will be obtained to assess for COVID-19 infection. Influenza A and influenza B antigens will be obtained to assess for influenza infection. Lab Data Attestation: I reviewed the patient's lab results. Lab results narrative: CBC was reviewed. There is a slight anemia with a hemoglobin of 12.5. Hematocrit was normal at 41.5. PT with INR and PTT were reviewed. Pro time was 15.0 and INR was 1.2. PTT was slightly elevated at 43.5. Basic metabolic profile was reviewed and was essentially within normal limits. High-sensitivity troponin was reviewed and was normal at 17. BNP was reviewed and was normal at 52.8. COVID-19 rapid antigen was reviewed and was positive. Influenza A and influenza B antigens were reviewed and were negative. Labs: Laboratory Results - last 24 hr 02/02/23 17:40 WBC 10.3 RBC 4.65 Hgb 12.5 L Hct 41.5 MCV 89.2 MCH 26.9 L MCHC 30.1 L RDW Std Deviation 53.5 H RDW Coeff of Nick 16.6 H Plt Count 189 MPV 10.2 Immature Gran % (Auto) 0.600 Neut % (Auto) 74.7 H Lymph % (Auto) 5.2 L [place] % (Auto) 16.2 H Eos % (Auto) 2.6 Baso % (Auto) 0.7 Absolute Neuts (auto) 7.7 Absolute Lymphs (auto) 0.54 L Nucleated RBC % 0 Differential Comment SCANNED PT 15.0 H INR 1.2 APTT 43.5 H Sodium 136 Potassium 3.6 Chloride 99 Carbon Dioxide 32.0 Anion Gap 5 BUN 13 Creatinine 0.50 L Estim Creat Clear Calc 61.75 Est GFR (MDRD) Af Amer 206 Est GFR (MDRD) Non-Af 170 BUN/Creatinine Ratio 25.7 H Glucose 108 H Calcium 8.9 Troponin I High Sens 17 B-Natriuretic Peptide 52.8 Radiography Diagnostic Testing: Clinical Impression(s) from Imaging Studies Chest CTA 02/02/23 19:45 IMPRESSION: Diffuse patchy bilateral groundglass airspace disease, right upper lobe predominant, to include edema, pneumonia, or other inflammatory etiology. Likely associated new mediastinal adenopathy. Recommend follow-up to resolution. Distal pulmonary artery branch vessel evaluation is suboptimal secondary to timing of contrast bolus as well as respiratory motion, however, there is no obvious large proximal pulmonary embolus. 3 cm left thyroid lesion. Recommend nonemergent follow-up thyroid ultrasound to better characterize as malignant process is not excluded. Splenomegaly. Electronically Signed: All Lazo MD at 22:02 EDT , CTA of the chest was obtained. There is no evidence of pulmonary embolism. There is no aortic dissection. There is diffuse patchy groundglass airspace disease that is worse in the right upper lobe. There is mediastinal adenopathy noted. This was interpreted by the radiologist was also independently reviewed by myself. EKG Initial EKG: Attestation: I personally reviewed and interpreted this EKG as follows: Interpretation: Sinus Rhythm (78) and Non-Specific ST Changes Comments: EKG was obtained. On my independent interpretation, it showed a normal sinus rhythm with a rate of 78. MI interval, QRS interval, and QTc intervals were all normal. [place] was normal. There are nonspecific ST-T wave changes. Prior EKG tracings: available for review Prior: Unchanged (12/31/2022) Management Discussion w/another healthcare provider: Hospitalist Treatment and Re-Evaluation :: Patient was advised of his findings. Patient is feeling better on reevaluation. Case was discussed with the hospitalist. She will admit the patient to her s ervice. Patient and family understood and were agreeable with the plan. All questions were answered. Discharge Plan Triage Chief Complaint: Shortness of Breath ED Provider: Kelby Wilkins Dx/Rx/DC Orders Clinical Impression: COVID-19, Hypoxia, Pneumonia Prescriptions: No Action aspirin [Adult Low Dose Aspirin] 81 MG tablet,delayed release (DR/EC) 81 mg PO DAILY Patient Comments: Blood thinner for heart health citalopram 20 MG tablet 20 mg PO DAILY Patient Comments: Depression/anxiety multivitamin with folic acid [Thera] 1 TABLET tablet 1 tab PO DAILY Patient Comments: Supplement lisinopril 40 MG tablet 40 mg PO DAILY Eliquis 5 MG tablet 5 mg PO BID atorvastatin 20 MG tablet 20 mg PO QHS diltiazem HCl 180 mg Capsule,Extended Release 24hr 180 mg PO Q12 Qty: 60 1RF Rx Instructions: only takes 180mg daily amiodarone 200 mg Tablet 200 mg PO TID Qty: 90 0RF Rx Instructions: 200 mg 3 times daily until 07/07/2022 then 200 mg twice daily for 2 weeks until 07/21/2022 and then 200 mg once daily to continue; only takes the 200mg daily now sennosides-docusate sodium [Stool Softener-Stimulant Laxat] 8.6-50 mg Tablet 2 tab PO BID PRN (Reason: Constipation) Qty: 0 0RF Deep Sea Nasal 0.65 % Aerosol,[place] 1 spray NASAL BID PRN PRN (Reason: NASAL DRYNESS) Qty: 0 0RF Mucus Relief ER 1,200 mg Tablet Extended Release 12hr 1,200 mg PO BID Qty: 14 0RF albuterol sulfate 90 mcg/actuation aero powdr breath act w/sensor 2 inh inhalation Q6H PRN (Reason: shortness of breath or wheezing) Qty: 1 0RF furosemide [Lasix] 40 mg tablet 40 mg PO DAILY Qty: 30 1RF amoxicillin-pot clavulanate 875-125 mg tablet 1 tab PO BID Qty: 10 0RF prednisone 20 mg tablet 60 mg PO QDAY Qty: 15 0RF Rx Instructions: administer with food or milk Primary Care Provider: Landon Enamorado Referrals: Landon Enamorado MD [Primary Care Provider] - Disposition Disposition: Acute Care Hospital [facility]
--- NOTE | 2023-02-02 19:45 | CT_ITS ---
INDICATION: sob EXAMINATION: - CTA Chest WO/W Contrast Injection A radiation dose optimization technique was used for this scan. COMPARISON: Chest radiograph 12/31/[address] 08/13/2018.. FINDINGS: Contrast enhanced serial CTA axial images through the chest with coronal and sagittal reformatted series. Additional dedicated coronal and sagittal MIP reformatted series provided as well. IV Contrast dosage and agent: 100mL Isovue-370 Radiation CTDIvol 18.49 Radiation DLP 543.76 Significant streak artifact secondary to arm position left within field of view as well as body habitus and external support devices. MEDIASTINUM: No acute thoracic aortic abnormality. Hypoattenuating 3 cm heterogeneous left posterior thyroid lesion. Diffuse mediastinal adenopathy measuring up to 13 mm in the short axis, not seen previously. Distal pulmonary artery branch vessel evaluation is suboptimal secondary to timing of contrast bolus as well as respiratory motion, however, there are no obvious large proximal pulmonary artery filling defects. LUNG PARENCHYMA: Diffuse patchy bilateral groundglass airspace disease, right upper lobe predominant. PLEURA: No pleural effusion. No pneumothorax. BONES: Reverse S-shaped thoracic scoliosis.. UPPER ABDOMEN: Splenomegaly measuring up to 15 cm. Dependent cholelithiasis without pericholecystic fat stranding. CT/CTA Chest W/WO Contrast IMPRESSION: Diffuse patchy bilateral groundglass airspace disease, right upper lobe predominant, to include edema, pneumonia, or other inflammatory etiology. Likely associated new mediastinal adenopathy. Recommend follow-up to resolution. Distal pulmonary artery branch vessel evaluation is suboptimal secondary to timing of contrast bolus as well as respiratory motion, however, there is no obvious large proximal pulmonary embolus. 3 cm left thyroid lesion. Recommend nonemergent follow-up thyroid ultrasound to better characterize as malignant process is not excluded. Splenomegaly. Electronically Signed: All Lazo MD at 22:02 EDT ,
[2023-02-02 19:52] LABS: Absolute Lymphocyte Count 0.54 X10^3/uL (0.83-4.51); Absolute Neutrophil Count 7.7 X10^3/uL (2.0-7.7); Basophil# 0.07 X10^3/uL; Basophil% 0.7 % (0-1); Eosinophil# 0.27 X10^3/uL; Eosinophils% 2.6 % (0-5); Hematocrit 41.5 % (40-54); Hemoglobin 12.5 g/dL (13.0-16.5); Lymphocyte # 0.54 X10^3/ul (0.83-4.51); Lymphocyte % 5.2 % (19-41); Mean Corp Hgb Conc 30.1 g/dL (32-36); Mean Corpuscular Hgb 26.9 pg (27.0-32.0); Mean Corpuscular Volume 89.2 fL (80-94); Mean Platelet Vol. 10.2 fl (6.2-12.0); Monocyte# 1.67 X10^3/uL; Monocyte% 16.2 % (0-10); NRBC Flagged by Analyzer 0 % (0-5); Neutrophil # 7.68 X10^3/uL (2.7-7.7); Neutrophil % 74.7 % (47-70); POSITIVE DIFFERENTIAL YES; Platelet Count 189 K/mm3 (150-450); RBC Distribution Width CV 16.6 % (11.6-14.6); RBC Distribution Width SD 53.5 fl (35.1-43.9); Red Blood Count 4.65 M/mm3 (4.6-6.2); White Blood Count 10.3 K/mm3 (4.4-11.0)
[2023-02-02 20:11] LABS: BNP,B-Type NATRIURETIC PEPTIDE 52.8 pg/mL (0-100)
[2023-02-02 20:13] LABS: International Normalized Ratio 1.2
[2023-02-02 20:14] LABS: Anion Gap 5 (5-15); BUN 13 mg/dL (7-18); BUN/Creat Ratio 25.7 RATIO (10-20); Calcium,Total 8.9 mg/dL (8.5-10.1); Chloride 99 mmol/L (98-107); EST Glomerular Filtration Rate 170 mL/min (>60); Est Glom Filt Rate - Afr Amer 206 mL/min (>60); Estimated Creatinine Clearance 61.75 ml/min; Glucose 108 mg/dL (74-106); Partial Thromboplast Time 43.5 Seconds (24.1-36.2); Potassium 3.6 mmol/L (3.5-5.1); Sodium Level 136 mmol/L (136-145); Troponin-I HS 17 pg/mL (3.0-78.0)
[2023-02-02 20:18] LABS: Differential Indicated SCAN CRITERIA MET
[2023-02-02 20:47] LABS: Differential Comment SCANNED
--- NOTE | 2023-02-02 22:58 | HP.PCM.HOS_ITS ---
HPI - General General Date of Admission: 02/02/23 Date of Service: 02/02/23 Chief Complaint: Dyspnea, chills. HPI Narrative The patient is a 77 y/o M w/ PMHx: Chronic normocytic anemia, Chronic BL LE stasis disease, COPD w/ Chronic Hypoxic Respiratory Failure (4L NC however 12/31/2022 patient up to 6L nasal cannula), Aortic aneurysm, HTN, HLD, Morbid Obesity, Muscular Dystrophy wheelchair bound, Anxiety and Depression, Chronic dysphagia associated with MD, Chronic Diastolic CHF, Hx GI bleed prior, PAF, Chronic BL LE stasis wounds who presents to the [facility] ED on 02/02/23 with history of dyspnea initially gradual even at rest progressively worsening with subjective chills with no marked productive cough with some improvement with albuterol at home however noted significant hypoxia in the 70s and lower 80s prompting eventual ED evaluation. He denies any sore throat, rhinorrhea or pleuritic discomfort in his chest associated with his current presentation. He reports mild headache, sore throat both which have improved as well as mild decreased appetite but denies any nausea, emesis, diarrhea nor specifically fever but as noted chills. He has a health caregiver that comes in on who upon his evaluation for the duration of an hour had upper respiratory type symptoms with suspected sinus infection at that time however unfortunately she recently tested positive for COVID. Patient of note did receive the Moderna vaccination 1 and 2 but never had any follow-up boosters. Work-up in the ED included T98.6, heart rate 81, BP 156/98, respiratory rate 20, 99% on 6 L nasal cannula--> 97% on 7.5 L nasal cannula, CBC with WBC 10.3, hemoglobin 12.5, MCV 89.2, platelet 189 with lymphopenia, coags with PT 15, PTT 43.5, BMP not marked appearing, troponin 17, BNP 52.8, rapid COVID antigen positive, CTPA with diffuse patchy bilateral groundglass airspace disease, right upper lobe predominant, associated new mediastinal adenopathy, distal pulmonary artery branch vessel evaluation suboptimal secondary to timing of contrast bolus as well as respiratory motion however there is no evidence of any obvious large proximal pulmonary embolus, 3 cm left thyroid lesion, EKG with sinus rhythm with nonspecific ST changes with no acute evidence of ischemia. 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 Depression Diastolic CHF Dysphagia HTN (hypertension) Hyperlipemia Hyperlipidemia Hypertension Hypoxia Muscular dystrophy Home Medications aspirin 81 mg tablet,delayed release (Adult Low Dose Aspirin) 81 mg PO DAILY afib 05/26/15 [History Last Taken 08/27/22] citalopram 20 mg tablet 20 mg PO DAILY depression 05/26/15 [History Last Taken 08/27/22] multivitamin with folic acid 400 mcg tablet (Thera) 1 tab PO DAILY supplement 05/26/15 [History Last Taken 08/27/22] apixaban 5 mg tablet (Eliquis) 5 mg PO BID anti platelet 09/27/16 [History Last Taken 08/27/22] lisinopril 40 mg tablet 40 mg PO DAILY blood pressure 09/27/16 [History Last Taken 08/27/22] atorvastatin 20 mg tablet 20 mg PO QHS cholesterol 08/13/18 [History Last Taken 08/27/22] albuterol sulfate 90 mcg/actuation breath activated powder inhaler,sensor 2 inh inhalation Q6H PRN shortness of breath or wheezing #1 ea 07/02/22 [Rx Last Taken 08/28/22] diltiazem HCl 180 mg capsule,extended release 24 hr 180 mg PO Q12 #60 caps 07/02/22 [Rx Last Taken 08/27/22] guaifenesin 1,200 mg tablet, extended release 12 hr (Mucus Relief ER) 1,200 mg PO BID #14 tabs 07/02/22 [Rx Last Taken 08/27/22] sennosides 8.6 mg-docusate sodium 50 mg tablet (Stool Softener-Stimulant Laxative) 2 tab PO BID PRN Constipation #0 tabs 07/02/22 [Rx Last Taken Unknown] sodium chloride 0.65 % nasal spray aerosol (Deep Sea Nasal) 1 spray NASAL BID PRN PRN NASAL DRYNESS #0 mL 07/02/22 [Rx Last Taken Unknown] furosemide 40 mg tablet (Lasix) 30 mg PO Q12H 02/02/23 [History Last Taken Unknown] metoprolol succinate 50 mg capsule sprinkle, ext. release 24 hr 50 mg PO DAILY 02/02/23 [History Last Taken Unknown] Allergy/AdvReac Type Severity Reaction Status Date / Time codeine AdvReac made me Verified 02/02/23 19:22 do crazy things Family History Father Hypertension Heart disease Renal cancer Kidney disease Mother Diabetes Heart disease Surgical History History of herniorrhaphy Social History household members: spouse Smoking Status: Former smoker how long ago did patient quit smoking: Smoked 1.5-2 ppd since teen until quit 2002. alcohol intake: current alcohol intake frequency: holidays/special occasions only substance use type: does not use ROS ROS Narrative Admission Review of Systems: CONSTITUTIONAL: No weight loss, fever, + chills, weakness or fatigue. HEENT: + Sore throat, mild headache. Eyes: No visual loss, blurred vision, double vision or yellow sclerae. Ears, Nose, Throat: No hearing loss, sneezing, congestion, runny nose. SKIN: + Bilateral lower extremity chronic venous stasis skin changes. CARDIOVASCULAR: No chest pain, chest pressure or chest discomfort, palpitations, edema, orthopnea, syncopal events. RESPIRATORY: + shortness of breath, cough without marked sputum, No wheezing, No hemoptysis. GASTROINTESTINAL: No anorexia, nausea, vomiting or diarrhea, abdominal pain, melena, BRBPR. GENITOURINARY: No dysuria, frequency, urgency or retention. NEUROLOGICAL: + Severe functional paraplegia secondary to MDD, wheelchair bound, mild headache. No dizziness, syncope, paralysis, ataxia, change in bowel or bladder control, seizure. MUSCULOSKELETAL: + No muscle, back pain, joint pain or stiffness. HEMATOLOGIC: + anemia, bleeding or bruising. LYMPHATICS: No enlarged nodes. No history of splenectomy. PSYCHIATRIC: + history of depression or anxiety. ENDOCRINOLOGIC: No reports of sweating, cold or heat intolerance. No polyuria or polydipsia. ALLERGIES: No history of asthma, hives, eczema or rhinitis. Vital Signs Vital Signs Vital Signs: 02/02/23 19:01 02/02/23 19:22 02/02/23 20:33 Temperature 98.6 F Temperature Source Temporal Pulse Rate 81 Respiratory Rate 20 H Respiratory Effort Labored Respiratory Pattern Tachypnea Blood Pressure 156/98 H Blood Pressure Mean 117 Pulse Ox 99 Oxygen Delivery Method Nasal Cannula Nasal Cannula Nasal Cannula Oxygen Flow Rate (L/min) 6 6 6 02/02/23 22:00 02/02/23 22:01 02/02/23 20:05 Temperature 98.7 F Temperature Source Oral Pulse Rate 75 Respiratory Rate 13 Respiratory Effort Respiratory Pattern Blood Pressure 158/82 H Blood Pressure Mean 107 Pulse Ox 99 97 97 Oxygen Delivery Method Nasal Cannula Nasal Cannula Nasal Cannula Oxygen Flow Rate (L/min) 9 7.5 9 02/02/23 22:05 Temperature 98.7 F Temperature Source Oral Pulse Rate 84 Respiratory Rate 16 Respiratory Effort Respiratory Pattern Blood Pressure 176/93 H Blood Pressure Mean 120 Pulse Ox 97 Oxygen Delivery Method Nasal Cannula Oxygen Flow Rate (L/min) 7.5 Weight Weight: 298 lb 1.039 oz Body Mass Index (BMI) 45.3 Physical Exam Narrative Physical Examination: General: Awake, alert, oriented x 3 and cooperative, seated upright in the ED bed, fatigued, intermittent cough (dry) during evaluation. Skin: Normal color except notable facial suburn and bilateral lower extremity stasis skin changes otherwise no icterus, no cyanosis except for notable . HEENT: AT/NC, EOMI, PERRLA, mildly dry MM, no carotid bruits or JVD noted; however, very thickened neck makes evaluation difficult. Lungs: Significantly diminished, > bases, appropriate effort, no evidence of any distress, no no marked rales, rhonchi or wheezing. Heart: Regular rate and rhythm; no gallop, rub audible. Abdomen: Soft, morbidly obese, NTTP, unable to discern distention given habitus, very distant bowel sounds, unable to discern HSM secondary to habitus Extremities: No cyanosis, no marked clubbing, significant bilateral lower extremity stasis skin changes, edema which is chronic and unchanged per patient Neurological: Patient awake, alert, oriented as noted, cognitive function intact; pupils equally reactive to light and accommodation, cranial nerves II- XII grossly normal, patient with significant functional paraplegia secondary to underlying muscular dystrophy, strength accordingly severely global decrease. Psychiatric: Affect appears flat, fatigued, ill appearing, no acute evidence of depressive or anxiety feelings. Results Lab / Micro Data 02/02/23 17:40 02/02/23 17:40 Labs: Laboratory Results - last 24 hr 02/02/23 17:40: WBC 10.3, RBC 4.65, Hgb 12.5 L, Hct 41.5, MCV 89.2, MCH 26.9 L, MCHC 30.1 L, RDW Std Deviation 53.5 H, RDW Coeff of Nick 16.6 H, Plt Count 189, MPV 10.2, Immature Gran % (Auto) 0.600, Neut % (Auto) 74.7 H, Lymph % (Auto) 5.2 L, [place] % (Auto) 16.2 H, Eos % (Auto) 2.6, Baso % (Auto) 0.7, Absolute Neuts (auto) 7.7, Absolute Lymphs (auto) 0.54 L, Nucleated RBC % 0, Differential Comment SCANNED, PT 15.0 H, INR 1.2, APTT 43.5 H, Sodium 136, Potassium 3.6, Ch loride 99, Carbon Dioxide 32.0, Anion Gap 5, BUN 13, Creatinine 0.50 L, Estim Creat Clear Calc 61.75, Est GFR (MDRD) Af Amer 206, Est GFR (MDRD) Non-Af 170, BUN/Creatinine Ratio 25.7 H, Glucose 108 H, Calcium 8.9, Troponin I High Sens 17, B-Natriuretic Peptide 52.8 Micro: Microbiology 02/02/23 19:30 Nasal Secretion SARS-CoV-2 & FLU Antigen (Rapid) - Final Radiology Impression Chest CTA 02/02/23 19:45 IMPRESSION: Diffuse patchy bilateral groundglass airspace disease, right upper lobe predominant, to include edema, pneumonia, or other inflammatory etiology. Likely associated new mediastinal adenopathy. Recommend follow-up to resolution. Distal pulmonary artery branch vessel evaluation is suboptimal secondary to timing of contrast bolus as well as respiratory motion, however, there is no obvious large proximal pulmonary embolus. 3 cm left thyroid lesion. Recommend nonemergent follow-up thyroid ultrasound to better characterize as malignant process is not excluded. Splenomegaly. Electronically Signed: All Lazo MD at 22:02 EDT , Assessment & Plan Assessment/Plan (1) Pneumonia due to COVID-19 virus: (2) Acute and chronic respiratory failure: PLAN: Plan The patient is a 77 y/o M w/ PMHx: Chronic normocytic anemia, Chronic BL LE stasis disease, COPD w/ Chronic Hypoxic Respiratory Failure (4L NC however 12/31/2022 patient up to 6L nasal cannula), Aortic aneurysm, HTN, HLD, Morbid Obesity, Muscular Dystrophy wheelchair bound, Anxiety and Depression, Chronic dysphagia associated with MD, Chronic Diastolic CHF, Hx GI bleed prior, PAF, Chronic BL LE stasis wounds who presents to the [facility] ED on 02/02/23 with history of dyspnea initially gradual even at rest progressively worsening with subjective chills with no marked productive cough with some improvement with albuterol at home however noted significant hypoxia in the 70s and lower 80s prompting eventual ED evaluation. #1. Acute Hypoxic on Chronic Hypoxic Respiratory Failure secondary to Acute Bilateral Pneumonia secondary to Acute Viral Syndrome, COVID-19 complicated by underlying COPD w/ Chronic Hypoxic Respiratory Failure (4L NC however 12/31/2022 patient up to 6L nasal cannula): Will admit to the NH telemetry, maintain on COVID precautions, will maintain on oxygen with wean as tolerated to home supplementation, ATC duoneb therapies, PRN albuterol, HOB, IS parameters w/ pending sputum cultures, COVID PCR to assure true positive and until confirmed to be cautious given pseudomonas history will place on IV Zosyn, full respirator y viral panel and urine antigens, vest therapy, aggressive pulmonary toileting, will obtain hepatic profile, D-dimer, procalcitonin, CRP, Ferritin, LDH, continue supportive care including q 2 hour turning including prone given no prone bed availability and judicious hydration, closely monitor for worsening status for ARDS and multiorgan failure, will initiate and continue IV decadron x 10 doses, given presentation will also initiate IV remdesivir but defer to discretion of Infectious disease. If respiratory status worsens low threshold to transition to airvo or BIPAP with pulmonary assessment. #2. Incidental left thyroid lesion: CTPA with a 3 cm left thyroid lesion, TSH/FT4 ordered, will need to have outpatient follow-up thyroid ultrasound to further assess. #3. Chronic diastolic CHF w/ Chronic BL LE edema/stasis wounds: 06/29/2022 ECHO with normal LV size, normal LV systolic function, EF 60%. Given presentation will judiciously hydration, continue home aspirin, Eliquis, metoprolol, lisinopril and Lasix home regimen. Place FILEMON wraps with BL LE elevation. Wound RN consultation and dressings. #4. Chronic normocytic anemia: Admission hemoglobin 12.5, MCV 89.2, baseline hemoglobin 11-12, will continue to trend. #5. Muscular dystrophy with essentially functional paraplegia: Patient with chronic hypoxia, debility, wheelchair-bound, chronic dysphagia, will continue oxygen supplementation with wean as able complicated by acute presentation #1 as noted, maintain on fall and aspiration precautions, barrier cream usage, offloading, PT/OT/CM consultation for discharge planning. #6. Reported per record aortic aneurysm: Last Abdominal US 07/07/20 with normal intra-abdominal aortic dimensions without evidence of aneursymal dilation and last CTA abdomen and pelvis noted 08/13/2018 with ectasia of the infrarenal aorta with a diameter of 2.8 cm but no true aneurysm. #7. PAF: Will continue Eliquis, amiodarone, metoprolol and diltiazem home regimen. #8. Hypertension: Continue home regimen including metoprolol, lisinopril, Lasix, diltiazem home regimen, PRN hydralazine. #9. Hyperlipidemia: We will continue patient on statin therapy. #10. Anxiety and depression: We will continue patient home citalopram regimen. #11. Morbid Obesity: Weight loss and lifestyle changes encouraged. #12. DVT prophylaxis: Continue patient home Eliquis regimen. #13. CODE status: Patient HCPOA is his and living will is in place. Discussed CODE status at length including difference between FULL code, DNR-CCA and DNR-CC status. Following discussions about the differences in these status, requested Full Code status. Patient amenable to airvo and BIPAP if needed. Also, amenable to usage of antiviral regimen. Advanced Care Planning Face to Face Time: 16 minutes. Charges/Coding Visit Charges Inpatient E&M: 52076 Init Hosp L3 Procedures Hospitalists Procedures: 22124 Advncd Care Plan 30 Min
[2023-02-02] MEDS: dexAMETHasone 10 MG/ML Vial 6 MG IV (23:28)
[2023-02-03] VITALS (14 sets, daily range): BP systolic 112–169; BP diastolic 64–87; PULSE 59–91; RESP 18–20; TEMP 36.2–38.5; O2SAT 94–99; BMI 44.4
[2023-02-03 00:12] LABS: AST(SGOT) 27 U/L (15-37); Alanine Aminotransfer ALT/SGPT 55 U/L (16-61); Albumin, Serum 3.2 g/dL (3.2-5.0); Alkaline Phosphatase 120 U/L (45-117); Bilirubin, Direct 0.18 mg/dL (0.00-0.30); Ferritin 168 ng/mL (26-388); Globulin 4.3 g/dL (2.2-4.2); LDH 177 U/L (87-241); Protein, Total 7.5 g/dL (6.4-8.2)
[2023-02-03 00:14] LABS: D-Dimer Quantitative (DVT/PE) 0.41 FEU/ug/m (0.27-0.49)
[2023-02-03] MEDS: Albuterol 2.5 MG/3 ML VIAL.NEB. INHALATION (00:15)
[2023-02-03 00:21] LABS: Procalcitonin 0.14 ng/mL (0.00-0.09)
[2023-02-03] MEDS: 0.9% Normal Saline 1,000 ML 75 ML IV (00:59)
[2023-02-03] MEDS: Acetaminophen 325 MG Tablet 650 MG PO (00:59)
[2023-02-03] MEDS: Ondansetron 4 MG/2 ML Vial IV (01:07)
[2023-02-03] MEDS: dilTIAZem CD 180 MG Capsule PO ×3 (01:15→21:02)
[2023-02-03] MEDS: APIXABAN 5 MG TABLET PO ×3 (01:15→21:02)
[2023-02-03] MEDS: Nystatin Powder 15gm Bottle 1 APPLIC TOPICAL ×3 (01:16→20:59)
[2023-02-03] MEDS: Atorvastatin Calcium 20 MG Tablet PO ×2 (01:16→21:02)
[2023-02-03 04:54] LABS: Probe Check PASS
[2023-02-03 04:56] LABS: M R Staph aureus DNA By PCR POSITIVE (Negative)
[2023-02-03 06:41] LABS: Absolute Lymphocyte Count 0.39 X10^3/uL (0.83-4.51); Absolute Neutrophil Count 6.9 X10^3/uL (2.0-7.7); Basophil# 0.04 X10^3/uL; Basophil% 0.5 % (0-1); Eosinophil# 0.02 X10^3/uL; Eosinophils% 0.3 % (0-5); Hematocrit 37.8 % (40-54); Hemoglobin 11.4 g/dL (13.0-16.5); Lymphocyte # 0.39 X10^3/ul (0.83-4.51); Mean Corp Hgb Conc 30.2 g/dL (32-36); Mean Corpuscular Volume 89.4 fL (80-94); Mean Platelet Vol. 10.2 fl (6.2-12.0); Monocyte# 0.33 X10^3/uL; Monocyte% 4.3 % (0-10); NRBC Flagged by Analyzer 0 % (0-5); Neutrophil # 6.94 X10^3/uL (2.7-7.7); Neutrophil % 89.5 % (47-70); POSITIVE DIFFERENTIAL YES; Platelet Count 185 K/mm3 (150-450); RBC Distribution Width CV 16.3 % (11.6-14.6); RBC Distribution Width SD 53.2 fl (35.1-43.9); Red Blood Count 4.23 M/mm3 (4.6-6.2); White Blood Count 7.8 K/mm3 (4.4-11.0)
[2023-02-03 06:42] LABS: Differential Indicated SCAN CRITERIA MET
[2023-02-03 07:03] LABS: Differential Comment SCANNED
[2023-02-03] MEDS: Ipratropium/Albuterol Sulfate 3 ML AMPUL.NEB INHALATION ×4 (07:37→22:05)
[2023-02-03 07:41] LABS: ALB/GLOB Ratio 0.7 RATIO (0.9-2.4); AST(SGOT) 21 U/L (15-37); Alanine Aminotransfer ALT/SGPT 44 U/L (16-61); Albumin, Serum 2.5 g/dL (3.2-5.0); Alkaline Phosphatase 90 U/L (45-117); Anion Gap 7 (5-15); BUN 9 mg/dL (7-18); BUN/Creat Ratio 28.8 RATIO (10-20); Calcium,Total 8.4 mg/dL (8.5-10.1); Chloride 101 mmol/L (98-107); Creatinine, Serum 0.31 mg/dL (0.70-1.30); EST Glomerular Filtration Rate 297 mL/min (>60); Est Glom Filt Rate - Afr Amer 359 mL/min (>60); Estimated Creatinine Clearance 61.75 ml/min; Globulin 3.8 g/dL (2.2-4.2); Glucose 138 mg/dL (74-106); Potassium 3.4 mmol/L (3.5-5.1); Protein, Total 6.3 g/dL (6.4-8.2); Sodium Level 138 mmol/L (136-145); T4 Free Direct 1.58 ng/dL (0.76-1.46)
[2023-02-03] MEDS: Aspirin E.C. 81 MG Tablet PO (09:57)
[2023-02-03] MEDS: Potassium Chloride Oral Tablet 20 MEQ 40 MEQ PO (09:57)
[2023-02-03] MEDS: Furosemide 40 MG/4 ML Vial IV ×2 (09:57→16:58)
[2023-02-03] MEDS: Citalopram 20 MG Tablet PO (09:58)
[2023-02-03] MEDS: dexAMETHasone 4 MG/ML Vial 6 MG IV (09:58)
[2023-02-03] MEDS: Metoprolol(XL)Succ 50 MG Tablet PO (09:58)
[2023-02-03] MEDS: Multivitamins,Therapeutic Tablet 1 TABLET PO (09:58)
[2023-02-03] MEDS: Menthol/Lanolin/Calamine/Znox 113 GM Tube 1 APPLIC TOPICAL ×4 (10:02→20:59)
[2023-02-03] MEDS: Senna/Docusate Sodium 1 Tablet 2 TABLET PO ×2 (12:53→20:59)
--- NOTE | 2023-02-03 14:47 | CASEMGMT ---
JESSICA TRAMMELL Face to Face with patient for initial transition planning/care coordination assessment. JESSICA TRAMMELL introduced self and role at [facility]. Patient lying in bed, alert and oriented. Patient willing to participate in assessment and is able to answer all questions appropriately. Care providers, pharmacy, and demographics verified. Patient wishes to discharge home, denies need for home health at this time. Patient states he has no further needs or concerns at this time. CM to follow for discharge planning needs that may arise. PCP: Fei Specialists: Hadley, window unit air conditioning mechanic; Sabrina, alumina plant supervisor Preferred Pharmacy: [facility]; [facility] Retail at discharge Insurance: [employer] [facility] Prescription Benefit: yes Living Will/HPOA: yes, Roselia Ma LNOK: Living Arrangements: Patient lives with in a mobile home with ramp to enter the home. Patient has aides that assist with ADLs, but patient is able to do some things on his own. Transportation: DME/HHC: Patient has BSC, hospital bed, jamin, wheelchair, nebulizer, pulse ox, and home oxygen through [facility] at 2lpm. JESSICA TRAMMELL called [facility] and order is verified at 2lpm continuously. Patient has had [facility] in the past. [facility] for 2 hrs in am and 1 hr in evening. Disposition Plan: Patient to discharge home with family support, aides services, and follow-up plans in place. Will monitor for increase in home oxygen. Kamilla RENNER, RN, CM
--- NOTE | 2023-02-03 15:21 | PCM.PN.HOSP ---
Reason for Visit Reason for Visit: Diagnoses Pneumonia due to coronavirus disease 2019 (02/02/23) Acute and chronic respiratory failure, unspecified whether with hypoxia or hypercapnia (02/02/23) COVID-19 (02/02/23) Subjective Subjective Patient seen at bedside this morning. Sitting up comfortably in bed, conversing normally, no acute distress. Denies any shortness of breath at rest this morning. He generally feels fairly well, denies any fevers or chills or body aches. Denies any cough or sputum production. No other acute concerns. Objective Data Objective Data Vital Signs: Vital Signs Temp Pulse Resp BP Pulse Ox O2 Del Method O2 Flow Rate 97.1 F L 59 L 18 131/74 H 98 Nasal Cannula 4 02/03/23 14:53 02/03/23 14:53 02/03/23 14:53 02/03/23 14:53 02/03/23 14:53 02/03/23 15:10 02/03/23 15:10 Oxygen Flow Rate (L/min) 4 Oxygen Delivery Method Nasal Cannula Weight: 132.5 kg Body Mass Index (BMI) 44.4 Intake & Output: Intake and Output for Last 24 Hours 02/01/23 02/02/23 02/03/23 23:59 23:59 23:59 Intake Total 4.17 / 4.17 1349.58 / 1349.58 Output Total 1800 / 1800 Balance 4.17 / 4.17 -450.42 / -450.42 Lab / Micro Data Attestation: I reviewed the patient's lab results. 02/03/23 06:27 02/03/23 06:27 Labs: Laboratory Results - last 24 hr 02/02/23 17:40: WBC 10.3, RBC 4.65, Hgb 12.5 L, Hct 41.5, MCV 89.2, MCH 26.9 L, MCHC 30.1 L, RDW Std Deviation 53.5 H, RDW Coeff of Nick 16.6 H, Plt Count 189, MPV 10.2, Immature Gran % (Auto) 0.600, Neut % (Auto) 74.7 H, Lymph % (Auto) 5.2 L, Ashley % (Auto) 16.2 H, Eos % (Auto) 2.6, Baso % (Auto) 0.7, Absolute Neuts (auto) 7.7, Absolute Lymphs (auto) 0.54 L, Nucleated RBC % 0, Differential Comment SCANNED, PT 15.0 H, INR 1.2, APTT 43.5 H, D-Dimer Quant (PE/DVT) 0.41, Sodium 136, Potassium 3.6, Chloride 99, Carbon Dioxide 32.0, Anion Gap 5, BUN 13, Creatinine 0.50 L, Estim Creat Clear Calc 61.75, Est GFR (MDRD) Af Amer 206, Est GFR (MDRD) Non-Af 170, BUN/Creatinine Ratio 25.7 H, Glucose 108 H, Calcium 8.9, Magnesium 2.0, Ferritin 168, Total Bilirubin 0.40, Direct Bilirubin 0.18, AST 27, ALT 55, Alkaline Phosphatase 120 H, Lactate Dehydrogenase 177, Troponin I High Sens 17, C-React Prot Ext Range 94.70 H, B-Natriuretic Peptide 52.8, Total Protein 7.5, Albumin 3.2, Globulin 4.3 H 02/02/23 23:45: Procalcitonin 0.14 H 02/03/23 01:45: MRSA (PCR) POSITIVE H 02/03/23 06:27: WBC 7.8, RBC 4.23 L, Hgb 11.4 L, Hct 37.8 L, MCV 89.4, MCH 27.0, MCHC 30.2 L, RDW Std Deviation 53.2 H, RDW Coeff of Nick 16.3 H, Plt Count 185, MPV 10.2, Immature Gran % (Auto) 0.400, Neut % (Auto) 89.5 H, Lymph % (Auto) 5.0 L, Ashley % (Auto) 4.3, Eos % (Auto) 0.3, Baso % (Auto) 0.5, Absolute Neuts (auto) 6.9, Absolute Lymphs (auto) 0.39 L, Nucleated RBC % 0, Differential Comment SCANNED, Sodium 138, Potassium 3.4 L, Chloride 101, Carbon Dioxide 30.0, Anion Gap 7, BUN 9, Creatinine 0.31 L, Estim Creat Clear Calc 61.75, Est GFR (MDRD) Af Amer 359, Est GFR (MDRD) Non-Af 297, BUN/Creatinine Ratio 28.8 H, Glucose 138 H, Calcium 8.4 L, Total Bilirubin 0.30, AST 21, ALT 44, Alkaline Phosphatase 90, Total Protein 6.3 L, Albumin 2.5 L, Globulin 3.8, Albumin/Globulin Ratio 0.7 L, TSH 0.30 L, Free T4 1.58 H Micro: Microbiology 02/03/23 01:30 Sputum, Expectorated/Coughed Gram Stain - Final 02/02/23 19:30 Nasal Secretion SARS-CoV-2 & FLU Antigen (Rapid) - Final SARS-CoV-2 (COVID 19) 02/03/23 02:50 Urine, Clean Catch Streptococcus pneumoniae Antigen (M - Final 02/03/23 02:50 Urine, Clean Catch Legionella Antigen - Final 02/02/23 23:40 Mucosa - Nasopharyngeal Coronavirus COVID-19 PCR - Final SARS-CoV-2 (COVID 19 PCR) 02/02/23 23:40 Mucosa - Nasopharyngeal Respiratory Panel (PCR) - Final Radiography Diagnostic Testing: Radiology Impression Chest CTA 02/02/23 19:45 IMPRESSION: Diffuse patchy bilateral groundglass airspace disease, right upper lobe predominant, to include edema, pneumonia, or other inflammatory etiology. Likely associated new mediastinal adenopathy. Recommend follow-up to resolution. Distal pulmonary artery branch vessel evaluation is suboptimal secondary to timing of contrast bolus as well as respiratory motion, however, there is no obvious large proximal pulmonary embolus. 3 cm left thyroid lesion. Recommend nonemergent follow-up thyroid ultrasound to better characterize as malignant process is not excluded. Splenomegaly. Electronically Signed: All Lazo MD at 22:02 EDT Reading Location ID and State: [facility] / [place] Tel , Service support , Physical Exam Const alert and oriented x3 Constitutional Narrative: Pleasant obese male, sitting up comfortably in bed, conversing normally, no acute distress. Satting well on 5 L nasal cannula, no increased work of breathing noted. General Appearance: cooperative, comfortable, well kempt and well developed HEENT normocephalic, head/scalp atraumatic, hearing grossly normal bilaterally, nasal mucous membranes and turbinates normal and moist oral mucous membranes Eyes PERRL, EOMs intact bilaterally and conjunctivae normal Neck full ROM, no lymphadenopathy and supple Lymph Lymphatic: no lymphadenopathy noted Chest inspection of chest normal Resp Resp Narrative: Mild crackles noted bilaterally. Good air movement throughout bilaterally. No wheezes, rales or rhonchi. Cardio regular rate, regular rhythm, no murmurs and peripheral pulses 2+ throughout GI normal to inspection, nondistended, normoactive bowel sounds, soft to palpation, non-tender and non-distended Back/Spine normal ROM Extremity normal to inspection, full ROM and no pedal edema Skin no rashes or lesions noted Psych mental status grossly normal Assessment & Plan Assessment/Plan (1) COVID-19: (2) Acute and chronic respiratory failure: PLAN: Plan Patient is a 77-year-old male with history significant for COPD on home 2 L nasal cannula (has been using between 4 to 6 L recently), muscular dystrophy (wheelchair-bound), morbid obesity, diastolic heart failure, lower extremity edema with stasis wounds, paroxysmal atrial fibrillation, hypertension, hyperlipidemia and anxiety/depression who presented to [facility] on 02/02 with worsening dyspnea. 1. Acute on chronic hypoxic respiratory failure secondary to COVID-pneumonia COVID-positive on admission. CT chest showed diffuse patchy bilateral groundglass airspace disease, right upper lobe predominant with mediastinal adenopathy. Patient is prescribed 2 L nasal cannula at home but reports that he has been using 4 to 6 L over the last few weeks. Currently on 5 L nasal cannula and satting in the low 90s. No increased work of breathing noted. Patient reports no cough or sputum production. Denies any fevers or body aches. C-reactive protein of 95. Normal blood cell, procalcitonin 0.14. Urine antigens negative, sputum culture with no growth to date, respiratory panel otherwise negative. -Initiated on Decadron 6 mg daily plus remdesivir in the ED. Continue Decadron and remdesivir for now. If patient remains stable and/or show signs of improvement, will likely be stable for discharge home tomorrow. We will plan to complete 10-day course of steroids, but would discontinue remdesivir at discharge. Continue home inhalers. Incentive spirometry at bedside. Increased diuretics for today for dry lung strategy as noted below. 2. Chronic diastolic heart failure Not in an acute exacerbation. Last echo in 06/2022 showed EF 60%, normal LV size, normal LV systolic function. Home medications of Lasix 30 mg twice daily, aspirin, Eliquis, metoprolol 50 mg daily, lisinopril 40 mg daily. -We will increase to IV Lasix 40 mg twice daily for today. Recheck BMP tomorrow morning, and likely return to home dosing. Hold lisinopril for now. Continue other home medications. 3. Incidental left thyroid lesion CTPA on admit showed a 3 cm left thyroid lesion. Unclear if noted on previous scans. TSH 0.30, free T4 1.58. -No inpatient needs. Follow-up outpatient. 4. Muscular dystrophy with essentially functional paraplegia -Patient with chronic hypoxia, debility, wheelchair-bound, chronic dysphagia. Fall and aspiration precautions. Barrier cream usage. Offloading. PT/OT/case management consulted for discharge planning. We will plan for discharge home; patient already has home health care services set up. 5. Chronic normocytic anemia -Admission hemoglobin 12.5. Baseline hemoglobin 11-12. No need to monitor. 6. Paroxysmal A-fib ? Continue home Eliquis, amiodarone, metoprolol and diltiazem. 7. Hypertension ? Holding lisinopril as above. Otherwise continue home regimen. 8. Hyperlipidemia ? Continue home statin. 9. Anxiety and depression ? Continue home citalopram. 10. Morbid obesity ? Weight loss and lifestyle changes encouraged. DVT prophylaxis: Eliquis CODE STATUS: Full code, verified Expected disposition: Home, 1 to 2 days Total clinical time spent by myself addressing the patient's medical issues, reviewing all of the data, and collaborating with patient's care team: 35 minutes. Charges/Coding Visit Charges Inpatient E&M: 10376 Subs Hosp L2
--- NOTE | 2023-02-03 15:22 | CHAPLAIN ---
Type of Pastoral Visit ___ Initial Visit ___ Follow-up Visit ___ On-call Visit ___ General Patient Visit ___ Spiritual Assessment ___ Family Conference ___ Bereavement ___ Rapid Response ___ Code Blue ___ Other (describe below) Pastoral Care Referral From ___ Patient ___ Family ___ Nurse ___ Physician ___ Research Scientist ___ Pedigree Tracer ___ Other (describe below) Sacrament/Intervention ___ Active listening ___ Anointing ___ Religious ___ Bereavement ___ Communion ___ Odalys exploration ___ ___ Life review ___ Prayer ___ Reconciliation ___ Sacrament of Sick ___ Supportive presence ___ Wedding ___ Other (describe below) Pastoral Comments phone call made into isolation room but there was only a message patient is not available;
--- NOTE | 2023-02-03 15:54 | CASEMGMT ---
Patient has a Healthcare Power of Glove Parts Inspector and a Healthcare Living Will on file at [facility]. Patient's Roselia is patient's Healthcare Power of Glove Parts Inspector. Keara MANCINI
[2023-02-03] MEDS: Juven (unflavored) Packet 1 PACKET PO (16:53)
[2023-02-03] MEDS: 0.9% Saline Lock 10 ML Syringe IV (20:59)
[2023-02-04] VITALS (12 sets, daily range): BP systolic 119–134; BP diastolic 60–80; PULSE 64–79; RESP 16–20; TEMP 36.4–37.1; O2SAT 93–99; BMI 44.8
[2023-02-04] MEDS: Albuterol 2.5 MG/3 ML VIAL.NEB. INHALATION (05:10)
[2023-02-04] MEDS: Nystatin Powder 15gm Bottle 1 APPLIC TOPICAL (05:20)
[2023-02-04 07:11] LABS: Anion Gap 4 (5-15); BUN 17 mg/dL (7-18); BUN/Creat Ratio 48.7 RATIO (10-20); Calcium,Total 8.9 mg/dL (8.5-10.1); Chloride 100 mmol/L (98-107); Creatinine, Serum 0.35 mg/dL (0.70-1.30); EST Glomerular Filtration Rate 261 mL/min (>60); Est Glom Filt Rate - Afr Amer 315 mL/min (>60); Estimated Creatinine Clearance 61.75 ml/min; Glucose 123 mg/dL (74-106); Potassium 3.7 mmol/L (3.5-5.1); Sodium Level 136 mmol/L (136-145)
[2023-02-04] MEDS: Ipratropium/Albuterol Sulfate 3 ML AMPUL.NEB INHALATION ×3 (07:18→15:33)
[2023-02-04] MEDS: Multivitamins,Therapeutic Tablet 1 TABLET PO (10:01)
[2023-02-04] MEDS: Aspirin E.C. 81 MG Tablet PO (10:01)
[2023-02-04] MEDS: Juven (unflavored) Packet 1 PACKET PO (10:01)
[2023-02-04] MEDS: dexAMETHasone 4 MG/ML Vial 6 MG IV (10:02)
[2023-02-04] MEDS: dilTIAZem CD 180 MG Capsule PO (10:02)
[2023-02-04] MEDS: APIXABAN 5 MG TABLET PO (10:02)
[2023-02-04] MEDS: Menthol/Lanolin/Calamine/Znox 113 GM Tube 1 APPLIC TOPICAL (10:02)
[2023-02-04] MEDS: Citalopram 20 MG Tablet PO (10:03)
[2023-02-04] MEDS: Metoprolol(XL)Succ 50 MG Tablet PO (10:03)
[2023-02-04] MEDS: Furosemide 40 MG Tablet PO (10:11)
--- NOTE | 2023-02-04 13:25 | DCINST_ITS ---
Discharge Instructions Diet Discharge Diet: No restrictions Activity Discharge Activity: Return to Normal Activity Weight Bearing Status: Weight bearing as tolerated Follow Up Care Please Follow Up With: Landon Enamorado MD When: as needed Test Results: Test results from this visit will be discussed in further detail at your follow- up appointment, if applicable. Pending Tests Upon Discharge: none Discharge Plan Admission Admit Date/Time: 02/02/23 23:03 Primary Reason for Your Visit: COVID pneumonia Attending Provider: Vince Valdivia Primary Care Provider: Landon Enamorado Consulting Providers: Mae Domingo Instructions Additional Instructions / Restrictions: Please complete a 7-day course of steroids as we discussed. Can schedule a follow-up appointment with your primary care provider as needed. Discharge Orders/Prescriptions Prescriptions: New prednisone 20 mg tablet 40 mg PO DAILY 5 Days Qty: 10 0RF Continued aspirin [Adult Low Dose Aspirin] 81 MG tablet,delayed release (DR/EC) 81 mg PO DAILY Patient Comments: Blood thinner for heart health citalopram 20 MG tablet 20 mg PO DAILY Patient Comments: Depression/anxiety multivitamin with folic acid [Thera] 1 TABLET tablet 1 tab PO DAILY Patient Comments: Supplement Eliquis 5 MG tablet 5 mg PO BID atorvastatin 20 MG tablet 20 mg PO QHS diltiazem HCl 180 mg Capsule,Extended Release 24hr 180 mg PO Q12 Qty: 60 1RF Rx Instructions: only takes 180mg daily sennosides-docusate sodium [Stool Softener-Stimulant Laxat] 8.6-50 mg Tablet 2 tab PO BID PRN (Reason: Constipation) Qty: 0 0RF Deep Sea Nasal 0.65 % Aerosol,[place] 1 spray NASAL BID PRN PRN (Reason: NASAL DRYNESS) Qty: 0 0RF Mucus Relief ER 1,200 mg Tablet Extended Release 12hr 1,200 mg PO BID Qty: 14 0RF albuterol sulfate 90 mcg/actuation aero powdr breath act w/sensor 2 inh inhalation Q6H PRN (Reason: shortness of breath or wheezing) Qty: 1 0RF metoprolol succinate 50 mg capsule,sprinkle,ER 24hr 50 mg PO DAILY furosemide [Lasix] 40 mg tablet 30 mg PO Q12H Rx Instructions: 1 tab every morning, 1/2 tab every evening Held lisinopril 40 MG tablet 40 mg PO DAILY Referrals / Follow Up: Landon Enamorado MD [Primary Care Provider] - Disposition Disposition (needs filled in before D/C Order can be placed): Home, Self Care
--- NOTE | 2023-02-04 13:50 | DS.PCM_ITS ---
Providers Date of Admission: 02/02/23 Date of Discharge: 02/04/23 Primary Care Physician: Dr. Landon Enamorado MD Reason For Visit: COVID PNA, ACUTE ON CHRONIC RF Diagnosis Discharge Diagnosis (1) COVID-19: Status: Acute Code(s): U07.1 - COVID-19 (2) Acute and chronic respiratory failure: Status: Chronic Code(s): J96.20 - Acute and chronic respiratory failure, unspecified whether with hypoxia or hypercapnia Medications at Discharge Home Medications aspirin 81 mg tablet,delayed release (Adult Low Dose Aspirin) 81 mg PO DAILY afib 05/26/15 citalopram 20 mg tablet 20 mg PO DAILY depression 05/26/15 multivitamin with folic acid 400 mcg tablet (Thera) 1 tab PO DAILY supplement 05/26/15 apixaban 5 mg tablet (Eliquis) 5 mg PO BID anti platelet 09/27/16 lisinopril 40 mg tablet 40 mg PO DAILY blood pressure 09/27/16 atorvastatin 20 mg tablet 20 mg PO QHS cholesterol 08/13/18 albuterol sulfate 90 mcg/actuation breath activated powder inhaler,sensor 2 inh inhalation Q6H PRN shortness of breath or wheezing #1 ea 07/02/22 diltiazem HCl 180 mg capsule,extended release 24 hr 180 mg PO Q12 heart rate #60 caps 07/02/22 guaifenesin 1,200 mg tablet, extended release 12 hr (Mucus Relief ER) 1,200 mg PO BID cough #14 tabs 07/02/22 sennosides 8.6 mg-docusate sodium 50 mg tablet (Stool Softener-Stimulant Laxative) 2 tab PO BID PRN Constipation #0 tabs 07/02/22 sodium chloride 0.65 % nasal spray aerosol (Deep Sea Nasal) 1 spray NASAL BID PRN PRN NASAL DRYNESS #0 mL 07/02/22 furosemide 40 mg tablet (Lasix) 30 mg PO Q12H diuretic 02/02/23 metoprolol succinate 50 mg capsule sprinkle, ext. release 24 hr 50 mg PO DAILY blood pressure 02/02/23 prednisone 20 mg tablet 40 mg (2 x 20 mg) PO DAILY 5 days #10 tabs 02/04/23 Hospital Course Operations None Procedures - (Chest CT angiography) Summary of Care Provided Minutes Spent on Discharge: 38 Hospital Course: Patient is a 77-year-old male with history significant for COPD on home 2 L nasal cannula (has been using between 4 to 6 L recently), muscular dystrophy (wheelchair-bound), morbid obesity, diastolic heart failure, lower extremity edema with stasis wounds, paroxysmal atrial fibrillation, hypertension, hyperlipidemia and anxiety/depression who presented to [facility] on 02/02 with worsening dyspnea. Was found in the ED to be COVID- positive. CT PA showed diffuse patchy bilateral groundglass airspace disease, right upper lobe predominant with mediastinal adenopathy. Patient notably is prescribed 2 L nasal cannula at home but reported that he had been using 4 to 6 L at times over the last few weeks prior to admission. Initially required 5 to 6 L nasal cannula and was satting in the low 90s. Was initiated on IV Decadron and remdesivir. Patient never required more than 6 L nasal cannula, and was satting well on 4 L nasal cannula prior to discharge. Notably, patient C-reactive protein was elevated at 95. However, he had a normal white blood cell count, procalcitonin 0.14. Urine antigens were negative. Sputum culture showed no growth, and respiratory panel was negative. Patient was given 2 doses of IV Lasix 40 mg for dry lung strategy, and patient tolerated this well. Did not have any issues with his kidney function with the Lasix. Was then restarted on his home dose of Lasix. Patient lives at home with his and has been a functional paraplegic for the last several years. He has home health care that assists him in the mornings and in the evening. He uses a wheelchair primarily to get around. Patient felt after 2 days in the hospital that he was about at his baseline. He was discharged home in stable condition with plans to complete a 7-day course of p.o. steroids. Follow-up: ? Patient notably was found to have an incidental 3 cm left thyroid lesion. Unclear if noted on previous scans. Thyroid function studies were normal. Would recommend outpatient monitoring for this. Discharge diagnoses: COVID-pneumonia, improving Chronic diastolic heart failure Incidental left thyroid lesion Muscular dystrophy with essential functional paraplegia Chronic normocytic anemia Paroxysmal A-fib, rate controlled Hypertension Hyperlipidemia Anxiety depression Morbid obesity Total clinical time spent by myself addressing the patient's discharge needs: 38 minutes. Physical Exam Const alert and oriented x3 Constitutional Narrative: Pleasant obese male, sitting up comfortably in bed, conversing normally, no a cute distress. Satting well on 4 L nasal cannula, no increased work of breathing noted. General Appearance: cooperative, comfortable, well kempt and well developed HEENT normocephalic, head/scalp atraumatic, hearing grossly normal bilaterally, nasal mucous membranes and turbinates normal and moist oral mucous membranes Eyes PERRL, EOMs intact bilaterally and conjunctivae normal Neck full ROM, no lymphadenopathy and supple Lymph Lymphatic: no lymphadenopathy noted Chest inspection of chest normal Resp Resp Narrative: Mild crackles noted bilaterally. Good air movement throughout bilaterally. No wheezes, rales or rhonchi. Cardio regular rate, regular rhythm, no murmurs and peripheral pulses 2+ throughout GI normal to inspection, nondistended, normoactive bowel sounds, soft to palpation, non-tender and non-distended Back/Spine normal ROM Extremity normal to inspection, full ROM and no pedal edema Skin no rashes or lesions noted Psych mental status grossly normal Weight / BMI Weight Weight: 133.7 kg Body Mass Index (BMI) 44.8 ABG / Lab / Microbiology Data 02/03/23 06:27 02/04/23 05:48 Laboratory: Laboratory Results - last 24 hr 02/04/23 05:48: Sodium 136, Potassium 3.7, Chloride 100, Carbon Dioxide 32.0, Anion Gap 4 L, BUN 17, Creatinine 0.35 L, Estim Creat Clear Calc 61.75, Est GFR (MDRD) Af Amer 315, Est GFR (MDRD) Non-Af 261, BUN/Creatinine Ratio 48.7 H, Glucose 123 H, Calcium 8.9 Microbiology: Microbiology 02/03/23 01:30 Sputum, Expectorated/Coughed Gram Stain - Final 02/03/23 01:30 Sputum, Expectorated/Coughed Respiratory Culture - P reliminary Appears to be normal respiratory ann. Further studies to follow. 02/02/23 19:30 Nasal Secretion SARS-CoV-2 & FLU Antigen (Rapid) - Final SARS-CoV-2 (COVID 19) 02/03/23 02:50 Urine, Clean Catch Streptococcus pneumoniae Antigen (M - Final 02/03/23 02:50 Urine, Clean Catch Legionella Antigen - Final 02/02/23 23:40 Mucosa - Nasopharyngeal Coronavirus COVID-19 PCR - Final SARS-CoV-2 (COVID 19 PCR) 02/02/23 23:40 Mucosa - Nasopharyngeal Respiratory Panel (PCR) - Final D/C Instructions Discharge Diet: No restrictions Weight Bearing Status: Weight bearing as tolerated Pending Tests Upon Discharge: none Please Follow Up With: Landon Enamorado MD When: as needed Meaningful Use Info Meaningful Use Diagnoses (Choose all that apply): None applicable Discharge Plan Admission Admit Date/Time: 02/02/23 23:03 Primary Reason for Your Visit: COVID pneumonia Attending Provider: Vince Valdivia Primary Care Provider: Landon Enamorado Consulting Providers: Mae Domingo Instructions Additional Instructions / Restrictions: Please complete a 7-day course of steroids as we discussed. Can schedule a fol low-up appointment with your primary care provider as needed. Discharge Orders/Prescriptions Prescriptions: New prednisone 20 mg tablet 40 mg PO DAILY 5 Days Qty: 10 0RF Continued aspirin [Adult Low Dose Aspirin] 81 MG tablet,delayed release (DR/EC) 81 mg PO DAILY Patient Comments: Blood thinner for heart health citalopram 20 MG tablet 20 mg PO DAILY Patient Comments: Depression/anxiety multivitamin with folic acid [Thera] 1 TABLET tablet 1 tab PO DAILY Patient Comments: Supplement Eliquis 5 MG tablet 5 mg PO BID atorvastatin 20 MG tablet 20 mg PO QHS diltiazem HCl 180 mg Capsule,Extended Release 24hr 180 mg PO Q12 Qty: 60 1RF Rx Instructions: only takes 180mg daily sennosides-docusate sodium [Stool Softener-Stimulant Laxat] 8.6-50 mg Tablet 2 tab PO BID PRN (Reason: Constipation) Qty: 0 0RF Deep [place] Nasal 0.65 % Aerosol,[place] 1 spray NASAL BID PRN PRN (Reason: NASAL DRYNESS) Qty: 0 0RF Mucus Relief ER 1,200 mg Tablet Extended Release 12hr 1,200 mg PO BID Qty: 14 0RF albuterol sulfate 90 mcg/actuation aero powdr breath act w/sensor 2 inh inhalation Q6H PRN (Reason: shortness of breath or wheezing) Qty: 1 0RF metoprolol succinate 50 mg capsule,sprinkle,ER 24hr 50 mg PO DAILY furosemide [Lasix] 40 mg tablet 30 mg PO Q12H Rx Instructions: 1 tab every morning, 1/2 tab every evening Held lisinopril 40 MG tablet 40 mg PO DAILY Referrals / Follow Up: Landon Enamorado MD [Primary Care Provider] - 02/17/23 3:40 pm Disposition Disposition (needs filled in before D/C Order can be placed): Home, Self Care Charges/Coding Visit Charges Inpatient E&M: 21071 Disch Hosp >30min
--- NOTE | 2023-02-04 14:44 | PHA.DC_ITS ---
Pharmacy [place] Med Reconciliation Pharmacy Service has performed discharge medication reconciliation for this patient. Attempted to call and newspaper delivery counselor due to COVID precautions but patient was unavailable. The patient's discharge medication list was reviewed for discrepancies and discrepancies were resolved. Medications at Discharge Home Medications aspirin 81 mg tablet,delayed release (Adult Low Dose Aspirin) 81 mg PO DAILY afib 05/26/15 citalopram 20 mg tablet 20 mg PO DAILY depression 05/26/15 multivitamin with folic acid 400 mcg tablet (Thera) 1 tab PO DAILY supplement 05/26/15 apixaban 5 mg tablet (Eliquis) 5 mg PO BID anti platelet 09/27/16 lisinopril 40 mg tablet 40 mg PO DAILY blood pressure 09/27/16 atorvastatin 20 mg tablet 20 mg PO QHS cholesterol 08/13/18 albuterol sulfate 90 mcg/actuation breath activated powder inhaler,sensor 2 inh inhalation Q6H PRN shortness of breath or wheezing #1 ea 07/02/22 diltiazem HCl 180 mg capsule,extended release 24 hr 180 mg PO Q12 heart rate #60 caps 07/02/22 guaifenesin 1,200 mg tablet, extended release 12 hr (Mucus Relief ER) 1,200 mg PO BID cough #14 tabs 07/02/22 sennosides 8.6 mg-docusate sodium 50 mg tablet (Stool Softener-Stimulant Laxative) 2 tab PO BID PRN Constipation #0 tabs 07/02/22 sodium chloride 0.65 % nasal spray aerosol (Deep [place] Nasal) 1 spray NASAL BID PRN PRN NASAL DRYNESS #0 mL 07/02/22 furosemide 40 mg tablet (Lasix) 30 mg PO Q12H diuretic 02/02/23 metoprolol succinate 50 mg capsule sprinkle, ext. release 24 hr 50 mg PO DAILY blood pressure 02/02/23 prednisone 20 mg tablet 40 mg (2 x 20 mg) PO DAILY 5 days #10 tabs 02/04/23
--- NOTE | 2023-02-04 14:45 | CASEMGMT ---
JESSICA TRAMMELL updated that patient is discharging today. Patient is maintaining on his home oxygen order of 2lpm. JESSICA TRAMMELL spoke with patient regarding needs at discharge. Patient denied further needs or concerns at this time. Patient had no further questions at this time.
== END 2023-02-04 17:16 | disposition home health service (06) | DRG 177 ==
LOC: ED 23:04 → PCU 02-03 07:13
PROVIDERS: Admitting Provider Family Medicine; Emergency Provider Emergency Medicine; PCP Family Medicine; Visit Provider Hospitalist
DX: U07.1 COVID-19 (principal); R53.2 Functional quadriplegia; G71.00 Muscular dystrophy, unspecified; J44.0 Chronic obstructive pulmonary disease with (acute) lower respiratory infection; I50.32 Chronic diastolic (congestive) heart failure; I11.0 Hypertensive heart disease with heart failure; J96.21 Acute and chronic respiratory failure with hypoxia; I48.0 Paroxysmal atrial fibrillation; Z68.41 Body mass index [BMI] 40.0-44.9, adult; E66.01 Morbid (severe) obesity due to excess calories; J12.82 Pneumonia due to coronavirus disease 2019; D64.9 Anemia, unspecified; F32.A Depression, unspecified; E78.5 Hyperlipidemia, unspecified; F41.9 Anxiety disorder, unspecified; R13.10 Dysphagia, unspecified; Z99.81 Dependence on supplemental oxygen; Z79.01 Long term (current) use of anticoagulants; Z99.3 Dependence on wheelchair; Z87.891 Personal history of nicotine dependence; Z79.899 Other long term (current) drug therapy; E07.9 Disorder of thyroid, unspecified
CPT/HCPCS: 36415; 71275; 80048; 80053; 80076; 82728; 83615; 83735; 83880; 84145; 84439; 84443; 84484; 85025; 85379; 85610; 85730; 86140; 87070; 87205; 87428; 87449; 87633; 87635; 87641; 93005; 94640; 94667; 94668; 96361; 96365; 96366; 96367; 96375; 96376; 99221; 99252; 99285; J7030; J7050; Q9967; A4216; G0378; G0463; J0248; J1940; J2405

== ENCOUNTER 2023-02-10 13:56 | Inpatient (IN) | payer OTHER, SELFPAY ==
[2023-02-10] VITALS (8 sets, daily range): BP systolic 157–181; BP diastolic 76–108; PULSE 67–78; RESP 14–22; TEMP 35.9–36.7; O2SAT 84–98; BMI 45.6; BMI 42.9
--- NOTE | 2023-02-10 14:08 | ED.VIS.DYS ---
HPI History of Present Illness Chief Complaint: Shortness of Breath [facility] Medical History Aortic aneurysm Atrial fibrillation Current use of intermediate designer anticoagulation Depression Diastolic CHF Dysphagia HTN (hypertension) Hyperlipemia Hyperlipidemia Hypertension Hypoxia Muscular dystrophy Home Medications aspirin 81 mg tablet,delayed release (Adult Low Dose Aspirin) 81 mg PO DAILY afib 05/26/15 [History Last Taken 08/27/22] citalopram 20 mg tablet 20 mg PO DAILY depression 05/26/15 [History Last Taken 08/27/22] multivitamin with folic acid 400 mcg tablet (Thera) 1 tab PO DAILY supplement 05/26/15 [History Last Taken 08/27/22] apixaban 5 mg tablet (Eliquis) 5 mg PO BID anti platelet 09/27/16 [History Last Taken 08/27/22] lisinopril 40 mg tablet 40 mg PO DAILY blood pressure 09/27/16 [History Last Taken 08/27/22] atorvastatin 20 mg tablet 20 mg PO QHS cholesterol 08/13/18 [History Last Taken 08/27/22] albuterol sulfate 90 mcg/actuation breath activated powder inhaler,sensor 2 inh inhalation Q6H PRN shortness of breath or wheezing #1 ea 07/02/22 [Rx Last Taken 08/28/22] diltiazem HCl 180 mg capsule,extended release 24 hr 180 mg PO Q12 heart rate #60 caps 07/02/22 [Rx Last Taken 08/27/22] guaifenesin 1,200 mg tablet, extended release 12 hr (Mucus Relief ER) 1,200 mg PO BID cough #14 tabs 07/02/22 [Rx Last Taken 08/27/22] sennosides 8.6 mg-docusate sodium 50 mg tablet (Stool Softener-Stimulant Laxative) 2 tab PO BID PRN Constipation #0 tabs 07/02/22 [Rx Last Taken Unknown] sodium chloride 0.65 % nasal spray aerosol (Deep Sea Nasal) 1 spray NASAL BID PRN PRN NASAL DRYNESS #0 mL 07/02/22 [Rx Last Taken Unknown] furosemide 40 mg tablet (Lasix) 30 mg PO Q12H diuretic 02/02/23 [History Last Taken Unknown] metoprolol succinate 50 mg capsule sprinkle, ext. release 24 hr 50 mg PO DAILY blood pressure 08/13/23 [History Last Taken Unknown] Allergy/AdvReac Type Severity Reaction Status Date / Time codeine AdvReac made me Verified 02/10/23 13:57 do crazy things Family History Father Hypertension Heart disease Renal cancer Kidney disease Mother Diabetes Heart disease Surgical History History of herniorrhaphy Social History household members: spouse Smoking Status: Former smoker how long ago did patient quit smoking: Smoked 1.5-2 ppd since teen until quit 2002. alcohol intake: current alcohol intake frequency: holidays/special occasions only substance use type: does not use EXAM Physical Exam Const Vital Signs: 02/10/23 13:57 02/10/23 14:00 02/10/23 15:56 Temperature 98.1 F Temperature Source Temporal Pulse Rate 73 67 Respiratory Rate 22 H 22 H Respiratory Effort Blood Pressure 160/79 H 157/76 H Blood Pressure Mean 106 103 Pulse Ox 84 96 97 Oxygen Delivery Method Nasal Cannula Nasal Cannula Nasal Cannula Oxygen Flow Rate (L/min) 6 8 6 02/10/23 15:00 02/10/23 14:43 02/10/23 17:51 Temperature Temperature Source Pulse Rate 78 Respiratory Rate 16 Respiratory Effort Normal Blood Pressure 171/98 H Blood Pressure Mean 122 Pulse Ox 98 Oxygen Delivery Method Nasal Cannula Nasal Cannula Nasal Cannula Oxygen Flow Rate (L/min) 6 8 6 02/10/23 17:53 Temperature 98.1 F Temperature Source Oral Pulse Rate 78 Respiratory Rate 22 H Respiratory Effort Blood Pressure 171/98 H Blood Pressure Mean 122 Pulse Ox 98 Oxygen Delivery Method Nasal Cannula Oxygen Flow Rate (L/min) 6 MDM MDM MDM Narrative Medical decision making narrative: HISTORY OF PRESENT ILLNESS: 77-year-old male here with shortness of breath noted to be 84% on home oxygen 6 L. Patient notes increasing shortness of breath, rales, dry cough states he cannot get anything up. Denies any chest pain. Notes compliance with home medication. REVIEW OF SYSTEMS: Pertinent positives: Shortness of breath Pertinent negatives: Chest pain, palpitations, lower extremity edema PHYSICAL EXAM: Nursing triage notes reviewed, Vital signs reviewed Constitutional: please see the [facility] HENT: MMM Eyes: Pupils equal round and reactive to light, Extraocular muscles intact Neck: No stridor, no JVD, full neck ROM Lungs: Clear to auscultation, No wheezing or rales. No increased work of breathing, no conversational dyspnea, no accessory muscle use, no nasal flaring. No respiratory distress noted Heart: Regular rate and rhythm, No murmurs, No rubs and No gallops, 2+ distal pulses (radial, femoral, posterior tibial) in all extremities Abdomen: Soft, there is no tenderness, rigidity, rebound or guarding, no obvious peritoneal signs, no palpable pulsatile abdominal masses, no auscultated abdominal bruit : No CVAT Extremities: No edema Neuro: No focal neurological deficits, cranial nerves II through XII intact, 5/5 strength in all extremities. Intact sensation to light touch in all extremities, 2+ reflexes bilateral patella tendons. Normal gait. No ataxia. Skin: No rash or lesions noted MEDICAL DECISION MAKING: Chief Complaint: Shortness of breath External records reviewed: Recent hospitalization for COVID-pneumonia. Received Decadron and remdesivir. Imaging reviewed, CT of the chest from 02/02/2023 shows diffuse patchy bilateral groundglass airspace disease Factors affecting care: Atrial fibrillation on Eliquis, hyperlipidemia, hypertension, CHF Social determinants of health: Elderly History obtained from others: Patient's Consults: Internal medicine ALL IMAGES (IF OBTAINED) HAVE BEEN PERSONALLY REVIEWED AND INTERPRETED BY MYSELF. EKG with normal sinus rhythm, normal axis, normal intervals, no STEMI, similar to prior EKG on January 2023 [facility] Narrative: Patient was initially hypoxic improved saturations on nasal cannula. Placed patient on high flow nasal cannula immediately. Patient was monitored with property assessment monitor. I considered the following differential diagnosis: COVID 19, bacterial pneumonia, PE, heart failure I obtained a broad lab and imaging work-up to further elucidate etiology patient complaints. Paced patient high flow nasal cannula. Obtained an ABG to assess patient's level of hypoxia, there is any respiratory acidosis. Also obtained a chest x-ray to rule out any signs of heart failure or bacterial pneumonia. I obtained a EKG, troponin to rule out arrhythmia or myocardial ischemia. Obtained a CBC to rule out significant anemia. EKG, troponin were negative for signs of myocardial ischemia. There is no significant electrolyte abnormalities, no significant anemia. Chest x-ray did not reveal evidence of significant pneumonia. I did obtain a CTA given negative work-up to rule out PE given history of COVID and new oxygen requirement. CTA showed no evidence of PE. Gave antibiotics prophylactically given new oxygen requirement. Patient was admitted given presence of high flow nasal cannula. The patient and/or family, caregivers express understanding. The patient and/or family, caregivers agrees with the plan. Shared decision making: I will have a discussion with the patient and or visitors regarding risk/benefits of further testing or admission. They will be made aware of of the risk/benefits inherent in this decision they will be given the opportunity to voice understanding. Total critical care time today provided was at least 0 minutes. This excludes separately billable procedures. Critical care time (if documented) is secondary to the patient having high probability of clinically significant/life threatening deterioration in the patient's condition which required my urgent intervention. Lab Data Attestation: I reviewed the patient's lab results. Lab results narrative: CBC with no leukocytosis, no anemia, no thrombocytopenia BMP with mild hyponatremia, hypokalemia, there is no anion gap to suggest endorgan hypoperfusion, there is no acute kidney injury Troponin is negative, no evidence of myocardial ischemia BNP within normal limits suggestive of no increased myocardial stretch Labs: Laboratory Results - last 24 hr 02/10/23 14:25 WBC 10.6 RBC 5.01 Hgb 13.3 Hct 42.4 MCV 84.6 MCH 26.5 L MCHC 31.4 L RDW Std Deviation 50.4 H RDW Coeff of Nick 16.2 H Plt Count 225 MPV 9.2 Immature Gran % (Auto) 1.400 H Neut % (Auto) 75.5 H Lymph % (Auto) 6.6 L Tripp % (Auto) 12.5 H Eos % (Auto) 3.8 Baso % (Auto) 0.2 Absolute Neuts (auto) 8.0 H Absolute Lymphs (auto) 0.70 L Nucleated RBC % 0 Sodium 133 L Potassium 3.1 L Chloride 94 L Carbon Dioxide 34.0 H Anion Gap 5 BUN 14 Creatinine 0.37 L Estim Creat Clear Calc 61.75 Est GFR (MDRD) Af Amer 293 Est GFR (MDRD) Non-Af 242 BUN/Creatinine Ratio 37.6 H Glucose 100 Calcium 9.2 Troponin I High Sens 24 B-Natriuretic Peptide 50.6 ABG Data ABG results: ABG 02/10/23 14:43 Specimen Type ART Sample Site L Radial pH 7.50 H Bicarbonate Actual 35.7 H Total CO2 37 Base Excess 13 H O2 Saturation 97 ABG pCO2 45.4 H ABG pO2 86 Mickey Test Positive O2 Delivery Device Cannula Liter Flow 8.0 Radiography Chest X-Ray - ED: Read by ED Physician Diagnostic Testing: Clinical Impression(s) from Imaging Studies Chest X-Ray 02/10/23 14:28 IMPRESSION: Mild atelectatic changes in the right lung base. Otherwise no significant change. Electronically Signed: Osman Augustin MD at 15:01 EDT , Chest CTA 02/10/23 15:52 IMPRESSION: Normal CTA chest examination, without a demonstrated pulmonary embolism or arterial dissection. Persistent diffuse bilateral groundglass opacities with decreasing opacification right upper lobe, possible resolving infection versus edema. Electronically Signed: Mal Pablo MD at 17:25 EDT , Chest x-ray by myself shows no evidence of acute pneumonia or significant pulmonary edema. Discharge Plan Dx/Rx/DC Orders Clinical Impression: COVID-19, Hypoxia, Acute hyponatremia, Acute hypokalemia Disposition Disposition: Acute Care Hospital [facility] Discharge Date/Time: 02/10/23 20:01
--- NOTE | 2023-02-10 14:10 | EKG12_ITS ---
Test Reason : SOB Blood Pressure : / mmHG Vent. Rate : 067 BPM Atrial Rate : 067 BPM P-R Int : 156 ms QRS Dur : 098 ms QT Int : 424 ms P-R-T Axes : 028 001 091 degrees QTc Int : 448 ms Sinus rhythm with occasional Premature ventricular complexes Minimal voltage criteria for LVH, may be normal variant ( R in aVL ) Nonspecific ST and T wave abnormality Abnormal ECG When compared with ECG of 02-FEB-2023 19:18, Premature ventricular complexes are now Present Confirmed by HONG MENDES, CLAYTON ([id number]), editor department SHANIA ARIAS ([id number]) on 04/09/2023 2:09:17 PM Referred By: Confirmed By:CLAYTON PITTS MD
--- NOTE | 2023-02-10 14:28 | RAD_ITS ---
INDICATION: Shortness of breath EXAMINATION/TECHNIQUE: X-RAY - XR Chest 1 View COMPARISON: 12/31/2022. FINDINGS: LINES/DEVICES: None. LUNGS: Persistent elevation of the right hemidiaphragm. Atelectatic changes in the right lung base. No infiltrates definitely identified. No evidence of pleural effusions. MEDIASTINUM AND CARDIOVASCULAR STRUCTURES: Borderline cardiac silhouette. Tortuosity of the thoracic aorta. BONES AND SOFT TISSUES: Stable soft tissues and osseous structures RAD/Chest 1 View (Portable) IMPRESSION: Mild atelectatic changes in the right lung base. Otherwise no significant change. Electronically Signed: Osman Augustin MD at 15:01 EDT ,
[2023-02-10 14:34] LABS: Basophil# 0.02 X10^3/uL; Basophil% 0.2 % (0-1); Eosinophils% 3.8 % (0-5); Hematocrit 42.4 % (40-54); Hemoglobin 13.3 g/dL (13.0-16.5); Lymphocyte % 6.6 % (19-41); Mean Corp Hgb Conc 31.4 g/dL (32-36); Mean Corpuscular Hgb 26.5 pg (27.0-32.0); Mean Corpuscular Volume 84.6 fL (80-94); Mean Platelet Vol. 9.2 fl (6.2-12.0); Monocyte# 1.33 X10^3/uL; Monocyte% 12.5 % (0-10); NRBC Flagged by Analyzer 0 % (0-5); Neutrophil # 8.04 X10^3/uL (2.7-7.7); Neutrophil % 75.5 % (47-70); Platelet Count 225 K/mm3 (150-450); RBC Distribution Width CV 16.2 % (11.6-14.6); RBC Distribution Width SD 50.4 fl (35.1-43.9); Red Blood Count 5.01 M/mm3 (4.6-6.2); White Blood Count 10.6 K/mm3 (4.4-11.0)
[2023-02-10 14:47] LABS: Allen Test Positive; Base Excess 13 mmol/L (-2 to +2); Bicarbonate 35.7 mmol/L (22-26); Blood Gas Specimen Type ART; O2 Delivery Device Cannula; PO2 86 mmHG (75-100); SITE L Radial; SO2 97 % (95-99); Total Carbon Dioxide 37 mmol/L; pCO2 45.4 mmHg (35-45)
[2023-02-10 14:56] LABS: Anion Gap 5 (5-15); BUN 14 mg/dL (7-18); BUN/Creat Ratio 37.6 RATIO (10-20); Calcium,Total 9.2 mg/dL (8.5-10.1); Chloride 94 mmol/L (98-107); Creatinine, Serum 0.37 mg/dL (0.70-1.30); EST Glomerular Filtration Rate 242 mL/min (>60); Est Glom Filt Rate - Afr Amer 293 mL/min (>60); Estimated Creatinine Clearance 61.75 ml/min; Glucose 100 mg/dL (74-106); Potassium 3.1 mmol/L (3.5-5.1); Sodium Level 133 mmol/L (136-145); Troponin-I HS 24 pg/mL (3.0-78.0)
--- NOTE | 2023-02-10 15:52 | CT_ITS ---
STUDY: CTA CHEST REASON FOR EXAM: Male, 77 years old. Hypoxia RADIATION DOSAGE (If Supplied By Facility): CTDIvol = ( 16.21 ) mGy, DLP = ( 569.66 ) mGycm TECHNIQUE: The examination was performed with the intravenous administration of 100mL Isovue-370. Post-processing of the angiographic images was performed, with multiplanar reformation and 3D reconstruction. Individualized dose optimization techniques were used for this CT. COMPARISON: 02/02/2023 FINDINGS: Normal enhancement of the main pulmonary artery and right and left pulmonary arteries. Normal enhancement of the bilateral peripheral pulmonary arteries. There is no demonstrated pulmonary embolism. 3.5 cm ectasia ascending aorta. There is no demonstrated aortic dissection. Normal heart and pericardium. Stable mediastinal adenopathy. Normal hilar regions. Persistent bilateral groundglass opacities with a decreased opacification right upper lobe. Increasing right basilar consolidative changes. No pleural effusions. Normal chest wall structures. No acute osseous abnormality. No acute findings in the upper abdomen. Cholelithiasis. CT/CTA Chest W/WO Contrast IMPRESSION: Normal CTA chest examination, without a demonstrated pulmonary embolism or arterial dissection. Persistent diffuse bilateral groundglass opacities with decreasing opacification right upper lobe, possible resolving infection versus edema. Electronically Signed: Mal Pablo MD at 17:25 EDT ,
--- NOTE | 2023-02-10 17:50 | ED.RN ---
Hospitalist in room
[2023-02-10] MEDS: Ceftriaxone 1 GM/50 ML BAG IV (18:00)
--- NOTE | 2023-02-10 18:28 | PCM.HP.STD ---
HPI - General General Date of Admission: 02/10/23 Date of Service: 02/10/23 Chief Complaint: Dyspnea at rest, shortness of breath progressive worsening for 3 to 4 days after recent discharge. No chest pain HPI Narrative HEATH SHABAZZ, is a 77 M who came to ER for shortness of breath progressive worsening after discharge. Prior to this patient was admitted on 02/02 with increased dyspnea and hypoxia, increased oxygen requirement 6 L from 01/31/2023 and was discharged on 02/04/2023 on 4 L of oxygen. Patient is stated for last 3 4 days he is feeling very short of breath even at rest and requires 6 to 8 L of oxygen in ED. 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 Does not have movement in lower extremities but can void spontaneously. In ED, patient is tachypneic and hypoxic, pulse ox 96% on 8 L of oxygen heart rate and blood pressure in acceptable limit. Patient had labs, chest x-ray and CTA done in the ED, reviewed and discussed in assessment and plan. 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 anticoagulation Depression Diastolic CHF Dysphagia HTN (hypertension) Hyperlipemia Hyperlipidemia Hypertension Hypoxia Muscular dystrophy Home Medications aspirin 81 mg tablet,delayed release (Adult Low Dose Aspirin) 81 mg PO DAILY afib 05/26/15 [History Last Taken 08/27/22] citalopram 20 mg tablet 20 mg PO DAILY depression 05/26/15 [History Last Taken 08/27/22] multivitamin with folic acid 400 mcg tablet (Thera) 1 tab PO DAILY supplement 05/26/15 [History Last Taken 08/27/22] apixaban 5 mg tablet (Eliquis) 5 mg PO BID anti platelet 09/27/16 [History Last Taken 08/27/22] lisinopril 40 mg tablet 40 mg PO DAILY blood pressure 09/27/16 [History Last Taken 08/27/22] atorvastatin 20 mg tablet 20 mg PO QHS cholesterol 08/13/18 [History Last Taken 08/27/22] albuterol sulfate 90 mcg/actuation breath activated powder inhaler,sensor 2 inh inhalation Q6H PRN shortness of breath or wheezing #1 ea 07/02/22 [Rx Last Taken 08/28/22] diltiazem HCl 180 mg capsule,extended release 24 hr 180 mg PO Q12 heart rate #60 caps 07/02/22 [Rx Last Taken 08/27/22] guaifenesin 1,200 mg tablet, extended release 12 hr (Mucus Relief ER) 1,200 mg PO BID cough #14 tabs 07/02/22 [Rx Last Taken 08/27/22] sennosides 8.6 mg-docusate sodium 50 mg tablet (Stool Softener-Stimulant Laxative) 2 tab PO BID PRN Constipation #0 tabs 07/02/22 [Rx Last Taken Unknown] sodium chloride 0.65 % nasal spray aerosol (Deep Sea Nasal) 1 spray NASAL BID PRN PRN NASAL DRYNESS #0 mL 07/02/22 [Rx Last Taken Unknown] furosemide 40 mg tablet (Lasix) 30 mg PO Q12H diuretic 02/02/23 [History Last Taken Unknown] metoprolol succinate 50 mg capsule sprinkle, ext. release 24 hr 50 mg PO DAILY blood pressure 02/02/23 [History Last Taken Unknown] Allergy/AdvReac Type Severity Reaction Status Date / Time codeine AdvReac made me Verified 02/10/23 13:57 do crazy things Family History Father Hypertension Heart disease Renal cancer Kidney disease Mother Diabetes Heart disease Surgical History History of herniorrhaphy Social History household members: spouse Smoking Status: Former smoker how long ago did patient quit smoking: Smoked 1.5-2 ppd since teen until quit 2002. alcohol intake: current alcohol intake frequency: holidays/special occasions only substance use type: does not use ROS ROS Narrative Constitutional: Reports fatigue and weakness. Denies fever. HEENT: Has cough and brings up a small amount of clear sputum. Reports systems reviewed and no addt'l complaints, except as documented Respiratory/Chest: COPD. Rest as described in HPI CVS: No chest pain pressure. Gastrointestinal: Denies coffee ground emesis, hematemesis or vomiting Genitourinary: Spontaneously voids urine. Denies burning urination or new urinary tract symptoms Musculoskeletal: As described in HPI. Ambulates in the scooter. Muscular dystrophy Neurologic: Denies seizure-like symptoms. Muscular dystrophy. skin: No ulcer. No rash Endocrinology: Reports systems reviewed and no addt'l complaints, except as documented Hematologic/Lymphatic: Reports systems reviewed and no addt'l complaints, except as documented Rest 14 ROS are negative except as mentioned in HPI Vital Signs Vital Signs Vital Signs: 02/10/23 13:57 02/10/23 14:00 02/10/23 15:56 Temperature 98.1 F Temperature Source Temporal Pulse Rate 73 67 Respiratory Rate 22 H 22 H Respiratory Effort Blood Pressure 160/79 H 157/76 H Blood Pressure Mean 106 103 Pulse Ox 84 96 97 Oxygen Delivery Method Nasal Cannula Nasal Cannula Nasal Cannula Oxygen Flow Rate (L/min) 6 8 6 02/10/23 15:00 02/10/23 14:43 02/10/23 17:51 Temperature Temperature Source Pulse Rate 78 Respiratory Rate 16 Respiratory Effort Normal Blood Pressure 171/98 H Blood Pressure Mean 122 Pulse Ox 98 Oxygen Delivery Method Nasal Cannula Nasal Cannula Nasal Cannula Oxygen Flow Rate (L/min) 6 8 6 02/10/23 17:53 Temperature 98.1 F Temperature Source Oral Pulse Rate 78 Respiratory Rate 22 H Respiratory Effort Blood Pressure 171/98 H Blood Pressure Mean 122 Pulse Ox 98 Oxygen Delivery Method Nasal Cannula Oxygen Flow Rate (L/min) 6 Weight Weight: 300 lb Body Mass Index (BMI) 45.6 Physical Exam Narrative General: Alert, Oriented x3, Cooperative, morbid obesity BMI 45.6 kg/m? HEENT: Atraumatic, PERRLA, EOMI, Normocephalic Oral: Oral mucosa dry. Deep oropharyngeal structures could not be visualized. Neck: Supple, No JVD, Negative Carotid Bruits Lungs: Air entry diminished in bilateral lung bases. Bilateral coarse crepitations and expiratory rhonchi/wheezing. Severe hypoxia and tachypnea. Cardiovascular: Sinus tachycardia, Normal S1, Normal S2, No murmurs Abdomen: Bowel Sounds Present, Soft, Non Tender, Non-Distended : No renal angle tenderness. No suprapubic tenderness. Extremities: Mild nonpitting edema, Capillary Refill Less than 3 Seconds Skin: Erythematous cellulitis/yeast in bilateral groin. Musculoskeletal: No movement in lower extremities. Chronic paraplegia. Muscular dystrophy. No Tenderness to Palpation of Joints or Extremities Neurological: Cranial nerves II-XII grossly intact, DTR 1-2/4. FSG muscular dystrophy Psych/Mental Status: Flat affect. Results Lab / Micro Data 02/10/23 14:25 02/10/23 14:25 Labs: Laboratory Results - last 24 hr 02/10/23 14:25: WBC 10.6, RBC 5.01, Hgb 13.3, Hct 42.4, MCV 84.6, MCH 26.5 L, MCHC 31.4 L, RDW Std Deviation 50.4 H, RDW Coeff of Nick 16.2 H, Plt Count 225, MPV 9.2, Immature Gran % (Auto) 1.400 H, Neut % (Auto) 75.5 H, Lymph % (Auto) 6.6 L, [place] % (Auto) 12.5 H, Eos % (Auto) 3.8, Baso % (Auto) 0.2, Absolute Neuts (auto) 8.0 H, Absolute Lymphs (auto) 0.70 L, Nucleated RBC % 0, Sodium 133 L, Potassium 3.1 L, Chloride 94 L, Carbon Dioxide 34.0 H, Anion Gap 5, BUN 14, Creatinine 0.37 L, Estim Creat Clear Calc 61.75, Est GFR (MDRD) Af Amer 293, Est GFR (MDRD) Non-Af 242, BUN/Creatinine Ratio 37.6 H, Glucose 100, Calcium 9.2, Troponin I High Sens 24 ABG Data ABG results: ABG 02/10/23 14:43 Specimen Type ART Sample Site L Radial pH 7.50 H Bicarbonate Actual 35.7 H Total CO2 37 Base Excess 13 H O2 Saturation 97 ABG pCO2 45.4 H ABG pO2 86 Mickey Test Positive O2 Delivery Device Cannula Liter Flow 8.0 Radiology Impression Chest X-Ray 02/10/23 14:28 IMPRESSION: Mild atelectatic changes in the right lung base. Otherwise no significant change. Electronically Signed: Osman Augustin MD at 15:01 EDT , Chest CTA 02/10/23 15:52 IMPRESSION: Normal CTA chest examination, without a demonstrated pulmonary embolism or arterial dissection. Persistent diffuse bilateral groundglass opacities with decreasing opacification right upper lobe, possible resolving infection versus edema. Electronically Signed: Mal Pablo MD at 17:25 EDT , Assessment & Plan Assessment/Plan (1) Acute and chronic respiratory failure: QUALIFIERS: Respiratory failure complication: hypoxia and hypercapnia Qualified Code(s): J96.21 - Acute and chronic respiratory failure with hypoxia; J96.22 - Acute and chronic respiratory failure with hypercapnia (2) Pneumonia due to COVID-19 virus: PLAN: Plan 1. Acute on chronic combined hypercarbic and hypoxic respiratory failure due to bilateral COVID-19 pneumonia and COPD exacerbation: Patient is being admitted in PCU. ABG in ED shows 7.50/45/86 on 8 L of oxygen. Bicarb is 34 with anion gap of 5. Overall suggestive of complex acid-base disorder with metabolic alkalosis and chronic respiratory acidosis. On high flow oxygen. AVAPS/BiPAP ordered. Pulmonary consulted. 2. COPD exacerbation due to bilateral COVID-19 pneumonia: Patient had chest x-ray and CTA done which shows bilateral groundglass opacity suggestive of COVID-19 pneumonia. Decreasing right upper lobe alveolar opacity/consolidation. Started on IV Rocephin and Zithromax. Patient on DuoNeb every 4 hourly, IV Solu-Medrol, incentivize spirometry/Pep and Mucinex DM. Sputum culture ordered. Patient had respiratory panel negative on 02/03/2023. Urinary antigens ordered. Exact duration of onset of COVID-19 unclear but probably patient started increased hypoxia since 02/01/2023. ID consulted. Inflammatory markers ordered. Discussed with ID and given the patient had 200 mg of IV remdesivir on previous admission and started fresh remdesivir 200 mg IV 1 dose now and then 100 mg IV daily for 4 days with 5 follow-up of CBC with differential and CMP daily 2. Chronic diastolic heart failure/HFpEF: Patient does not seem to be in acute heart failure exacerbation. Last echo in 06/2022 showed EF 60%, normal LV size, normal LV systolic function. I will hold Lasix today and may be resume from tomorrow morning. Continue aspirin, Eliquis, metoprolol and lisinopril with monitoring of BP and titrate as hemodynamic parameters. 3. Incidental left thyroid lesion CTPA on admit showed a 3 cm left thyroid lesion. Unclear if noted on previous scans. During last admission, TSH 0.30, free T4 1.58. 4. Muscular dystrophy with essentially functional paraplegia: -Patient with chronic hypoxia, debility, wheelchair-bound, chronic dysphagia. Fall and aspiration precautions. Barrier cream usage. Offloading. PT/OT/case management consulted for discharge planning. We will plan for discharge home; patient already has home health care services set up. 5. Chronic normocytic anemia: Admission hemoglobin 13.3/42.4 similar to previous hemoglobin 12.5. Baseline hemoglobin 11-12. 6. Paroxysmal A-fib: Continue home Eliquis, metoprolol and diltiazem. 7. Hypertension: On lisinopril. Monitor BP and titrate the dose accordingly. 8. Hyperlipidemia ? Continue home statin. 9. Anxiety and depression ? Continue home citalopram. 10. Morbid obesity ? Weight loss and lifestyle changes encouraged. DVT prophylaxis: Eliquis Living will/advanced directive/end of life care: Patient does not have living will or advanced directive. After discussion of benefits/risks procedures involved with full code, DNR CC arrest and DNR CC, the patient opted for full code. His is next of kin. Patient does want artificial life support including intubation, tube feed, ventilator and/chest compression, central venous catheter, vasopressor and DC shock if needed Total time spent in [id number] encounter in discussion of advanced directive 17 minutes. Laboratory Results 02/10/23 14:25: WBC 10.6, RBC 5.01, Hgb 13.3, Hct 42.4, MCV 84.6, MCH 26.5 L, MCHC 31.4 L, RDW Std Deviation 50.4 H, RDW Coeff of Nick 16.2 H, Plt Count 225, MPV 9.2, Immature Gran % (Auto) 1.400 H, Neut % (Auto) 75.5 H, Lymph % (Auto) 6.6 L, [place] % (Auto) 12.5 H, Eos % (Auto) 3.8, Baso % (Auto) 0.2, Absolute Neuts (auto) 8.0 H, Absolute Lymphs (auto) 0.70 L, Nucleated RBC % 0, Sodium 133 L, Potassium 3.1 L, Chloride 94 L, Carbon Dioxide 34.0 H, Anion Gap 5, BUN 14, Creatinine 0.37 L, Estim Creat Clear Calc 61.75, Est GFR (MDRD) Af Amer 293, Est GFR (MDRD) Non-Af 242, BUN/Creatinine Ratio 37.6 H, Glucose 100, Calcium 9.2, Troponin I High Sens 24, B-Natriuretic Peptide Pending 02/10/23 14:43: Specimen Type ART, Sample Site L Radial, pH 7.50 H, Bicarbonate Actual 35.7 H, Total CO2 37, Base Excess 13 H, O2 Saturation 97, ABG pCO2 45.4 H, ABG pO2 86, Mickey Test Positive, O2 Delivery Device Cannula, Liter Flow 8.0 Clinical Impression(s) from Imaging Studies Chest X-Ray 02/10/23 14:28 IMPRESSION: Mild atelectatic changes in the right lung base. Otherwise no significant change. Chest CTA 02/10/23 15:52 IMPRESSION: Normal CTA chest examination, without a demonstrated pulmonary embolism or arterial dissection. Persistent diffuse bilateral groundglass opacities with decreasing opacification right upper lobe, possible resolving infection versus edema. Charges/Coding Visit Charges Inpatient E&M: 34711 Init Hosp L3 Procedures Hospitalists Procedures: 19003 Advncd Care Plan 30 Min
[2023-02-10] MEDS: Ondansetron 4 MG/2 ML Vial IV (19:08)
[2023-02-10 20:13] LABS: BNP,B-Type NATRIURETIC PEPTIDE 50.6 pg/mL (0-100)
[2023-02-10] MEDS: Ipratropium/Albuterol Sulfate 3 ML AMPUL.NEB INHALATION (21:15)
[2023-02-10] MEDS: Atorvastatin Calcium 20 MG Tablet PO (21:44)
[2023-02-10] MEDS: APIXABAN 5 MG TABLET PO (21:44)
[2023-02-10] MEDS: guaiFENesin/D-Methorphan TAB.SR.12H 2 TABLET PO (21:44)
[2023-02-10 22:07] LABS: CPK Total, Creatine Kinase 40 U/L (39-308); LDH 231 U/L (87-241); Magnesium 2.2 mg/dL (1.6-2.6)
[2023-02-10 22:13] LABS: Procalcitonin 0.26 ng/mL (0.00-0.09)
[2023-02-10 22:21] LABS: Lactic Acid 0.8 mmol/L (0.4-1.9)
[2023-02-10 22:22] LABS: International Normalized Ratio 1.3; Prothrombin Time (Protime)PT. 15.7 SECONDS (11.7-14.9)
[2023-02-10 22:23] LABS: D-Dimer Quantitative (DVT/PE) 0.31 FEU/ug/m (0.27-0.49); Fibrinogen 848 mg/dl (203-444)
[2023-02-10] MEDS: Senna/Docusate Sodium 1 Tablet 2 TABLET PO (22:46)
[2023-02-10] MEDS: dilTIAZem CD 180 MG Capsule PO (23:29)
[2023-02-11] VITALS (18 sets, daily range): BP systolic 128–164; BP diastolic 70–110; PULSE 62–82; RESP 18–24; TEMP 35.8–36.7; O2SAT 93–98
[2023-02-11] MEDS: Ipratropium/Albuterol Sulfate 3 ML AMPUL.NEB INHALATION ×6 (01:05→20:25)
--- NOTE | 2023-02-11 03:19 | PCM.HOSP.N ---
Hospitalist Note Called overnight due to worsening respiratory status. Patient's oxygen had to be uptitrated. He refused to wear BiPAP. We placed him on Airvo to help with his oxygen saturations. Mental status was still stable. He is on chronic diuretics with Lasix. It appears that he is chronically hypercapnic with a chronically elevated CO2 probably related to elevated PCO2 chronically and contraction alkalosis. We will go ahead and give him Diamox x1 to see if we can optimize his lungs a little bit better. Infectious disease and pulmonary medicine are both consulted. We will add Decadron and discontinue Solu-Medrol. Continue remdesivir.
[2023-02-11] MEDS: hydrALAZINE 20 MG/ML Vial 10 MG IV (03:20)
[2023-02-11] MEDS: AcetaZOLAMIDE 500 MG/10 ML Vial IV (03:58)
[2023-02-11] MEDS: 0.9% Saline Lock 10 ML Syringe IV ×3 (03:59→21:56)
[2023-02-11] MEDS: dexAMETHasone 4 MG Tablet 6 MG PO (03:59)
[2023-02-11 06:50] LABS: Absolute Lymphocyte Count 0.31 X10^3/uL (0.83-4.51); Absolute Neutrophil Count 6.9 X10^3/uL (2.0-7.7); Eosinophil# 0.02 X10^3/uL; Eosinophils% 0.3 % (0-5); Hematocrit 42.2 % (40-54); Lymphocyte # 0.31 X10^3/ul (0.83-4.51); Lymphocyte % 4.1 % (19-41); Mean Corp Hgb Conc 30.8 g/dL (32-36); Mean Corpuscular Hgb 26.6 pg (27.0-32.0); Mean Corpuscular Volume 86.3 fL (80-94); Mean Platelet Vol. 9.6 fl (6.2-12.0); Monocyte# 0.28 X10^3/uL; Monocyte% 3.7 % (0-10); NRBC Flagged by Analyzer 0 % (0-5); Neutrophil % 90.6 % (47-70); POSITIVE DIFFERENTIAL YES; Platelet Count 210 K/mm3 (150-450); RBC Distribution Width CV 16.1 % (11.6-14.6); RBC Distribution Width SD 51.3 fl (35.1-43.9); Red Blood Count 4.89 M/mm3 (4.6-6.2); White Blood Count 7.6 K/mm3 (4.4-11.0)
[2023-02-11 06:55] LABS: Differential Indicated SCAN CRITERIA MET
[2023-02-11 07:09] LABS: Anisocytosis 1+
--- NOTE | 2023-02-11 07:16 | PCM.PN.HOSP ---
Reason for Visit Reason for Visit: Diagnoses Pneumonia due to coronavirus disease 2019 (02/10/23) Acute and chronic respiratory failure with hypoxia (02/10/23) Acute and chronic respiratory failure with hypercapnia (02/10/23) COVID-19 (02/10/23) Subjective Subjective Patient is a 77-year-old gentleman recently admitted with COVID-19 pneumonia discharged home on oxygen presented with increasing shortness of breath. Patient was found to be hypoxic 84% on 6 L of oxygen Objective Data Objective Data Vital Signs: Vital Signs Temp Pulse Resp BP Pulse Ox O2 Del Method O2 Flow Rate 96.5 F L 78 20 H 128/70 H 98 Airvo 60 02/11/23 03:50 02/11/23 03:50 02/11/23 03:50 02/11/23 03:50 02/11/23 03:50 02/11/23 03:50 02/11/23 03:50 FiO2 75 02/11/23 03:50 Oxygen Flow Rate (L/min) 60 Oxygen Delivery Method Airvo Weight: 128 kg Body Mass Index (BMI) 42.9 Intake & Output: Intake and Output for Last 24 Hours 02/09/23 02/10/23 02/11/23 23:59 23:59 23:59 Intake Total 1035 / 1035 120 / 120 Output Total 350 / 350 200 / 200 Balance 685 / 685 -80 / -80 Lab / Micro Data 02/11/23 05:43 02/11/23 05:43 Labs: Laboratory Results - last 24 hr 02/10/23 14:25: WBC 10.6, RBC 5.01, Hgb 13.3, Hct 42.4, MCV 84.6, MCH 26.5 L, MCHC 31.4 L, RDW Std Deviation 50.4 H, RDW Coeff of Nick 16.2 H, Plt Count 225, MPV 9.2, Immature Gran % (Auto) 1.400 H, Neut % (Auto) 75.5 H, Lymph % (Auto) 6.6 L, [place] % (Auto) 12.5 H, Eos % (Auto) 3.8, Baso % (Auto) 0.2, Absolute Neuts (auto) 8.0 H, Absolute Lymphs (auto) 0.70 L, Nucleated RBC % 0, Sodium 133 L, Potassium 3.1 L, Chloride 94 L, Carbon Dioxide 34.0 H, Anion Gap 5, BUN 14, Creatinine 0.37 L, Estim Creat Clear Calc 61.75, Est GFR (MDRD) Af Amer 293, Est GFR (MDRD) Non-Af 242, BUN/Creatinine Ratio 37.6 H, Glucose 100, Calcium 9.2, Troponin I High Sens 24, B-Natriuretic Peptide 50.6 02/10/23 21:25: PT 15.7 H, INR 1.3, Fibrinogen 848 H, D-Dimer Quant (PE/DVT) 0.31, Magnesium 2.2, Lactate Dehydrogenase 231, Total Creatine Kinase 40, C-React Prot Ext Range 171.00 H, Procalcitonin 0.26 H 02/10/23 21:37: Lactic Acid 0.8 02/11/23 05:43: WBC 7.6, RBC 4.89, Hgb 13.0, Hct 42.2, MCV 86.3, MCH 26.6 L, MCHC 30.8 L, RDW Std Deviation 51.3 H, RDW Coeff of Nick 16.1 H, Plt Count 210, MPV 9.6, Immature Gran % (Auto) 1.300 H, Neut % (Auto) 90.6 H, Lymph % (Auto) 4.1 L, [place] % (Auto) 3.7, Eos % (Auto) 0.3, Baso % (Auto) 0.0, Absolute Neuts (auto) 6.9, Absolute Lymphs (auto) 0.31 L, Nucleated RBC % 0, Anisocytosis 1+ Micro: Microbiology 02/10/23 22:45 Urine, Clean Catch Legionella Antigen - Final 02/10/23 22:45 Urine, Clean Catch Streptococcus pneumoniae Antigen (M - Final ABG Data ABG results: ABG 02/10/23 14:43 Specimen Type ART Sample Site L Radial pH 7.50 H Bicarbonate Actual 35.7 H Total CO2 37 Base Excess 13 H O2 Saturation 97 ABG pCO2 45.4 H ABG pO2 86 Mickey Test Positive O2 Delivery Device Cannula Liter Flow 8.0 Radiography Diagnostic Testing: Radiology Impression Chest X-Ray 02/10/23 14:28 IMPRESSION: Mild atelectatic changes in the right lung base. Otherwise no significant change. Electronically Signed: Osman Augustin MD at 15:01 EDT , Chest CTA 02/10/23 15:52 IMPRESSION: Normal CTA chest examination, without a demonstrated pulmonary embolism or arterial dissection. Persistent diffuse bilateral groundglass opacities with decreasing opacification right upper lobe, possible resolving infection versus edema. Electronically Signed: Mal Pablo MD at 17:25 EDT , Physical Exam Narrative GENERAL: cooperative HEENT: Atraumatic; normocephalic EYES; Anicteric, Normal Conjunctiva NECK; supple, normal thyroid, RESPIRATORY: Diminished to auscultation CARDIOVASCULAR: Regular S1 S2, GI: soft, normoactive bowel sounds, : No Renal angle tenderness; EXTREMITIES: No edema, no clubbing, MUSCULOSKELETAL: no muscle wasting NEURO: Awake; no lateralizing signs. SKIN: No Rash PSYCH; Flat affect Assessment & Plan Assessment/Plan (1) Acute and chronic respiratory failure: QUALIFIERS: Respiratory failure complication: hypoxia and hypercapnia Qualified Code(s): J96.21 - Acute and chronic respiratory failure with hypoxia; J96.22 - Acute and chronic respiratory failure with hypercapnia (2) Pneumonia due to COVID-19 virus: PLAN: Plan Patient is a 77-year-old gentleman recently admitted with COVID-19 pneumonia discharged home on oxygen presented with increasing shortness of breath. Patient was found to be hypoxic 84% on 6 L of oxygen 1. Acute on chronic hypoxic and hypercapnic respiratory failure ? Secondary to combination of COVID-pneumonia as well as COPD with acute exacerbation Patient admitted to monitored bed started on supplemental oxygen via AVAPS/BiPAP. Patient was started on remdesivir and consultation placed to pulmonary medicine 2. COPD with acute exacerbation ? Management as described above in addition to systemic steroids 3. Acute on chronic congestive heart failure with preserved ejection fraction ? Contributing to patient's hypoxic respiratory failure. Echo obtained on 07/12/2022 demonstrated EF of 60% with normal LV size and systolic function 4. Incidental left thyroid lesion ? Plan is for patient to undergo evaluation as outpatient with thyroid ultrasound once out of COVID precautions 5. Muscular dystrophy with functional paraplegia ? Patient is wheelchair-bound PT/OT consulted as well as criminal justice social worker to assist with discharge planning 6. Anemia - Secondary to chronic disorder monitoring H&H and transfuse if patient becomes symptomatic or hemoglobin falls below 7 7. Paroxysmal A-fib ? Patient is on metoprolol and diltiazem for rate control as well as systemic anticoagulation with apixaban 8. Hypertension - Blood pressure controlled, home medications continued with dose adjustment as needed 9. Dyslipidemia -Patient is on statin therapy, continued at home dose 10. Depression with anxiety ? Patient is on citalopram did continue 11. Class III obesity with BMI of 42.3 Complicating care 12. Hypokalemia -Corrected per protocol. Repeat labs ordered for a.m. 13. DVT prophylaxis ? On apixaban Time spent in the patient's overall evaluation,decision-making process, review of diagnostic data, adjustment of management, discussion with other providers, nursing nursing and ancillary staff involved in patient's care documentation, 50 Minutes Charges/Coding Visit Charges Inpatient E&M: 97682 Subs Hosp L3
[2023-02-11 07:17] LABS: ALB/GLOB Ratio 0.5 RATIO (0.9-2.4); AST(SGOT) 26 U/L (15-37); Alanine Aminotransfer ALT/SGPT 47 U/L (16-61); Albumin, Serum 2.4 g/dL (3.2-5.0); Alkaline Phosphatase 101 U/L (45-117); Anion Gap 4 (5-15); BUN 11 mg/dL (7-18); BUN/Creat Ratio 35.8 RATIO (10-20); Calcium,Total 9.1 mg/dL (8.5-10.1); Chloride 94 mmol/L (98-107); Creatinine, Serum 0.31 mg/dL (0.70-1.30); EST Glomerular Filtration Rate 302 mL/min (>60); Est Glom Filt Rate - Afr Amer 366 mL/min (>60); Estimated Creatinine Clearance 61.75 ml/min; Globulin 4.5 g/dL (2.2-4.2); Glucose 105 mg/dL (74-106); Potassium 3.3 mmol/L (3.5-5.1); Protein, Total 6.9 g/dL (6.4-8.2); Sodium Level 135 mmol/L (136-145)
--- NOTE | 2023-02-11 07:56 | EX.PCM.CONCC ---
Assessment & Plan Assessment/Plan (1) Acute and chronic respiratory failure: QUALIFIERS: Respiratory failure complication: hypoxia and hypercapnia Qualified Code(s): J96.21 - Acute and chronic respiratory failure with hypoxia; J96.22 - Acute and chronic respiratory failure with hypercapnia (2) COVID-19: PLAN: Plan RECOMMENDATIONS: 1. Wean FiO2 to maintain oxygen saturations at or above 90%. 2. Continue antimicrobials along with consideration for baricitinib, per ID recommendations. 3. Continue Eliquis per home regimen. 4. Gentle diuresis as tolerated by hemodynamics and renal function. 5. Encourage incentive spirometer use. IMPRESSIONS: 1. Acute on chronic hypoxemic respiratory failure The patient has known chronic hypoxemic respiratory failure in the setting of muscular dystrophy, with a baseline oxygen requirement of 4 L/min. He was recently hospitalized for COVID-19 pneumonia. Repeat chest imaging continues to demonstrate persistent groundglass changes along with basilar opacities, most pronounced in the right lower lobe. Therefore, it is reasonable to continue empiric antimicrobials with consideration for baricitinib, per ID recommendations. The patient will be continued on Eliquis, per his home regimen. Diuretics will be continued as tolerated by hemodynamics and renal function. In the interim, the patient will be continued on heated high flow oxygen, with a goal to wean FiO2 to maintain saturations at or above 90%. 2. History of muscular dystrophy/heart failure with preserved ejection fraction/paroxysmal atrial fibrillation/hypertension/hyperlipidemia/obesity Complicates care, management, recovery and prognosis. Continue home medications as indicated. This note was generated with [employer] dictation software. It may contain incorrect words, spelling, and punctuation that were not noted in checking the note before signing. HPI Consult Data Date of Consult: 02/11/23 HPI Narrative Reason for Consultation: Respiratory failure secondary to COVID-19 pneumonia HPI Narrative: The patient is a 77-year-old male, with a history as outlined below, who presented to the emergency department on February 10 with shortness of breath. The patient has a known history of muscular dystrophy, which is progressed with time. He also has associated chronic hypoxemic respiratory failure with a 4 L/min oxygen requirement. He was last seen in the pulmonary medicine clinic in November 2022. The patient was just discharged from the hospital on February 04 after having been admitted for 2 days due to COVID-19 pneumonia. The patient was treated with Decadron and remdesivir at that time. On presentation to the emergency department, the patient was noted to be afebrile hemodynamically stable. The patient was initially requiring 8 L/min of supplemental oxygen to maintain appropriate saturations. Initial laboratory evaluation revealed no evidence of a leukocytosis. ABG obtained on 8 L/min demonstrated a pH of 7.5 with a PCO2 of 45 and PO2 of 86. Chemistry profile was notable for a sodium of 133, potassium 3.1, chloride of 94 and creatinine of 0.37. Lactate was within normal limits. Troponin was unremarkable. CRP was elevated at 171. CTA chest showed no evidence for pulmonary embolism. The patient was subsequently admitted to the progressive care unit for further management. 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 Depression Diastolic CHF Dysphagia HTN (hypertension) Hyperlipemia Hyperlipidemia Hypertension Hypoxia Muscular dystrophy Home Medications aspirin 81 mg tablet,delayed release (Adult Low Dose Aspirin) 81 mg PO DAILY afib 05/26/15 [History Last Taken 08/27/22] citalopram 20 mg tablet 20 mg PO DAILY depression 05/26/15 [History Last Taken 08/27/22] multivitamin with folic acid 400 mcg tablet (Thera) 1 tab PO DAILY supplement 05/26/15 [History Last Taken 08/27/22] apixaban 5 mg tablet (Eliquis) 5 mg PO BID anti platelet 09/27/16 [History Last Taken 08/27/22] lisinopril 40 mg tablet 40 mg PO DAILY blood pressure 09/27/16 [History Last Taken 08/27/22] atorvastatin 20 mg tablet 20 mg PO QHS cholesterol 08/13/18 [History Last Taken 08/27/22] albuterol sulfate 90 mcg/actuation breath activated powder inhaler,sensor 2 inh inhalation Q6H PRN shortness of breath or wheezing #1 ea 07/02/22 [Rx Last Taken 08/28/22] diltiazem HCl 180 mg capsule,extended release 24 hr 180 mg PO Q12 heart rate #60 caps 07/02/22 [Rx Last Taken 08/27/22] guaifenesin 1,200 mg tablet, extended release 12 hr (Mucus Relief ER) 1,200 mg PO BID cough #14 tabs 07/02/22 [Rx Last Taken 08/27/22] sennosides 8.6 mg-docusate sodium 50 mg tablet (Stool Softener-Stimulant Laxative) 2 tab PO BID PRN Constipation #0 tabs 07/02/22 [Rx Last Taken Unknown] sodium chloride 0.65 % nasal spray aerosol (Deep Sea Nasal) 1 spray NASAL BID PRN PRN NASAL DRYNESS #0 mL 07/02/22 [Rx Last Taken Unknown] furosemide 40 mg tablet (Lasix) 30 mg PO Q12H diuretic 02/02/23 [History Last Taken Unknown] metoprolol succinate 50 mg capsule sprinkle, ext. release 24 hr 50 mg PO DAILY blood pressure 02/02/23 [History Last Taken Unknown] Allergy/AdvReac Type Severity Reaction Status Date / Time codeine AdvReac made me Verified 02/10/23 13:57 do crazy things Family History Father Hypertension Heart disease Renal cancer Kidney disease Mother Diabetes Heart disease Surgical History History of herniorrhaphy Social History household members: spouse Smoking Status: Former smoker how long ago did patient quit smoking: Smoked 1.5-2 ppd since teen until quit 2002. alcohol intake: current alcohol intake frequency: holidays/special occasions only substance use type: does not use ROS ROS Narrative 10 systems were reviewed with pertinent positives as noted in the HPI above. Physical Exam Const alert and no apparent distress Constitutional Narrative: Morbidly obese. Appears comfortable, sitting upright in bed. General Appearance: cooperative HEENT normocephalic and head/scalp atraumatic Eyes PERRL, EOMs intact bilaterally and conjunctivae normal Neck supple General: trachea midline Chest inspection of chest normal Resp normal respiratory effort Auscultation: diminished lung sounds; Negative for rales, rhonchi or wheezes Cardio regular rate and regular rhythm GI normal to inspection, nondistended, normoactive bowel sounds Extremity no clubbing, cyanosis or edema Skin no rashes or lesions noted Neuro Neuro Narrative: Baseline neuromuscular weakness. Psych cooperative and affect normal Lab / Micro Data 02/11/23 05:43 02/11/23 05:43 Labs: Laboratory Results - last 24 hr 02/10/23 14:25: WBC 10.6, RBC 5.01, Hgb 13.3, Hct 42.4, MCV 84.6, MCH 26.5 L, MCHC 31.4 L, RDW Std Deviation 50.4 H, RDW Coeff of Nick 16.2 H, Plt Count 225, MPV 9.2, Immature Gran % (Auto) 1.400 H, Neut % (Auto) 75.5 H, Lymph % (Auto) 6.6 L, [place] % (Auto) 12.5 H, Eos % (Auto) 3.8, Baso % (Auto) 0.2, Absolute Neuts (auto) 8.0 H, Absolute Lymphs (auto) 0.70 L, Nucleated RBC % 0, Sodium 133 L, Potassium 3.1 L, Chloride 94 L, Carbon Dioxide 34.0 H, Anion Gap 5, BUN 14, Creatinine 0.37 L, Estim Creat Clear Calc 61.75, Est GFR (MDRD) Af Amer 293, Est GFR (MDRD) Non-Af 242, BUN/Creatinine Ratio 37.6 H, Glucose 100, Calcium 9.2, Troponin I High Sens 24, B-Natriuretic Peptide 50.6 02/10/23 21:25: PT 15.7 H, INR 1.3, Fibrinogen 848 H, D-Dimer Quant (PE/DVT) 0.31, Magnesium 2.2, Lactate Dehydrogenase 231, Total Creatine Kinase 40, C-React Prot Ext Range 171.00 H, Procalcitonin 0.26 H 02/10/23 21:37: Lactic Acid 0.8 02/11/23 05:43: WBC 7.6, RBC 4.89, Hgb 13.0, Hct 42.2, MCV 86.3, MCH 26.6 L, MCHC 30.8 L, RDW Std Deviation 51.3 H, RDW Coeff of Nick 16.1 H, Plt Count 210, MPV 9.6, Immature Gran % (Auto) 1.300 H, Neut % (Auto) 90.6 H, Lymph % (Auto) 4.1 L, [place] % (Auto) 3.7, Eos % (Auto) 0.3, Baso % (Auto) 0.0, Absolute Neuts (auto) 6.9, Absolute Lymphs (auto) 0.31 L, Nucleated RBC % 0, Anisocytosis 1+, Sodium 135 L, Potassium 3.3 L, Chloride 94 L, Carbon Dioxide 37.0 H, Anion Gap 4 L, BUN 11, Creatinine 0.31 L, Estim Creat Clear Calc 61.75, Est GFR (MDRD) Af Amer 366, Est GFR (MDRD) Non-Af 302, BUN/Creatinine Ratio 35.8 H, Glucose 105, Calcium 9.1, Total Bilirubin 0.50, AST 26, ALT 47, Alkaline Phosphatase 101, Total Protein 6.9, Albumin 2.4 L, Globulin 4.5 H, Albumin/Globulin Ratio 0.5 L Micro: Microbiology 02/10/23 22:45 Urine, Clean Catch Legionella Antigen - Final 02/10/23 22:45 Urine, Clean Catch Streptococcus pneumoniae Antigen (M - Final ABG Data ABG results: ABG 02/10/23 14:43 Specimen Type ART Sample Site L Radial pH 7.50 H Bicarbonate Actual 35.7 H Total CO2 37 Base Excess 13 H O2 Saturation 97 ABG pCO2 45.4 H ABG pO2 86 Mickey Test Positive O2 Delivery Device Cannula Liter Flow 8.0 Radiology Impression Chest X-Ray 02/10/23 14:28 IMPRESSION: Mild atelectatic changes in the right lung base. Otherwise no significant change. Electronically Signed: Osman Augustin MD at 15:01 EDT , Chest CTA 02/10/23 15:52 IMPRESSION: Normal CTA chest examination, without a demonstrated pulmonary embolism or arterial dissection. Persistent diffuse bilateral groundglass opacities with decreasing opacification right upper lobe, possible resolving infection versus edema. Electronically Signed: Mal Pablo MD at 17:25 EDT , Charges/Coding Visit Charges Inpatient E&M: 98253 Init Hosp L3
[2023-02-11] MEDS: Aspirin E.C. 81 MG Tablet PO (08:48)
[2023-02-11] MEDS: Azithromycin 250 MG Tablet 500 MG PO (08:48)
[2023-02-11] MEDS: Citalopram 20 MG Tablet PO (08:48)
[2023-02-11] MEDS: dilTIAZem CD 180 MG Capsule PO ×2 (08:48→21:50)
[2023-02-11] MEDS: Senna/Docusate Sodium 1 Tablet 2 TABLET PO ×2 (08:48→21:50)
[2023-02-11] MEDS: Multivitamins,Therapeutic Tablet 1 TABLET PO (08:49)
[2023-02-11] MEDS: Metoprolol(XL)Succ 50 MG Tablet PO (08:49)
[2023-02-11] MEDS: APIXABAN 5 MG TABLET PO ×2 (08:49→21:50)
[2023-02-11] MEDS: Furosemide 40 MG Tablet PO (08:49)
[2023-02-11] MEDS: Lisinopril 40 MG Tablet PO (08:49)
[2023-02-11] MEDS: Ceftriaxone 1 GM/50 ML BAG IV (08:50)
[2023-02-11] MEDS: guaiFENesin/D-Methorphan TAB.SR.12H 2 TABLET PO ×2 (09:12→21:50)
--- NOTE | 2023-02-11 10:17 | PCM.CONS.GEN ---
Assessment & Plan Assessment/Plan (1) COVID-19: PLAN: severe covid, now on airvo. On dex/remdesivir. Procal 0.26. CTA neg for PE. UAg neg. CRP 170. Will cont ceftriaxone for now, will stop azithro. Will start course of baricitinib due to worsening O2. Will follow, thank you, d/w Dr. Butcher (2) Acute and chronic respiratory failure: QUALIFIERS: Respiratory failure complication: hypoxia and hypercapnia Qualified Code(s): J96.21 - Acute and chronic respiratory failure with hypoxia; J96.22 - Acute and chronic respiratory failure with hypercapnia HPI Consult Data Date of Consult: 02/11/23 HPI Narrative Reason for Consultation: covid HPI Narrative: HEATH SHABAZZ, is a 77 M with muscular dystrophy. Developed covid symptoms 02/02. Reports covid vaccine x2 but no boosters. No prior covid infection. Admitted 02/02 with hypoxia, given remdesivir and dexamethasone, discharged 02/04 on short course pred. Was doing ok but yesterday new onset severe dyspnea. Minimal dry cough. No fever or chills. No n/v/d, no aches, mild change in sense of taste. Restarted on dex/remdesivir, given azithro/ceftriaxone. On airvo this AM. Full ROS performed and neg except as noted above [facility] Medical History Aortic aneurysm Atrial fibrillation Current use of half-way anticoagulation Depression Diastolic CHF Dysphagia HTN (hypertension) Hyperlipemia Hyperlipidemia Hypertension Hypoxia Muscular dystrophy Home Medications aspirin 81 mg tablet,delayed release (Adult Low Dose Aspirin) 81 mg PO DAILY afib 05/26/15 [History Last Taken 08/27/22] citalopram 20 mg tablet 20 mg PO DAILY depression 05/26/15 [History Last Taken 08/27/22] multivitamin with folic acid 400 mcg tablet (Thera) 1 tab PO DAILY supplement 05/26/15 [History Last Taken 08/27/22] apixaban 5 mg tablet (Eliquis) 5 mg PO BID anti platelet 09/27/16 [History Last Taken 08/27/22] lisinopril 40 mg tablet 40 mg PO DAILY blood pressure 09/27/16 [History Last Taken 08/27/22] atorvastatin 20 mg tablet 20 mg PO QHS cholesterol 08/13/18 [History Last Taken 08/27/22] albuterol sulfate 90 mcg/actuation breath activated powder inhaler,sensor 2 inh inhalation Q6H PRN shortness of breath or wheezing #1 ea 07/02/22 [Rx Last Taken 08/28/22] diltiazem HCl 180 mg capsule,extended release 24 hr 180 mg PO Q12 heart rate #60 caps 07/02/22 [Rx Last Taken 08/27/22] guaifenesin 1,200 mg tablet, extended release 12 hr (Mucus Relief ER) 1,200 mg PO BID cough #14 tabs 07/02/22 [Rx Last Taken 08/27/22] sennosides 8.6 mg-docusate sodium 50 mg tablet (Stool Softener-Stimulant Laxative) 2 tab PO BID PRN Constipation #0 tabs 07/02/22 [Rx Last Taken Unknown] sodium chloride 0.65 % nasal spray aerosol (Deep Sea Nasal) 1 spray NASAL BID PRN PRN NASAL DRYNESS #0 mL 07/02/22 [Rx Last Taken Unknown] furosemide 40 mg tablet (Lasix) 30 mg PO Q12H diuretic 02/02/23 [History Last Taken Unknown] metoprolol succinate 50 mg capsule sprinkle, ext. release 24 hr 50 mg PO DAILY blood pressure 02/02/23 [History Last Taken Unknown] Allergy/AdvReac Type Severity Reaction Status Date / Time codeine AdvReac made me Verified 02/10/23 13:57 do crazy things Family History Father Hypertension Heart disease Renal cancer Kidney disease Mother Diabetes Heart disease Surgical History History of herniorrhaphy Social History household members: spouse Smoking Status: Former smoker how long ago did patient quit smoking: Smoked 1.5-2 ppd since teen until quit 2002. alcohol intake: current alcohol intake frequency: holidays/special occasions only substance use type: does not use Physical Exam Const alert, oriented x3 and no apparent distress HEENT normocephalic and head/scalp atraumatic Eyes PERRL and EOMs intact bilaterally Neck supple and No nodes Resp normal air movement Auscultation: rhonchi Cardio regular rate and regular rhythm GI soft to palpation, non-tender and non-distended Extremity General Extremity: Negative for edema Skin no rashes or lesions noted Neuro CN's II-XII intact bilaterally Lab / Micro Data Attestation: I reviewed the patient's lab results. 02/11/23 05:43 02/11/23 05:43 Labs: Laboratory Results - last 24 hr 02/10/23 14:25: WBC 10.6, RBC 5.01, Hgb 13.3, Hct 42.4, MCV 84.6, MCH 26.5 L, MCHC 31.4 L, RDW Std Deviation 50.4 H, RDW Coeff of Nick 16.2 H, Plt Count 225, MPV 9.2, Immature Gran % (Auto) 1.400 H, Neut % (Auto) 75.5 H, Lymph % (Auto) 6.6 L, [place] % (Auto) 12.5 H, Eos % (Auto) 3.8, Baso % (Auto) 0.2, Absolute Neuts (auto) 8.0 H, Absolute Lymphs (auto) 0.70 L, Nucleated RBC % 0, Sodium 133 L, Potassium 3.1 L, Chloride 94 L, Carbon Dioxide 34.0 H, Anion Gap 5, BUN 14, Creatinine 0.37 L, Estim Creat Clear Calc 61.75, Est GFR (MDRD) Af Amer 293, Est GFR (MDRD) Non-Af 242, BUN/Creatinine Ratio 37.6 H, Glucose 100, Calcium 9.2, Troponin I High Sens 24, B-Natriuretic Peptide 50.6 02/10/23 21:25: PT 15.7 H, INR 1.3, Fibrinogen 848 H, D-Dimer Quant (PE/DVT) 0.31, Magnesium 2.2, Lactate Dehydrogenase 231, Total Creatine Kinase 40, C-React Prot Ext Range 171.00 H, Procalcitonin 0.26 H 02/10/23 21:37: Lactic Acid 0.8 02/11/23 05:43: WBC 7.6, RBC 4.89, Hgb 13.0, Hct 42.2, MCV 86.3, MCH 26.6 L, MCHC 30.8 L, RDW Std Deviation 51.3 H, RDW Coeff of Nick 16.1 H, Plt Count 210, MPV 9.6, Immature Gran % (Auto) 1.300 H, Neut % (Auto) 90.6 H, Lymph % (Auto) 4.1 L, [place] % (Auto) 3.7, Eos % (Auto) 0.3, Baso % (Auto) 0.0, Absolute Neuts (auto) 6.9, Absolute Lymphs (auto) 0.31 L, Nucleated RBC % 0, Anisocytosis 1+, Sodium 135 L, Potassium 3.3 L, Chloride 94 L, Carbon Dioxide 37.0 H, Anion Gap 4 L, BUN 11, Creatinine 0.31 L, Estim Creat Clear Calc 61.75, Est GFR (MDRD) Af Amer 366, Est GFR (MDRD) Non-Af 302, BUN/Creatinine Ratio 35.8 H, Glucose 105, Calcium 9.1, Total Bilirubin 0.50, AST 26, ALT 47, Alkaline Phosphatase 101, Total Protein 6.9, Albumin 2.4 L, Globulin 4.5 H, Albumin/Globulin Ratio 0.5 L Micro: Microbiology 02/10/23 22:45 Urine, Clean Catch Legionella Antigen - Final 02/10/23 22:45 Urine, Clean Catch Streptococcus pneumoniae Antigen (M - Final ABG Data ABG results: ABG 02/10/23 14:43 Specimen Type ART Sample Site L Radial pH 7.50 H Bicarbonate Actual 35.7 H Total CO2 37 Base Excess 13 H O2 Saturation 97 ABG pCO2 45.4 H ABG pO2 86 Mickey Test Positive O2 Delivery Device Cannula Liter Flow 8.0 Radiology Impression Chest X-Ray 02/10/23 14:28 IMPRESSION: Mild atelectatic changes in the right lung base. Otherwise no significant change. Electronically Signed: Osman Augustin MD at 15:01 EDT , Chest CTA 02/10/23 15:52 IMPRESSION: Normal CTA chest examination, without a demonstrated pulmonary embolism or arterial dissection. Persistent diffuse bilateral groundglass opacities with decreasing opacification right upper lobe, possible resolving infection versus edema. Electronically Signed: Mal Pablo MD at 17:25 EDT ,
--- NOTE | 2023-02-11 15:45 | CASEMGMT ---
RN CM chart review: Patient was admitted 02/02-02/04/23 for covid pneumonia and acute on chronic renal failure. See RN CM assessment from 02/03/23. Patient was discharge on previous home oxygen and was maintaining 93% on 2lpm prior to discharge. Patient had follow-up plans in place. Patient returned 02/10/23 for SOB and was hypoxia on home oxygen. Patient was 84% on 6lpm in ED. Patient was admitted for COPD exacerbation due to bilateral covid pneumonia. ID consulted. Patient currently on IV Rocephin, IV Zithromax, IV solumedrol, and currently on Airvo at 60lpm/65%. CM will monitor for increase home oxygen and possible HHC. CM to continue to follow this patient and plan for a safe discharge.
[2023-02-11] MEDS: Potassium Chloride Oral Tablet 20 MEQ PO (18:18)
[2023-02-11] MEDS: Furosemide 20 MG Tablet PO (18:18)
--- NOTE | 2023-02-11 20:25 | CPS ---
PT uses own vest from home
[2023-02-11] MEDS: Atorvastatin Calcium 20 MG Tablet PO (21:50)
[2023-02-12] VITALS (17 sets, daily range): BP systolic 121–148; BP diastolic 63–98; PULSE 54–71; RESP 16–26; TEMP 35.6–36.9; O2SAT 93–98
--- NOTE | 2023-02-12 | CPS ---
Decreased O2 to 6 lpm
[2023-02-12] MEDS: Ipratropium/Albuterol Sulfate 3 ML AMPUL.NEB INHALATION ×7 (03:37→23:15)
[2023-02-12 06:10] LABS: Absolute Lymphocyte Count 0.86 X10^3/uL (0.83-4.51); Absolute Neutrophil Count 8.9 X10^3/uL (2.0-7.7); Basophil# 0.01 X10^3/uL; Basophil% 0.1 % (0-1); Hematocrit 39.7 % (40-54); Hemoglobin 12.2 g/dL (13.0-16.5); Lymphocyte # 0.86 X10^3/ul (0.83-4.51); Lymphocyte % 7.9 % (19-41); Mean Corp Hgb Conc 30.7 g/dL (32-36); Mean Corpuscular Hgb 26.4 pg (27.0-32.0); Mean Corpuscular Volume 85.9 fL (80-94); Mean Platelet Vol. 9.3 fl (6.2-12.0); Monocyte# 0.95 X10^3/uL; Monocyte% 8.7 % (0-10); NRBC Flagged by Analyzer 0 % (0-5); Neutrophil # 8.94 X10^3/uL (2.7-7.7); Platelet Count 208 K/mm3 (150-450); RBC Distribution Width SD 50.1 fl (35.1-43.9); Red Blood Count 4.62 M/mm3 (4.6-6.2); White Blood Count 10.9 K/mm3 (4.4-11.0)
[2023-02-12 06:36] LABS: ALB/GLOB Ratio 0.5 RATIO (0.9-2.4); AST(SGOT) 24 U/L (15-37); Alanine Aminotransfer ALT/SGPT 42 U/L (16-61); Albumin, Serum 2.2 g/dL (3.2-5.0); Alkaline Phosphatase 88 U/L (45-117); Anion Gap 3 (5-15); BUN 17 mg/dL (7-18); BUN/Creat Ratio 53.8 RATIO (10-20); Calcium,Total 8.7 mg/dL (8.5-10.1); Chloride 96 mmol/L (98-107); Creatinine, Serum 0.32 mg/dL (0.70-1.30); EST Glomerular Filtration Rate 292 mL/min (>60); Est Glom Filt Rate - Afr Amer 354 mL/min (>60); Estimated Creatinine Clearance 61.75 ml/min; Globulin 4.2 g/dL (2.2-4.2); Glucose 168 mg/dL (74-106); Potassium 3.3 mmol/L (3.5-5.1); Protein, Total 6.4 g/dL (6.4-8.2); Sodium Level 135 mmol/L (136-145)
--- NOTE | 2023-02-12 07:34 | PN.CC_ITS ---
Assessment & Plan Assessment/Plan (1) Acute and chronic respiratory failure: QUALIFIERS: Respiratory failure complication: hypoxia and hypercapnia Qualified Code(s): J96.21 - Acute and chronic respiratory failure with hypoxia; J96.22 - Acute and chronic respiratory failure with hypercapnia (2) COVID-19: PLAN: Plan RECOMMENDATIONS: 1. Wean supplemental oxygen to maintain saturations at or above 90%. 2. Continue remdesivir, Decadron and baricitinib as ordered. 3. Continue empiric antimicrobials. 4. Continue Eliquis per home regimen. 5. Continue gentle diuresis as tolerated by hemodynamics and renal function. 6. Encourage incentive spirometer use. IMPRESSIONS: 1. Acute on chronic hypoxemic respiratory failure The patient has known chronic hypoxemic respiratory failure in the setting of muscular dystrophy, with a baseline oxygen requirement of 4 L/min. He was recently hospitalized for COVID-19 pneumonia. Repeat chest imaging continues to demonstrate persistent groundglass changes along with basilar opacities, most pronounced in the right lower lobe. Therefore, it is reasonable to continue empiric antimicrobials along with baricitinib, given the degree of the patient's hypoxemia. The patient will be continued on Eliquis, per his home regimen. Diuretics will be continued as tolerated by hemodynamics and renal function. In the interim, continue to wean supplemental oxygen to maintain saturations at or above 90%. 2. History of muscular dystrophy/heart failure with preserved ejection fraction/paroxysmal atrial fibrillation/hypertension/hyperlipidemia/obesity Complicates care, management, recovery and prognosis. Continue home medications as indicated. This note was generated with [employer] dictation software. It may contain incorrect words, spelling, and punctuation that were not noted in checking the note before signing. Subjective Subjective The patient was seen and examined at the bedside this morning. Events from the last 24 hours have been reviewed. The patient is currently afebrile, hemodynamically stable and maintaining appropriate oxygen saturations on 8 L/min via nasal cannula. The patient remains clinically stable without any overnight events noted. Objective Data Objective Data The patient's most recent lab work, culture data and imaging studies have all been personally reviewed. Vital Signs: Vital Signs Temp Pulse Resp BP Pulse Ox O2 Del Method O2 Flow Rate 96.1 F L 61 20 H 121/63 H 97 Airvo 60 02/12/23 04:00 02/12/23 06:50 02/12/23 06:50 02/12/23 04:00 02/12/23 06:50 02/12/23 06:50 02/12/23 06:50 FiO2 60 02/12/23 06:50 Oxygen Flow Rate (L/min) 60 Oxygen Delivery Method Airvo Weight: 282 lb 3.067 oz Body Mass Index (BMI) 42.9 Intake & Output: Intake and Output for Last 24 Hours 02/10/23 02/11/23 02/12/23 23:59 23:59 23:59 Intake Total 1035 / 1035 1020 / 1720 1450 / 1450 Output Total 350 / 350 550 / 1550 1700 / 1700 Balance 685 / 685 470 / 170 -250 / -250 Lab / Micro Data Attestation: I reviewed the patient's lab results. 02/12/23 05:50 02/12/23 05:50 Labs: Laboratory Results - last 24 hr 02/12/23 05:50: WBC 10.9, RBC 4.62, Hgb 12.2 L, Hct 39.7 L, MCV 85.9, MCH 26.4 L , MCHC 30.7 L, RDW Std Deviation 50.1 H, RDW Coeff of Nick 16.0 H, Plt Count 208, MPV 9.3, Immature Gran % (Auto) 1.300 H, Neut % (Auto) 82.0 H, Lymph % (Auto) 7.9 L, [place] % (Auto) 8.7, Eos % (Auto) 0.0, Baso % (Auto) 0.1, Absolute Neuts (auto) 8.9 H, Absolute Lymphs (auto) 0.86, Nucleated RBC % 0, Sodium 135 L, Potassium 3.3 L, Chloride 96 L, Carbon Dioxide 36.0 H, Anion Gap 3 L, BUN 17, Creatinine 0.32 L, Estim Creat Clear Calc 61.75, Est GFR (MDRD) Af Amer 354, Est GFR (MDRD) Non-Af 292, BUN/Creatinine Ratio 53.8 H, Glucose 168 H, Calcium 8.7, Total Bilirubin 0.30, AST 24, ALT 42, Alkaline Phosphatase 88, Total Protein 6.4, Albumin 2.2 L, Globulin 4.2, Albumin/Globulin Ratio 0.5 L Micro: Microbiology 02/10/23 22:45 Urine, Clean Catch Legionella Antigen - Final 02/10/23 22:45 Urine, Clean Catch Streptococcus pneumoniae Antigen (M - Final Physical Exam Const alert and no apparent distress Constitutional Narrative: Morbidly obese. Appears comfortable, sitting upright in bed. General Appearance: cooperative HEENT normocephalic and head/scalp atraumatic Eyes PERRL, EOMs intact bilaterally and conjunctivae normal Neck supple General: trachea midline Chest inspection of chest normal Resp normal respiratory effort Auscultation: diminished lung sounds; Negative for rales, rhonchi or wheezes Cardio regular rate and regular rhythm GI normal to inspection, nondistended, normoactive bowel sounds Extremity no clubbing, cyanosis or edema Skin no rashes or lesions noted Neuro Neuro Narrative: Baseline neuromuscular weakness. Psych cooperative and affect normal Charges/Coding Visit Charges Inpatient E&M: 13881 Subs Hosp L2
--- NOTE | 2023-02-12 08:09 | PN.HOSP_ITS ---
Reason for Visit Reason for Visit: Diagnoses Pneumonia due to coronavirus disease 2019 (02/10/23) Acute and chronic respiratory failure with hypoxia (02/10/23) Acute and chronic respiratory failure with hypercapnia (02/10/23) COVID-19 (02/10/23) Subjective Subjective Patient seen still remains on Airvo Objective Data Objective Data Vital Signs: Vital Signs Temp Pulse Resp BP Pulse Ox O2 Del Method O2 Flow Rate 96.1 F L 61 20 H 121/63 H 97 Airvo 60 02/12/23 04:00 02/12/23 06:50 02/12/23 06:50 02/12/23 04:00 02/12/23 06:50 02/12/23 06:50 02/12/23 06:50 FiO2 60 02/12/23 06:50 Oxygen Flow Rate (L/min) 60 Oxygen Delivery Method Airvo Weight: 128 kg Body Mass Index (BMI) 42.9 Intake & Output: Intake and Output for Last 24 Hours 02/10/23 02/11/23 02/12/23 23:59 23:59 23:59 Intake Total 1035 / 1035 1020 / 1720 1450 / 1450 Output Total 350 / 350 550 / 1550 1700 / 1700 Balance 685 / 685 470 / 170 -250 / -250 Lab / Micro Data 02/12/23 05:50 02/12/23 05:50 Labs: Laboratory Results - last 24 hr 02/12/23 05:50: WBC 10.9, RBC 4.62, Hgb 12.2 L, Hct 39.7 L, MCV 85.9, MCH 26.4 L , MCHC 30.7 L, RDW Std Deviation 50.1 H, RDW Coeff of Inck 16.0 H, Plt Count 208, MPV 9.3, Immature Gran % (Auto) 1.300 H, Neut % (Auto) 82.0 H, Lymph % (Auto) 7.9 L, [place] % (Auto) 8.7, Eos % (Auto) 0.0, Baso % (Auto) 0.1, Absolute Neuts (auto) 8.9 H, Absolute Lymphs (auto) 0.86, Nucleated RBC % 0, Sodium 135 L, Potassium 3.3 L, Chloride 96 L, Carbon Dioxide 36.0 H, Anion Gap 3 L, BUN 17, Creatinine 0.32 L, Estim Creat Clear Calc 61.75, Est GFR (MDRD) Af Amer 354, Est GFR (MDRD) Non-Af 292, BUN/Creatinine Ratio 53.8 H, Glucose 168 H, Calcium 8.7, Total Bilirubin 0.30, AST 24, ALT 42, Alkaline Phosphatase 88, Total Protein 6.4, Albumin 2.2 L, Globulin 4.2, Albumin/Globulin Ratio 0.5 L Micro: Microbiology 02/10/23 22:45 Urine, Clean Catch Legionella Antigen - Final 02/10/23 22:45 Urine, Clean Catch Streptococcus pneumoniae Antigen (M - Final Physical Exam Narrative GENERAL: cooperative on airvo HEENT: Atraumatic; normocephalic EYES; Anicteric, Normal Conjunctiva NECK; supple, normal thyroid, RESPIRATORY: Diminished to auscultation CARDIOVASCULAR: Regular S1 S2, GI: soft, normoactive bowel sounds, : No Renal angle tenderness; EXTREMITIES: No edema, no clubbing, MUSCULOSKELETAL: no muscle wasting NEURO: Awake; no lateralizing signs. SKIN: No Rash PSYCH; Flat affect Assessment & Plan Assessment/Plan (1) Acute and chronic respiratory failure: QUALIFIERS: Respiratory failure complication: hypoxia and hypercapnia Qualified Code(s): J96.21 - Acute and chronic respiratory failure with hypoxia; J96.22 - Acute and chronic respiratory failure with hypercapnia (2) Pneumonia due to COVID-19 virus: PLAN: Plan 23Patient is a 77-year-old gentleman recently admitted with COVID-19 pneumonia discharged home on oxygen presented with increasing shortness of breath. Patient was found to be hypoxic 84% on 6 L of oxygen 1. Acute on chronic hypoxic and hypercapnic respiratory failure ? Secondary to combination of COVID-pneumonia as well as COPD with acute exacerbation Patient admitted to monitored bed started on supplemental oxygen via AVAPS/BiPAP. Patient was started on remdesivir and consultation placed to pulmonary medicine ?; 02/12/2023 patient remains on Airvo baricitinib added to patient's therapy 2. COPD with acute exacerbation ? Management as described above in addition to systemic steroids 3. Acute on chronic congestive heart failure with preserved ejection fraction ? Contributing to patient's hypoxic respiratory failure. Echo obtained on 07/12/2022 demonstrated EF of 60% with normal LV size and systolic function 4. Incidental left thyroid lesion ? Plan is for patient to undergo evaluation as outpatient with thyroid ultrasound once out of COVID precautions 5. Muscular dystrophy with functional paraplegia ? Patient is wheelchair-bound PT/OT consulted as well as psychiatric social worker to assist with discharge planning 6. Anemia - Secondary to chronic disorder monitoring H&H and transfuse if patient becomes symptomatic or hemoglobin falls below 7 7. Paroxysmal A-fib ? Patient is on metoprolol and diltiazem for rate control as well as systemic anticoagulation with apixaban 8. Hypertension - Blood pressure controlled, home medications continued with dose adjustment as needed 9. Dyslipidemia -Patient is on statin therapy, continued at home dose 10. Depression with anxiety ? Patient is on citalopram did continue 11. Class III obesity with BMI of 42.3 Complicating care 12. Hypokalemia -Corrected per protocol. Repeat labs ordered for a.m. 13. DVT prophylaxis ? On apixaban Time spent in the patient's overall evaluation,decision-making process, review of diagnostic data, adjustment of management, discussion with other providers, nursing nursing and ancillary staff involved in patient's care documentation, 50 Minutes Charges/Coding Visit Charges Inpatient E&M: 47137 Subs Hosp L3
[2023-02-12] MEDS: Ceftriaxone 1 GM/50 ML BAG IV (09:36)
[2023-02-12] MEDS: Multivitamins,Therapeutic Tablet 1 TABLET PO (09:39)
[2023-02-12] MEDS: Potassium Chloride Oral Tablet 20 MEQ PO ×2 (09:39→17:15)
[2023-02-12] MEDS: APIXABAN 5 MG TABLET PO ×2 (09:39→21:41)
[2023-02-12] MEDS: Senna/Docusate Sodium 1 Tablet 2 TABLET PO ×2 (09:39→21:41)
[2023-02-12] MEDS: Lisinopril 40 MG Tablet PO (09:39)
[2023-02-12] MEDS: Aspirin E.C. 81 MG Tablet PO (09:39)
[2023-02-12] MEDS: guaiFENesin/D-Methorphan TAB.SR.12H 2 TABLET PO ×2 (09:39→21:41)
[2023-02-12] MEDS: dilTIAZem CD 180 MG Capsule PO ×2 (09:39→21:42)
[2023-02-12] MEDS: dexAMETHasone 4 MG Tablet 6 MG PO (09:39)
[2023-02-12] MEDS: Metoprolol(XL)Succ 50 MG Tablet PO (09:39)
[2023-02-12] MEDS: Citalopram 20 MG Tablet PO (09:39)
[2023-02-12] MEDS: Furosemide 40 MG Tablet PO (09:40)
--- NOTE | 2023-02-12 13:15 | CHAPLAIN ---
Type of Pastoral Visit ___ Initial Visit ___ Follow-up Visit ___ On-call Visit ___ General Patient Visit ___ Spiritual Assessment ___ Family Conference ___ Bereavement ___ Rapid Response ___ Code Blue _x__ Other (describe below) Pastoral Care Referral From _x__ Patient ___ Family ___ Nurse ___ Physician ___ Electronic Organ Mechanic ___ Crate Repairer ___ Other (describe below) Sacrament/Intervention ___ Active listening ___ Anointing ___ Scientology ___ Bereavement ___ Communion ___ Odalys exploration ___ ___ Life review ___ Prayer ___ Reconciliation ___ Sacrament of Sick ___ Supportive presence ___ Wedding _x__ Other (describe below) Pastoral Comments phone call made into [facility] isolation room; after three rings the message is the patient is unable to answer the phone right now with no possibility of leaving a voice message
--- NOTE | 2023-02-12 15:35 | CASEMGMT ---
Social Work There is a copy of pts living will and health care POA naming his Roselia Ma on file at [facility]. RUBY Brown
[2023-02-12] MEDS: Furosemide 20 MG Tablet PO (17:16)
--- NOTE | 2023-02-12 19:00 | CPS ---
Pt used his own vest therapy brought from home
[2023-02-12] MEDS: Atorvastatin Calcium 20 MG Tablet PO (21:42)
[2023-02-12] MEDS: LORazepam 0.5 MG Tablet PO (21:49)
[2023-02-13] VITALS (13 sets, daily range): BP systolic 143–161; BP diastolic 86–102; PULSE 56–66; RESP 16–22; TEMP 35.9–36.7; O2SAT 94–97
[2023-02-13] MEDS: Ipratropium/Albuterol Sulfate 3 ML AMPUL.NEB INHALATION ×5 (03:40→21:00)
[2023-02-13 07:57] LABS: Absolute Lymphocyte Count 0.95 X10^3/uL (0.83-4.51); Absolute Neutrophil Count 9.7 X10^3/uL (2.0-7.7); Basophil# 0.03 X10^3/uL; Basophil% 0.3 % (0-1); Hematocrit 42.3 % (40-54); Hemoglobin 12.7 g/dL (13.0-16.5); Lymphocyte # 0.95 X10^3/ul (0.83-4.51); Lymphocyte % 8.2 % (19-41); Mean Corpuscular Hgb 26.3 pg (27.0-32.0); Mean Corpuscular Volume 87.6 fL (80-94); Mean Platelet Vol. 9.1 fl (6.2-12.0); Monocyte# 0.75 X10^3/uL; Monocyte% 6.5 % (0-10); NRBC Flagged by Analyzer 0 % (0-5); Neutrophil # 9.68 X10^3/uL (2.7-7.7); Neutrophil % 83.5 % (47-70); Platelet Count 259 K/mm3 (150-450); RBC Distribution Width SD 51.9 fl (35.1-43.9); Red Blood Count 4.83 M/mm3 (4.6-6.2); White Blood Count 11.6 K/mm3 (4.4-11.0)
--- NOTE | 2023-02-13 08:14 | PN.CC_ITS ---
Assessment & Plan Assessment/Plan (1) Acute and chronic respiratory failure: QUALIFIERS: Respiratory failure complication: hypoxia and hypercapnia Qualified Code(s): J96.21 - Acute and chronic respiratory failure with hypoxia; J96.22 - Acute and chronic respiratory failure with hypercapnia (2) COVID-19: PLAN: Plan RECOMMENDATIONS: 1. Wean supplemental oxygen to maintain saturations at or above 90%. 2. Continue remdesivir, Decadron and baricitinib as ordered. 3. Continue empiric antimicrobials to complete 7 days of therapy. 4. Continue Eliquis per home regimen. 5. Continue gentle diuresis as tolerated by hemodynamics and renal function. 6. Encourage incentive spirometer use. 7. Continue outpatient pulmonary follow-up as scheduled. IMPRESSIONS: 1. Acute on chronic hypoxemic respiratory failure The patient has known chronic hypoxemic respiratory failure in the setting of muscular dystrophy, with a baseline oxygen requirement of 4 L/min. He was recently hospitalized for COVID-19 pneumonia. Repeat chest imaging continues to demonstrate persistent groundglass changes along with basilar opacities, most pronounced in the right lower lobe. Therefore, it is reasonable to continue empiric antimicrobials along with baricitinib, given the degree of the patient's hypoxemia. The patient will be continued on Eliquis, per his home regimen. Diuretics will be continued as tolerated by hemodynamics and renal function. In the interim, continue to wean supplemental oxygen to maintain saturations at or above 90%. Overall, the patient is slowly improving from a respiratory perspective. 2. History of muscular dystrophy/heart failure with preserved ejection fraction/paroxysmal atrial fibrillation/hypertension/hyperlipidemia/obesity Complicates care, management, recovery and prognosis. Continue home medications as indicated. This note was generated with [employer] dictation software. It may contain incorrect words, spelling, and punctuation that were not noted in checking the note before signing. Subjective Subjective The patient was seen and examined at the bedside this morning. Events from the last 24 hours have been reviewed. The patient is currently afebrile, hemodynamically stable and maintaining appropriate oxygen saturations on 3 L/min via nasal cannula. The patient rested well overnight has no specific complaints this morning. Objective Data Objective Data The patient's most recent lab work, culture data and imaging studies have all been personally reviewed. Vital Signs: Vital Signs Temp Pulse Resp BP Pulse Ox O2 Del Method O2 Flow Rate 98.0 F 57 L 18 152/100 H 97 High Flow 8 02/13/23 03:49 02/13/23 07:43 02/13/23 07:43 02/13/23 03:49 02/13/23 07:43 02/13/23 07:43 02/13/23 07:43 FiO2 58 02/12/23 22:00 Oxygen Flow Rate (L/min) 8 Oxygen Delivery Method High Flow Weight: 282 lb 3.067 oz Body Mass Index (BMI) 42.9 Intake & Output: Intake and Output for Last 24 Hours 02/11/23 02/12/23 02/13/23 23:59 23:59 23:59 Intake Total 1020 / 1720 2470 / 2690 220 / 220 Output Total 550 / 1550 2800 / 3300 1200 / 1200 Balance 470 / 170 -330 / -610 -980 / -980 Lab / Micro Data Attestation: I reviewed the patient's lab results. 02/13/23 07:25 02/13/23 07:25 Labs: Laboratory Results - last 24 hr 02/13/23 07:25: WBC 11.6 H, RBC 4.83, Hgb 12.7 L, Hct 42.3, MCV 87.6, MCH 26.3 L , MCHC 30.0 L, RDW Std Deviation 51.9 H, RDW Coeff of Nick 16.0 H, Plt Count 259, MPV 9.1, Immature Gran % (Auto) 1.500 H, Neut % (Auto) 83.5 H, Lymph % (Auto) 8.2 L, [place] % (Auto) 6.5, Eos % (Auto) 0.0, Baso % (Auto) 0.3, Absolute Neuts (auto) 9.7 H, Absolute Lymphs (auto) 0.95, Nucleated RBC % 0 Micro: Microbiology 02/10/23 21:37 Blood Culture (Wb) - Arm Right Blood Culture - Preliminary No growth in 48 hours. 02/10/23 21:25 Blood Culture (Wb) - Anticubital Right Blood Culture - Preliminary No growth in 48 hours. 02/10/23 22:45 Urine, Clean Catch Legionella Antigen - Final 02/10/23 22:45 Urine, Clean Catch Streptococcus pneumoniae Antigen (M - Final Physical Exam Const alert and no apparent distress Constitutional Narrative: Morbidly obese. Appears comfortable, sitting upright in bed. General Appearance: cooperative HEENT normocephalic and head/scalp atraumatic Eyes PERRL, EOMs intact bilaterally and conjunctivae normal Neck supple General: trachea midline Chest inspection of chest normal Resp normal respiratory effort Auscultation: diminished lung sounds; Negative for rales, rhonchi or wheezes Cardio regular rate and regular rhythm GI normal to inspection, nondistended, normoactive bowel sounds Extremity no clubbing, cyanosis or edema Skin no rashes or lesions noted Neuro Neuro Narrative: Baseline neuromuscular weakness. Psych cooperative and affect normal Charges/Coding Visit Charges Inpatient E&M: 32321 Subs Hosp L2
--- NOTE | 2023-02-13 08:30 | PCM.PN.HOSP ---
Reason for Visit Reason for Visit: Diagnoses Pneumonia due to coronavirus disease 2019 (02/10/23) Acute and chronic respiratory failure with hypoxia (02/10/23) Acute and chronic respiratory failure with hypercapnia (02/10/23) COVID-19 (02/10/23) Subjective Subjective Patient seen clinical condition continues to improve. Patient has been weaned off Airvo currently on nasal cannula. Do anticipate discharge in 1 to 2 days. Objective Data Objective Data Vital Signs: Vital Signs Temp Pulse Resp BP Pulse Ox O2 Del Method O2 Flow Rate 98.0 F 57 L 18 152/100 H 97 High Flow 8 02/13/23 03:49 02/13/23 07:43 02/13/23 07:43 02/13/23 03:49 02/13/23 07:43 02/13/23 07:43 02/13/23 07:43 FiO2 58 02/12/23 22:00 Oxygen Flow Rate (L/min) 8 Oxygen Delivery Method High Flow Weight: 128 kg Body Mass Index (BMI) 42.9 Intake & Output: Intake and Output for Last 24 Hours 02/11/23 02/12/23 02/13/23 23:59 23:59 23:59 Intake Total 1020 / 1720 2470 / 2690 220 / 220 Output Total 550 / 1550 2800 / 3300 1200 / 1200 Balance 470 / 170 -330 / -610 -980 / -980 Lab / Micro Data 02/13/23 07:25 02/13/23 07:25 Labs: Laboratory Results - last 24 hr 02/13/23 07:25: WBC 11.6 H, RBC 4.83, Hgb 12.7 L, Hct 42.3, MCV 87.6, MCH 26.3 L, MCHC 30.0 L, RDW Std Deviation 51.9 H, RDW Coeff of Nick 16.0 H, Plt Count 259, MPV 9.1, Immature Gran % (Auto) 1.500 H, Neut % (Auto) 83.5 H, Lymph % (Auto) 8.2 L, [place] % (Auto) 6.5, Eos % (Auto) 0.0, Baso % (Auto) 0.3, Absolute Neuts (auto) 9.7 H, Absolute Lymphs (auto) 0.95, Nucleated RBC % 0 Micro: Microbiology 02/10/23 21:37 Blood Culture (Wb) - Arm Right Blood Culture - Preliminary No growth in 48 hours. 02/10/23 21:25 Blood Culture (Wb) - Anticubital Right Blood Culture - Preliminary No growth in 48 hours. 02/10/23 22:45 Urine, Clean Catch Legionella Antigen - Final 02/10/23 22:45 Urine, Clean Catch Streptococcus pneumoniae Antigen (M - Final Physical Exam Narrative GENERAL: cooperative on airvo HEENT: Atraumatic; normocephalic EYES; Anicteric, Normal Conjunctiva NECK; supple, normal thyroid, RESPIRATORY: Diminished to auscultation CARDIOVASCULAR: Regular S1 S2, GI: soft, normoactive bowel sounds, : No Renal angle tenderness; EXTREMITIES: No edema, no clubbing, MUSCULOSKELETAL: no muscle wasting NEURO: Awake; no lateralizing signs. SKIN: No Rash PSYCH; Flat affect Assessment & Plan Assessment/Plan (1) Acute and chronic respiratory failure: QUALIFIERS: Respiratory failure complication: hypoxia and hypercapnia Qualified Code(s): J96.21 - Acute and chronic respiratory failure with hypoxia; J96.22 - Acute and chronic respiratory failure with hypercapnia (2) Pneumonia due to COVID-19 virus: PLAN: Plan 23Patient is a 77-year-old gentleman recently admitted with COVID-19 pneumonia discharged home on oxygen presented with increasing shortness of breath. Patient was found to be hypoxic 84% on 6 L of oxygen 1. Acute on chronic hypoxic and hypercapnic respiratory failure ? Secondary to combination of COVID-pneumonia as well as COPD with acute exacerbation Patient admitted to monitored bed started on supplemental oxygen via AVAPS/BiPAP. Patient was started on remdesivir and consultation placed to pulmonary medicine ?; 02/12/2023 patient remains on Airvo baricitinib added to patient's therapy 2. COPD with acute exacerbation ? Management as described above in addition to systemic steroids 3. Acute on chronic congestive heart failure with preserved ejection fraction ? Contributing to patient's hypoxic respiratory failure. Echo obtained on 07/12/2022 demonstrated EF of 60% with normal LV size and systolic function 4. Incidental left thyroid lesion ? Plan is for patient to undergo evaluation as outpatient with thyroid ultrasound once out of COVID precautions 5. Muscular dystrophy with functional paraplegia ? Patient is wheelchair-bound PT/OT consulted as well as social organization professor to assist with discharge planning 6. Anemia - Secondary to chronic disorder monitoring H&H and transfuse if patient becomes symptomatic or hemoglobin falls below 7 7. Paroxysmal A-fib ? Patient is on metoprolol and diltiazem for rate control as well as systemic anticoagulation with apixaban 8. Hypertension - Blood pressure controlled, home medications continued with dose adjustment as needed 9. Dyslipidemia -Patient is on statin therapy, continued at home dose 10. Depression with anxiety ? Patient is on citalopram did continue 11. Class III obesity with BMI of 42.3 Complicating care 12. Hypokalemia -Corrected per protocol. Repeat labs ordered for a.m. 13. DVT prophylaxis ? On apixaban Time spent in the patient's overall evaluation,decision-making process, review of diagnostic data, adjustment of management, discussion with other providers, nursing nursing and ancillary staff involved in patient's care documentation, 35 Minutes Charges/Coding Visit Charges Inpatient E&M: 15099 Subs Hosp L2
[2023-02-13 08:39] LABS: ALB/GLOB Ratio 0.6 RATIO (0.9-2.4); AST(SGOT) 15 U/L (15-37); Alanine Aminotransfer ALT/SGPT 44 U/L (16-61); Albumin, Serum 2.4 g/dL (3.2-5.0); Alkaline Phosphatase 93 U/L (45-117); Anion Gap 4 (5-15); BUN 19 mg/dL (7-18); BUN/Creat Ratio 55.7 RATIO (10-20); Calcium,Total 9.2 mg/dL (8.5-10.1); Chloride 97 mmol/L (98-107); Creatinine, Serum 0.34 mg/dL (0.70-1.30); EST Glomerular Filtration Rate 268 mL/min (>60); Est Glom Filt Rate - Afr Amer 324 mL/min (>60); Estimated Creatinine Clearance 61.75 ml/min; Globulin 4.3 g/dL (2.2-4.2); Glucose 117 mg/dL (74-106); Potassium 4.1 mmol/L (3.5-5.1); Protein, Total 6.7 g/dL (6.4-8.2); Sodium Level 133 mmol/L (136-145)
[2023-02-13] MEDS: Potassium Chloride Oral Tablet 20 MEQ PO ×2 (10:26→17:42)
[2023-02-13] MEDS: Multivitamins,Therapeutic Tablet 1 TABLET PO (10:26)
[2023-02-13] MEDS: dexAMETHasone 4 MG Tablet 6 MG PO (10:26)
[2023-02-13] MEDS: APIXABAN 5 MG TABLET PO ×2 (10:27→22:30)
[2023-02-13] MEDS: Aspirin E.C. 81 MG Tablet PO (10:27)
[2023-02-13] MEDS: Furosemide 40 MG Tablet PO (10:27)
[2023-02-13] MEDS: Citalopram 20 MG Tablet PO (10:27)
[2023-02-13] MEDS: guaiFENesin/D-Methorphan TAB.SR.12H 2 TABLET PO ×2 (10:28→22:30)
[2023-02-13] MEDS: Lisinopril 40 MG Tablet PO (10:31)
[2023-02-13] MEDS: Senna/Docusate Sodium 1 Tablet 2 TABLET PO ×2 (10:31→22:29)
[2023-02-13] MEDS: Ceftriaxone 1 GM/50 ML BAG IV (10:32)
[2023-02-13] MEDS: Metoprolol(XL)Succ 50 MG Tablet PO (11:02)
[2023-02-13] MEDS: dilTIAZem CD 180 MG Capsule PO ×2 (11:02→22:30)
[2023-02-13] MEDS: Furosemide 20 MG Tablet PO (17:42)
--- NOTE | 2023-02-13 22:23 | CPS ---
Used pts own vest from home for 15 min. Then did cough assist with pt and coughed up a sputum sample and sent to lab.
[2023-02-13] MEDS: Atorvastatin Calcium 20 MG Tablet PO (22:30)
[2023-02-14] VITALS (10 sets, daily range): BP systolic 154–158; BP diastolic 70–90; PULSE 57–70; RESP 18–20; TEMP 36.7–36.9; O2SAT 95–98
[2023-02-14] MEDS: Ipratropium/Albuterol Sulfate 3 ML AMPUL.NEB INHALATION ×4 (00:19→11:21)
[2023-02-14 07:50] LABS: Absolute Lymphocyte Count 0.86 X10^3/uL (0.83-4.51); Absolute Neutrophil Count 9.2 X10^3/uL (2.0-7.7); Basophil# 0.03 X10^3/uL; Basophil% 0.3 % (0-1); Hemoglobin 13.5 g/dL (13.0-16.5); Lymphocyte # 0.86 X10^3/ul (0.83-4.51); Lymphocyte % 7.7 % (19-41); Mean Corp Hgb Conc 30.7 g/dL (32-36); Mean Corpuscular Hgb 26.5 pg (27.0-32.0); Mean Corpuscular Volume 86.3 fL (80-94); Mean Platelet Vol. 9.2 fl (6.2-12.0); Monocyte% 7.2 % (0-10); NRBC Flagged by Analyzer 0 % (0-5); Neutrophil # 9.22 X10^3/uL (2.7-7.7); Neutrophil % 82.8 % (47-70); Platelet Count 254 K/mm3 (150-450); RBC Distribution Width CV 15.7 % (11.6-14.6); RBC Distribution Width SD 49.7 fl (35.1-43.9); White Blood Count 11.1 K/mm3 (4.4-11.0)
[2023-02-14 08:22] LABS: ALB/GLOB Ratio 0.6 RATIO (0.9-2.4); AST(SGOT) 13 U/L (15-37); Alanine Aminotransfer ALT/SGPT 43 U/L (16-61); Albumin, Serum 2.5 g/dL (3.2-5.0); Alkaline Phosphatase 107 U/L (45-117); Anion Gap 3 (5-15); BUN 18 mg/dL (7-18); BUN/Creat Ratio 54.4 RATIO (10-20); Chloride 95 mmol/L (98-107); Creatinine, Serum 0.33 mg/dL (0.70-1.30); EST Glomerular Filtration Rate 277 mL/min (>60); Est Glom Filt Rate - Afr Amer 335 mL/min (>60); Estimated Creatinine Clearance 61.75 ml/min; Globulin 4.3 g/dL (2.2-4.2); Glucose 129 mg/dL (74-106); Potassium 4.2 mmol/L (3.5-5.1); Protein, Total 6.8 g/dL (6.4-8.2); Sodium Level 133 mmol/L (136-145)
--- NOTE | 2023-02-14 08:46 | PN.HOSP_ITS ---
Reason for Visit Reason for Visit: Diagnoses Pneumonia due to coronavirus disease 2019 (02/10/23) Acute and chronic respiratory failure with hypoxia (02/10/23) Acute and chronic respiratory failure with hypercapnia (02/10/23) COVID-19 (02/10/23) Subjective Subjective Patient seen breathing status improving. Plan is for patient to be assessed for possible discharge Objective Data Objective Data Vital Signs: Vital Signs Temp Pulse Resp BP Pulse Ox O2 Del Method O2 Flow Rate 98.1 F 62 20 H 154/90 H 98 Nasal Cannula 4 02/14/23 04:00 02/14/23 07:37 02/14/23 07:37 02/14/23 04:00 02/14/23 07:37 02/14/23 07:37 02/14/23 07:37 FiO2 94 02/13/23 10:30 Oxygen Flow Rate (L/min) 4 Oxygen Delivery Method Nasal Cannula Weight: 128 kg Body Mass Index (BMI) 42.9 Intake & Output: Intake and Output for Last 24 Hours 02/12/23 02/13/23 02/14/23 23:59 23:59 23:59 Intake Total 2470 / 2690 1320 / 1430 220 / 220 Output Total 2800 / 3300 3150 / 3150 500 / 500 Balance -330 / -610 -1830 / -1720 -280 / -280 Lab / Micro Data 02/14/23 07:23 02/14/23 07:23 Labs: Laboratory Results - last 24 hr 02/14/23 07:23: WBC 11.1 H, RBC 5.10, Hgb 13.5, Hct 44.0, MCV 86.3, MCH 26.5 L, MCHC 30.7 L, RDW Std Deviation 49.7 H, RDW Coeff of Nick 15.7 H, Plt Count 254, MPV 9.2, Immature Gran % (Auto) 2.000 H, Neut % (Auto) 82.8 H, Lymph % (Auto) 7.7 L, [place] % (Auto) 7.2, Eos % (Auto) 0.0, Baso % (Auto) 0.3, Absolute Neuts (auto) 9.2 H, Absolute Lymphs (auto) 0.86, Nucleated RBC % 0, Sodium 133 L, Potassium 4.2, Chloride 95 L, Carbon Dioxide 35.0 H, Anion Gap 3 L, BUN 18, Creatinine 0.33 L, Estim Creat Clear Calc 61.75, Est GFR (MDRD) Af Amer 335, Est GFR (MDRD) Non-Af 277, BUN/Creatinine Ratio 54.4 H, Glucose 129 H, Calcium 9.0, Total Bilirubin 0.30, AST 13 L, ALT 43, Alkaline Phosphatase 107, Total Protein 6.8, Albumin 2.5 L, Globulin 4.3 H, Albumin/Globulin Ratio 0.6 L Micro: Microbiology 02/13/23 21:15 Sputum, Expectorated/Coughed Gram Stain - Preliminary 02/10/23 21:37 Blood Culture (Wb) - Arm Right Blood Culture - Preliminary No growth in 48 hours. 02/10/23 21:25 Blood Culture (Wb) - Anticubital Right Blood Culture - Preliminary No growth in 48 hours. 02/10/23 22:45 Urine, Clean Catch Legionella Antigen - Final 02/10/23 22:45 Urine, Clean Catch Streptococcus pneumoniae Antigen (M - Final Physical Exam Narrative GENERAL: cooperative on airvo HEENT: Atraumatic; normocephalic EYES; Anicteric, Normal Conjunctiva NECK; supple, normal thyroid, RESPIRATORY: Diminished to auscultation CARDIOVASCULAR: Regular S1 S2, GI: soft, normoactive bowel sounds, : No Renal angle tenderness; EXTREMITIES: No edema, no clubbing, MUSCULOSKELETAL: no muscle wasting NEURO: Awake; no lateralizing signs. SKIN: No Rash PSYCH; Flat affect Assessment & Plan Assessment/Plan (1) Acute and chronic respiratory failure: QUALIFIERS: Respiratory failure complication: hypoxia and hypercapnia Qualified Code(s): J96.21 - Acute and chronic respiratory failure with hypoxia; J96.22 - Acute and chronic respiratory failure with hypercapnia (2) Pneumonia due to COVID-19 virus: PLAN: Plan 23Patient is a 77-year-old gentleman recently admitted with COVID-19 pneumonia discharged home on oxygen presented with increasing shortness of breath. Patient was found to be hypoxic 84% on 6 L of oxygen 1. Acute on chronic hypoxic and hypercapnic respiratory failure ? Secondary to combination of COVID-pneumonia as well as COPD with acute exacerbation Patient admitted to monitored bed started on supplemental oxygen via AVAPS/BiPAP. Patient was started on remdesivir and consultation placed to pulmonary medicine ?; 02/12/2023 patient remains on Airvo baricitinib added to patient's therapy 2. COPD with acute exacerbation ? Management as described above in addition to systemic steroids 3. Acute on chronic congestive heart failure with preserved ejection fraction ? Contributing to patient's hypoxic respiratory failure. Echo obtained on 07/12/2022 demonstrated EF of 60% with normal LV size and systolic function 4. Incidental left thyroid lesion ? Plan is for patient to undergo evaluation as outpatient with thyroid ultrasound once out of COVID precautions 5. Muscular dystrophy with functional paraplegia ? Patient is wheelchair-bound PT/OT consulted as well as social science professor to assist with discharge planning 6. Anemia - Secondary to chronic disorder monitoring H&H and transfuse if patient becomes symptomatic or hemoglobin falls below 7 7. Paroxysmal A-fib ? Patient is on metoprolol and diltiazem for rate control as well as systemic anticoagulation with apixaban 8. Hypertension - Blood pressure controlled, home medications continued with dose adjustment as needed 9. Dyslipidemia -Patient is on statin therapy, continued at home dose 10. Depression with anxiety ? Patient is on citalopram did continue 11. Class III obesity with BMI of 42.3 Complicating care 12. Hypokalemia -Corrected per protocol. Repeat labs ordered for a.m. 13. DVT prophylaxis ? On apixaban Time spent in the patient's overall evaluation,decision-making process, review of diagnostic data, adjustment of management, discussion with other providers, nursing nursing and ancillary staff involved in patient's care documentation, 35 Minutes Charges/Coding Visit Charges Inpatient E&M: 29651 Subs Hosp L2
[2023-02-14] MEDS: Multivitamins,Therapeutic Tablet 1 TABLET PO (09:01)
[2023-02-14] MEDS: dexAMETHasone 4 MG Tablet 6 MG PO (09:01)
[2023-02-14] MEDS: Potassium Chloride Oral Tablet 20 MEQ PO (09:02)
[2023-02-14] MEDS: Aspirin E.C. 81 MG Tablet PO (09:02)
[2023-02-14] MEDS: Furosemide 40 MG Tablet PO (10:44)
[2023-02-14] MEDS: guaiFENesin/D-Methorphan TAB.SR.12H 2 TABLET PO (10:44)
[2023-02-14] MEDS: Ceftriaxone 1 GM/50 ML BAG IV (10:44)
[2023-02-14] MEDS: APIXABAN 5 MG TABLET PO (10:45)
[2023-02-14] MEDS: Lisinopril 40 MG Tablet PO (10:46)
[2023-02-14] MEDS: dilTIAZem CD 180 MG Capsule PO (10:46)
[2023-02-14] MEDS: Citalopram 20 MG Tablet PO (10:46)
[2023-02-14] MEDS: Senna/Docusate Sodium 1 Tablet 2 TABLET PO (10:47)
[2023-02-14] MEDS: Metoprolol(XL)Succ 50 MG Tablet PO (10:47)
--- NOTE | 2023-02-14 11:26 | CPS ---
pt own vest was used for CPT
--- NOTE | 2023-02-14 11:30 | PCM.DC.SUM ---
Providers Date of Admission: 02/10/23 Date of Discharge: 02/14/23 Primary Care Physician: Dr. Landon Enamorado MD Consultations 02/10/23 18:47 Consult: Channel Cementer / Pulmonary Medicine Routine Consulting Provider: Pulmonary Medicine josé Cleary Reason for Consult: acute on chr resp failure, covid pneumonia EMERGENT Consult: No Notified: Yes Date Notified: 02/10/23 Time Notified: 18:47 Method of Notification: Text 02/10/23 20:19 Consult: Infectious Disease Routine Consulting Provider: Mathew Dalal Reason for Consult: worsening hypoxia EMERGENT Consult: No Notified: Yes Date Notified: 02/10/23 Time Notified: 18:29 Method of Notification: ED Physician Initiated Reason For Visit: COVID PNEUMONIA. SEVERE HYPOXIA Diagnosis Discharge Diagnosis (1) Acute and chronic respiratory failure: Status: Chronic Code(s): J96.20 - Acute and chronic respiratory failure, unspecified whether with hypoxia or hypercapnia Qualifiers: Respiratory failure complication: hypoxia and hypercapnia Qualified Code(s): J96.21 - Acute and chronic respiratory failure with hypoxia; J96.22 - Acute and chronic respiratory failure with hypercapnia (2) Pneumonia due to COVID-19 virus: Status: Acute Code(s): U07.1 - COVID-19; J12.82 - Pneumonia due to coronavirus disease 2019 Plan 23Patient is a 77-year-old gentleman recently admitted with COVID-19 pneumonia discharged home on oxygen presented with increasing shortness of breath. Patient was found to be hypoxic 84% on 6 L of oxygen 1. Acute on chronic hypoxic and hypercapnic respiratory failure ? Secondary to combination of COVID-pneumonia as well as COPD with acute exacerbation Patient admitted to monitored bed started on supplemental oxygen via AVAPS/BiPAP. Patient was started on remdesivir and consultation placed to pulmonary medicine ?; 02/12/2023 patient remains on Airvo baricitinib added to patient's therapy 2. COPD with acute exacerbation ? Management as described above in addition to systemic steroids 3. Acute on chronic congestive heart failure with preserved ejection fraction ? Contributing to patient's hypoxic respiratory failure. Echo obtained on 07/12/2022 demonstrated EF of 60% with normal LV size and systolic function 4. Incidental left thyroid lesion ? Plan is for patient to undergo evaluation as outpatient with thyroid ultrasound once out of COVID precautions 5. Muscular dystrophy with functional paraplegia ? Patient is wheelchair-bound PT/OT consulted as well as clinical social work aide to assist with discharge planning 6. Anemia - Secondary to chronic disorder monitoring H&H and transfuse if patient becomes symptomatic or hemoglobin falls below 7 7. Paroxysmal A-fib ? Patient is on metoprolol and diltiazem for rate control as well as systemic anticoagulation with apixaban 8. Hypertension - Blood pressure controlled, home medications continued with dose adjustment as needed 9. Dyslipidemia -Patient is on statin therapy, continued at home dose 10. Depression with anxiety ? Patient is on citalopram did continue 11. Class III obesity with BMI of 42.3 Complicating care 12. Hypokalemia -Corrected per protocol. Repeat labs ordered for a.m. 13. DVT prophylaxis ? On apixaban Time spent in the patient's overall evaluation,decision-making process, review of diagnostic data, adjustment of management, discussion with other providers, nursing nursing and ancillary staff involved in patient's care documentation, 35 Minutes Medications at Discharge Home Medications aspirin 81 mg tablet,delayed release (Adult Low Dose Aspirin) 81 mg PO DAILY afib 05/26/15 citalopram 20 mg tablet 20 mg PO DAILY depression 05/26/15 multivitamin with folic acid 400 mcg tablet (Thera) 1 tab PO DAILY supplement 05/26/15 apixaban 5 mg tablet (Eliquis) 5 mg PO BID anti platelet 09/27/16 lisinopril 40 mg tablet 40 mg PO DAILY blood pressure 09/27/16 atorvastatin 20 mg tablet 20 mg PO QHS cholesterol 08/13/18 albuterol sulfate 90 mcg/actuation breath activated powder inhaler,sensor 2 inh inhalation Q6H PRN shortness of breath or wheezing #1 ea 07/02/22 diltiazem HCl 180 mg capsule,extended release 24 hr 180 mg PO Q12 heart rate #60 caps 07/02/22 guaifenesin 1,200 mg tablet, extended release 12 hr (Mucus Relief ER) 1,200 mg PO BID cough #14 tabs 07/02/22 sennosides 8.6 mg-docusate sodium 50 mg tablet (Stool Softener-Stimulant Laxative) 2 tab PO BID PRN Constipation #0 tabs 07/02/22 sodium chloride 0.65 % nasal spray aerosol (Deep Sea Nasal) 1 spray NASAL BID PRN PRN NASAL DRYNESS #0 mL 07/02/22 furosemide 40 mg tablet (Lasix) 30 mg PO Q12H diuretic 02/02/23 metoprolol succinate 50 mg capsule sprinkle, ext. release 24 hr 50 mg PO DAILY blood pressure 02/02/23 lorazepam 0.5 mg tablet (Ativan) 0.5 mg PO QHS anxiety 02/12/23 azithromycin 500 mg tablet (Zithromax) 500 mg PO DAILY 3 days #3 tabs 02/14/23 cefdinir 300 mg capsule 300 mg PO BID #10 caps 02/14/23 dexamethasone 6 mg tablet 6 mg PO DAILY #7 tabs 02/14/23 potassium chloride 20 mEq tablet,extended release(part/cryst) (Klor-Con M) 20 meq PO DAILY #30 tabs 02/14/23 Hospital Course Summary of Care Provided Minutes Spent on Discharge: 35 Physical Exam Narrative GENERAL: cooperative HEENT: Atraumatic; normocephalic EYES; Anicteric, Normal Conjunctiva NECK; supple, normal thyroid, RESPIRATORY: Diminished to auscultation CARDIOVASCULAR: Regular S1 S2, GI: soft, normoactive bowel sounds, : No Renal angle tenderness; EXTREMITIES: No edema, no clubbing, MUSCULOSKELETAL: no muscle wasting NEURO: Awake; no lateralizing signs. SKIN: No Rash PSYCH; Flat affect Weight / BMI Weight Weight: 128 kg Body Mass Index (BMI) 42.9 ABG / Lab / Microbiology Data 02/14/23 07:23 02/14/23 07:23 Laboratory: Laboratory Results - last 24 hr 02/14/23 07:23: WBC 11.1 H, RBC 5.10, Hgb 13.5, Hct 44.0, MCV 86.3, MCH 26.5 L, MCHC 30.7 L, RDW Std Deviation 49.7 H, RDW Coeff of Nick 15.7 H, Plt Count 254, MPV 9.2, Immature Gran % (Auto) 2.000 H, Neut % (Auto) 82.8 H, Lymph % (Auto) 7.7 L, [place] % (Auto) 7.2, Eos % (Auto) 0.0, Baso % (Auto) 0.3, Absolute Neuts (auto) 9.2 H, Absolute Lymphs (auto) 0.86, Nucleated RBC % 0, Sodium 133 L, Potassium 4.2, Chloride 95 L, Carbon Dioxide 35.0 H, Anion Gap 3 L, BUN 18, Creatinine 0.33 L, Estim Creat Clear Calc 61.75, Est GFR (MDRD) Af Amer 335, Est GFR (MDRD) Non-Af 277, BUN/Creatinine Ratio 54.4 H, Glucose 129 H, Calcium 9.0, Total Bilirubin 0.30, AST 13 L, ALT 43, Alkaline Phosphatase 107, Total Protein 6.8, Albumin 2.5 L, Globulin 4.3 H, Albumin/Globulin Ratio 0.6 L Microbiology: Microbiology 02/13/23 21:15 Sputum, Expectorated/Coughed Gram Stain - Preliminary 02/10/23 21:37 Blood Culture (Wb) - Arm Right Blood Culture - Preliminary No growth in 48 hours. 02/10/23 21:25 Blood Culture (Wb) - Anticubital Right Blood Culture - Preliminary No growth in 48 hours. 02/10/23 22:45 Urine, Clean Catch Legionella Antigen - Final 02/10/23 22:45 Urine, Clean Catch Streptococcus pneumoniae Antigen (M - Final D/C Instructions Discharge Diet: No restrictions Discharge Activity: Return to Normal Activity Call your doctor if you observe: Fever of 101 or Higher, Shortness of breath, Fainting spells and Chest pain Meaningful Use Info Meaningful Use Diagnoses (Choose all that apply): None applicable Discharge Plan Admission Admit Date/Time: 02/10/23 17:59 Attending Provider: Pio Calhoun Primary Care Provider: Landon Enamorado Consulting Providers: Mathew Dalal; Reji Goodwin; Charles Butcher; Mg Erwin; David Smith; Juana Stacy NP; Vince Cruz Discharge Orders/Prescriptions Prescriptions: New dexamethasone 6 mg tablet 6 mg PO DAILY Qty: 7 0RF cefdinir 300 mg capsule 300 mg PO BID Qty: 10 0RF azithromycin [Zithromax] 500 mg tablet 500 mg PO DAILY 3 Days Qty: 3 0RF potassium chloride [Klor-Con M20] 20 mEq Tablet,Er Particles/Crystals 20 meq PO DAILY Qty: 30 0RF Continued aspirin [Adult Low Dose Aspirin] 81 MG tablet,delayed release (DR/EC) 81 mg PO DAILY Patient Comments: Blood thinner for heart health citalopram 20 MG tablet 20 mg PO DAILY Patient Comments: Depression/anxiety multivitamin with folic acid [Thera] 1 TABLET tablet 1 tab PO DAILY Patient Comments: Supplement lisinopril 40 MG tablet 40 mg PO DAILY Eliquis 5 MG tablet 5 mg PO BID atorvastatin 20 MG tablet 20 mg PO QHS diltiazem HCl 180 mg Capsule,Extended Release 24hr 180 mg PO Q12 Qty: 60 1RF Rx Instructions: only takes 180mg daily sennosides-docusate sodium [Stool Softener-Stimulant Laxat] 8.6-50 mg Tablet 2 tab PO BID PRN (Reason: Constipation) Qty: 0 0RF Deep Sea Nasal 0.65 % Aerosol,[place] 1 spray NASAL BID PRN PRN (Reason: NASAL DRYNESS) Qty: 0 0RF Mucus Relief ER 1,200 mg Tablet Extended Release 12hr 1,200 mg PO BID Qty: 14 0RF albuterol sulfate 90 mcg/actuation aero powdr breath act w/sensor 2 inh inhalation Q6H PRN (Reason: shortness of breath or wheezing) Qty: 1 0RF lorazepam [Ativan] 0.5 mg tablet 0.5 mg PO QHS metoprolol succinate 50 mg capsule,sprinkle,ER 24hr 50 mg PO DAILY furosemide [Lasix] 40 mg tablet 30 mg PO Q12H Rx Instructions: 1 tab every morning, 1/2 tab every evening Referrals / Follow Up: Landon Enamorado MD [Primary Care Provider] - Within 2 Weeks Disposition Disposition (needs filled in before D/C Order can be placed): Home, Self Care Charges/Coding Visit Charges Inpatient E&M: 50444 Disch Hosp >30min
--- NOTE | 2023-02-14 14:36 | CASEMGMT ---
Patient has order for discharge. Per nursing, patient maintain on 2lpm with oxygen. Patient denies further needs at discharge. Patient has [facility] COM[facility]IANCE [facility]. Patient denies further questions or concerns.
== END 2023-02-14 15:30 | disposition home or self-care (01) | DRG 177 ==
LOC: ED 14:33 → PCU 18:12
PROVIDERS: Admitting Provider Internal Medicine; Emergency Provider Emergency Medicine; PCP Family Medicine; Visit Provider Internal Medicine
DX: U07.1 COVID-19 (principal); J96.22 Acute and chronic respiratory failure with hypercapnia; J96.21 Acute and chronic respiratory failure with hypoxia; J12.82 Pneumonia due to coronavirus disease 2019; I50.33 Acute on chronic diastolic (congestive) heart failure; R53.2 Functional quadriplegia; E87.1 Hypo-osmolality and hyponatremia; J44.1 Chronic obstructive pulmonary disease with (acute) exacerbation; Z68.42 Body mass index [BMI] 45.0-49.9, adult; I48.0 Paroxysmal atrial fibrillation; I11.0 Hypertensive heart disease with heart failure; E66.01 Morbid (severe) obesity due to excess calories; G71.00 Muscular dystrophy, unspecified; F32.A Depression, unspecified; E78.5 Hyperlipidemia, unspecified; E87.6 Hypokalemia; F41.9 Anxiety disorder, unspecified; R13.10 Dysphagia, unspecified; Z99.81 Dependence on supplemental oxygen; Z79.01 Long term (current) use of anticoagulants; Z79.82 Long term (current) use of aspirin; Z79.899 Other long term (current) drug therapy; Z87.891 Personal history of nicotine dependence
CPT/HCPCS: 36415; 36600; 71045; 71275; 80048; 80053; 82550; 82803; 83605; 83615; 83735; 83880; 84145; 84484; 85025; 85379; 85384; 85610; 86140; 87040; 87070; 87077; 87184; 87186; 87205; 87449; 93005; 94640; 94660; 94667; 94668; 99252; 99285; J7040; J7050; Q9967; A4216; G0463; J0248; J2405

== ENCOUNTER 2023-05-06 04:10 | Inpatient (IN) | payer OTHER, SELFPAY ==
[2023-05-06] VITALS (25 sets, daily range): BP systolic 116–228; BP diastolic 64–169; PULSE 64–99; RESP 12–32; TEMP 36.2–36.7; O2SAT 76–97; BMI 38.9; BMI 43.0
--- NOTE | 2023-05-06 04:15 | EKG12_ITS ---
Test Reason : SOB Blood Pressure : / mmHG Vent. Rate : 079 BPM Atrial Rate : 079 BPM P-R Int : 186 ms QRS Dur : 104 ms QT Int : 412 ms P-R-T Axes : 028 017 103 degrees QTc Int : 472 ms Normal sinus rhythm Nonspecific ST and T wave abnormality Abnormal ECG Confirmed by HONG MENDES, CLAYTON ([id number]), fan mail editor YANET WHIPPLE ([id number]) on 05/14/2023 10:22:19 AM Referred By: Confirmed By:CLAYTON PITTS MD
--- NOTE | 2023-05-06 04:15 | RAD_ITS ---
STUDY: X-RAY CHEST REASON FOR EXAM: Male, 77 years old. Dyspnea TECHNIQUE: Single AP portable view of the chest. COMPARISON: February 10, 2023 chest x-ray FINDINGS: There is visualized diffuse groundglass opacity throughout the lungs particularly in the right midlung zone and left lung. There is a small focus of right lower lobe atelectasis with elevation of the right hemidiaphragm. Normal size heart. Normal mediastinum and joey. Normal visualized pulmonary arteries. There is atherosclerotic calcification of the aortic arch with tortuosity. There are diffuse degenerative changes of the visualized thoracic spine. Normal visualized ribs, clavicles, and shoulders. There is no demonstrated abnormality of the visualized soft tissue structures of the upper abdomen. RAD/Chest 1 View (Portable) IMPRESSION: Diffuse groundglass opacities consider pulmonary edema and/or potentially diffuse pneumonia and/or atypical infiltrates. Electronically Signed: Kath Gao MD at 4:56 EST ,
--- NOTE | 2023-05-06 04:17 | ED.VIS.DYS ---
HPI History of Present Illness Chief Complaint: Shortness of Breath Informant: patient and EMS Narrative Narrative: 77-year-old male with a history of COPD and atrial fibrillation presenting with shortness of breath. Unfortunately the patient is in respiratory distress and cannot really answer questions. When asked if he was breathing okay yesterday he shakes his head no. EMS notes that he was wheezing on initial examination with diminished breath sounds. They noted that he was hypoxic in the 60s despite 5 L nasal cannula. He is reportedly healing did with Eliquis. [facility] Medical History Aortic aneurysm Atrial fibrillation Current use of supervisor intermediates anticoagulation Depression Diastolic CHF Dysphagia HTN (hypertension) Hyperlipemia Hyperlipidemia Hypertension Hypoxia Muscular dystrophy Home Medications aspirin 81 mg tablet,delayed release (Adult Low Dose Aspirin) 81 mg PO DAILY afib 05/26/15 [History Last Taken 08/27/22] citalopram 20 mg tablet 20 mg PO DAILY depression 05/26/15 [History Last Taken 08/27/22] multivitamin with folic acid 400 mcg tablet (Thera) 1 tab PO DAILY supplement 05/26/15 [History Last Taken 08/27/22] apixaban 5 mg tablet (Eliquis) 5 mg PO BID anti platelet 09/27/16 [History Last Taken 08/27/22] lisinopril 40 mg tablet 40 mg PO DAILY blood pressure 09/27/16 [History Last Taken 08/27/22] atorvastatin 20 mg tablet 20 mg PO QHS cholesterol 08/13/18 [History Last Taken 08/27/22] albuterol sulfate 90 mcg/actuation breath activated powder inhaler,sensor 2 inh inhalation Q6H PRN shortness of breath or wheezing #1 ea 07/02/22 [Rx Last Taken 08/28/22] diltiazem HCl 180 mg capsule,extended release 24 hr 180 mg PO Q12 heart rate #60 caps 07/02/22 [Rx Last Taken 08/27/22] guaifenesin 1,200 mg tablet, extended release 12 hr (Mucus Relief ER) 1,200 mg PO BID cough #14 tabs 07/02/22 [Rx Last Taken 08/27/22] sennosides 8.6 mg-docusate sodium 50 mg tablet (Stool Softener-Stimulant Laxative) 2 tab PO BID PRN Constipation #0 tabs 07/02/22 [Rx Last Taken Unknown] sodium chloride 0.65 % nasal spray aerosol (Deep Sea Nasal) 1 spray NASAL BID PRN PRN NASAL DRYNESS #0 mL 07/02/22 [Rx Last Taken Unknown] furosemide 40 mg tablet (Lasix) 30 mg PO Q12H diuretic 02/02/23 [History Last Taken Unknown] metoprolol succinate 50 mg capsule sprinkle, ext. release 24 hr 50 mg PO DAILY blood pressure 02/02/23 [History Last Taken Unknown] lorazepam 0.5 mg tablet (Ativan) 0.5 mg PO QHS anxiety 02/12/23 [History Last Taken Unknown] cefdinir 300 mg capsule 300 mg PO BID #10 caps 02/14/23 [Rx Last Taken Unknown] dexamethasone 6 mg tablet 6 mg PO DAILY #7 tabs 02/14/23 [Rx Last Taken Unknown] levofloxacin 750 mg tablet 750 mg PO DAILY #5 tabs 02/14/23 [Rx Last Taken Unknown] potassium chloride 20 mEq tablet,extended release(part/cryst) (Klor-Con M) 20 meq PO DAILY #30 tabs 02/14/23 [Rx Last Taken Unknown] Allergy/AdvReac Type Severity Reaction Status Date / Time codeine AdvReac made me Verified 02/10/23 13:57 do sanjuanita barton Family History Father Hypertension Heart disease Renal cancer Kidney disease Mother Diabetes Heart disease Surgical History History of herniorrhaphy Social History household members: spouse Smoking Status: Former smoker how long ago did patient quit smoking: Smoked 1.5-2 ppd since teen until quit 2002. alcohol intake: current alcohol intake frequency: holidays/special occasions only substance use type: does not use ROS ROS ED Review of Systems ROS Unobtainable: due to mental status Respiratory/Chest Respiratory/Chest: Reports cough and dyspnea EXAM Physical Exam Const Vital Signs: 05/06/23 04:12 05/06/23 04:17 05/06/23 04:27 Temperature 97.8 F 97.8 F Temperature Source Temporal Temporal Pulse Rate 88 91 Respiratory Rate 29 H 27 H Blood Pressure 228/169 H 228/169 H Blood Pressure Mean 188 188 Pulse Ox 76 94 92 Oxygen Delivery Method Non-Rebreather Bi-pap Bi-pap Oxygen Flow Rate (L/min) 15 Fraction of Inspired Oxygen (FIO2) 05/06/23 04:15 05/06/23 04:25 05/06/23 05:02 Temperature Temperature Source Pulse Rate 89 73 Respiratory Rate 32 H 25 H Blood Pressure Blood Pressure Mean Pulse Ox 93 Oxygen Delivery Method Oxygen Flow Rate (L/min) Fraction of Inspired Oxygen (FIO2) 80 70 Positive well nourished, well developed and obese General Appearance ED: well developed Nutritional Appearance: obese HEENT Reports normocephalic, head/scalp atraumatic and moist mucous membranes Eyes PERRL and EOMs intact bilaterally Neck no lymphadenopathy, supple and no JVD Resp Resp Narrative: Patient is in respiratory distress and moving towards failure. He is demonstrating respiratory fatigue Auscultation: rhonchi throughout, wheezes expiratory wheezes and diminished lung sounds Cardio regular rate, regular rhythm and no murmurs GI normal to inspection, nondistended, normoactive bowel sounds and non-tender Palpation: soft Back/Spine no CVA tenderness and normal ROM Extremity Extremity Narrative: Chronic venous stasis changes General Extremety ED: Yes edema General Extremity: edema Neuro Sensorium / Orientation: lethargic Motor Exam: general weakness Skin no rashes or lesions noted and no wounds MDM MDM MDM Narrative Medical decision making narrative: Return distress leading into failure was immediately recognized and patient was placed on BiPAP. ABG shows a pH of 7.2 with a PCO2 of 90. My independent interpretation of the chest x-ray is pulmonary edema with questionable early infiltrates versus atelectatic changes. His white count returns elevated at 16. Lactic acid is normal. Beta nitric peptide 131. Troponin of 19. EKG shows a sinus rhythm with no obvious ischemic changes. Patient received Lasix as well as Solu-Medrol breathing treatments and Rocephin azithromycin. There is notes from palliative care but it is unclear at this point if he is a full code Comfort Care arrest. Nobody is here with him yet. He is not in the mental state to be able to answer these questions. We will place him in the ICU for further management. History & Record Review Discussion w/independent historian: EMS personnel Additional record(s) reviewed:: Prior inpatient record, Prior outpatient record, Prior ED visit and Prior labs Lab Data Attestation: I reviewed the patient's lab results. Labs: Laboratory Results - last 24 hr 05/06/23 04:15 WBC 16.0 H RBC 4.77 Hgb 12.8 L Hct 45.2 MCV 94.8 H MCH 26.8 L MCHC 28.3 L RDW Std Deviation 58.5 H RDW Coeff of Nick 16.7 H Plt Count 341 MPV 10.4 Neut % (Auto) Not Reportable Sodium 141 Potassium 3.3 L Chloride 99 Carbon Dioxide 40.0 H Anion Gap 2 L BUN 13 Creatinine 0.41 L Estim Creat Clear Calc 70.06 Est GFR (MDRD) Af Amer 262 Est GFR (MDRD) Non-Af 216 BUN/Creatinine Ratio 31.7 H Glucose 190 H Lactic Acid 1.2 Calcium 8.9 Total Bilirubin 0.40 Direct Bilirubin 0.14 AST 17 ALT 27 Alkaline Phosphatase 116 Troponin I High Sens 19 B-Natriuretic Peptide 131.0 H Total Protein 7.3 Albumin 3.4 Globulin 3.9 ABG Data ABG results: ABG 05/06/23 04:45 Specimen Type ART Sample Site L Radial pH 7.23 L Bicarbonate Actual 38.1 H Total CO2 41 Base Excess 11 H O2 Saturation 94 L O2 % 70.0 ABG pCO2 90.7 H* ABG pO2 90 Mickey Test Positive O2 Delivery Device BiPAP Vent Mode Not entered Crit Call To/Read Back Yes Blood Gas Notified Whom [facility] Blood Gas Notified Time 04:46:25 Clinical Comments 18. 8. Radiography Diagnostic Testing: Clinical Impression(s) from Imaging Studies Chest X-Ray 05/06/23 04:15 IMPRESSION: Diffuse groundglass opacities consider pulmonary edema and/or potentially diffuse pneumonia and/or atypical infiltrates. Electronically Signed: Kath Gao MD at 4:56 EST , EKG Initial EKG: Attestation: I personally reviewed and interpreted this EKG as follows: Comments: Sinus rhythm ventricular rate of 79 bpm. No concerning features of ACS noted Differential Diagnosis Chest pain/SOB: pulmonary embolism, ACS, pneumothorax, pneumonia, aortic dissection, CHF and COPD Management Discussion w/another healthcare provider: Hospitalist Critical Care Time Critical Care Time: Yes Critical care time (excluding procedures): 30-74 minutes, Including time spent:, Discussing w/Patient &/or Family/Postal Supervisor, Discussing w/Consultants, Arranging Admission or Transfer and Performing Direct Patient Care at Bedside Discharge Plan Dx/Rx/DC Orders Clinical Impression: Acute hypercapnic respiratory failure, Acute CHF, Altered mental status, Acute exacerbation of chronic obstructive pulmonary disease, Anticoagulant long-term use, Muscular dystrophy Disposition Disposition: Acute Care [facility]
[2023-05-06 04:33] LABS: Hematocrit 45.2 % (40-54); Hemoglobin 12.8 g/dL (13.0-16.5); Mean Corp Hgb Conc 28.3 g/dL (32-36); Mean Corpuscular Hgb 26.8 pg (27.0-32.0); Mean Corpuscular Volume 94.8 fL (80-94); Mean Platelet Vol. 10.4 fl (6.2-12.0); POSITIVE DIFFERENTIAL YES; Platelet Count 341 K/mm3 (150-450); RBC Distribution Width CV 16.7 % (11.6-14.6); RBC Distribution Width SD 58.5 fl (35.1-43.9); Red Blood Count 4.77 M/mm3 (4.6-6.2)
[2023-05-06 04:34] LABS: Differential Indicated MANUAL DIFF
[2023-05-06 04:49] LABS: Allen Test Positive; Base Excess 11 mmol/L (-2 to +2); Bicarbonate 38.1 mmol/L (22-26); Blood Gas Specimen Type ART; Comment 18. 8.; Mode Not entered; O2 Delivery Device BiPAP; PO2 90 mmHG (75-100); SITE L Radial; SO2 94 % (95-99); Total Carbon Dioxide 41 mmol/L; pCO2 90.7 mmHg (35-45); pH 7.23 (7.35-7.45)
[2023-05-06 04:51] LABS: AST(SGOT) 17 U/L (15-37); Alanine Aminotransfer ALT/SGPT 27 U/L (16-61); Albumin, Serum 3.4 g/dL (3.2-5.0); Alkaline Phosphatase 116 U/L (45-117); Bilirubin, Direct 0.14 mg/dL (0.00-0.30); Globulin 3.9 g/dL (2.2-4.2); Protein, Total 7.3 g/dL (6.4-8.2)
[2023-05-06 04:52] LABS: Anion Gap 2 (5-15); BUN 13 mg/dL (7-18); BUN/Creat Ratio 31.7 RATIO (10-20); Calcium,Total 8.9 mg/dL (8.5-10.1); Chloride 99 mmol/L (98-107); Creatinine, Serum 0.41 mg/dL (0.70-1.30); EST Glomerular Filtration Rate 216 mL/min (>60); Est Glom Filt Rate - Afr Amer 262 mL/min (>60); Estimated Creatinine Clearance 70.06 ml/min; Glucose 190 mg/dL (74-106); Potassium 3.3 mmol/L (3.5-5.1); Sodium Level 141 mmol/L (136-145); Troponin-I HS 19 pg/mL (3.0-78.0)
[2023-05-06 04:53] LABS: Lactic Acid 1.2 mmol/L (0.4-1.9)
[2023-05-06] MEDS: 0.9% Normal Saline (1000mL) 1,000 ML 150 ML IV (04:59)
[2023-05-06] MEDS: Ipratropium/Albuterol Sulfate 3 ML AMPUL.NEB INHALATION ×6 (04:59→23:00)
[2023-05-06] MEDS: Albuterol 2.5 MG/3 ML VIAL.NEB. INHALATION ×2 (04:59→19:00)
[2023-05-06] MEDS: MethylPREDNISolone 125 MG/2 ML Vial 60 MG IV (05:03)
[2023-05-06] MEDS: Furosemide 100 MG/10 ML Vial 80 MG IV (05:03)
[2023-05-06 05:16] LABS: Basophil 1 % (0-1); Eosinophil 22 % (0-5); Lymphocyte 32 % (19-41); Monocyte 8 % (0-10); Neutrophil-Segmented 37 % (47-70); Platelet Estimate ADEQUATE (ADEQ); Red Cell Morphology NORM C+C NORMAL (NORM C&C); Total Cells Counted 100 (MANUAL DIFF)
[2023-05-06 05:17] LABS: Absolute Lymphocyte Count 5.11 X10^3/uL (0.83-4.51); Absolute Neutrophil Count 5.9 X10^3/uL (2.0-7.7); Lymphocyte # 5.11 X10^3/ul (0.83-4.51); Neutrophil # 5.91 X10^3/uL (2.7-7.7)
--- NOTE | 2023-05-06 05:28 | PCM.HP.STD ---
HPI - General General Date of Admission: 05/06/23 Date of Service: 05/06/23 Chief Complaint: Shortness of breath HPI Narrative HEATH SHABAZZ, is a 77 M who presented to the emergency department with shortness of breath. He was in significant respiratory distress on presentation and is now currently on a BiPAP. He was fairly somnolent on presentation as well. It does appear that his mental status is improving as he is more alert and able to shake his head for me and answer a few questions. He does shake his head yes when I asked if he is having shortness of breath and signals that this has been going on for 3 to 4 days. I asked him if he was coughing and he shook his head yes with this and he also confirms he is producing sputum. This is evidently more than he was able to do earlier. He has recent hospitalization at the end of January at which time he had pretty significant COVID infection. He has been on 3 L nasal cannula since that point time. When the EMS called he was hypoxic on his 3 L and noted to be actually on 5 L with oxygen saturations in the 60s. Vital signs on presentation showed temperature of 97.8, heart rate was 88 but patient is on a calcium channel ade and a beta-ade, blood pressure was initially 228/169 with a repeat at 135/88 after his respiratory status improved and he was stable on BiPAP, respiratory rate has been between 16 and 32 and his sats originally on presentation were 76% on a nonrebreather at 15 L. Again his oxygen saturations improved once he was placed on BiPAP and have been running anywhere from 92 to 96%. His CBC does show leukocytosis with a white count of 16,000. He has a marked eosinophilia at this time. He does have history of eosinophilia. Chemistry panel shows mild hypokalemia with potassium of 3.3 and elevated bicarb at 40 which appears to be close to his baseline. Serum creatinine is normal. His glucose was 190. Lactic acid was 1.2. Liver functions are normal. Initial troponin was 19. BNP was elevated at 131 with his BMP when he was here in January being 50.6. This is the highest BMPs ever had on our records. EKG shows normal sinus rhythm without any ST-T wave changes concerning for acute ischemia. Chest x-ray shows right lower lobe infiltrate and diffuse groundglass opacities. 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 Depression Diastolic CHF Dysphagia HTN (hypertension) Hyperlipemia Hyperlipidemia Hypertension Hypoxia Muscular dystrophy Home Medications aspirin 81 mg tablet,delayed release (Adult Low Dose Aspirin) 81 mg PO DAILY afib 05/26/15 [History Last Taken 08/27/22] citalopram 20 mg tablet 20 mg PO DAILY depression 05/26/15 [History Last Taken 08/27/22] multivitamin with folic acid 400 mcg tablet (Thera) 1 tab PO DAILY supplement 05/26/15 [History Last Taken 08/27/22] apixaban 5 mg tablet (Eliquis) 5 mg PO BID anti platelet 09/27/16 [History Last Taken 08/27/22] lisinopril 40 mg tablet 40 mg PO DAILY blood pressure 09/27/16 [History Last Taken 08/27/22] atorvastatin 20 mg tablet 20 mg PO QHS cholesterol 08/13/18 [History Last Taken 08/27/22] albuterol sulfate 90 mcg/actuation breath activated powder inhaler,sensor 2 inh inhalation Q6H PRN shortness of breath or wheezing #1 ea 07/02/22 [Rx Last Taken 08/28/22] diltiazem HCl 180 mg capsule,extended release 24 hr 180 mg PO Q12 heart rate #60 caps 07/02/22 [Rx Last Taken 08/27/22] guaifenesin 1,200 mg tablet, extended release 12 hr (Mucus Relief ER) 1,200 mg PO BID cough #14 tabs 07/02/22 [Rx Last Taken 08/27/22] sennosides 8.6 mg-docusate sodium 50 mg tablet (Stool Softener-Stimulant Laxative) 2 tab PO BID PRN Constipation #0 tabs 07/02/22 [Rx Last Taken Unknown] sodium chloride 0.65 % nasal spray aerosol (Deep Sea Nasal) 1 spray NASAL BID PRN PRN NASAL DRYNESS #0 mL 07/02/22 [Rx Last Taken Unknown] furosemide 40 mg tablet (Lasix) 30 mg PO Q12H diuretic 02/02/23 [History Last Taken Unknown] metoprolol succinate 50 mg capsule sprinkle, ext. release 24 hr 50 mg PO DAILY blood pressure 02/02/23 [History Last Taken Unknown] lorazepam 0.5 mg tablet (Ativan) 0.5 mg PO QHS anxiety 02/12/23 [History Last Taken Unknown] cefdinir 300 mg capsule 300 mg PO BID #10 caps 02/14/23 [Rx Last Taken Unknown] dexamethasone 6 mg tablet 6 mg PO DAILY #7 tabs 02/14/23 [Rx Last Taken Unknown] levofloxacin 750 mg tablet 750 mg PO DAILY #5 tabs 02/14/23 [Rx Last Taken Unknown] potassium chloride 20 mEq tablet,extended release(part/cryst) (Klor-Con M) 20 meq PO DAILY #30 tabs 02/14/23 [Rx Last Taken Unknown] Allergy/AdvReac Type Severity Reaction Status Date / Time codeine AdvReac made me Verified 02/10/23 13:57 do sanjuanita things Family History Father Hypertension Heart disease Renal cancer Kidney disease Mother Diabetes Heart disease Surgical History History of herniorrhaphy Social History household members: spouse Smoking Status: Former smoker how long ago did patient quit smoking: Smoked 1.5-2 ppd since teen until quit 2002. alcohol intake: current alcohol intake frequency: holidays/special occasions only substance use type: does not use ROS Review of Systems ROS Unobtainable: due to encephalopathy and other Details: Current respiratory status Vital Signs Vital Signs Vital Signs: 05/06/23 04:12 05/06/23 04:17 05/06/23 04:27 Temperature 97.8 F 97.8 F Temperature Source Temporal Temporal Pulse Rate 88 91 Respiratory Rate 29 H 27 H Blood Pressure 228/169 H 228/169 H Blood Pressure Mean 188 188 Pulse Ox 76 94 92 Oxygen Delivery Method Non-Rebreather Bi-pap Bi-pap Oxygen Flow Rate (L/min) 15 Fraction of Inspired Oxygen (FIO2) 05/06/23 04:15 05/06/23 04:25 05/06/23 05:02 Temperature Temperature Source Pulse Rate 89 73 Respiratory Rate 32 H 25 H Blood Pressure Blood Pressure Mean Pulse Ox 93 Oxygen Delivery Method Oxygen Flow Rate (L/min) Fraction of Inspired Oxygen (FIO2) 80 70 Weight Weight: 130.5 kg Body Mass Index (BMI) 38.9 Physical Exam Const alert Constitutional Narrative: Obese, older, white male, sitting up in bed, alert but seems somewhat confused still, no current distress on BiPAP and breathing appears comfortable, patient was able to follow commands to comply with exam Orientation / Consciousness: confused HEENT normocephalic, head/scalp atraumatic and moist oral mucous membranes HEENT Narrative: Edentulous, Mallampati 3-4, no thrush Eyes PERRL, EOMs intact bilaterally and conjunctivae normal Eyes Narrative: No scleral icterus Neck no lymphadenopathy and supple Neck Narrative: Trachea midline, neck is short and thick, no thyroid enlargement Resp normal respiratory effort, no retractions and no use of accessory muscles Resp Narrative: Diffusely diminished without any adventitious sounds, no signs of respiratory distress at this time, no tachypnea currently, appears to be comfortable on BiPAP Auscultation: Negative for rales, rhonchi or wheezes Cardio regular rate, regular rhythm, S1 normal heart sound, S2 normal heart sound, no murmurs, no rub, no gallops and no clicks Cardio Narrative: Heart tones are distant due to body habitus GI normal to inspection, nondistended, normoactive bowel sounds, soft to palpation and non-tender GI Narrative: Large protuberant abdomen Extremity Extremity Narrative: No clubbing or cyanosis, 1+ bilateral lower extremity pitting edema Skin skin turgor normal, no jaundice, no petechiae and no mottling Skin Narrative: Bilateral lower extremity skin changes consistent with acute on chronic edema, bilateral lower extremity chronic appearing superficial plaques Neuro moves all extremities Sensorium / Orientation: awake, alert and oriented to person Psych Psych Narrative: Mood seems to be stable currently, no signs of agitation, eye contact appears to be good during conversation Results Lab / Micro Data 05/06/23 04:15 05/06/23 04:15 Labs: Laboratory Results - last 24 hr 05/06/23 04:15: WBC 16.0 H, RBC 4.77, Hgb 12.8 L, Hct 45.2, MCV 94.8 H, MCH 26.8 L, MCHC 28.3 L, RDW Std Deviation 58.5 H, RDW Coeff of Nick 16.7 H, Plt Count 341, MPV 10.4, Neut % (Auto) Not Reportable, Absolute Neuts (auto) 5.9, Absolute Lymphs (auto) 5.11 H, Total Counted 100, Neutrophils % (Manual) 37 L, Lymphocytes % (Manual) 32, Monocytes % (Manual) 8, Eosinophils % (Manual) 22 H, Basophils % (Manual) 1, Diff Path Review October, Platelet Estimate ADEQUATE, RBC Morphology NORM C+C, Sodium 141, Potassium 3.3 L, Chloride 99, Carbon Dioxide 40.0 H, Anion Gap 2 L, BUN 13, Creatinine 0.41 L, Estim Creat Clear Calc 70.06, Est GFR (MDRD) Af Amer 262, Est GFR (MDRD) Non-Af 216, BUN/Creatinine Ratio 31.7 H, Glucose 190 H, Lactic Acid 1.2, Calcium 8.9, Total Bilirubin 0.40, Direct Bilirubin 0.14, AST 17, ALT 27, Alkaline Phosphatase 116, Troponin I High Sens 19, B-Natriuretic Peptide 131.0 H, Total Protein 7.3, Albumin 3.4, Globulin 3.9 ABG Data ABG results: ABG 05/06/23 04:45 Specimen Type ART Sample Site L Radial pH 7.23 L Bicarbonate Actual 38.1 H Total CO2 41 Base Excess 11 H O2 Saturation 94 L O2 % 70.0 ABG pCO2 90.7 H* ABG pO2 90 Mickey Test Positive O2 Delivery Device BiPAP Vent Mode Not entered Crit Call To/Read Back Yes Blood Gas Notified Whom [facility] Blood Gas Notified Time 04:46:25 Clinical Comments 18. 8. Radiology Impression Chest X-Ray 05/06/23 04:15 IMPRESSION: Diffuse groundglass opacities consider pulmonary edema and/or potentially diffuse pneumonia and/or atypical infiltrates. Electronically Signed: Kath Gao MD at 4:56 EST , Assessment & Plan Assessment/Plan (1) Acute on chronic respiratory failure with hypoxia and hypercapnia: (2) Toxic metabolic encephalopathy: (3) Acute on chronic heart failure with preserved ejection fraction: (4) Right lower lobe pneumonia: (5) Hyperglycemia: (6) Hypokalemia: PLAN: Plan Acute on chronic hypoxic and hypercapnic respiratory failure-multifactorial -Likely related to mild exacerbation of acute heart failure, right-sided pneumonia, +/-COPD exacerbation -Has been on 3 L nasal cannula since discharge in January -Patient acidotic on his ABG with a pH of 7.23 and elevated serum bicarb at 90.7 -Repeat ABG after 2 hours on BiPAP -Palliative documentation present and it does indicate patient is a DNR CC however I am unable to confirm this with the patient or family at this time -Oxygen saturations were 76% on a nonrebreather on presentation but have improved to low to mid 90s on BiPAP -Patient also had tachypnea as well as significant hypertension related to respiratory distress -Check respiratory viral panel -Check rapid flu and some-patient with recent COVID infection so will not reassess at this time -Pulmonary toilet with scheduled and as needed nebulizers -Speech therapy consultation for concerns of aspiration -N.p.o. for now -Check sputum culture if able to produce -Check strep pneumo and Legionella antigens -We will utilize vancomycin, Zosyn, and azithromycin as patient has had previous pseudomonal infections and is high risk with recent hospitalization for resistant and nosocomial acquired infections -Lasix 40 mg IV push twice daily -Mucinex 1200 p.o. twice daily once able to take p.o. medications -I-S once patient is able -Pep therapy with Acapella once patient is able -Consult pulmonary/critical care medicine Leukocytosis -Work-up as above -Cultures are pending as noted -Continue empiric antibiotics Hypokalemia -IV potassium 40 mill equivalents given -Repeat lab in a.m. Can check a.m. magnesium level Hyperglycemia -Is not on any antihyperglycemics at baseline -Sliding scale with every 6 hours Accu-Cheks Toxic/metabolic encephalopathy -Likely related to hypercapnia and hypoxia -Continue to monitor clinically -N.p.o. for now Debility -Patient is wheelchair-bound at baseline secondary history of multiple sclerosis -He and his state he is weaker than normal -May need to get therapy services involved depending on overall function at baseline which I can currently not ascertain -We will have speech therapy evaluate the patient Hyperlipidemia/PAF/hypertension/chronic HFpEF -Hold home statin -Hold home antihypertensives -Hold home aspirin -Hold home DOAC -Restart home oral medications once verified and patient able to take p.o. medication -IV diuretics as noted above -We will utilize as needed IV hydralazine for systolic blood pressure greater than 160 -Scheduled metoprolol 5 mg every 6 hours Anxiety/depression -Hold home medication for now with mental status change until we can establish p.o. route Muscular dystrophy -Patient is wheelchair-bound at baseline -As disease progresses patient may require nocturnal BiPAP versus trilogy -He does appear to retain CO2 at baseline with a probable baseline PCO2 in the 50s to 60s Obesity -BMI is 39 -Recommend weight loss -Complicates treatment, prognosis, outcomes -Patient with suspected ZIA however he has not been interested in pursuing work-up DVT prophylaxis -Last dose of Eliquis unclear -Hold Eliquis until patient can establish p.o. route if not able to establish/restart home Eliquis would recommend starting subcu therapy within the next 12 hours CODE STATUS -Full code--> unverified --Palliative documentation present and it does indicate patient is a DNR CC however I am unable to confirm this with the patient or family at this time Charges/Coding Visit Charges Inpatient E&M: 14101 Init Hosp L3
[2023-05-06] MEDS: Ceftriaxone 1 GM/50 ML BAG IV (05:50)
[2023-05-06] MEDS: Potassium Chloride 10mEq/100mL 10 MEQ/100 ML IV.SOLN. 100 MEQ IV BOLUS ×4 (07:24→11:01)
[2023-05-06] MEDS: Azithromycin 500 MG in Dextrose 5%-Water (250mL Bag) 250 ML 250 MG IV (07:29)
[2023-05-06] MEDS: Vancomycin HCl 2,000 MG in 0.9% Normal Saline (500mL Bag) 500 ML 250 MG IV ×2 (07:35→19:37)
--- NOTE | 2023-05-06 07:41 | EX.PCM.CONCC ---
Assessment & Plan Assessment/Plan (1) Acute on chronic respiratory failure with hypoxia and hypercapnia: PLAN: Plan RECOMMENDATIONS: 1. Supplemental oxygen to maintain saturations at or above 90%. 2. BiPAP therapy with naps and nightly. 3. Empiric antimicrobials to complete 7 days of therapy. 4. Stop continuous IV fluids. 5. Continue gentle diuresis as tolerated by hemodynamics and renal function. 6. Initiate NIV support at discharge. We will coordinate with case management/social work. 7. Follow-up in the pulmonary medicine clinic as scheduled on May 29. IMPRESSIONS: 1. Acute on chronic respiratory failure with hypoxemia and hypercapnia The patient has known muscular dystrophy, which has progressed with time, leading to generalized neuromuscular weakness, which has impacted his respiratory mechanics. The patient has a baseline oxygen requirement of 4 to 5 L/min. Given his propensity to retain CO2, he would likely benefit from initiation of a noninvasive ventilator on an outpatient basis. The patient requires volume ventilation and all other alternative therapies, including bilevel, have been considered and ruled out due to the severity of the disease state, weak breathing muscles and potential life-threatening condition including CO2 retention, probability of acute exacerbation, patient requires ventilation to be used during the day as needed, in addition to every night usage with facemask. In the interim, the patient will be continued on empiric antimicrobials to complete 7 days of therapy. Supplemental IV fluids can be discontinued from my perspective. Continue gentle diuresis as tolerated by hemodynamics and renal function. Continue to wean supplemental oxygen to maintain saturations at or above 90%. I would recommend that the patient remain n.p.o. for now, pending full evaluation by speech therapy, to ensure that there are no issues with potential aspiration. 2. History of muscular dystrophy/heart failure with preserved ejection fraction/paroxysmal atrial fibrillation/hypertension/hyperlipidemia/obesity Complicates care, management, recovery and prognosis. Continue home medications as indicated. CODE status: Discussed CODE status at length including difference between FULL code, DNR-CCA and DNR-CC status. Following discussions about the differences in these status, patient requested full CODE STATUS. Advanced Care Planning Face to Face Time: 18 minutes This note was generated with [employer] software. It may contain incorrect words, spelling, and punctuation that were not noted in checking the note before signing. HPI Consult Data Date of Consult: 05/06/23 HPI Narrative Reason for Consultation: Respiratory failure HPI Narrative: The patient is a 77-year-old male, with a history as outlined below, who presented to the emergency department on May 06 with shortness of breath. The patient is followed in the pulmonary medicine clinic due to a history of muscular dystrophy, which has progressed with time, with associated chronic hypoxemic respiratory failure. The patient has a baseline oxygen requirement of 4 to 5 L/min. He is prescribed vest therapy at home to assist with sputum expectoration. At his last pulmonary office visit in November 2022, the patient was referred to neurology for further follow-up. However, the patient has yet to schedule an appointment. The patient continues to take in all nutrition by mouth, and denies any overt dysphagia or aspiration events. On presentation to the emergency department, the patient was documented to be afebrile but had a blood pressure of 228/169 mmHg. The patient was tachypneic and hypoxemic. Initial laboratory evaluation revealed an elevated white blood cell count to 16,000. Arterial blood gas was notable for a pH of 7.23 with a PCO2 of 90 and PO2 of 90. Chemistry profile was notable for a bicarbonate of 40 and normal creatinine. Lactate was normal. Troponin was unremarkable. BNP was mildly elevated at 131. Chest imaging demonstrated bilateral groundglass opacities. The patient was initiated on antimicrobials and placed on BiPAP therapy. He was subsequently admitted to the medical intensive care unit for further management. This morning, the patient is completely alert and oriented. He does report the presence of a cough, but has been able to expectorate sputum, without issue. 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 Depression Diastolic CHF Dysphagia HTN (hypertension) Hyperlipemia Hyperlipidemia Hypertension Hypoxia Muscular dystrophy Home Medications aspirin 81 mg tablet,delayed release (Adult Low Dose Aspirin) 81 mg PO DAILY afib 05/26/15 [History Last Taken 08/27/22] citalopram 20 mg tablet 20 mg PO DAILY depression 05/26/15 [History Last Taken 08/27/22] multivitamin with folic acid 400 mcg tablet (Thera) 1 tab PO DAILY supplement 05/26/15 [History Last Taken 08/27/22] apixaban 5 mg tablet (Eliquis) 5 mg PO BID anti platelet 09/27/16 [History Last Taken 08/27/22] lisinopril 40 mg tablet 40 mg PO DAILY blood pressure 09/27/16 [History Last Taken 08/27/22] atorvastatin 20 mg tablet 20 mg PO QHS cholesterol 08/13/18 [History Last Taken 08/27/22] albuterol sulfate 90 mcg/actuation breath activated powder inhaler,sensor 2 inh inhalation Q6H PRN shortness of breath or wheezing #1 ea 07/02/22 [Rx Last Taken 08/28/22] diltiazem HCl 180 mg capsule,extended release 24 hr 180 mg PO Q12 heart rate #60 caps 07/02/22 [Rx Last Taken 08/27/22] guaifenesin 1,200 mg tablet, extended release 12 hr (Mucus Relief ER) 1,200 mg PO BID cough #14 tabs 07/02/22 [Rx Last Taken 08/27/22] sennosides 8.6 mg-docusate sodium 50 mg tablet (Stool Softener-Stimulant Laxative) 2 tab PO BID PRN Constipation #0 tabs 07/02/22 [Rx Last Taken Unknown] sodium chloride 0.65 % nasal spray aerosol (Deep Sea Nasal) 1 spray NASAL BID PRN PRN NASAL DRYNESS #0 mL 07/02/22 [Rx Last Taken Unknown] furosemide 40 mg tablet (Lasix) 30 mg PO Q12H diuretic 02/02/23 [History Last Taken Unknown] metoprolol succinate 50 mg capsule sprinkle, ext. release 24 hr 50 mg PO DAILY blood pressure 02/02/23 [History Last Taken Unknown] lorazepam 0.5 mg tablet (Ativan) 0.5 mg PO QHS anxiety 02/12/23 [History Last Taken Unknown] cefdinir 300 mg capsule 300 mg PO BID #10 caps 02/14/23 [Rx Last Taken Unknown] dexamethasone 6 mg tablet 6 mg PO DAILY #7 tabs 02/14/23 [Rx Last Taken Unknown] levofloxacin 750 mg tablet 750 mg PO DAILY #5 tabs 02/14/23 [Rx Last Taken Unknown] potassium chloride 20 mEq tablet,extended release(part/cryst) (Klor-Con M) 20 meq PO DAILY #30 tabs 02/14/23 [Rx Last Taken Unknown] Allergy/AdvReac Type Severity Reaction Status Date / Time codeine AdvReac made me Verified 02/10/23 13:57 do crazy things Family History Father Hypertension Heart disease Renal cancer Kidney disease Mother Diabetes Heart disease Surgical History History of herniorrhaphy Social History household members: spouse Smoking Status: Former smoker how long ago did patient quit smoking: Smoked 1.5-2 ppd since teen until quit 2002. alcohol intake: current alcohol intake frequency: holidays/special occasions only substance use type: does not use ROS ROS Narrative 10 systems reviewed with pertinent positives as noted in the HPI above. Physical Exam Const alert and no apparent distress General Appearance: cooperative HEENT normocephalic, head/scalp atraumatic and moist oral mucous membranes Eyes PERRL, EOMs intact bilaterally and conjunctivae normal Neck supple General: trachea midline Chest inspection of chest normal Resp normal respiratory effort Auscultation: diminished lung sounds; Negative for rales, rhonchi or wheezes Cardio regular rate and regular rhythm GI normal to inspection, nondistended, normoactive bowel sounds Extremity no clubbing, cyanosis or edema Skin General Skin Exam: venous stasis and dermatitis Neuro Neuro Narrative: Baseline neuromuscular weakness noted. Psych cooperative and affect normal Lab / Micro Data 05/06/23 04:15 05/06/23 04:15 Labs: Laboratory Results - last 24 hr 05/06/23 04:15: WBC 16.0 H, RBC 4.77, Hgb 12.8 L, Hct 45.2, MCV 94.8 H, MCH 26.8 L, MCHC 28.3 L, RDW Std Deviation 58.5 H, RDW Coeff of Nick 16.7 H, Plt Count 341, MPV 10.4, Neut % (Auto) Not Reportable, Absolute Neuts (auto) 5.9, Absolute Lymphs (auto) 5.11 H, Total Counted 100, Neutrophils % (Manual) 37 L, Lymphocytes % (Manual) 32, Monocytes % (Manual) 8, Eosinophils % (Manual) 22 H, Basophils % (Manual) 1, Diff Path Review May , Platelet Estimate ADEQUATE, RBC Morphology NORM C+C, Sodium 141, Potassium 3.3 L, Chloride 99, Carbon Dioxide 40.0 H, Anion Gap 2 L, BUN 13, Creatinine 0.41 L, Estim Creat Clear Calc 70.06, Est GFR (MDRD) Af Amer 262, Est GFR (MDRD) Non-Af 216, BUN/Creatinine Ratio 31.7 H, Glucose 190 H, Lactic Acid 1.2, Calcium 8.9, Total Bilirubin 0.40, Direct Bilirubin 0.14, AST 17, ALT 27, Alkaline Phosphatase 116, Troponin I High Sens 19, B-Natriuretic Peptide 131.0 H, Total Protein 7.3, Albumin 3.4, Globulin 3.9 Micro: Microbiology 05/06/23 05:13 Nasal Secretion SARS-CoV-2 & FLU Antigen (Rapid) - Final ABG Data ABG results: ABG 05/06/23 04:45 Specimen Type ART Sample Site L Radial pH 7.23 L Bicarbonate Actual 38.1 H Total CO2 41 Base Excess 11 H O2 Saturation 94 L O2 % 70.0 ABG pCO2 90.7 H* ABG pO2 90 Mickey Test Positive O2 Delivery Device BiPAP Vent Mode Not entered Crit Call To/Read Back Yes Blood Gas Notified Whom [facility] Blood Gas Notified Time 04:46:25 Clinical Comments 18. 8. Radiology Impression Chest X-Ray 05/06/23 04:15 IMPRESSION: Diffuse groundglass opacities consider pulmonary edema and/or potentially diffuse pneumonia and/or atypical infiltrates. Electronically Signed: Kath Gao MD at 4:56 EST Reading Location ID and State: [facility] / [place] Tel , Service support , Charges/Coding Visit Charges Inpatient E&M: 79581 Init Hosp L3 Procedures Hospitalists Procedures: 09402 Advncd Care Plan 30 Min
--- NOTE | 2023-05-06 08:03 | PCM.RX.CS ---
Consult Antibiotic Management Pharmacy has been consulted to manage selected antiobiotic: Vancomycin Type of Intervention Type of Consult: New start Suspected Infection Suspected Infection: Pneumonia Labs Labs: Sodium 141 mmol/L (136-145) 05/06/23 04:15 Potassium 3.3 mmol/L (3.5-5.1) L 05/06/23 04:15 Chloride 99 mmol/L (98-107) 05/06/23 04:15 Carbon Dioxide 40.0 mmol/L (21.0-32.0) H 05/06/23 04:15 Anion Gap 2 (5-15) L 05/06/23 04:15 BUN 13 mg/dL (7-18) 05/06/23 04:15 Creatinine 0.41 mg/dL (0.70-1.30) L 05/06/23 04:15 Est GFR (MDRD) Af Amer 262 mL/min (>60) 05/06/23 04:15 Est GFR (MDRD) Non-Af 216 mL/min (>60) 05/06/23 04:15 BUN/Creatinine Ratio 31.7 RATIO (10-20) H 05/06/23 04:15 Glucose 190 mg/dL (74-106) H 05/06/23 04:15 Microbiology Microbiology: Microbiology 05/06/23 05:13 Nasal Secretion SARS-CoV-2 & FLU Antigen (Rapid) - Final Dosing Weight Weight used for dosin.2 kg Estimated Creatinine Clearance Estimated Creatinine Clearance: 104ML/MIN Goal Trough Goal Trough: 15-20 mcg/mL Pharmacy Plan for Drug Dosing Pharmacy Plan for Drug Dosing: Give initial dose of 2000mg IV x1, then continue with 2000mg IV q12h. Did not want to start with a suggested dose of 1500mg at a q8h frequency per [facility] dosing chart since patient is 77 years old and that would likely result in a trough above goal range so stepped down to 2000mg q12h to start with. Will check a trough before the 4th dose. The patient's CrCl of 104 ml/min was calculated using an adjusted body weight of 92.3kg and a SCr of 0.8 since the patient is >65 years old. Pharmacy Service will continue to monitor and adjust dosing as required. Follow-Up Labs Follow-Up Labs: Trough: Vancomycin Date/Time Labs Ordered Labs to be done on [date and time ordered]: 05/07/23 19:30
[2023-05-06] MEDS: Metoprolol Tartrate 5 MG/5 ML Vial IV (08:29)
[2023-05-06] MEDS: Piperacil/Tazobactam 3.375 GM in 0.9% Normal Saline (50mL MB+) 50 ML IV ×3 (08:30→22:09)
--- NOTE | 2023-05-06 08:55 | CPS ---
Changed from BIPAP to AVAPS for patient comfort. Pt was not comfortable on BIPAP. Dr Butcher is aware and is planning on AVAPS for home.
[2023-05-06 09:14] LABS: Probe Check PASS; Specimen Processing Control PASS
[2023-05-06 09:18] LABS: M R Staph aureus DNA By PCR POSITIVE (Negative)
--- NOTE | 2023-05-06 10:13 | CASEMGMT ---
Addendum entered by Adama iDaz 05/06/23 14:36: Clarification: Pt gets his oxygen through [facility], not [employer]. Call placed to [facility] and spoke w/Jackie. She states pt's current O2 orders are 2 l/m continuous from 08/15/22. Addendum entered by Adama Diaz 05/06/23 11:33: Per Poonam @ [facility], they are able to accept pt. She was made aware per Dr Butcher, he anticipates pt will be medically ready for discharge by Friday. Addendum entered by Adama Diaz 05/06/23 11:06: VM received from [employer]. She will review pt's information and will send order to this RN CM for physician to sign/date and RN CM [place] [facility] [place]. Addendum entered by Adama Diaz 05/06/23 10:32: Per ST recommendations, ST added to [facility] referral. Addendum entered by Adama Diaz 05/06/23 10:30: Per Dr Butcher, he would like pt to go home w/an NIV. RN CM discussed this with pt and he would like to get [place] [facility] as [place] [facility] [place]. Call to [employer] and VM left re: need of NIV @ discharge. Awaiting call back. Original Note: RN CM Assessment: RN CM to room for initial transition planning/care coordination assessment. RN CM introduced self and role at [facility], pt voices understanding and consents to assessment. Pt is A/O and answers all questions appropriately at this time. Pt resting in bed w/HOB elevated with oxygen on in no distress. Care providers, pharmacy, and demographics verified/updated. PCP:Dr Enamorado and sees Mr. Chavez at the [place] in [place] Specialists: Dr Butcher/Juana Stacy, [employer]-pulmonology. G/Cardiology. Palliative/[facility]: They were notified pt has been admitted to [facility]. They just saw pt 03/13 and will schedule a f/u appt with pt once he is discharged from [facility]. [facility]: Pt has an appt to have this done tomorrow and agreeable to RN CM calling to have this cx'd. [facility] at [facility] and appt cx'd. Pt made aware. Preferred Pharmacy: [facility] Retail pharmacy @ discharge. Pt [place] routine[place]uled meds through [place] [facility] Prescription Benefit: [facility] Also benefits through [facility]. LNOK: Roselia, ; Juana Geerene Living Arrangements: Pt lives with in a mobile home with a ramp to enter. [facility] that come 2 x's/day 7 days a week for 2 hrs in AM (Sundays are for 1 hr in AM) and 2 hrs in PM. They assist with ADL's and give pt bed bath 2 x's/week and assist w/IADL's. also does meals and laundry. Pt denies concerns at home. Transportation: Pt provides transportation in a van that has ramp to enter. DME: Pt has a BSC, jamin on ceiling track in bedroom, hospital bed, power w/c, pox, non-slip plates and rubber handled silverware, BP machine, nebulizer, O2 @ 5 l/m from [employer]. Pt has a concentrator (only goes up to 5 l/m) and portable O2 tanks. He states his can bring in portable O2 tank @ discharge. HHC/SNF: Pt denies hx of SNF. He has had [facility] HHC in they past. He would like [facility] again for SN. He declines list of other HHC options. He declines wanting PT/OT. ST getting ready to work w/pt. May add ST w/HHC, pending recommendations. Call placed to Poonam @ [facility] and referral made. Awaiting response. Pt states no concerns with going home at time of dc. Pt denies need for any therapy d/t his MD. Pt has made adaptive changes for himself at home. Pt denies having any concerns/needs. CM to follow. Advised pt to ask CM if any further question/concerns/needs arise, voices understanding. Plan: Home w/HHC, resumption of aides through [facility], spousal support, and discharge plans in place. Matt RAMONN JESSICA CM
--- NOTE | 2023-05-06 10:59 | CPS ---
Pt's family to bring his Vest in this afternoon, will start it then. Pt doesn't like our Vest.
[2023-05-06] MEDS: Furosemide 40 MG/4 ML Vial IV ×2 (11:01→17:59)
[2023-05-06 11:36] LABS: Bedside Glucose 118 mg/dL (74-106)
--- NOTE | 2023-05-06 14:26 | CPS ---
Pt's family brought his home Vest. Placed it on for 10 minutes. Pt ignacio well.
[2023-05-06] MEDS: dilTIAZem CD 180 MG Capsule PO (15:06)
[2023-05-06] MEDS: Loratadine 10 MG Tablet PO (15:06)
[2023-05-06] MEDS: Meloxicam 15 MG Tablet PO (15:06)
[2023-05-06] MEDS: Citalopram 20 MG Tablet PO (15:06)
[2023-05-06] MEDS: Aspirin E.C. 81 MG Tablet PO (15:06)
[2023-05-06] MEDS: 0.9% Normal Saline (250mL Bag) 250 ML 15 ML IV (15:07)
[2023-05-06] MEDS: APIXABAN 5 MG TABLET PO ×2 (15:09→22:08)
--- NOTE | 2023-05-06 15:33 | CHAPLAIN ---
Type of Pastoral Visit _x__ Initial Visit ___ Follow-up Visit ___ On-call Visit ___ General Patient Visit ___ Spiritual Assessment ___ Family Conference ___ Bereavement ___ Rapid Response ___ Code Blue ___ Other (describe below) Pastoral Care Referral From _x__ Patient ___ Family ___ Nurse ___ Physician ___ Occupational Health Nurse Supervisor ___ Supervisor Industrial Arts Education ___ Other (describe below) Sacrament/Intervention _x__ Active listening ___ Anointing ___ Orthodoxy _x__ Bereavement ___ Communion _x__ Odalys exploration ___ _x__ Life review _x__ Prayer ___ Reconciliation ___ Sacrament of Sick _x__ Supportive presence ___ Wedding ___ Other (describe below) Pastoral Comments patient is alert and talkative; pt is offered presence and support; pt admits to feelings of fear when he had difficulty in breathing; pt speaks of silent prayers to God at that time thinking this might be it; pt's odalys is affirmed; pt opens up about the tragic of his grandson in October and how he and the family are dealing with that; time given to listen to pt talk about his grandson's life; sympathy and comfort given; spouse comes into room at this time and is also offered support and time to listen; prayers given
--- NOTE | 2023-05-06 15:57 | PN.HOSP_ITS ---
Reason for Visit Reason for Visit: Diagnoses Hypokalemia (05/06/23) Other toxic encephalopathy (05/06/23) Acute on chronic diastolic (congestive) heart failure (05/06/23) Pneumonia, unspecified organism (05/06/23) Acute and chronic respiratory failure with hypoxia (05/06/23) Acute and chronic respiratory failure with hypercapnia (05/06/23) Hyperglycemia, unspecified (05/06/23) Subjective Subjective Patient seen at bedside this morning. Was wearing BiPAP during my interview. Patient was breathing fairly comfortably on BiPAP and states that he felt significantly improved from earlier this morning on admission. Patient notably was alert and oriented, answering all my questions appropriately. He denied any fevers or chills at that time. Denies any acute pain or discomfort. No other acute concerns at that time. Objective Data Objective Data Vital Signs: Vital Signs Temp Pulse Resp BP Pulse Ox O2 Del Method O2 Flow Rate 97.6 F L 91 20 H 142/64 H 95 Nasal Cannula 5 05/06/23 15:30 05/06/23 15:30 05/06/23 15:30 05/06/23 15:30 05/06/23 15:30 05/06/23 15:30 05/06/23 15:30 FiO2 35 05/06/23 08:50 Oxygen Flow Rate (L/min) 5 Oxygen Delivery Method Nasal Cannula Weight: 128.2 kg Body Mass Index (BMI) 43.0 Intake & Output: Intake and Output for Last 24 Hours 05/04/23 05/05/23 05/06/23 23:59 23:59 23:59 Intake Total 2077.5 / 2077.5 Output Total 3150 / 3150 Balance -1072.5 / -1072.5 Lab / Micro Data 05/06/23 04:15 05/06/23 04:15 Labs: Laboratory Results - last 24 hr 05/06/23 04:15: WBC 16.0 H, RBC 4.77, Hgb 12.8 L, Hct 45.2, MCV 94.8 H, MCH 26.8 L, MCHC 28.3 L, RDW Std Deviation 58.5 H, RDW Coeff of Nick 16.7 H, Plt Count 341, MPV 10.4, Neut % (Auto) Not Reportable, Absolute Neuts (auto) 5.9, Absolute Lymphs (auto) 5.11 H, Total Counted 100, Neutrophils % (Manual) 37 L, Lymphocytes % (Manual) 32, Monocytes % (Manual) 8, Eosinophils % (Manual) 22 H, Basophils % (Manual) 1, Diff Path Review October, Platelet Estimate ADEQUATE, RBC Morphology NORM C+C, Sodium 141, Potassium 3.3 L, Chloride 99, Carbon Dioxide 40.0 H, Anion Gap 2 L, BUN 13, Creatinine 0.41 L, Estim Creat Clear Calc 70.06, Est GFR (MDRD) Af Amer 262, Est GFR (MDRD) Non-Af 216, BUN/Creatinine R atio 31.7 H, Glucose 190 H, Lactic Acid 1.2, Calcium 8.9, Total Bilirubin 0.40, Direct Bilirubin 0.14, AST 17, ALT 27, Alkaline Phosphatase 116, Troponin I High Sens 19, B-Natriuretic Peptide 131.0 H, Total Protein 7.3, Albumin 3.4, Globulin 3.9 05/06/23 07:10: MRSA (PCR) POSITIVE H 05/06/23 11:18: POC Glucose 118 H Micro: Microbiology 05/06/23 08:00 Urine Catheter - Whitman Legionella Antigen - Final 05/06/23 08:00 Urine Catheter - Whitman Streptococcus pneumoniae Antigen (M - Final 05/06/23 05:13 Nasal Secretion SARS-CoV-2 & FLU Antigen (Rapid) - Final ABG Data ABG results: ABG 05/06/23 04:45 Specimen Type ART Sample Site L Radial pH 7.23 L Bicarbonate Actual 38.1 H Total CO2 41 Base Excess 11 H O2 Saturation 94 L O2 % 70.0 ABG pCO2 90.7 H* ABG pO2 90 Mickey Test Positive O2 Delivery Device BiPAP Vent Mode Not entered Crit Call To/Read Back Yes Blood Gas Notified Whom [facility] Blood Gas Notified Time 04:46:25 Clinical Comments 18. 8. Radiography Diagnostic Testing: Radiology Impression Chest X-Ray 05/06/23 04:15 IMPRESSION: Diffuse groundglass opacities consider pulmonary edema and/or potentially diffuse pneumonia and/or atypical infiltrates. Electronically Signed: Kath Gao MD at 4:56 EST Reading Location ID and State: [facility] / [place] Tel , Service support , Physical Exam Const alert, oriented x3 and no apparent distress Constitutional Narrative: Morbidly obese. General Appearance: cooperative and comfortable HEENT normocephalic, head/scalp atraumatic, hearing grossly normal bilaterally, nasal mucous membranes and turbinates normal and moist oral mucous membranes Eyes PERRL, EOMs intact bilaterally and conjunctivae normal Neck full ROM, no lymphadenopathy and supple Lymph Lymphatic: no lymphadenopathy noted Chest inspection of chest normal Resp Resp Narrative: BiPAP in place, satting well. Breathing comfortably on BiPAP, no increased work of breathing noted. Mildly decreased breath sounds bilaterally, no wheezing noted. Cardio regular rate, regular rhythm, no murmurs and peripheral pulses 2+ throughout GI normal to inspection, nondistended, normoactive bowel sounds, soft to palpation, non-tender and non-distended Back/Spine normal ROM Extremity normal to inspection Extremity Narrative: Mild bilateral lower extremity edema. Skin no rashes or lesions noted Psych mental status grossly normal Assessment & Plan Assessment/Plan (1) Acute on chronic respiratory failure with hypoxia and hypercapnia: PLAN: Plan Patient is a 77-year-old male who presented to [facility] ED on 05/06/2023 with shortness of breath and respiratory distress. 1. Acute on chronic respiratory failure with hypoxia and hypercapnia, improving Likely multifactorial. 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 On 4 to 5 L nasal cannula at baseline. Chest x-ray on admit showed diffuse groundglass opacities concerning for pulmonary edema versus diffuse pneumonia. ABG on admit showed pH 7.23, PCO2 of 90. WBC count 16 on admit, afebrile, normotensive. Initiated on BiPAP on admission with significant improvement. ? Patient Scheduling Manager following. Wean supplemental oxygen as able. Patient Scheduling Manager recommending initiation of noninvasive ventilation on outpatient basis, as well as nightly and with naps while inpatient. Treatment of pneumonia and heart failure as noted below. 2. Right lower lobe pneumonia, community-acquired pneumonia with unknown organism Chest x-ray and lab findings on admit as noted above. Infectious work-up negative to this point. ? Continue vancomycin and Zosyn for now. Follow-up cultures, de-escalate antibiotics as able. We will plan for 7-day course of antibiotics total. 3. Acute on chronic HFpEF Chest x-ray with concern for possible mild pulmonary edema on admission. BNP 131. He was mildly volume overloaded and legs but unsure on chronicity of this. Patient notably is obese, difficult to ascertain volume status. On home Lasix 20 mg twice daily. Most recent echo 06/2022 showed EF 60%, normal LV function, diastolic function indeterminate. ? Initiated on IV Lasix 40 mg twice daily on admission. Monitor volume status, urine output, daily BMP. Will de-escalate to p.o. Lasix when able. 4. Acute metabolic encephalopathy, improved ? Presumed secondary to hypercapnia on admission. Improved quickly after admission with BiPAP. Monitor. 5. Debility, history of muscular dystrophy ? Patient is wheelchair bound at baseline. Lives at home with his who is his primary benzene worker. PT/OT/case management consulted. Will likely plan for home on discharge. Chronic medical conditions: ? Morbid obesity: BMI 43. Encouraged lifestyle modifications. ? Anxiety/depression stable. Continue home citalopram, lorazepam as needed. ? Paroxysmal atrial fibrillation: Rate controlled on admit. Continue home Eliquis, Toprol and diltiazem. ? Hypertension: Continue home Toprol and diltiazem. ? Hyperlipidemia: Continue home statin. DVT prophylaxis: Eliquis CODE STATUS: Full code, verified Expected disposition: Home, TBD Total clinical time spent by myself addressing the patient's medical issues, reviewing all the data, and collaborating with patient's care team: 35 minutes. Charges/Coding Visit Charges Inpatient E&M: 92963 Subs Hosp L2
[2023-05-06 18:10] LABS: Bedside Glucose 133 mg/dL (74-106)
--- NOTE | 2023-05-06 19:00 | CPS ---
Used pt's own chest vest for CPT therapy.
[2023-05-06] MEDS: LORazepam 0.5 MG Tablet PO (22:08)
[2023-05-06] MEDS: Atorvastatin Calcium 20 MG Tablet PO (22:09)
[2023-05-07] VITALS (14 sets, daily range): BP systolic 111–142; BP diastolic 71–84; PULSE 70–93; RESP 12–25; TEMP 36.1–36.8; O2SAT 90–99; BMI 43.2
[2023-05-07 00:52] LABS: Bedside Glucose 121 mg/dL (74-106)
[2023-05-07] MEDS: Ipratropium/Albuterol Sulfate 3 ML AMPUL.NEB INHALATION ×6 (03:30→23:29)
[2023-05-07 04:05] LABS: Absolute Neutrophil Count 8.9 X10^3/uL (2.0-7.7); Basophil# 0.02 X10^3/uL; Basophil% 0.2 % (0-1); Eosinophil# 0.01 X10^3/uL; Eosinophils% 0.1 % (0-5); Hematocrit 36.5 % (40-54); Hemoglobin 11.2 g/dL (13.0-16.5); Mean Corp Hgb Conc 30.7 g/dL (32-36); Mean Corpuscular Hgb 27.5 pg (27.0-32.0); Mean Corpuscular Volume 89.7 fL (80-94); Mean Platelet Vol. 10.2 fl (6.2-12.0); Monocyte# 0.71 X10^3/uL; Monocyte% 6.5 % (0-10); NRBC Flagged by Analyzer 0 % (0-5); Neutrophil # 8.94 X10^3/uL (2.7-7.7); Neutrophil % 81.6 % (47-70); Platelet Count 248 K/mm3 (150-450); RBC Distribution Width CV 16.6 % (11.6-14.6); RBC Distribution Width SD 54.4 fl (35.1-43.9); Red Blood Count 4.07 M/mm3 (4.6-6.2)
[2023-05-07 04:33] LABS: Anion Gap 3 (5-15); BUN 18 mg/dL (7-18); BUN/Creat Ratio 41.4 RATIO (10-20); Calcium,Total 9.4 mg/dL (8.5-10.1); Chloride 98 mmol/L (98-107); Creatinine, Serum 0.44 mg/dL (0.70-1.30); EST Glomerular Filtration Rate 202 mL/min (>60); Est Glom Filt Rate - Afr Amer 245 mL/min (>60); Estimated Creatinine Clearance 61.75 ml/min; Glucose 133 mg/dL (74-106); Phosphorus 2.6 mg/dL (2.5-4.9); Potassium 3.6 mmol/L (3.5-5.1); Sodium Level 139 mmol/L (136-145)
[2023-05-07] MEDS: Piperacil/Tazobactam 3.375 GM in 0.9% Normal Saline (50mL MB+) 50 ML IV ×3 (04:56→22:09)
[2023-05-07 05:14] LABS: Bedside Glucose 143 mg/dL (74-106)
--- NOTE | 2023-05-07 06:33 | PN.CC_ITS ---
Assessment & Plan Assessment/Plan (1) Acute on chronic respiratory failure with hypoxia and hypercapnia: PLAN: Plan RECOMMENDATIONS: 1. Supplemental oxygen to maintain saturations at or above 90%. 2. AVAPS therapy with naps and nightly. 3. Continue current empiric antimicrobials, pending finalized culture results. 4. Continue gentle diuresis as tolerated by hemodynamics and renal function. 5. Initiate NIV support at discharge. We will coordinate with case management/social work. 6. Follow-up in the pulmonary medicine clinic as scheduled on May 29. IMPRESSIONS: 1. Acute on chronic respiratory failure with hypoxemia and hypercapnia The patient has known muscular dystrophy, which has progressed with time, leading to generalized neuromuscular weakness, which has impacted his respiratory mechanics. The patient has a baseline oxygen requirement of 4 to 5 L/min. Given his propensity to retain CO2, he would likely benefit from initiation of a noninvasive ventilator on an outpatient basis. The patient requires volume ventilation and all other alternative therapies, including bilevel, have been considered and ruled out due to the severity of the disease state, weak breathing muscles and potential life-threatening condition including CO2 retention, probability of acute exacerbation, patient requires ventilation to be used during the day as needed, in addition to every night usage with facemask. In the interim, the patient will be continued on empiric antimicrobials to complete 7 days of therapy. Continue gentle diuresis as tolerated by hemodynamics and renal function. Continue to wean supplemental oxygen to maintain saturations at or above 90%. 2. History of muscular dystrophy/heart failure with preserved ejection fraction/paroxysmal atrial fibrillation/hypertension/hyperlipidemia/obesity Complicates care, management, recovery and prognosis. Continue home medications as indicated. CODE status: Discussed CODE status at length including difference between FULL code, DNR-CCA and DNR-CC status. Following discussions about the differences in these status, patient requested full CODE STATUS. This note was generated with [employer] dictation software. It may contain incorrect words, spelling, and punctuation that were not noted in checking the note before signing. Subjective Subjective The patient was seen and examined at the bedside this morning. Events from the last 24 hours have been reviewed. The patient is currently afebrile, hemodynamically stable and maintaining appropriate oxygen saturations on 5 L/min, which is his baseline requirement. The patient tolerated AVAPS therapy overnight, without issue. He is agreeable to utilizing the aforementioned therapy at home. Objective Data Objective Data The patient's most recent lab work, culture data and imaging studies have all been personally reviewed. Vital Signs: Vital Signs Temp Pulse Resp BP Pulse Ox O2 Del Method O2 Flow Rate 98.3 F 93 18 111/76 95 Nasal Cannula 5 05/07/23 04:10 05/07/23 04:10 05/07/23 04:10 05/07/23 04:10 05/07/23 04:10 05/07/23 04:10 05/07/23 04:10 FiO2 35 05/07/23 00:55 Oxygen Flow Rate (L/min) 5 Oxygen Delivery Method Nasal Cannula Weight: 284 lb 9.868 oz Body Mass Index (BMI) 43.2 Intake & Output: Intake and Output for Last 24 Hours 05/05/23 05/06/23 05/07/23 23:59 23:59 23:59 Intake Total 3254.5 / 3554.5 391.25 / 391.25 Output Total 3550 / 4150 800 / 800 Balance -295.5 / -595.5 -408.75 / -408.75 Lab / Micro Data Attestation: I reviewed the patient's lab results. 05/07/23 03:55 05/07/23 03:55 Labs: Laboratory Results - last 24 hr 05/06/23 07:10: MRSA (PCR) POSITIVE H 05/06/23 11:18: POC Glucose 118 H 05/06/23 17:53: POC Glucose 133 H 05/07/23 00:31: POC Glucose 121 H 05/07/23 03:55: WBC 11.0, RBC 4.07 L, Hgb 11.2 L, Hct 36.5 L, MCV 89.7 D, MCH 27.5, MCHC 30.7 L D, RDW Std Deviation 54.4 H, RDW Coeff of Nick 16.6 H, Plt Count 248, MPV 10.2, Immature Gran % (Auto) 0.600, Neut % (Auto) 81.6 H, Lymph % (Auto) 11.0 L, [place] % (Auto) 6.5, Eos % (Auto) 0.1, Baso % (Auto) 0.2, Absolute Neuts (auto) 8.9 H, Absolute Lymphs (auto) 1.20, Nucleated RBC % 0, Sodium 139, Potassium 3.6, Chloride 98, Carbon Dioxide 38.0 H, Anion Gap 3 L, BUN 18, Creatinine 0.44 L, Estim Creat Clear Calc 61.75, Est GFR (MDRD) Af Amer 245, Est GFR (MDRD) Non-Af 202, BUN/Creatinine Ratio 41.4 H, Glucose 133 H, Calcium 9.4, Phosphorus 2.6, Magnesium 2.0 05/07/23 04:55: POC Glucose 143 H Micro: Microbiology 05/06/23 08:00 Urine Catheter - Whitman Legionella Antigen - Final 05/06/23 08:00 Urine Catheter - Whitman Streptococcus pneumoniae Antigen (M - Final 05/06/23 05:13 Nasal Secretion SARS-CoV-2 & FLU Antigen (Rapid) - Final Physical Exam Const alert and no apparent distress General Appearance: cooperative HEENT normocephalic, head/scalp atraumatic and moist oral mucous membranes Eyes PERRL, EOMs intact bilaterally and conjunctivae normal Neck supple General: trachea midline Chest inspection of chest normal Resp normal respiratory effort Auscultation: diminished lung sounds; Negative for rales, rhonchi or wheezes Cardio regular rate and regular rhythm GI normal to inspection, nondistended, normoactive bowel sounds Extremity no clubbing, cyanosis or edema Skin General Skin Exam: venous stasis and dermatitis Neuro Neuro Narrative: Baseline neuromuscular weakness noted. Psych cooperative and affect normal Charges/Coding Visit Charges Inpatient E&M: 41722 Subs Hosp L2
--- NOTE | 2023-05-07 08:48 | CASEMGMT ---
Patient has a Healthcare Power of Woodworking [employer]orer and a Healthcare Living Will on file at [facility]. Patient's is patient's Healthcare Power of Woodworking [employer]. Keara MANCINI
[2023-05-07] MEDS: Vancomycin HCl 2,000 MG in 0.9% Normal Saline (500mL Bag) 500 ML 250 MG IV (08:50)
[2023-05-07] MEDS: Aspirin E.C. 81 MG Tablet PO (08:50)
[2023-05-07] MEDS: Citalopram 20 MG Tablet PO (09:10)
[2023-05-07] MEDS: APIXABAN 5 MG TABLET PO ×2 (09:10→22:09)
[2023-05-07] MEDS: dilTIAZem CD 180 MG Capsule PO (09:10)
[2023-05-07] MEDS: LORazepam 0.5 MG Tablet PO ×2 (09:10→22:09)
[2023-05-07] MEDS: Loratadine 10 MG Tablet PO (09:10)
[2023-05-07] MEDS: Meloxicam 15 MG Tablet PO (09:11)
[2023-05-07] MEDS: Metoprolol(XL)Succ 50 MG Tablet PO (09:14)
[2023-05-07 10:07] LABS: Pathologist Review Reviewed
[2023-05-07] MEDS: Furosemide 20 MG Tablet PO ×2 (11:31→18:52)
--- NOTE | 2023-05-07 13:02 | CASEMGMT ---
JESSICA TRAMMELL NOTE: Signed [place] Favi[place] [facility] [place]'s insurance information. Per Faviola, pt's insurance requires ABG on BIPAP (which was done yesterday) and ABG on AVAP mode and they must show improvement. Dr Butcher notified and ordered this and it has been completed. Matt RAMONN RN CM
[2023-05-07 13:14] LABS: Bedside Glucose 97 mg/dL (74-106)
--- NOTE | 2023-05-07 14:17 | PCM.PN.HOSP ---
Reason for Visit Reason for Visit: Diagnoses Hypokalemia (05/06/23) Other toxic encephalopathy (05/06/23) Acute on chronic diastolic (congestive) heart failure (05/06/23) Pneumonia, unspecified organism (05/06/23) Acute and chronic respiratory failure with hypoxia (05/06/23) Acute and chronic respiratory failure with hypercapnia (05/06/23) Hyperglycemia, unspecified (05/06/23) Subjective Subjective No acute events overnight. Patient seen at bedside this morning. Sitting up in bed comfortably, conversing normally, no acute distress. Satting in mid 90s on 5 L nasal cannula, no increased work of breathing noted. Patient does report mild upper respiratory symptoms of congestion and cough this morning. States these have been ongoing for him for about 1 week. Denies any sputum production with cough. Denies any fevers or chills. Otherwise denies any other pain or discomfort. No other acute concerns at this time. Objective Data Objective Data Vital Signs: Vital Signs Temp Pulse Resp BP Pulse Ox O2 Del Method O2 Flow Rate 98.2 F 80 18 142/75 H 94 Nasal Cannula 5 05/07/23 09:00 05/07/23 10:58 05/07/23 10:58 05/07/23 09:00 05/07/23 10:40 05/07/23 10:40 05/07/23 10:40 FiO2 35 05/07/23 10:25 Oxygen Flow Rate (L/min) 5 Oxygen Delivery Method Nasal Cannula Weight: 129.1 kg Body Mass Index (BMI) 43.2 Intake & Output: Intake and Output for Last 24 Hours 05/05/23 05/06/23 05/07/23 23:59 23:59 23:59 Intake Total 3254.5 / 3554.5 981.25 / 981.25 Output Total 3550 / 4150 900 / 900 Balance -295.5 / -595.5 81.25 / 81.25 Lab / Micro Data 05/07/23 03:55 05/07/23 03:55 Labs: Laboratory Results - last 24 hr 05/06/23 04:15: Diff Path Review Reviewed 05/06/23 17:53: POC Glucose 133 H 05/07/23 00:31: POC Glucose 121 H 05/07/23 03:55: WBC 11.0, RBC 4.07 L, Hgb 11.2 L, Hct 36.5 L, MCV 89.7 D, MCH 27.5, MCHC 30.7 L D, RDW Std Deviation 54.4 H, RDW Coeff of Nick 16.6 H, Plt Count 248, MPV 10.2, Immature Gran % (Auto) 0.600, Neut % (Auto) 81.6 H, Lymph % (Auto) 11.0 L, [place] % (Auto) 6.5, Eos % (Auto) 0.1, Baso % (Auto) 0.2, Absolute Neuts (auto) 8.9 H, Absolute Lymphs (auto) 1.20, Nucleated RBC % 0, Sodium 139, Potassium 3.6, Chloride 98, Carbon Dioxide 38.0 H, Anion Gap 3 L, BUN 18, Creatinine 0.44 L, Estim Creat Clear Calc 61.75, Est GFR (MDRD) Af Amer 245, Est GFR (MDRD) Non-Af 202, BUN/Creatinine Ratio 41.4 H, Glucose 133 H, Calcium 9.4, Phosphorus 2.6, Magnesium 2.0 05/07/23 04:55: POC Glucose 143 H 05/07/23 12:52: POC Glucose 97 Micro: Microbiology 05/06/23 11:40 Sputum, Expectorated/Coughed Gram Stain - Final 05/06/23 08:00 Urine Catheter - Whitman Legionella Antigen - Final 05/06/23 08:00 Urine Catheter - Whitman Streptococcus pneumoniae Antigen (M - Final 05/06/23 05:13 Nasal Secretion SARS-CoV-2 & FLU Antigen (Rapid) - Final Physical Exam Const alert, oriented x3 and no apparent distress Constitutional Narrative: Pleasant elderly male, morbidly obese, conversing normally, no acute distress. General Appearance: cooperative and comfortable HEENT normocephalic, head/scalp atraumatic, hearing grossly normal bilaterally, nasal mucous membranes and turbinates normal and moist oral mucous membranes Eyes PERRL, EOMs intact bilaterally and conjunctivae normal Neck full ROM, no lymphadenopathy and supple Lymph Lymphatic: no lymphadenopathy noted Chest inspection of chest normal Resp Resp Narrative: Satting well on 5 L nasal cannula, no increased work of breathing noted. Mild rhonchi noted in upper airways bilaterally. Cardio regular rate, regular rhythm, no murmurs and peripheral pulses 2+ throughout GI normal to inspection, nondistended, normoactive bowel sounds, soft to palpation, non-tender and non-distended Back/Spine normal ROM Extremity normal to inspection Extremity Narrative: Mild bilateral lower extremity edema. Skin no rashes or lesions noted Psych mental status grossly normal Assessment & Plan Assessment/Plan (1) Acute on chronic respiratory failure with hypoxia and hypercapnia: PLAN: Plan Patient is a 77-year-old male who presented to [facility] ED on 05/06/2023 with shortness of breath and respiratory distress. 1. Acute on chronic respiratory failure with hypoxia and hypercapnia, improving Likely multifactorial. 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 On 4 to 5 L nasal cannula at baseline. Chest x-ray on admit showed diffuse groundglass opacities concerning for pulmonary edema versus diffuse pneumonia. ABG on admit showed pH 7.23, PCO2 of 90. WBC count 16 on admit, afebrile, normotensive. Initiated on BiPAP on admission with significant improvement. ? Corner Cutter Machine Operator following. Patient is essentially back to baseline level of oxygen on 05/07. Corner Cutter Machine Operator recommending initiation of noninvasive ventilation on outpatient basis, as well as nightly and with naps while inpatient; case management assisting with obtaining this for patient. Treatment of pneumonia and heart failure as noted below. 2. Right lower lobe pneumonia, community-acquired pneumonia with unknown organism Chest x-ray and lab findings on admit as noted above. Infectious work-up negative to this point. ? Continue vancomycin and Zosyn for now. Follow-up cultures, de-escalate antibiotics as able. We will plan for 7-day course of antibiotics total. 3. Acute on chronic HFpEF, improved Chest x-ray with concern for possible mild pulmonary edema on admission. BNP 131. He was mildly volume overloaded and legs but unsure on chronicity of this. Patient notably is obese, difficult to ascertain volume status. On home Lasix 20 mg twice daily. Most recent echo 06/2022 showed EF 60%, normal LV function, diastolic function indeterminate. ? Has had good urine output with IV Lasix 40 mg twice daily, appears to be approaching euvolemia and is on baseline level of oxygen. Will de-escalate to home Lasix 20 mg twice daily. Monitor daily BMP, urine output. 4. Acute metabolic encephalopathy, improved ? Presumed secondary to hypercapnia on admission. Improved quickly after admission with BiPAP. Monitor. 5. Debility, history of muscular dystrophy ? Patient is wheelchair bound at baseline. Lives at home with his who is his primary delivery helper. PT/OT/case management consulted. Will likely plan for home on discharge. Chronic medical conditions: ? Morbid obesity: BMI 43. Encouraged lifestyle modifications. ? Anxiety/depression stable. Continue home citalopram, lorazepam as needed. ? Paroxysmal atrial fibrillation: Rate controlled on admit. Continue home Eliquis, Toprol and diltiazem. ? Hypertension: Continue home Toprol and diltiazem. ? Hyperlipidemia: Continue home statin. DVT prophylaxis: Eliquis CODE STATUS: Full code, verified Expected disposition: Home, 1 to 2 days Total clinical time spent by myself addressing the patient's medical issues, reviewing all the data, and collaborating with patient's care team: 35 minutes. Charges/Coding Visit Charges Inpatient E&M: 35277 Subs Hosp L2
[2023-05-07 14:46] LABS: Blood Gas Specimen Type ART; SITE L RADIAL
[2023-05-07 14:48] LABS: O2 Delivery Device BIPAP; PEEP 10; RR 12
[2023-05-07 14:49] LABS: Time Given 1103
[2023-05-07 14:50] LABS: Base Excess 10 mmol/L (-2 to +2); Bicarbonate 34.9 mmol/L (22-26); Comment 24/12; PO2 78 mmHG (75-100); SO2 95 % (95-99); Total Carbon Dioxide 37 mmol/L; pCO2 54.3 mmHg (35-45); pH 7.42 (7.35-7.45)
[2023-05-07 15:00] LABS: Mode AVAPS
[2023-05-07] MEDS: Vancomycin Trough/Random Due 1 LAB MC (18:44)
[2023-05-07 18:47] LABS: Bedside Glucose 99 mg/dL (74-106)
[2023-05-07 18:54] LABS: Vancomycin, Trough Level 34.3 ug/mL (5.0-15.0)
--- NOTE | 2023-05-07 19:12 | PCM.RX.CS ---
Consult Antibiotic Management Pharmacy has been consulted to manage selected antiobiotic: Vancomycin Type of Intervention Type of Consult: Follow-up Labs Labs: Sodium 139 mmol/L (136-145) 05/07/23 03:55 Potassium 3.6 mmol/L (3.5-5.1) 05/07/23 03:55 Chloride 98 mmol/L (98-107) 05/07/23 03:55 Carbon Dioxide 38.0 mmol/L (21.0-32.0) H 05/07/23 03:55 Anion Gap 3 (5-15) L 05/07/23 03:55 BUN 18 mg/dL (7-18) 05/07/23 03:55 Creatinine 0.44 mg/dL (0.70-1.30) L 05/07/23 03:55 Est GFR (MDRD) Af Amer 245 mL/min (>60) 05/07/23 03:55 Est GFR (MDRD) Non-Af 202 mL/min (>60) 05/07/23 03:55 BUN/Creatinine Ratio 41.4 RATIO (10-20) H 05/07/23 03:55 Glucose 133 mg/dL (74-106) H 05/07/23 03:55 Vancomycin Trough 34.3 ug/mL (5.0-15.0) H 05/07/23 18:30 Microbiology Microbiology: Microbiology 05/06/23 11:40 Sputum, Expectorated/Coughed Gram Stain - Final 05/06/23 08:00 Urine Catheter - Whitman Legionella Antigen - Final 05/06/23 08:00 Urine Catheter - Whitman Streptococcus pneumoniae Antigen (M - Final 05/06/23 05:13 Nasal Secretion SARS-CoV-2 & FLU Antigen (Rapid) - Final Goal Trough Goal Trough: 15-20 mcg/mL Pharmacy Plan for Drug Dosing Pharmacy Plan for Drug Dosing: VANCOMYCIN LEVEL RECEIVED Current Vancomycin Dose: 2000mg IV Q12hr Number of Doses Received: 3 Vancomycin Level: 34.3 Hours Since Last Dose: 9.66hr Renal Function: 0.44 Renal Function Trend: stable Lab/Micro: Cx pending Vancomycin Plan/Comments: Patient had a trough drawn which resulted in a value of 34.3 (goal 15-20). Of note, the trough was drawn ~1.5hrs early, but it is likely that the trough would still be >20hr if drawn correctly. Will currently hold vancomycin and resume dosing once trough is <20. Pending Level: *RANDOM* level pending 05/08/23 @0800 Pharmacy Service will continue to monitor and adjust dosing as required.
[2023-05-07] MEDS: Atorvastatin Calcium 20 MG Tablet PO (22:09)
[2023-05-07] MEDS: 0.9% Saline Lock 10 ML Syringe IV (22:15)
--- NOTE | 2023-05-07 22:59 | NURSING ---
Upon entering room for 1999 assessment, this RN noted that 1400 Zosyn was hung on IV pole, full and tubing was not attached to patient. Called pharmacy to ask if this RN should infuse 1400 Zosyn and 2200 scheduled Zosyn for tonight, pharmacy advised this RN to discard 1400 dose and hang 2200 dose as directed.
[2023-05-08] VITALS (12 sets, daily range): BP systolic 120–149; BP diastolic 55–78; PULSE 73–95; RESP 12–22; TEMP 36.2–36.8; O2SAT 87–96; BMI 43.4
[2023-05-08 00:30] LABS: Bedside Glucose 106 mg/dL (74-106)
[2023-05-08] MEDS: Ipratropium/Albuterol Sulfate 3 ML AMPUL.NEB INHALATION ×4 (02:59→15:30)
[2023-05-08] MEDS: Piperacil/Tazobactam 3.375 GM in 0.9% Normal Saline (50mL MB+) 50 ML IV ×2 (05:30→14:27)
[2023-05-08] MEDS: Vancomycin Trough/Random Due 1 LAB MC (05:31)
[2023-05-08 05:55] LABS: Bedside Glucose 90 mg/dL (74-106)
[2023-05-08 06:21] LABS: Vancomycin, Random Level 24.8 ug/mL (0.0-15.0)
--- NOTE | 2023-05-08 07:11 | PN.CC_ITS ---
Assessment & Plan Assessment/Plan (1) Acute on chronic respiratory failure with hypoxia and hypercapnia: PLAN: Plan RECOMMENDATIONS: 1. Supplemental oxygen to maintain saturations at or above 90%. 2. AVAPS therapy with naps and nightly. 3. Continue current empiric antimicrobials, pending finalized culture results. 4. Continue gentle diuresis as tolerated by hemodynamics and renal function. 5. Initiate NIV support at discharge. We will coordinate with case management/social work. 6. Follow-up in the pulmonary medicine clinic as scheduled on May 29. IMPRESSIONS: 1. Acute on chronic respiratory failure with hypoxemia and hypercapnia The patient has known muscular dystrophy, which has progressed with time, leading to generalized neuromuscular weakness, which has impacted his respiratory mechanics. The patient has a baseline oxygen requirement of 4 to 5 L/min. Given his propensity to retain CO2, he would likely benefit from initiation of a noninvasive ventilator on an outpatient basis. The patient has chronic respiratory as a consequence of his underlying muscular dystrophy, along with several other comorbidities. The patient requires volume ventilation, and IV therapy, with an MOO trilogy AVAPS AE mode, PS min 6 cm of water, PS max 26 cm of water, EPAP min 4 cm of water, EPAP max 14 cm of water, tidal volume of 450, maximum pressure of 30 cm of water and auto backup rate. All other therapies have been considered and tried. The patient had an initial PCO2 of 91 on BiPAP, which subsequently improved to 54 on AVAPS therapy. All bilevel units are inferior to Moo trilogy therapy. The patient has life-threatening CO2 retention and requires ventilator Moo trilogy AVAPS with settings mentioned a bridget for maximum CO2 clearance and proper oxygenation. The patient requires nightly ventilation and may use the unit during the day as needed. In the interim, the patient will be continued on empiric antimicrobials to complete 7 days of therapy. Continue gentle diuresis as tolerated by hemodynamic s and renal function. Continue to wean supplemental oxygen to maintain saturations at or above 90%. 2. History of muscular dystrophy/heart failure with preserved ejection fraction/paroxysmal atrial fibrillation/hypertension/hyperlipidemia/obesity Complicates care, management, recovery and prognosis. Continue home medications as indicated. CODE status: Discussed CODE status at length including difference between FULL code, DNR-CCA and DNR-CC status. Following discussions about the differences in these status, patient requested full CODE STATUS. This note was generated with [employer] dictation software. It may contain incorrect words, spelling, and punctuation that were not noted in checking the note before signing. Subjective Subjective The patient was seen and examined at the bedside this morning. Events from the last 24 hours have been reviewed. The patient is currently afebrile, hemodynamically stable and maintaining appropriate oxygen saturations on 5 L/min via nasal cannula. The patient been compliant with use of AVAPS overnight. Follow-up ABG completed yesterday on AVAPS demonstrated improvement in the patient's acid-base disorder. Objective Data Objective Data The patient's most recent lab work, culture data and imaging studies have all been personally reviewed. Vital Signs: Vital Signs Temp Pulse Resp BP Pulse Ox O2 Del Method O2 Flow Rate 97.2 F L 73 19 H 149/78 H 96 Nasal Cannula 5 05/08/23 02:00 05/08/23 06:50 05/08/23 06:50 05/08/23 02:00 05/08/23 06:50 05/08/23 06:50 05/08/23 06:50 FiO2 35 05/08/23 04:56 Oxygen Flow Rate (L/min) 5 Oxygen Delivery Method Nasal Cannula Weight: 285 lb 11.505 oz Body Mass Index (BMI) 43.4 Intake & Output: Intake and Output for Last 24 Hours 05/06/23 05/07/23 05/08/23 23:59 23:59 23:59 Intake Total 3254.5 / 3554.5 1031.25 / 1031.25 50 / 50 Output Total 3550 / 4150 1950 / 1950 1000 / 1000 Balance -295.5 / -595.5 -918.75 / -918.75 -950 / -950 Lab / Micro Data Attestation: I reviewed the patient's lab results. 05/07/23 03:55 05/07/23 03:55 Labs: Laboratory Results - last 24 hr 05/06/23 04:15: Diff Path Review Reviewed 05/07/23 12:52: POC Glucose 97 05/07/23 18:22: POC Glucose 99 05/07/23 18:30: Vancomycin Trough 34.3 H 05/08/23 00:12: POC Glucose 106 05/08/23 05:28: POC Glucose 90 05/08/23 05:36: Random Vancomycin 24.8 H Micro: Microbiology 05/06/23 11:40 Sputum, Expectorated/Coughed Gram Stain - Final 05/06/23 08:00 Urine Catheter - Whitman Legionella Antigen - Final 05/06/23 08:00 Urine Catheter - Whitman Streptococcus pneumoniae Antigen (M - Final 05/06/23 05:13 Nasal Secretion SARS-CoV-2 & FLU Antigen (Rapid) - Final ABG Data ABG results: ABG 05/07/23 11:03 Specimen Type ART Sample Site L RADIAL pH 7.42 Bicarbonate Actual 34.9 H Total CO2 37 Base Excess 10 H O2 Saturation 95 O2 % 35.0 ABG pCO2 54.3 H ABG pO2 78 Respiration Rate 12 O2 Delivery Device BIPAP Vent Mode AVAPS Tidal Volume 450.0 POC PEEP 10 Blood Gas Notified Whom Blood Gas Notified Time 1103 Clinical Comments 15/06 Physical Exam Const alert and no apparent distress General Appearance: cooperative HEENT normocephalic, head/scalp atraumatic and moist oral mucous membranes Eyes PERRL, EOMs intact bilaterally and conjunctivae normal Neck supple General: trachea midline Chest inspection of chest normal Resp normal respiratory effort Auscultation: diminished lung sounds; Negative for rales, rhonchi or wheezes Cardio regular rate and regular rhythm GI normal to inspection, nondistended, normoactive bowel sounds Extremity no clubbing, cyanosis or edema Skin General Skin Exam: venous stasis and dermatitis Neuro Neuro Narrative: Baseline neuromuscular weakness noted. Psych cooperative and affect normal Charges/Coding Visit Charges Inpatient E&M: 26813 Subs Hosp L2
--- NOTE | 2023-05-08 07:44 | PCM.RX.CS ---
Consult Antibiotic Management Pharmacy has been consulted to manage selected antiobiotic: Vancomycin Type of Intervention Type of Consult: Follow-up Prior Doses of Antibiotics Prior Doses of Antibiotics Received/Current Regimen: Last dose 2000mg 11.15 @0850. Labs Labs: Sodium 139 mmol/L (136-145) 05/07/23 03:55 Potassium 3.6 mmol/L (3.5-5.1) 05/07/23 03:55 Chloride 98 mmol/L (98-107) 05/07/23 03:55 Carbon Dioxide 38.0 mmol/L (21.0-32.0) H 05/07/23 03:55 Anion Gap 3 (5-15) L 05/07/23 03:55 BUN 18 mg/dL (7-18) 05/07/23 03:55 Creatinine 0.44 mg/dL (0.70-1.30) L 05/07/23 03:55 Est GFR (MDRD) Af Amer 245 mL/min (>60) 05/07/23 03:55 Est GFR (MDRD) Non-Af 202 mL/min (>60) 05/07/23 03:55 BUN/Creatinine Ratio 41.4 RATIO (10-20) H 05/07/23 03:55 Glucose 133 mg/dL (74-106) H 05/07/23 03:55 Vancomycin Trough 34.3 ug/mL (5.0-15.0) H 05/07/23 18:30 Random Vancomycin 24.8 ug/mL (0.0-15.0) H 05/08/23 05:36 Microbiology Microbiology: Microbiology 05/06/23 11:40 Sputum, Expectorated/Coughed Gram Stain - Final 05/06/23 08:00 Urine Catheter - Whitman Legionella Antigen - Final 05/06/23 08:00 Urine Catheter - Whitman Streptococcus pneumoniae Antigen (M - Final 05/06/23 05:13 Nasal Secretion SARS-CoV-2 & FLU Antigen (Rapid) - Final Dosing Weight Weight used for dosin kg Estimated Creatinine Clearance Estimated Creatinine Clearance: >100ml/min Goal Trough Goal Trough: 15-20 mcg/mL Pharmacy Plan for Drug Dosing Pharmacy Plan for Drug Dosing: Random level this AM still elevated at 24.8 ~22 hrs post last dose. Continue holding vanco until level <20. New random level ordered for 2000 today. Pharmacy Service will continue to monitor and adjust dosing as required. Follow-Up Labs Follow-Up Labs: Trough: Other (random level 11.16.23 @1999)
[2023-05-08] MEDS: Aspirin E.C. 81 MG Tablet PO (08:24)
[2023-05-08] MEDS: Sodium Chloride 0.65% 1 SPRAY SPRAY.BTL NASAL (10:28)
[2023-05-08] MEDS: Loratadine 10 MG Tablet PO (10:30)
[2023-05-08] MEDS: Metoprolol(XL)Succ 50 MG Tablet PO (10:30)
[2023-05-08] MEDS: Citalopram 20 MG Tablet PO (10:31)
[2023-05-08] MEDS: APIXABAN 5 MG TABLET PO (10:31)
[2023-05-08] MEDS: Meloxicam 15 MG Tablet PO (10:31)
[2023-05-08] MEDS: dilTIAZem CD 180 MG Capsule PO (10:31)
[2023-05-08] MEDS: Furosemide 20 MG Tablet PO (10:31)
[2023-05-08] MEDS: LORazepam 0.5 MG Tablet PO (10:34)
--- NOTE | 2023-05-08 10:48 | CASEMGMT ---
JESSICA TRAMMELL NOTE: ABG's on BIPAP and also on AVAP's e-mailed to Faviola @ [facility] [place]. Matt RENNER RN CM
[2023-05-08 12:55] LABS: Bedside Glucose 91 mg/dL (74-106)
--- NOTE | 2023-05-08 13:06 | CASEMGMT ---
Email and tc with voicemail to Faviola at [facility] to check on status of NIV and see about an estimated time frame that insurance approves.
--- NOTE | 2023-05-08 14:58 | CASEMGMT ---
Addendum entered by Alissa Raymond 05/08/23 15:30: Received confirmation from [facility] that they have cc info. Updated hospitalist, pt will be dc'd. Spoke with pt nurse who will test pt on his ordered home oxygen. Pt states he [place] have a portable tank at [place]. Notified palliative care via email that pt will dc today. Notified Poonam at [facility] that pt is dc'ing today. Addendum entered by Alissa Raymond 05/08/23 15:15: Received tc back from [facility] who states he called pt and pt declined to give credit card info. JESSICA TRAMMELL went to pt room again and put Partha on speakerphone, pt was agreeable. [facility] to call pt for cc info. Original Note: Received tc from Partha [place] [facility] the pt insurance can take up to 2wks for approval for the NIV. He states if the patient is willing to sign an ABN and provide a credit card number, the patient can have the machine prior to this. If the insurance does not approve it, the patient will need to return the machine and no charge will be made. Partha states that pt will need to sign and ABN. He has attempted to reach pt without success. JESSICA TRAMMELL into pt room, explained this information to him. He is agreeable to this and is aware that [facility]tha will be calling him back. TC to [facility] to make aware, also gave him pt 's phone number as pt stated she may need to be called for the credit card number. Updated hospitalist. Received tc from Faviola at [facility] who states as long as the NIV is set up and picked back up within 30 days, should it get denied, the pt credit card will not be charged.
--- NOTE | 2023-05-08 15:34 | DCINST_ITS ---
Discharge Instructions Diet Discharge Diet: No restrictions Activity Discharge Activity: No Restrictions Weight Bearing Status: Weight bearing as tolerated Follow Up Care Please Follow Up With: Landon Enamorado MD When: As needed Test Results: Test results from this visit will be discussed in further detail at your follow- up appointment, if applicable. Pending Tests Upon Discharge: None Discharge Plan Admission Admit Date/Time: 05/06/23 05:11 Attending Provider: Vince Valdivia Primary Care Provider: Landon Enamorado Consulting Providers: Reji Goodwin; Charles Butcher; Lui sEnrique Nuno; Mg Erwin; David Smith; Juana Stacy NP; Lolita Holliday Instructions Additional Instructions / Restrictions: Please take Augmentin 1 tablet twice daily for the next 4 days to complete a 7- day course of antibiotics total for pneumonia. Continue all other home medications as prescribed. Please use the supplemental oxygen and BiPAP as instructed while in the hospital. Follow-up with your primary care doctor as needed. Discharge Orders/Prescriptions Prescriptions: New amoxicillin-pot clavulanate 875-125 mg tablet 1 tab PO BID 4 Days Qty: 8 0RF Continued aspirin [Adult Low Dose Aspirin] 81 MG tablet,delayed release (DR/EC) 81 mg PO DAILY citalopram 20 MG tablet 20 mg PO DAILY Patient Comments: Depression/anxiety lisinopril 40 MG tablet 40 mg PO DAILY Eliquis 5 MG tablet 5 mg PO BID atorvastatin 20 MG tablet 20 mg PO QHS sennosides-docusate sodium [Stool Softener-Stimulant Laxat] 8.6-50 mg Tablet 2 tab PO BID PRN (Reason: Constipation) Qty: 0 0RF [place] Nasal 0.65 % Aerosol,[place] 1 spray NASAL BID PRN PRN (Reason: NASAL DRYNESS) Qty: 0 0RF lorazepam [Ativan] 0.5 mg tablet 0.5 mg PO BID ipratropium-albuterol 0.5 mg-3 mg(2.5 mg base)/3 mL solution for nebulization 3 ml inhalation Q6H cetirizine 10 mg tablet 10 mg PO DAILY furosemide 20 mg tablet 20 mg PO BID guaifenesin 400 mg tablet 400 mg PO Q4H PRN (Reason: cough) Multi 27-800 mg-mcg tablet 1 tab PO DAILY meloxicam 15 mg tablet 15 mg PO DAILY Calmoseptine 0.44-20.6 % ointment in packet 1 applic topical TID PRN (Reason: skin irritation) Rx Instructions: apply to buttocks at needed for skin irritation miconazole nitrate [Antifungal (miconazole)] 2 % powder 1 applic topical BID PRN (Reason: Yeast) Rx Instructions: apply to affected skin folds diltiazem HCl 180 mg Capsule,Extended Release 24hr 180 mg PO DAILY metoprolol succinate 50 mg tablet extended release 24 hr 50 mg PO DAILY Referrals / Follow Up: Landon Enamorado MD [Primary Care Provider] - Disposition Disposition (needs filled in before D/C Order can be placed): Home Health Service
--- NOTE | 2023-05-08 15:38 | PCM.DC.SUM ---
Providers Date of Admission: 05/06/23 Date of Discharge: 05/08/23 Primary Care Physician: Dr. Landon Enamorado MD Consultations 05/06/23 06:30 Consult: Bus Operator / Pulmonary Medicine Routine Consulting Provider: Pulmonary Medicine josé [place] Reason for Consult: resp failure EMERGENT Consult: No MD Notified: Yes Date Notified: 05/06/23 Time Notified: 05:18 Method of Notification: Text Method of Consult:: In-Person Reason For Visit: ACUTE ON CHRONIC HYPOXIC & HYPERCAPNIC RESPIRATORY Diagnosis Discharge Diagnosis (1) Acute on chronic respiratory failure with hypoxia and hypercapnia: Status: Chronic Code(s): J96.21 - Acute and chronic respiratory failure with hypoxia; J96.22 - Acute and chronic respiratory failure with hypercapnia Medications at Discharge Home Medications aspirin 81 mg tablet,delayed release (Adult Low Dose Aspirin) 81 mg PO DAILY heart health 05/26/15 citalopram 20 mg tablet 20 mg PO DAILY depression 05/26/15 apixaban 5 mg tablet (Eliquis) 5 mg PO BID blood thinner 09/27/16 lisinopril 40 mg tablet 40 mg PO DAILY blood pressure 09/27/16 atorvastatin 20 mg tablet 20 mg PO QHS cholesterol 08/13/18 sennosides 8.6 mg-docusate sodium 50 mg tablet (Stool Softener-Stimulant Laxative) 2 tab PO BID PRN Constipation #0 tabs 07/02/22 sodium chloride 0.65 % nasal spray aerosol (Deep Sea Nasal) 1 spray NASAL BID PRN PRN NASAL DRYNESS #0 mL 07/02/22 lorazepam 0.5 mg tablet (Ativan) 0.5 mg PO BID anxiety 02/12/23 cetirizine 10 mg tablet 10 mg PO DAILY allergies 05/06/23 diltiazem HCl 180 mg capsule,extended release 24 hr 180 mg PO DAILY heart rate 05/06/23 furosemide 20 mg tablet 20 mg PO BID water pill 05/06/23 guaifenesin 400 mg tablet 400 mg PO Q4H PRN cough 05/06/23 ipratropium 0.5 mg-albuterol 3 mg (2.5 mg base)/3 mL nebulization soln 3 ml inhalation Q6H SOB 05/06/23 meloxicam 15 mg tablet 15 mg PO DAILY pain 05/06/23 menthol 0.44 %-zinc oxide 20.6 % topical ointment in packet (Calmoseptine) 1 applic topical TID PRN skin irritation 05/06/23 metoprolol succinate 50 mg tablet,extended release 24 hr 50 mg PO DAILY heart rate 05/06/23 miconazole nitrate 2 % topical powder (Antifungal (miconazole)) 1 applic topical BID PRN Yeast 05/06/23 vit 122-ferrous fumarate 27 mg iron-folic acid 800 mcg tablet ( Multi) 1 tab PO DAILY Vitamin 05/06/23 amoxicillin 875 mg-potassium clavulanate 125 mg tablet 1 tab PO BID 4 days #8 tabs 05/08/23 Hospital Course Operations None Procedures - (chest x-ray) Summary of Care Provided Minutes Spent on Discharge: 35 Hospital Course: Patient is a 77-year-old male who presented to [facility] ED on 05/06/2023 with shortness of breath and respiratory distress. Hospital course as noted below. Acute on chronic respiratory failure with hypoxia and hypercapnia, improved: Likely multifactorial. 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 On 4 to 5 L nasal cannula at baseline. Chest x-ray on admit showed diffuse groundglass opacities concerning for pulmonary edema versus diffuse pneumonia. ABG on admit showed pH 7.23, PCO2 of 90. WBC count 16 on admit, afebrile, normotensive. Initiated on BiPAP on admission with significant improvement. Bus Operator followed. Patient fairly quickly returned to his baseline level of oxygen. - Bus Operator strongly recommended initiation of noninvasive ventilation with sleeping on outpatient basis. Case management followed and was able to obtain approval for NIV and get the machine for patient from [facility] [place] prior to discharge. Recommend close outpatient follow up with PCP and Pulmonology. Right lower lobe pneumonia, community-acquired pneumonia with unknown organism: Chest x-ray and lab findings on admit as noted above. Infectious workup was negative. Treated with vancomycin and Zosyn while inpatient, deescalate to Augmentin on discharge. - Discharged on Augmentin to complete 7-day course of antibiotics total, end date of 05/12. Acute on chronic HFpEF, improved: Chest x-ray with concern for possible mild pulmonary edema on admission. BNP 131. He was mildly volume overloaded and legs but unsure on chronicity of this. Patient notably is obese, difficult to ascertain volume status. On home Lasix 20 mg twice daily. Most recent echo 06/2022 showed EF 60%, normal LV function, diastolic function indeterminate. Initiated on IV lasix 40 mg BID on admission with good urine output. Deescalated to home lasix by evening of 05/07. - Continue home lasix on discharge. Acute metabolic encephalopathy, improved: Presumed secondary to hypercapnia on admission. Improved quickly after admission with BiPAP. Debility, history of muscular dystrophy: Patient is wheelchair bound at baseline. Lives at home with his who is his primary tower operator. PT/OT/case management followed. Stable for discharge home. Discharge diagnoses: - Acute on chronic respiratory failure with hypoxia and hypercapnia, improved - Right lower lobe pneumonia, community-acquired pneumonia with unknown organism - Acute on chronic HFpEF, improved - Acute metabolic encephalopathy, improved - Debility, history of muscular dystrophy - Morbid obesity - Anxiety/depression - Paroxysmal Afib - HTN - HLD Total clinical time spent by myself addressing the patient's discharge needs: 35 minutes. Physical Exam Const alert, oriented x3 and no apparent distress Constitutional Narrative: Pleasant elderly male, morbidly obese, conversing normally, no acute distress. General Appearance: cooperative and comfortable HEENT normocephalic, head/scalp atraumatic, hearing grossly normal bilaterally, nasal mucous membranes and turbinates normal and moist oral mucous membranes Eyes PERRL, EOMs intact bilaterally and conjunctivae normal Neck full ROM, no lymphadenopathy and supple Lymph Lymphatic: no lymphadenopathy noted Chest inspection of chest normal Resp Resp Narrative: Satting well on 5 L nasal cannula, no increased work of breathing noted. Mild rhonchi noted in upper airways bilaterally, improved from previous day. Cardio regular rate, regular rhythm, no murmurs and peripheral pulses 2+ throughout GI normal to inspection, nondistended, normoactive bowel sounds, soft to palpation, non-tender and non-distended Back/Spine normal ROM Extremity normal to inspection Extremity Narrative: Mild bilateral lower extremity edema. Skin no rashes or lesions noted Psych mental status grossly normal Weight / BMI Weight Weight: 129.6 kg Body Mass Index (BMI) 43.4 ABG / Lab / Microbiology Data 05/07/23 03:55 05/07/23 03:55 Laboratory: Laboratory Results - last 24 hr 05/07/23 18:22: POC Glucose 99 05/07/23 18:30: Vancomycin Trough 34.3 H 05/08/23 00:12: POC Glucose 106 05/08/23 05:28: POC Glucose 90 05/08/23 05:36: Random Vancomycin 24.8 H 05/08/23 12:36: POC Glucose 91 Microbiology: Microbiology 05/06/23 11:40 Sputum, Expectorated/Coughed Gram Stain - Final 05/06/23 11:40 Sputum, Expectorated/Coughed Respiratory Culture - Final Mixed normal respiratory ann. No Streptococcus pneumoniae, beta-hemolytic Streptococcus or Staphylococcus aureus isolated. 05/06/23 05:18 Blood Culture (Wb) #2 - Anticubital Left Blood Culture - Preliminary No growth in 48 hours. 05/06/23 04:15 Blood Culture (Wb) - Left Wrist Blood Culture - Preliminary No growth in 48 hours. 05/06/23 08:00 Urine Catheter - [place]man Legionella Antigen - Final 05/06/23 08:00 Urine Catheter - Whitman Streptococcus pneumoniae Antigen (M - Final 05/06/23 05:13 Nasal Secretion SARS-CoV-2 & FLU Antigen (Rapid) - Final D/C Instructions Discharge Diet: No restrictions Weight Bearing Status: Weight bearing as tolerated Pending Tests Upon Discharge: None Please Follow Up With: Landon Enamorado MD When: As needed Meaningful Use Info Meaningful Use Diagnoses (Choose all that apply): None applicable Discharge Plan Admission Admit Date/Time: 05/06/23 05:11 Attending Provider: Vince Valdivia Primary Care Provider: Landon Enamorado Consulting Providers: Reji Goodwin; Charles Butcher; Luis Enrique Nuno; Mg Erwin; David Smith; Juana Stacy NP; Lolita Holliday Instructions Additional Instructions / Restrictions: Please take Augmentin 1 tablet twice daily for the next 4 days to complete a 7-day course of antibiotics total for pneumonia. Continue all other home medications as prescribed. Please use the supplemental oxygen and BiPAP as instructed while in the hospital. Follow-up with your primary care doctor as needed. Discharge Orders/Prescriptions Prescriptions: New amoxicillin-pot clavulanate 875-125 mg tablet 1 tab PO BID 4 Days Qty: 8 0RF Continued aspirin [Adult Low Dose Aspirin] 81 MG tablet,delayed release (DR/EC) 81 mg PO DAILY citalopram 20 MG tablet 20 mg PO DAILY Patient Comments: Depression/anxiety lisinopril 40 MG tablet 40 mg PO DAILY Eliquis 5 MG tablet 5 mg PO BID atorvastatin 20 MG tablet 20 mg PO QHS sennosides-docusate sodium [Stool Softener-Stimulant Laxat] 8.6-50 mg Tablet 2 tab PO BID PRN (Reason: Constipation) Qty: 0 0RF Deep Sea Nasal 0.65 % Aerosol,[place] 1 spray NASAL BID PRN PRN (Reason: NASAL DRYNESS) Qty: 0 0RF lorazepam [Ativan] 0.5 mg tablet 0.5 mg PO BID ipratropium-albuterol 0.5 mg-3 mg(2.5 mg base)/3 mL solution for nebulization 3 ml inhalation Q6H cetirizine 10 mg tablet 10 mg PO DAILY furosemide 20 mg tablet 20 mg PO BID guaifenesin 400 mg tablet 400 mg PO Q4H PRN (Reason: cough) Multi 27-800 mg-mcg tablet 1 tab PO DAILY meloxicam 15 mg tablet 15 mg PO DAILY Calmoseptine 0.44-20.6 % ointment in packet 1 applic topical TID PRN (Reason: skin irritation) Rx Instructions: apply to buttocks at needed for skin irritation miconazole nitrate [Antifungal (miconazole)] 2 % powder 1 applic topical BID PRN (Reason: Yeast) Rx Instructions: apply to affected skin folds diltiazem HCl 180 mg Capsule,Extended Release 24hr 180 mg PO DAILY metoprolol succinate 50 mg tablet extended release 24 hr 50 mg PO DAILY Referrals / Follow Up: Landon Enamorado MD [Primary Care Provider] - Disposition Disposition (needs filled in before D/C Order can be placed): Home Health Service Charges/Coding Visit Charges Inpatient E&M: 87632 Disch Hosp >30min
[2023-05-08] MEDS: Flu Vacc QS2023-24(65YR UP)/PF 240 MCG/0.7 ML Syringe IM (16:38)
== END 2023-05-08 17:25 | disposition home health service (06) | DRG 189 ==
LOC: ED 05:06 → ICU 05:39
PROVIDERS: Admitting Provider Internal Medicine; Emergency Provider Emergency Medicine; PCP Family Medicine; Visit Provider Hospitalist
DX: J96.22 Acute and chronic respiratory failure with hypercapnia (principal); I50.33 Acute on chronic diastolic (congestive) heart failure; G93.41 Metabolic encephalopathy; J18.9 Pneumonia, unspecified organism; J44.0 Chronic obstructive pulmonary disease with (acute) lower respiratory infection; Z68.41 Body mass index [BMI] 40.0-44.9, adult; I11.0 Hypertensive heart disease with heart failure; Z99.81 Dependence on supplemental oxygen; J96.21 Acute and chronic respiratory failure with hypoxia; I48.0 Paroxysmal atrial fibrillation; E66.01 Morbid (severe) obesity due to excess calories; G71.00 Muscular dystrophy, unspecified; F32.A Depression, unspecified; E78.5 Hyperlipidemia, unspecified; E87.6 Hypokalemia; G47.33 Obstructive sleep apnea (adult) (pediatric); F41.9 Anxiety disorder, unspecified; Z79.01 Long term (current) use of anticoagulants; Z99.3 Dependence on wheelchair; R53.81 Other malaise; R73.9 Hyperglycemia, unspecified; Z86.16 Personal history of COVID-19; Z87.891 Personal history of nicotine dependence
CPT/HCPCS: 36600; 71045; 80048; 80076; 80202; 82803; 82962; 83605; 83735; 83880; 84100; 84484; 85025; 87040; 87070; 87205; 87428; 87449; 87641; 92526; 92610; 93005; 94002; 94003; 94640; 94668; 99252; 99285; J7030; J7040; J7050; 90662; A4216; G0463; J1940

== ENCOUNTER 2023-05-29 13:50 | Emergency (ER) | payer OTHER, SELFPAY ==
[2023-05-29] VITALS (10 sets, daily range): BP systolic 146–167; BP diastolic 75–97; PULSE 61–74; RESP 16–22; TEMP 35.4–36.2; O2SAT 92–97; BMI 40.1
--- NOTE | 2023-05-29 14:14 | RAD_ITS ---
STUDY: X-RAY CHEST REASON FOR EXAM: Male, 77 years old. 5 day history of shortness of breath. TECHNIQUE: Single AP portable view of the chest. COMPARISON: Comparison is made with prior study dated May 06, 2023. FINDINGS: EKG electrodes are seen. Mass effect congestion and mild CHF although this as improved as compared to prior study. Blunting of the left costophrenic angle. There is mild cardiac enlargement. Normal mediastinum and joey. Normal visualized pulmonary arteries. There is atherosclerotic calcification of the aortic arch with tortuosity. There are diffuse degenerative changes of the visualized thoracic spine. Normal visualized ribs, clavicles, and shoulders. There is no demonstrated abnormality of the visualized soft tissue structures of the upper abdomen. RAD/Chest 1 View (Portable) IMPRESSION: Vascular congestion and mild degree of CHF. Electronically Signed: Kale Bourgeois MD at 14:29 EST ,
[2023-05-29 14:37] LABS: Absolute Lymphocyte Count 1.07 X10^3/uL (0.83-4.51); Absolute Neutrophil Count 7.4 X10^3/uL (2.0-7.7); Basophil# 0.18 X10^3/uL; Basophil% 1.6 % (0-1); Eosinophil# 1.56 X10^3/uL; Eosinophils% 14.2 % (0-5); Hematocrit 38.7 % (40-54); Hemoglobin 11.4 g/dL (13.0-16.5); Lymphocyte # 1.07 X10^3/ul (0.83-4.51); Lymphocyte % 9.7 % (19-41); Mean Corp Hgb Conc 29.5 g/dL (32-36); Mean Corpuscular Hgb 26.5 pg (27.0-32.0); Mean Platelet Vol. 10.5 fl (6.2-12.0); Monocyte# 0.78 X10^3/uL; Monocyte% 7.1 % (0-10); NRBC Flagged by Analyzer 0 % (0-5); Neutrophil # 7.35 X10^3/uL (2.7-7.7); Neutrophil % 66.9 % (47-70); Platelet Count 240 K/mm3 (150-450); RBC Distribution Width CV 15.9 % (11.6-14.6); RBC Distribution Width SD 52.6 fl (35.1-43.9)
[2023-05-29 14:52] LABS: Anion Gap 4 (5-15); BUN 12 mg/dL (7-18); BUN/Creat Ratio 31.3 RATIO (10-20); Calcium,Total 9.2 mg/dL (8.5-10.1); Chloride 100 mmol/L (98-107); Creatinine, Serum 0.38 mg/dL (0.70-1.30); EST Glomerular Filtration Rate 234 mL/min (>60); Est Glom Filt Rate - Afr Amer 283 mL/min (>60); Glucose 97 mg/dL (74-106); Potassium 3.7 mmol/L (3.5-5.1); Sodium Level 139 mmol/L (136-145); Troponin-I HS 16 pg/mL (3.0-78.0)
--- NOTE | 2023-05-29 15:27 | EDS_ITS ---
HPI History of Present Illness Chief Complaint: Shortness of Breath Informant: patient and spouse/S.O. Narrative Narrative: Patient has been having more dyspnea for the last week again. No fevers or chills. He coughs but no sputum production. He is on Eliquis twice a day. He has some chronic dyspnea due to muscular dystrophy. He denied a history of CHF but his chart has him with a history of CHF. He was just admitted for CHF exacerbation about 3 weeks ago. He is on Lasix. He has no chest pain. He has no myalgias. He does have COPD. He states the breathing treatments help him but his symptoms come back. He had an appointment with his experimental welder today but came in here instead. [facility] Medical History Aortic aneurysm Atrial fibrillation Current use of terminologist anticoagulation Depression Diastolic CHF Dysphagia HTN (hypertension) Hyperlipemia Hyperlipidemia Hypertension Hypoxia Muscular dystrophy Home Medications aspirin 81 mg tablet,delayed release (Adult Low Dose Aspirin) 81 mg PO DAILY heart health 05/26/15 [History Last Taken 08/27/22] citalopram 20 mg tablet 20 mg PO DAILY depression 05/26/15 [History Last Taken 08/27/22] apixaban 5 mg tablet (Eliquis) 5 mg PO BID blood thinner 09/27/16 [History Last Taken 08/27/22] lisinopril 40 mg tablet 40 mg PO DAILY blood pressure 09/27/16 [History Last Taken 08/27/22] atorvastatin 20 mg tablet 20 mg PO QHS cholesterol 08/13/18 [History Last Taken 08/27/22] sennosides 8.6 mg-docusate sodium 50 mg tablet (Stool Softener-Stimulant Laxative) 2 tab PO BID PRN Constipation #0 tabs 07/02/22 [Rx Last Taken Unknown] sodium chloride 0.65 % nasal spray aerosol (Deep Sea Nasal) 1 spray NASAL BID PRN PRN NASAL DRYNESS #0 mL 07/02/22 [Rx Last Taken Unknown] lorazepam 0.5 mg tablet (Ativan) 0.5 mg PO BID anxiety 02/12/23 [History Last Taken Unknown] cetirizine 10 mg tablet 10 mg PO DAILY allergies 05/06/23 [History Last Taken Unknown] diltiazem HCl 180 mg capsule,extended release 24 hr 180 mg PO DAILY heart rate 05/06/23 [History Last Taken Unknown] furosemide 20 mg tablet 20 mg PO BID water pill 05/06/23 [History Last Taken Unknown] guaifenesin 400 mg tablet 400 mg PO Q4H PRN cough 05/06/23 [History Last Taken Unknown] ipratropium 0.5 mg-albuterol 3 mg (2.5 mg base)/3 mL nebulization soln 3 ml i nhalation Q6H SOB 05/06/23 [History Last Taken Unknown] meloxicam 15 mg tablet 15 mg PO DAILY pain 05/06/23 [History Last Taken Unknown] menthol 0.44 %-zinc oxide 20.6 % topical ointment in packet (Calmoseptine) 1 applic topical TID PRN skin irritation 05/06/23 [History Last Taken Unknown] metoprolol succinate 50 mg tablet,extended release 24 hr 50 mg PO DAILY heart rate 05/06/23 [History Last Taken Unknown] miconazole nitrate 2 % topical powder (Antifungal (miconazole)) 1 applic topical BID PRN Yeast 05/06/23 [History Last Taken Unknown] vit 122-ferrous fumarate 27 mg iron-folic acid 800 mcg tablet ( Multi) 1 tab PO DAILY Vitamin 05/06/23 [History Last Taken Unknown] amoxicillin 875 mg-potassium clavulanate 125 mg tablet 1 tab PO BID 4 days #8 tabs 05/08/23 [Rx Last Taken Unknown] prednisone 20 mg tablet 60 mg (3 x 20 mg) PO DAILY #15 TABLETS 05/29/23 [Rx Last Taken Unknown] Allergy/AdvReac Type Severity Reaction Status Date / Time codeine AdvReac made me Verified 02/10/23 13:57 do crazy things Family History Father Hypertension Heart disease Renal cancer Kidney disease Mother Diabetes Heart disease Surgical History History of herniorrhaphy Social History household members: spouse Smoking Status: Former smoker how long ago did patient quit smoking: Smoked 1.5-2 ppd since teen until quit 2002. alcohol intake: current alcohol intake frequency: holidays/special occasions only substance use type: does not use ROS ROS ED ROS Narrative A complete review of systems was performed and is negative except as documented in the history of present illness. Some specific details below. Constitutional: No recent fevers or chills. Chronic malaise but no acute change. ENT: No difficulty swallowing. No swelling. No pain. No reflux symptoms. CV: No chest pain or palpitations. Respiratory: See history of present illness. He is on 6 L at baseline. Currently in the room he is on 4-1/2 to 5 L and has saturations at 94% showing no hypoxia. EMS had him in a lower level. But I do not have the EMS report and I do not know if they gave him a breathing treatment. GI: No abdominal pain. No nausea vomiting diarrhea. No blood in stool. : No frequency dysuria or hematuria. Musculoskeletal: No recent trauma. No pains. No new or worsening swelling. Skin: No rash. Nondiaphoretic. Neuro: No weakness or numbness. Endocrine: No polyuria or polydipsia. EXAM Physical Exam Narrative Exam Narrative: CONSTITUTIONAL: Patient is nontoxic in appearance. The patient looks comfortable. Work of breathing looks normal. HEENT: No notable trauma. Mucous membranes moist. EYES: No pallor. NECK:No JVD. No stridor. CARDIOVASCULAR: Regular rate. Regular rhythm. No notable murmur. No JVD. RESPIRATORY: No respiratory distress. Breathing is unlabored. He does have few coarse breath sounds mostly at the bases. This does seem to be some rales. Slightly prolonged expiration but no significant wheezing is noted at this time. GASTROINTESTINAL: Obese but not distended. Bowel sounds are normal. No te nderness. No guarding. No rebound. No palpable mass. No bruit is heard. GENITOURINARY: No tenderness over the bladder. No CVA tenderness. MUSCULOSKELETAL: Atraumatic. Chronic edema. Chronic stasis changes but no sign of acute infection at his shins. NEUROLOGICAL: Patient is alert and appropriate. No focal deficit noted. SKIN: No noted rashes. No diaphoresis. PSYCHIATRIC: Patient is calm. Mood is appropriate. Const Vital Signs: 05/29/23 13:52 05/29/23 14:19 05/29/23 14:19 Temperature 95.8 F L Temperature Source Temporal Pulse Rate 66 Respiratory Rate 16 20 H Respiratory Effort Respiratory Depth Blood Pressure Blood Pressure Mean Pulse Ox 94 93 Oxygen Delivery Method Nasal Cannula Nasal Cannula Nasal Cannula Oxygen Flow Rate (L/min) 6 6 6 05/29/23 14:22 05/29/23 15:35 05/29/23 16:22 Temperature Temperature Source Pulse Rate 66 63 65 Respiratory Rate 18 Respiratory Effort Respiratory Depth Blood Pressure 146/75 H 152/81 H Blood Pressure Mean 98 104 Pulse Ox Oxygen Delivery Method Oxygen Flow Rate (L/min) 05/29/23 14:53 05/29/23 18:28 05/29/23 19:50 Temperature 96.0 F L Temperature Source Temporal Pulse Rate 61 74 Respiratory Rate 20 H 22 H Respiratory Effort Short of Breath Respiratory Depth Shallow Blood Pressure 164/95 H 167/97 H Blood Pressure Mean 118 120 Pulse Ox 92 92 Oxygen Delivery Method Nasal Cannula Room Air Nasal Cannula Oxygen Flow Rate (L/min) 6 5 MDM MDM MDM Narrative Medical decision making narrative: Patient CBC shows minimal anemia. White count is normal. Electrolytes are overall. Elevation of the bicarb but this has been that way before. He is not sleepy or lethargic. Troponin is negative. BNP is negative. My independent interpretation of his x-ray does show increased markings. This is read as CHF. Patient was given Lasix here. He was also given breathing treatments that helped a lot. He is saturating at about 96% on 5 L when he is on 4 L normally. We discussed options. He would prefer not to be in the hospital at this time. I think that is reasonable. I will give him a course of prednisone. If he is worsening, developing fever, developing sputum he should return. Lab Data Attestation: I reviewed the patient's lab results. Labs: Laboratory Results - last 24 hr 05/29/23 14:17 WBC 11.0 RBC 4.30 L Hgb 11.4 L Hct 38.7 L MCV 90.0 MCH 26.5 L MCHC 29.5 L RDW Std Deviation 52.6 H RDW Coeff of Nick 15.9 H Plt Count 240 MPV 10.5 Immature Gran % (Auto) 0.500 Neut % (Auto) 66.9 Lymph % (Auto) 9.7 L [place] % (Auto) 7.1 Eos % (Auto) 14.2 H Baso % (Auto) 1.6 H Absolute Neuts (auto) 7.4 Absolute Lymphs (auto) 1.07 Nucleated RBC % 0 Sodium 139 Potassium 3.7 Chloride 100 Carbon Dioxide 35.0 H Anion Gap 4 L BUN 12 Creatinine 0.38 L Estim Creat Clear Calc 65.90 Est GFR (MDRD) Af Amer 283 Est GFR (MDRD) Non-Af 234 BUN/Creatinine Ratio 31.3 H Glucose 97 Calcium 9.2 Troponin I High Sens 16 B-Natriuretic Peptide 35.4 Radiography Diagnostic Testing: Clinical Impression(s) from Imaging Studies Chest X-Ray 05/29/23 14:14 IMPRESSION: Vascular congestion and mild degree of CHF. Electronically Signed: Kale Bourgeois MD at 14:29 EST , Discharge Plan Triage Chief Complaint: Shortness of Breath ED Provider: Joe Tran Dx/Rx/DC Orders Clinical Impression: COPD with acute exacerbation, Dyspnea Instructions: ED COPD Flare Prescriptions: New prednisone 20 mg tablet 60 mg PO DAILY Qty: 15 0RF No Action aspirin [Adult Low Dose Aspirin] 81 MG tablet,delayed release (DR/EC) 81 mg PO DAILY citalopram 20 MG tablet 20 mg PO DAILY Patient Comments: Depression/anxiety lisinopril 40 MG tablet 40 mg PO DAILY Eliquis 5 MG tablet 5 mg PO BID atorvastatin 20 MG tablet 20 mg PO QHS sennosides-docusate sodium [Stool Softener-Stimulant Laxat] 8.6-50 mg Tablet 2 tab PO BID PRN (Reason: Constipation) Qty: 0 0RF [place] Nasal 0.65 % Aerosol,[place] 1 spray NASAL BID PRN PRN (Reason: NASAL DRYNESS) Qty: 0 0RF lorazepam [Ativan] 0.5 mg tablet 0.5 mg PO BID ipratropium-albuterol 0.5 mg-3 mg(2.5 mg base)/3 mL solution for nebulization 3 ml inhalation Q6H cetirizine 10 mg tablet 10 mg PO DAILY furosemide 20 mg tablet 20 mg PO BID guaifenesin 400 mg tablet 400 mg PO Q4H PRN (Reason: cough) Multi 27-800 mg-mcg tablet 1 tab PO DAILY meloxicam 15 mg tablet 15 mg PO DAILY Calmoseptine 0.44-20.6 % ointment in packet 1 applic topical TID PRN (Reason: skin irritation) Rx Instructions: apply to buttocks at needed for skin irritation miconazole nitrate [Antifungal (miconazole)] 2 % powder 1 applic topical BID PRN (Reason: Yeast) Rx Instructions: apply to affected skin folds diltiazem HCl 180 mg Capsule,Extended Release 24hr 180 mg PO DAILY metoprolol succinate 50 mg tablet extended release 24 hr 50 mg PO DAILY amoxicillin-pot clavulanate 875-125 mg tablet 1 tab PO BID 4 Days Qty: 8 0RF Primary Care Provider: Landon Enamorado Referrals: Landon Enamorado MD [Primary Care Provider] - Charles Butcher DO [Med Staff - Active Staff] - As soon as possible Disposition Disposition: Home, Self Care
[2023-05-29] MEDS: Ipratropium/Albuterol Sulfate 3 ML AMPUL.NEB INHALATION ×2 (15:34→20:23)
[2023-05-29] MEDS: Furosemide 40 MG/4 ML Vial IV (15:38)
[2023-05-29 15:49] LABS: BNP,B-Type NATRIURETIC PEPTIDE 35.4 pg/mL (0-100)
[2023-05-29] MEDS: MethylPREDNISolone 125 MG/2 ML Vial IV (16:22)
--- NOTE | 2023-05-29 20:40 | CPS ---
[2023] x1 Duoneb given to pt. in ER. Pre-HR=70, RR=20 with diminished breath sounds. Post-HR=75, RR=18 with better air movement in lungs. Scattered wheezes noted. Pt. feels more comfortable with his breathing at this time.
== END 2023-05-29 21:37 | disposition home or self-care (01) ==
PROVIDERS: Emergency Provider Emergency Medicine; PCP Family Medicine; Visit Provider Emergency Medicine
DX: J44.1 Chronic obstructive pulmonary disease with (acute) exacerbation (principal); G71.00 Muscular dystrophy, unspecified; I11.0 Hypertensive heart disease with heart failure; I50.32 Chronic diastolic (congestive) heart failure; D64.9 Anemia, unspecified; Z87.891 Personal history of nicotine dependence; E78.5 Hyperlipidemia, unspecified; Z79.01 Long term (current) use of anticoagulants; Z79.899 Other long term (current) drug therapy; Z79.52 Long term (current) use of systemic steroids; E66.9 Obesity, unspecified
CPT/HCPCS: 71045; 80048; 83880; 84484; 85025; 87811; 94640; 94760; 96374; 96375; 99283; A4216; J1940

== ENCOUNTER → 2023-06-09 | Outpatient (CLI) | payer OTHER, SELFPAY | END | disposition home or self-care (01) | PROVIDERS: PCP Family Medicine; Referring Provider Nurse Practitioner Acute Care; Visit Provider Nurse Practitioner Acute Care | DX: J18.9 Pneumonia, unspecified organism (principal) | CPT/HCPCS: 87070; 87077; 87186; 87205 ==

== ENCOUNTER 2023-07-25 01:09 | Emergency (ER) | payer OTHER, SELFPAY ==
[2023-07-25 01:10] VITALS: BP 128/79; PULSE 62; RESP 16; TEMP 36.5; O2SAT 92; BMI 44.7
--- OUTSIDE RECORDS SUMMARY | 2023-07-25 01:28 | XMS RPT_ITS | CCD ---
Author Name Unknown Address [address] [place] [address] Organization [facility] Care Team Providers Care Bearing Maker Name Role Phone LEDA BRUNO Admitting Unavailable LEDA BRUNO Attending Unavailable ADEN JUNE Referring Unavailable JESSI DU Consulting Unavailable Allergies Allergy Classification Reported Allergen(s) Allergy Type Date of Onset Reaction(s) Facility (1 source) Codeine; Translations: [CODEINE] Drug Allergy 03-30-2009 [facility] Other [place] [facility] Problems Problem Classification Problem Date Documented Da te Episodic/Chronic Other liver diseases (1 source) Abnormal levels of other serum enzymes; Translations: [Abnormal levels of other serum enzymes] Onset: 08-14-2018 Episodic Results Test Name Value Interpretation Reference Range Facil ity Encounters Encounter Date Encounter Type Care Provider Facility Start: 08-14-2018 End: 08-15-2018 Patient encounter procedure LEDA BRUNO [facility] Summary Purpose Family History No Family History Records Found Advance Directives No Advanced Directives Records Found Hospital Course Note HNO ID: [id number] Author: Katty Chong DO Service: Hospital Medicine Author Type: Physician Type: Discharge Summaries Filed: 08/15/2018 5:57 PM Note Text: DISCHARGE SUMMARY PATIENT NAME: Heath Shabazz Code Status: Full Code Highest Readmission Risk Score: 7 The 30 day readmissions risk score is derived from an internally validated risk model which evaluates patient level characteristics, utilization history, medication orders and lab results up until the day of discharge. Patients with a score of 40 or above are considered highest risk for readmission. Specific patient level drivers will be listed at the bottom of the summary. Admission Information Admission Information ADMIT DATE: 08/14/2018 DISCHARGE DATE: 08/15/2018 [facility] Doctor: Leda Blount Primary Care Provider: Dante Enamorado MD My Medical Team Members: Treatment Team: Attending Provider: Leda Blount Primary Service: Jeremy Villalpando Consulting: Jessi (more content not included)... Additional Source Comments (unrecognized sect ion and content) No Status Records Found INFORMATION SOURCE (unrecogn ized section and content) FOR RECORDS PERTAINING TO PATIENTS WHO ARE OR HAVE BEEN ENROLLED IN A CHEMICAL DEPENDENCY/SUBSTANCEABUSE PROGRAM, SOME INFORMATION MAY BE OMITTED. This clinical summary was aggregated from multiple sources. Caution should be exercised in using it in the provision of clinical care. This summary normalizes information from multiple sources, and as a consequence, information in this document may materially change the coding, format and clinical context of patient data. In addition, data may be omitted in some cases. CLINICAL DECISIONS SHOULD BE BASED ON THE PRIMARY CLINICAL RECORDS. [employer] provides no warranty or guarantee of the accuracy or completeness of information in this document.
--- NOTE | 2023-07-25 02:19 | ED.VIS.CHEST ---
HPI History of Present Illness Chief Complaint: Chest Pain Informant: patient and EMS Narrative Narrative: 77-year-old male with multiple long-term medical problems and in hospice for muscular dystrophy presenting to the emergency room with shortness of breath/chest pain. Patient states he did not sleep well last night. He is very tired. Tonight he was sitting in his chair when he got a sharp pain left upper chest that took his breath away. He states he was unable to catch his breath. He called ambulance and revoked hospice. Patient states now his symptoms have resolved. He chronically wears 6 L of oxygen per him. He states he is not having any further symptoms. Prehospital EKG was reviewed. [facility] Medical History Aortic aneurysm Atrial fibrillation Current use of prison anticoagulation Depression Diastolic CHF Dysphagia HTN (hypertension) Hyperlipemia Hyperlipidemia Hypertension Hypoxia Muscular dystrophy Home Medications aspirin 81 mg tablet,delayed release (Adult Low Dose Aspirin) 81 mg PO DAILY heart health 05/26/15 [History Last Taken 08/27/22] citalopram 20 mg tablet 20 mg PO DAILY depression 05/26/15 [History Last Taken 08/27/22] apixaban 5 mg tablet (Eliquis) 5 mg PO BID blood thinner 09/27/16 [History Last Taken 08/27/22] lisinopril 40 mg tablet 40 mg PO DAILY blood pressure 09/27/16 [History Last Taken 08/27/22] atorvastatin 20 mg tablet 20 mg PO QHS cholesterol 08/13/18 [History Last Taken 08/27/22] sennosides 8.6 mg-docusate sodium 50 mg tablet (Stool Softener-Stimulant Laxative) 2 tab PO BID PRN Constipation #0 tabs 07/02/22 [Rx Last Taken Unknown] sodium chloride 0.65 % nasal spray aerosol (Deep Sea Nasal) 1 spray NASAL BID PRN PRN NASAL DRYNESS #0 mL 07/02/22 [Rx Last Taken Unknown] lorazepam 0.5 mg tablet (Ativan) 0.5 mg PO BID anxiety 02/12/23 [History Last Taken Unknown] cetirizine 10 mg tablet 10 mg PO DAILY allergies 05/06/23 [History Last Taken Unknown] diltiazem HCl 180 mg capsule,extended release 24 hr 180 mg PO DAILY heart rate 05/06/23 [History Last Taken Unknown] furosemide 20 mg tablet 20 mg PO BID water pill 05/06/23 [History Last Taken Unknown] guaifenesin 400 mg tablet 400 mg PO Q4H PRN cough 05/06/23 [History Last Taken Unknown] ipratropium 0.5 mg-albuterol 3 mg (2.5 mg base)/3 mL nebulization soln 3 ml inhalation Q6H SOB 05/06/23 [History Last Taken Unknown] meloxicam 15 mg tablet 15 mg PO DAILY pain 05/06/23 [History Last Taken Unknown] menthol 0.44 %-zinc oxide 20.6 % topical ointment in packet (Calmoseptine) 1 applic topical TID PRN skin irritation 05/06/23 [History Last Taken Unknown] metoprolol succinate 50 mg tablet,extended release 24 hr 50 mg PO DAILY heart rate 05/06/23 [History Last Taken Unknown] miconazole nitrate 2 % topical powder (Antifungal (miconazole)) 1 applic topical BID PRN Yeast 05/06/23 [History Last Taken Unknown] vit 122-ferrous fumarate 27 mg iron-folic acid 800 mcg tablet ( Multi) 1 tab PO DAILY Vitamin 05/06/23 [History Last Taken Unknown] budesonide 1 mg/2 mL suspension for nebulization 1 mg (2 mL) inhalation BID #60 mL 06/09/23 [Rx Last Taken Unknown] doxycycline hyclate 100 mg tablet 100 mg PO BID #20 tabs 06/09/23 [Rx Last Taken Unknown] prednisone 10 mg tablet 10 mg PO QDAY #30 tabs 06/09/23 [Rx Last Taken Unknown] Allergy/AdvReac Type Severity Reaction Status Date / Time codeine AdvReac made me Verified 07/25/23 01:12 do sanjuanita barton Family History Father Hypertension Heart disease Renal cancer Kidney disease Mother Diabetes Heart disease Surgical History History of herniorrhaphy Social History household members: spouse Smoking Status: Former smoker how long ago did patient quit smoking: Smoked 1.5-2 ppd since teen until quit 2002. alcohol intake: current alcohol intake frequency: holidays/special occasions only substance use type: does not use ROS ROS ED Constitutional Constitutional ED: Denies chills, fever(s) or weight loss Eyes Eyes: Denies change in vision or diplopia ENT ENT ED: Denies ear pain, rhinorrhea or sore throat Cardiovascular Cardiovascular: Reports chest pain; Denies orthopnea, palpitations or racing heartbeat Respiratory/Chest Respiratory/Chest: Reports cough and dyspnea; Denies orthopnea Gastrointestinal Gastrointestinal: Denies abdominal pain, diarrhea, nausea or vomiting Genitourinary Genitourinary ED: Denies dysuria, hematuria or urinary frequency Musculoskeletal Musculoskeletal: Reports other Details: Generalized weakness ; Denies arthralgias or myalgias Integumentary Denies abscess or rash Neurologic Neurologic: Denies headache(s) or weakness Psychiatric Psychiatric: Denies anxiety, depression, suicidal ideation or suicidal thoughts Endocrine Endocrinology: Denies polydipsia, polyphagia or polyuria Allergic/Immunologic Allergic/Immunologic ED: Denies mouth swelling, tongue swelling or urticaria EXAM Physical Exam Const Vital Signs: 07/25/23 01:10 Temperature 97.7 F L Temperature Source Temporal Pulse Rate 62 Respiratory Rate 16 Blood Pressure 128/79 H Blood Pressure Mean 95 Pulse Ox 92 Oxygen Delivery Method Nasal Cannula Oxygen Flow Rate (L/min) 6 Positive well nourished, well developed and obese General Appearance ED: well developed Nutritional Appearance: obese HEENT Reports normocephalic, head/scalp atraumatic and moist mucous membranes Eyes PERRL and EOMs intact bilaterally Neck no lymphadenopathy, supple and no JVD Resp normal respiratory effort and clear to auscultation bilaterally Cardio regular rate, regular rhythm and no murmurs GI normal to inspection, nondistended, normoactive bowel sounds and non-tender Palpation: soft Back/Spine no CVA tenderness and normal ROM Extremity normal to inspection General Extremety ED: Negative for edema General Extremity: Negative for edema Neuro oriented x3 and CN's II-XII intact bilaterally Sensorium / Orientation: alert Motor Exam: strength 5/5 throughout Psych mental status grossly normal Mood & Affect: Negative for depressed or tearful Skin no rashes or lesions noted and no wounds MDM MDM MDM Narrative Medical decision making narrative: Patient is appearing in no acute distress in fact he is sleeping. I can easily awaken him. Patient is asymptomatic since arrival. Asked him if he would like to pursue a workup and he states he would prefer to go home and sleep. He is a DNR CC and is enrolled in hospice until he called the ambulance. Thank is very reasonable not to pursue a large workup if that is what he wishes. At this point the patient to be discharged History & Record Review Discussion w/independent historian: EMS personnel and Patient EKG Initial EKG: Attestation: I personally reviewed and interpreted this EKG as follows: Comments: Normal sinus rhythm ventricular rate of 60 bpm. Discharge Plan Triage Chief Complaint: Chest Pain ED Provider: Malick Dejesus Dx/Rx/DC Orders Clinical Impression: Dyspnea, Muscular dystrophy, Chest pain Instructions: ED Chest Pain, Uncertain Cause, ED Dyspnea Prescriptions: No Action doxycycline hyclate 100 mg tablet 100 mg PO BID Qty: 20 0RF prednisone 10 mg tablet 10 mg PO QDAY Qty: 30 0RF Rx Instructions: take 4 tabs for three days, then 3 tabs for three days, then 2 tabs for three days, then 1 tab for 3 days budesonide 1 mg/2 mL suspension for nebulization 1 mg inhalation BID Qty: 60 6RF aspirin [Adult Low Dose Aspirin] 81 MG tablet,delayed release (DR/EC) 81 mg PO DAILY citalopram 20 MG tablet 20 mg PO DAILY Patient Comments: Depression/anxiety lisinopril 40 MG tablet 40 mg PO DAILY Eliquis 5 MG tablet 5 mg PO BID atorvastatin 20 MG tablet 20 mg PO QHS sennosides-docusate sodium [Stool Softener-Stimulant Laxat] 8.6-50 mg Tablet 2 tab PO BID PRN (Reason: Constipation) Qty: 0 0RF Deep Sea Nasal 0.65 % Aerosol,[place] 1 spray NASAL BID PRN PRN (Reason: NASAL DRYNESS) Qty: 0 0RF lorazepam [Ativan] 0.5 mg tablet 0.5 mg PO BID ipratropium-albuterol 0.5 mg-3 mg(2.5 mg base)/3 mL solution for nebulization 3 ml inhalation Q6H cetirizine 10 mg tablet 10 mg PO DAILY furosemide 20 mg tablet 20 mg PO BID guaifenesin 400 mg tablet 400 mg PO Q4H PRN (Reason: cough) Multi 27-800 mg-mcg tablet 1 tab PO DAILY meloxicam 15 mg tablet 15 mg PO DAILY Calmoseptine 0.44-20.6 % ointment in packet 1 applic topical TID PRN (Reason: skin irritation) Rx Instructions: apply to buttocks at needed for skin irritation miconazole nitrate [Antifungal (miconazole)] 2 % powder 1 applic topical BID PRN (Reason: Yeast) Rx Instructions: apply to affected skin folds diltiazem HCl 180 mg Capsule,Extended Release 24hr 180 mg PO DAILY metoprolol succinate 50 mg tablet extended release 24 hr 50 mg PO DAILY Primary Care Provider: Landon Enamorado Referrals: Landon Enamorado MD [Primary Care Provider] - As Needed Disposition Disposition: Home, Self Care
[2023-07-25 02:31] VITALS: BP 127/69; PULSE 77; RESP 18; O2SAT 99
[2023-07-25 04:05] VITALS: BP 126/65; PULSE 56; RESP 20; O2SAT 95
[2023-07-25 06:00] VITALS: BP 163/72; PULSE 63; RESP 14; O2SAT 96
[2023-07-25 06:19] VITALS: BP 163/72; PULSE 62; RESP 14; O2SAT 96
== END 2023-07-25 06:32 | disposition home or self-care (01) ==
PROVIDERS: Emergency Provider Emergency Medicine; PCP Family Medicine; Visit Provider Emergency Medicine
DX: R06.02 Shortness of breath (principal); G71.00 Muscular dystrophy, unspecified; I50.32 Chronic diastolic (congestive) heart failure; I11.0 Hypertensive heart disease with heart failure; R07.9 Chest pain, unspecified; Z87.891 Personal history of nicotine dependence; Z51.5 Encounter for palliative care; E78.5 Hyperlipidemia, unspecified; E66.9 Obesity, unspecified; Z66 Do not resuscitate
CPT/HCPCS: 93005; 99282